=== PATIENT | female | born 1945 ===

== ENCOUNTER 2016-12-12 15:22 | Inpatient (IN) | payer MEDICARE, OTHER ==
[2016-12-12 15:23] VITALS: BMI 37.1
[2016-12-12] MEDS ORDERED: Sodium Chloride 0.9% 1,000 ML IV STA (16:16)
[2016-12-12] MEDS ORDERED: Pantoprazole 80 MG in Sodium Chloride 0.9% 100 ML IV STA (16:16)
--- NOTE | 2016-12-12 16:26 | C.PDOC ---
History Of Present Illness 70 y/o female presents to the ED for evaluation of bloody stool x 3 days. Patient reports history of rectal prolapse surgical repair and ulcer in the same spot. She states that she has history of GI bleed for which she has been seen by Dr. Hutchinson. Patient is currently healing from ulcer and has reportedly stopped all blood thinners with the exception of Aspirin, which she takes for Atrial Fibrillation. Patient also notes history of anemia secondary to GI bleed. She admits to feeling weak and dizzy but denies any abdominal pain, vomiting, chest pain, shortness of breath, or other complaints. Time Seen by Provider: 12/12/16 16:11 Chief Complaint (Nursing): GI Problem History Per: Patient History/Exam Limitations: no limitations Onset/Duration Of Symptoms: Days (3), Gradual, Persistent Current Symptoms Are (Timing): Still Present Number Of Bleeding Episodes: Multiple: Pain Scale Rating Of: 0 Currently Taking: Aspirin Recent travel outside of the [place]: No Past Medical History Reviewed: Historical Data, Nursing Documentation, Vital Signs Vital Signs: Last Vital Signs Temp 97.8 F 12/12/16 15:35 Pulse 93 H 12/12/16 15:35 Resp 20 12/12/16 15:35 BP 105/68 12/12/16 15:35 Pulse Ox 99 12/12/16 16:39 - Medical History PMH: Anemia ( acute and chronic due to GI blood loss), Arthritis, CAD, Colonic Polyps, Diabetes, Diverticulitis (diverticulosis 2014 and 05/2016), Gastritis, HTN, Hypercholesterolemia, TIA Surgical History: Coronary Stent, Endoscopy - [facility] Procedures CLOSED ENDOSCOPIC BIOPSY OF LARGE INTESTINE (11/30/14) CORONAR ARTERIOGR-2 CATH (11/30/14) ESOPHAGOGASTRODUODENOSCOPY [EGD] W/CLOSED BIOPSY (11/30/14) EXCISION OF STOMACH, ENDO, DIAGN (04/09/16) INJECT/INFUSE NEC (06/04/05) LEFT HEART CARDIAC CATH (11/30/14) LT HEART ANGIOCARDIOGRAM (11/30/14) PACKED CELL TRANSFUSION (11/30/14) REPAIR RECTUM, PERCUTANEOUS ENDOSCOPIC APPROACH (07/27/16) RESECTION OF SIGMOID COLON, PERCUTANEOUS ENDOSCOPIC APPROACH (07/27/16) ROBOTIC ASSISTED PROCEDURE OF TRUNK, PERC ENDO APPROACH (07/27/16) TRANSFUSE NONAUT FROZEN RED CELLS IN PERIPH VEIN, [facility] (09/20/16) TRANSFUSE NONAUT RED BLOOD CELLS IN PERIPH VEIN, [facility] (06/27/16) TRANSFUSE NONAUT WHOLE BLOOD IN PERIPH VEIN, [facility] (10/13/16) Family History: States: Unknown Family Hx - Social History Hx Tobacco Use: Yes (cut down per daughter) Hx Alcohol Use: No Hx Substance Use: No - Immunization History Hx Tetanus Toxoid Vaccination: Yes Hx Influenza Vaccination: No (per pt declines) Hx Pneumococcal Vaccination: No Review Of Systems Except As Marked, All Systems Reviewed And Found Negative. Constitutional: Positive for: Weakness Cardiovascular: Negative for: Chest Pain Respiratory: Negative for: Shortness of Breath Gastrointestinal: Positive for: Hematochezia. Negative for: Vomiting, Abdominal Pain Neurological: Positive for: Dizziness Physical Exam - Physical Exam Appears: Non-toxic, No Acute Distress Skin: Warm, Dry, Pale Head: Atraumatic, Normacephalic Eye(s): bilateral: PERRL, Conjunctiva Pale Oral Mucosa: Moist Neck: Normal ROM, Supple Chest: Symmetrical Cardiovascular: Rhythm Regular Respiratory: Normal Breath Sounds, No Rales, No Rhonchi, No Wheezing Gastrointestinal/Abdominal: Normal Exam, Soft, No Tenderness Rectal: Deferred Back: Normal Inspection, No CVA Tenderness Extremity: Normal ROM Neurological/Psych: Oriented x3, Normal Speech, Normal Cognition ED Course And Treatment - Laboratory Results Result Diagrams: 12/12/16 16:59 12/12/16 16:59 O2 Sat by Pulse Oximetry: 99 (ra) Pulse Ox Interpretation: Normal Progress Note: Patient evaluated by PMD Dr. Conley at bedside who requests labs, bleeding scan, and admission. EKG, blood work, occult blood stool, and GI bleeding scan were ordered. Patient was treated with Pepcid IVP, Protonix IV, and IV fluids. Labs significant for HGB 7.2 - 2 units of PRBC ordered. Patient accepted for admission under the care of Dr. Conley for gastrointestinal hemorrhage. Disposition - Disposition Disposition: HOSPITALIZED Disposition Time: 16:24 Condition: FAIR - Clinical Impression Clinical Impression: Gastrointestinal hemorrhage - PA / BATCH MAKER / Resident Statement MD/DO has reviewed & agrees with the documentation as recorded. - Scribe Statement The provider has reviewed the documentation as recorded by the Scribe (Suzanna Zaidi) All medical record entries made by the Scribe were at my direction and personally dictated by me. I have reviewed the chart and agree that the record accurately reflects my personal performance of the history, physical exam, medical decision making, and the department course for this patient. I have also personally directed, reviewed, and agree with the discharge instructions and disposition. Decision To Admit - Pt Status Changed To: Hospital Disposition Of: Inpatient - Admit Certification Admit to Inpatient:: After my assessment, the patient will require hospitalization for at least two midnights. This is because of the severity of symptoms shown, intensity of services needed, and/or the medical risk in this patient being treated as an outpatient. - InPatient: Physician Admission Certification: I certify that this patient requires 2 or more midnights of care for the following reason:: Patient with active GI bleeding, needs bleeding scan, GI consult and possible surgical procedure/ endoscopy. Patient will need to be hospitalized for more than 2 days. - . Bed Request Type: Regular Admitting Physician: Otoniel Conley Jr. Patient Diagnosis: Gastrointestinal hemorrhage
[2016-12-12] MEDS ORDERED: Sodium Chloride 0.9% 1,000 ML ONE (16:42)
[2016-12-12 17:05] LABS: BASO # 0.1 K/uL (0.0-0.2); BASO % 1.4 % (0.0-2.0); EOS # 0.3 K/uL (0.0-0.7); EOS % 4.3 % (0.0-4.0); HEMATOCRIT 23.4 % (34.0-47.0); LYMPH # 1.7 K/uL (1.0-4.3); LYMPH % 23.1 % (20.0-40.0); MEAN CORPUSCULAR HEMOGLOBIN 25.3 pg (27.0-31.0); MEAN CORPUSCULAR HGB CONC 30.8 g/dL (33.0-37.0); MEAN PLATELET VOLUME 8.6 fL (7.2-11.7); MONO # 0.8 K/uL (0.0-0.8); MONO % 10.4 % (0.0-10.0); RED CELL DISTRIBUTION WIDTH 19.9 % (11.5-14.5); WHITE BLOOD COUNT 7.3 K/uL (4.8-10.8)
[2016-12-12 17:08] LABS: MEAN CELL VOLUME 82.1 fL (81.0-99.0)
[2016-12-12 17:16] LABS: CHLORIDE 103 mmol/L (98-107); SODIUM 139 mmol/L (132-148)
[2016-12-12 17:17] LABS: POTASSIUM 4.2 mmol/L (3.6-5.2)
[2016-12-12 17:19] LABS: ALB/GLOB RATIO 1.3 (1.0-2.1); ALKALINE PHOSPHATASE 77 U/L (38-126); ALT/SGPT 16 U/L (9-52); AST/SGOT 18 U/L (14-36); BILIRUBIN,TOTAL 0.2 mg/dL (0.2-1.3); BLOOD UREA NITROGEN 22 mg/dL (7-17); CARBON DIOXIDE 22 mmol/L (22-30); GFR AFRICAN-AMERICAN > 60; TOTAL PROTEIN 6.3 g/dL (6.3-8.3)
[2016-12-12 17:20] LABS: CALCIUM 8.2 mg/dl (8.6-10.4); GLUCOSE,RANDOM 77 mg/dL (65-105)
[2016-12-12] MEDS ORDERED: Influenza Virus Vaccine 45 mcg/0.5 ml Syr IM ONE (20:01)
--- NOTE | 2016-12-13 03:47 | CP.PCM.HP ---
History of Present Illness - History of Present Illness History of Present Illness: CC: "rectal bleeding and weakness" HPI: Pt is 71F with medical history significant for internal hemorrhoids, diabetes, atrial fibrillation, CAD and anemia presenting to ED with complaint of weakness and dark bloody stool x3 days. Patient reports she has recent surgical history of rectal prolapse repair and was noted to have an ulcer to the affected area. She has a history of GI bleed for which she is seen by Dr. Hutchinson and multiple hospitalizations for anemia requiring blood transfusions. Patient reports she recently stopped blood thinners except for aspirin which she takes for atrial fibrillation. Patient admits to dizziness but denies other symptoms including abdominal pain, vomiting, chest pain, and shortness of breath. Per ED PA, Dr. Hutchinson reported no colonoscopy at this time as he is concerned for perforation. PMD: Dr. Conley GI: Dr. Phipps Cardio: Dr. Whitaker Surg Physician Asst: Dr. Rob PMH: Hypertension, CAD - 3 stents placed, DM, HLD, Aortic Aneurysm, Anemia, GI bleed, internal hemorrhoids, Colonic polyps, Diverticulitis (diverticulosis 2014 and 05/2016), Gastritis Meds: Aspirin 81mg qd, Atorvastat 40mg qd, Losartan 50mg qd, Metformin 500mg qd , Carvedilol 12.5mg PO daily, Pantoprazole 40mg qd Allergies: Penicillin (Arms swelled/rash when she was younger) Family Hx: Mother of [place], Brother of Liver CA Surgical Hx: EGD with biopsy, Stent placements (3) in 2014, Colonoscopy with Dr. Payton 06/14/2016-internal hemorrhoids with rectal prolapse, rectal prolapse repair, surgery for internal hemorrhoids (2016) Social Hx: Smokes 5-6 cigarettes per day for 48 years , denies alcohol and drug use. Lives with daughter Present on Admission - Present on Admission Any Indicators Present on Admission: No History of DVT/PE: No History of Uncontrolled Diabetes: No Urinary Catheter: No Decubitus Ulcer Present: No Review of Systems - Constitutional Constitutional: Lethargy. absent: Chills, Fever, Headache - EENT Eyes: absent: Blurred Vision, Change in Vision Nose/Mouth/Throat: absent: Nasal Congestion, Nasal Discharge - Cardiovascular Cardiovascular: absent: Chest Pain, Dyspnea, Dyspnea on Exertion, Palpitations - Respiratory Respiratory: absent: Cough, Wheezing - Gastrointestinal Gastrointestinal: Hematochezia. absent: Abdominal Pain, Coffee Ground Emesis, Constipation, Diarrhea, Nausea, Vomiting - Genitourinary Genitourinary: absent: Change in Urinary Stream - Musculoskeletal Musculoskeletal: Arthralgias, Muscle Cramps - Integumentary Integumentary: absent: Changing Lesions, New Lesions - Neurological Neurological: Dizziness, Weakness. absent: Focal Weakness - Psychiatric Psychiatric: absent: Anxiety, Depression Past Patient History - Infectious Disease Hx of Infectious Diseases: None - Past Medical History & Family History Past Medical History?: Yes - Past Social History Smoking Status: Light Smoker < 10 Cigarettes Daily - CARDIAC Hx Hypercholesterolemia: Yes Hx Hypertension: Yes - PULMONARY Hx Respiratory Disorders: No - NEUROLOGICAL Hx Transient Ischemic Attacks (TIA): Yes - HEENT Hx HEENT Problems: No - RENAL Hx Chronic Kidney Disease: No - ENDOCRINE/METABOLIC Hx Endocrine Disorders: Yes Hx Diabetes Mellitus Type 1: Yes Hx Diabetes Mellitus Type 2: Yes - HEMATOLOGICAL/ONCOLOGICAL Hx Anemia: Yes ( acute and chronic due to GI blood loss) - INTEGUMENTARY Hx Dermatological Problems: No - MUSCULOSKELETAL/RHEUMATOLOGICAL Hx Falls: No - GASTROINTESTINAL Hx Diverticulitis: Yes (diverticulosis 2014 and 05/2016) Hx Gastritis: Yes - GENITOURINARY/GYNECOLOGICAL Hx Genitourinary Disorders: No - PSYCHIATRIC Hx Substance Use: No - SURGICAL HISTORY Hx Coronary Stent: Yes - ANESTHESIA Hx Anesthesia: Yes Hx Anesthesia Reactions: No Hx Malignant Hyperthermia: No Has any member of the family had a problem w/ anesthesia?: Yes Meds Allergies/Adverse Reactions: Allergies Allergy/AdvReac Type Severity Reaction Status Date / Time Penicillins Allergy RASH Verified 12/12/16 15:34 acetaminophen [From Percocet] AdvReac DIZZINESS Verified 12/12/16 15:34 oxycodone HCl [From Percocet] AdvReac DIZZINESS Verified 12/12/16 15:34 Physical Exam - Constitutional Appears: Non-toxic, No Acute Distress - Head Exam Head Exam: ATRAUMATIC, NORMAL INSPECTION, NORMOCEPHALIC - Eye Exam Eye Exam: EOMI, Normal appearance, PERRL Additional comments: conjunctival pallor - ENT Exam ENT Exam: Mucous Membranes Moist - Neck Exam Neck exam: Positive for: Full Rom, Normal Inspection - Respiratory Exam Respiratory Exam: Clear to Auscultation Bilateral, NORMAL BREATHING PATTERN. absent: Rales, Rhonchi, Wheezes - Cardiovascular Exam Cardiovascular Exam: +S1, +S2. absent: Tachycardia, Diastolic murmur, Systolic Murmur - GI/Abdominal Exam GI & Abdominal Exam: Normal Bowel Sounds, Soft. absent: Distended, Firm, Guarding - Rectal Exam Rectal Exam: Deferred - Extremities Exam Extremities exam: Positive for: normal inspection, pedal pulses present. Negative for: pedal edema, tenderness - Back Exam Back exam: NORMAL INSPECTION - Neurological Exam Neurological exam: Alert, CN II-XII Intact, Oriented x3 - Psychiatric Exam Psychiatric exam: Normal Affect, Normal Mood Results - Vital Signs Recent Vital Signs: Last Vital Signs Temp 98.1 F 12/13/16 02:32 Pulse 79 12/13/16 02:32 Resp 18 12/13/16 02:32 BP 109/64 12/13/16 02:32 Pulse Ox 97 12/13/16 00:00 - Labs Result Diagrams: 12/12/16 16:59 12/12/16 16:59 Labs: Laboratory Results - last 24 hr 12/12/16 12/12/16 16:59 21:29 WBC 7.3 RBC 2.85 L Hgb 7.2 L D Hct 23.4 L MCV 82.1 D MCH 25.3 L MCHC 30.8 L RDW 19.9 H Plt Count 333 MPV 8.6 Neut % (Auto) 60.8 Lymph % (Auto) 23.1 Mccreary % (Auto) 10.4 H Eos % (Auto) 4.3 H Baso % (Auto) 1.4 Neut # 4.4 Lymph # 1.7 Mccreary # 0.8 Eos # 0.3 Baso # 0.1 PT 11.4 INR 1.0 APTT 29 Sodium 139 Potassium 4.2 Chloride 103 Carbon Dioxide 22 Anion Gap 18 BUN 22 H Creatinine 0.7 Est GFR ( Amer) > 60 Est GFR (Non-Af Amer) > 60 POC Glucose (mg/dL) 149 H Random Glucose 77 Calcium 8.2 L Total Bilirubin 0.2 AST 18 ALT 16 Alkaline Phosphatase 77 Total Protein 6.3 Albumin 3.5 Globulin 2.8 Albumin/Globulin Ratio 1.3 Blood Type A NEGATIVE Antibody Screen Negative Assessment & Plan - Assessment and Plan (Free Text) Assessment: 1. Acute GI Bleed anemic - hemoglobin 7.2 transfused 2 units PRBC f/u FOBT f/u GI bleeding scan f/u AM CBC Hold ASA Protonix 40 mg po daily GI, Dr. Hutchinson, consulted. Does not recommend colonoscopy at this time. 2. History of Atrial Fibrillation Patient currently not on anticoagulation agents Hold ASA due to bleed Consult Cardiology, Dr. Whitaker. f/u recs 3. CAD history of cardiac stents Continue home medications: Coreg 12.5 mg po daily Losartan 50 mg po daily Atorvastatin 40 mg po daily ASA held 4. DMII Continue home medication: Metformin 500 mg po daily Accuchecks 5. Prophylaxis SCD Protonix VTE contraindicated due to GI bleed
[2016-12-13 07:45] LABS: BASO % 0.6 % (0.0-2.0); EOS # 0.4 K/uL (0.0-0.7); EOS % 6.4 % (0.0-4.0); HEMATOCRIT 25.4 % (34.0-47.0); LYMPH # 1.2 K/uL (1.0-4.3); LYMPH % 18.1 % (20.0-40.0); MEAN CELL VOLUME 82.7 fL (81.0-99.0); MEAN CORPUSCULAR HEMOGLOBIN 27.3 pg (27.0-31.0); MEAN PLATELET VOLUME 8.6 fL (7.2-11.7); MONO # 0.7 K/uL (0.0-0.8); MONO % 10.7 % (0.0-10.0); RED CELL DISTRIBUTION WIDTH 17.8 % (11.5-14.5); WHITE BLOOD COUNT 6.4 K/uL (4.8-10.8)
--- NOTE | 2016-12-13 07:52 | CP.PCM.PN ---
<Kevin Luke - Last Filed: 12/13/16 20:10> Subjective - Date & Time of Evaluation Date of Evaluation: 12/13/16 Time of Evaluation: 07:10 - Subjective Subjective: PGY1 Medicine Note - Dr. Conley Patient seen and examined at bedside. No overnight events as per nursing. She reports 3-4 episodes of bright red blood prior to admission. She states she saw drops of blood in the toilet. She came to the ED, wher she was found to be anemic and transfused 2u PRBC. Tolerating diet. +urination +BM (dark stool). Denies headache, fever, chills, chest pain, palpitations, abdominal pain, nausea , vomiting, diarrhea, or any additional complaints. Plan for Colonoscopy with Dr. Hutchinson in the am on 12/14/16. Objective - Vital Signs/Intake and Output Vital Signs (last 24 hours): Temp Pulse Resp BP Pulse Ox 97.7 F 73 18 139/72 97 12/13/16 04:45 12/13/16 04:45 12/13/16 04:45 12/13/16 04:45 12/13/16 00:00 Intake and Output: 12/13/16 12/13/16 06:59 18:59 Intake Total 1500 Balance 1500 - Medications Medications: Current Medications Carvedilol (Coreg) 12.5 mg PO DAILY MARY Losartan Potassium (Cozaar) 50 mg PO DAILY MARY Metformin HCl (Glucophage) 500 mg PO DAILY MARY Pantoprazole Sodium (Protonix Ec Tab) 40 mg PO DAILY MARY Rosuvastatin Calcium (Crestor) 20 mg PO HS MARY - Labs Labs: 12/13/16 07:10 12/12/16 16:59 PT 11.3 SECONDS (9.7-12.2) 12/13/16 07:10 INR 1.0 12/13/16 07:10 APTT 31 SECONDS (21-34) 12/13/16 07:10 - Additional Findings Additional findings: - Constitutional Appears: Non-toxic, No Acute Distress - Head Exam Head Exam: ATRAUMATIC, NORMAL INSPECTION, NORMOCEPHALIC - Eye Exam Eye Exam: EOMI, Normal appearance, PERRL Additional comments: conjunctiva pallor - ENT Exam ENT Exam: Mucous Membranes Moist - Neck Exam Neck exam: Positive for: Full Rom, Normal Inspection - Respiratory Exam Respiratory Exam: Clear to Auscultation Bilateral, NORMAL BREATHING PATTERN. absent: Rales, Rhonchi, Wheezes - Cardiovascular Exam Cardiovascular Exam: +S1, +S2. absent: Tachycardia, Diastolic murmur, Systolic Murmur - GI/Abdominal Exam GI & Abdominal Exam: Normal Bowel Sounds, Soft. absent: Distended, Firm, Guarding, Tenderness - Rectal Exam Rectal Exam: Deferred - Extremities Exam Extremities exam: Positive for: normal inspection, pedal pulses present. Negative for: pedal edema, tenderness - Back Exam Back exam: NORMAL INSPECTION - Neurological Exam Neurological exam: Alert, CN II-XII Intact, Oriented x3 - Psychiatric Exam Psychiatric exam: Normal Affect, Normal Mood Assessment and Plan - Assessment and Plan (Free Text) Assessment: Plan for Colonoscopy with Dr. Hutchinson in the am on 12/14/16. Per Dr. Conley, patient is moderate to high risk for surgery under conscious sedation. 1. Acute GI Bleed anemic - hemoglobin 7.2 transfused 2 units PRBC -> Hgb 8.4 f/u FOBT (not collected) GI bleeding scan - negative Hold ASA Protonix 40 mg po daily -Spoke with Dr. Hutchinson this morning and confirmed that no conversation regarding colonoscopy took place prior to 10am 12/13/16 (H&P reports that he spoke with the PA working overnight). 2. History of Atrial Fibrillation Patient currently not on anticoagulation agents Hold ASA due to bleed Consult Cardiology, Dr. Whitaker. f/u recs 3. CAD history of cardiac stents Continue home medications: Coreg 12.5 mg po daily Losartan 50 mg po daily Atorvastatin 40 mg po daily ASA held 4. DMII Continue home medication: Metformin 500 mg po daily Accuchecks 5. Infrarenal Abdominal Aortic Aneurysm CT abdomen from 08/31/16 shows a 4cm infra-renal AAA 6. Prophylaxis SCD Protonix VTE contraindicated due to GI bleed [All management per Dr. Conley] <Otoniel Conley Jr. - Last Filed: 12/16/16 12:03> Objective - Vital Signs/Intake and Output Vital Signs (last 24 hours): Temp Pulse Resp BP Pulse Ox 98.2 F 63 20 174/85 H 98 12/16/16 08:00 12/16/16 08:00 12/16/16 08:00 12/16/16 10:46 12/16/16 08:00 Intake and Output: 12/16/16 12/16/16 06:59 18:59 Intake Total 2300 Balance 2300 - Medications Medications: Current Medications Carvedilol (Coreg) 12.5 mg PO DAILY [facility] Last Admin: 12/16/16 10:46 Dose: 12.5 mg Dextrose/Sodium Chloride (Dextrose 5%/0.9% Ns 1000 Ml) 1,000 mls @ 100 mls/hr IV .Q10H [facility] Last Admin: 12/16/16 10:48 Dose: 100 mls/hr Losartan Potassium (Cozaar) 50 mg PO DAILY MARY Last Admin: 12/16/16 10:47 Dose: 50 mg Metformin HCl (Glucophage) 500 mg PO DAILY [facility] Last Admin: 12/16/16 10:47 Dose: 500 mg Pantoprazole Sodium (Protonix Ec Tab) 40 mg PO DAILY [facility] Last Admin: 12/16/16 10:46 Dose: 40 mg Rosuvastatin Calcium (Crestor) 20 mg PO HS [facility] Last Admin: 12/15/16 21:21 Dose: 20 mg - Labs Labs: 12/16/16 08:31 12/16/16 08:31 PT 11.3 SECONDS (9.7-12.2) 12/13/16 07:10 INR 1.0 12/13/16 07:10 APTT 31 SECONDS (21-34) 12/13/16 07:10 Attending/Attestation - Attestation I have personally seen and examined this patient.: Yes I have fully participated in the care of the patient.: Yes I have reviewed all pertinent clinical information, including history, physical exam and plan: Yes
[2016-12-13 07:53] LABS: CHLORIDE 108 mmol/L (98-107)
[2016-12-13 07:54] LABS: SODIUM 141 mmol/L (132-148)
[2016-12-13 07:56] LABS: AST/SGOT 13 U/L (14-36); BILIRUBIN,TOTAL 1.1 mg/dL (0.2-1.3); CARBON DIOXIDE 21 mmol/L (22-30); GFR AFRICAN-AMERICAN > 60
[2016-12-13 07:57] LABS: ALB/GLOB RATIO 1.1 (1.0-2.1); ALKALINE PHOSPHATASE 65 U/L (38-126); ALT/SGPT 15 U/L (9-52); BLOOD UREA NITROGEN 15 mg/dL (7-17); CALCIUM 7.9 mg/dl (8.6-10.4); GLUCOSE,RANDOM 82 mg/dL (65-105); PHOSPHOROUS 4.1 mg/dL (2.5-4.5); TOTAL PROTEIN 5.3 g/dL (6.3-8.3)
--- NOTE | 2016-12-13 09:40 | CP.PCM.CON ---
History of Present Illness - History of Present Illness History of Present Illness: 71 yo female well known to me with recurrent GI bleeding. Patient was found to have rectal bleeding secondary to rectal prolapse that was repaired 2-[address] Negrete but developed recurrent rectal bleeding. Had colonoscopy done about 5 weeks ago which showed a large ulcerated area in sigmoid colon at site of rectal prolapse repair with mesh and other hardware in the area and surrounding large friable ulcer. She was scheduled to have repeat colonoscopy next week to assess for healing at the recommendation of surgery. She has had no bleeding until one day [employer] where she reports several episodes of bright red ( not dark) blood for 3-4 episodes. Can to ED and was found to be anemic. She is on ASA for afib/CAD but denies any other anti-platelet drugs of NSAIDS. Asked to evaluate for bleeding. Review of Systems - Cardiovascular Cardiovascular: absent: Chest Pain, Irregular Heart Rhythm, Orthopnea, Palpitations - Respiratory Respiratory: absent: Cough, Dyspnea on Exertion - Gastrointestinal Gastrointestinal: As Per HPI - Genitourinary Genitourinary: absent: Difficulty Urinating, Hematuria - Musculoskeletal Musculoskeletal: Arthralgias. absent: Muscle Weakness Past Patient History - Infectious Disease Hx of Infectious Diseases: None - Past Medical History & Family History Past Medical History?: Yes - Past Social History Smoking Status: Light Smoker < 10 Cigarettes Daily Alcohol: None Drugs: Denies Home Situation {Lives}: With Family - CARDIAC Hx Hypercholesterolemia: Yes Hx Hypertension: Yes - PULMONARY Hx Respiratory Disorders: No - NEUROLOGICAL Hx Transient Ischemic Attacks (TIA): Yes - HEENT Hx HEENT Problems: No - RENAL Hx Chronic Kidney Disease: No - ENDOCRINE/METABOLIC Hx Endocrine Disorders: Yes Hx Diabetes Mellitus Type 1: Yes Hx Diabetes Mellitus Type 2: Yes - HEMATOLOGICAL/ONCOLOGICAL Hx Anemia: Yes ( acute and chronic due to GI blood loss) Hx Cirrhosis: No Hx Hepatitis A: No Hx Hepatitis B: No Hx Hepatitis C: No - INTEGUMENTARY Hx Dermatological Problems: No - MUSCULOSKELETAL/RHEUMATOLOGICAL Hx Arthritis: Yes Hx Falls: No - GASTROINTESTINAL Hx Gastrointestinal Disorders: Yes Hx Diverticulitis: Yes (diverticulosis 2014 and 05/2016) Hx Gastritis: Yes Hx Gastroesophageal Reflux: Yes Hx Hemorrhoids: Yes Other/Comment: Rectal prolapse - GENITOURINARY/GYNECOLOGICAL Hx Genitourinary Disorders: No - PSYCHIATRIC Hx Substance Use: No - SURGICAL HISTORY Hx Coronary Stent: Yes Other/Comment: Repair of rectal prolapse 2016 - ANESTHESIA Hx Anesthesia: Yes Hx Anesthesia Reactions: No Hx Malignant Hyperthermia: No Has any member of the family had a problem w/ anesthesia?: Yes Meds Allergies/Adverse Reactions: Allergies Allergy/AdvReac Type Severity Reaction Status Date / Time Penicillins Allergy RASH Verified 12/12/16 15:34 acetaminophen [From Percocet] AdvReac DIZZINESS Verified 12/12/16 15:34 oxycodone HCl [From Percocet] AdvReac DIZZINESS Verified 12/12/16 15:34 - Medications Medications: Current Medications Carvedilol (Coreg) 12.5 mg PO DAILY [facility] Losartan Potassium (Cozaar) 50 mg PO DAILY [facility] Metformin HCl (Glucophage) 500 mg PO DAILY [facility] Pantoprazole Sodium (Protonix Ec Tab) 40 mg PO DAILY [facility] Rosuvastatin Calcium (Crestor) 20 mg PO HS [facility] Physical Exam - Constitutional Appears: No Acute Distress - Head Exam Head Exam: ATRAUMATIC, NORMOCEPHALIC - Eye Exam Eye Exam: EOMI, PERRL - ENT Exam ENT Exam: Mucous Membranes Moist - Neck Exam Neck exam: Positive for: Normal Inspection - Respiratory Exam Respiratory Exam: NORMAL BREATHING PATTERN - Cardiovascular Exam Cardiovascular Exam: REGULAR RHYTHM, +S1 - GI/Abdominal Exam GI & Abdominal Exam: Normal Bowel Sounds, Soft. absent: Distended, Mass, Organomegaly, Rebound, Tenderness - Rectal Exam Rectal Exam: Deferred - Extremities Exam Extremities exam: Positive for: normal inspection - Neurological Exam Neurological exam: Alert, CN II-XII Intact, Oriented x3 - Psychiatric Exam Psychiatric exam: Normal Affect, Normal Mood - Skin Skin Exam: Dry, Warm Results - Vital Signs Recent Vital Signs: Last Vital Signs Temp 98.1 F 12/13/16 07:50 Pulse 68 12/13/16 07:50 Resp 20 12/13/16 07:50 BP 135/66 12/13/16 07:50 Pulse Ox 95 12/13/16 07:50 - Labs Result Diagrams: 12/13/16 07:10 12/13/16 07:10 Labs: Laboratory Results - last 24 hr 12/12/16 12/12/16 12/13/16 16:59 21:29 07:01 WBC 7.3 RBC 2.85 L Hgb 7.2 L D Hct 23.4 L MCV 82.1 D MCH 25.3 L MCHC 30.8 L RDW 19.9 H Plt Count 333 MPV 8.6 Neut % (Auto) 60.8 Lymph % (Auto) 23.1 [place] % (Auto) 10.4 H Eos % (Auto) 4.3 H Baso % (Auto) 1.4 Neut # 4.4 Lymph # 1.7 [place] # 0.8 Eos # 0.3 Baso # 0.1 PT 11.4 INR 1.0 APTT 29 Sodium 139 Potassium 4.2 Chloride 103 Carbon Dioxide 22 Anion Gap 18 BUN 22 H Creatinine 0.7 Est GFR ( Amer) > 60 Est GFR (Non-Af Amer) > 60 POC Glucose (mg/dL) 149 H 87 Random Glucose 77 Calcium 8.2 L Phosphorus Magnesium Total Bilirubin 0.2 AST 18 ALT 16 Alkaline Phosphatase 77 Total Protein 6.3 Albumin 3.5 Globulin 2.8 Albumin/Globulin Ratio 1.3 Blood Type A NEGATIVE Antibody Screen Negative 12/13/16 07:10 WBC 6.4 RBC 3.08 L Hgb 8.4 L Hct 25.4 L MCV 82.7 MCH 27.3 MCHC 33.0 RDW 17.8 H Plt Count 248 MPV 8.6 Neut % (Auto) 64.2 Lymph % (Auto) 18.1 L [place] % (Auto) 10.7 H Eos % (Auto) 6.4 H Baso % (Auto) 0.6 Neut # 4.1 Lymph # 1.2 [place] # 0.7 Eos # 0.4 Baso # 0.0 PT 11.3 INR 1.0 APTT 31 Sodium 141 Potassium 4.0 Chloride 108 H Carbon Dioxide 21 L Anion Gap 16 BUN 15 Creatinine 0.7 Est GFR ( Amer) > 60 Est GFR (Non-Af Amer) > 60 POC Glucose (mg/dL) Random Glucose 82 Calcium 7.9 L Phosphorus 4.1 Magnesium 2.0 Total Bilirubin 1.1 AST 13 L D ALT 15 Alkaline Phosphatase 65 Total Protein 5.3 L Albumin 2.8 L Globulin 2.5 Albumin/Globulin Ratio 1.1 Blood Type Antibody Screen Assessment & Plan (1) Gastrointestinal hemorrhage Assessment and Plan: Recurrent bright red rectal bleeding likely again due to ulceration or complication relating to rectal prolapse surgery several months ago. Large ulceration and mesh/suture material seen on prior exam with recent bleeding evident. Plan repeat colonoscopy in am following a vigourous preparation Advise surgical reevaluation with Dr Negrete and would advise resident be present for colon exam at 9:30 tomorrow to witness source. Monitor H/H and transfuse if needed due to h/o CAD Hold ASA Status: Acute (2) Acute blood loss anemia Assessment and Plan: As above Status: Acute (3) Rectal ulcer Assessment and Plan: As above Status: Acute (4) Coronary artery disease Assessment and Plan: Will hold ASA. Aware of h/o stent. Status: Acute
[2016-12-13] MEDS: Pantoprazole 40 mg EC Tab PO SCH (11:03)
--- NOTE | 2016-12-13 12:51 | NM ---
PROCEDURE: Nuclear medicine gastrointestinal bleeding scan. HISTORY: GI bleeding COMPARISON: None available. TECHNIQUE: 4 cc of patient blood was withdrawn and mixed with 21 mCi of technetium ultra tagged. Images of the abdomen and pelvis were obtained in the anterior and posterior projection at 1 min intervals over a period of 45 min. FINDINGS: No abnormal extravasation of tracer was observed throughout the exam to indicate active bleeding within or outside the gastrointestinal tract. Radionuclide in the mid abdomen consistent with known abdominal aortic aneurysm. Physiologic activity was seen in the heart, liver, spleen and blood vessels. IMPRESSION: No evidence of active gastrointestinal bleeding. Concordant results (preliminary interpretation) provided by [facility]. Procedure Completed: 19:02. Preliminary ([facility]) Report: Dictated and Authenticated: 19:43. Final Interpretation: 09/20/2015. December 13, 2016.
[2016-12-13] MEDS ORDERED: Bisacodyl 5mg EC Tab PO ONE (17:00)
[2016-12-13] MEDS ORDERED: Peg-Electrolyte Oral Soln 4L (Golytely) PO ONE (18:00)
[2016-12-13] MEDS: Dextrose 5%/0.9% NS 1,000 ML IV SCH (21:27)
--- NOTE | 2016-12-13 22:23 | CP.PCM.CON ---
History of Present Illness - History of Present Illness History of Present Illness: CC: "rectal bleeding and weakness" HPI: Pt is 71F with medical history significant for internal hemorrhoids, diabetes, atrial fibrillation, CAD and anemia presenting to ED with complaint of weakness and dark bloody stool x3 days. Patient reports she has recent surgical history of rectal prolapse repair and was noted to have an ulcer to the affected area. She has a history of GI bleed for which she is seen by Dr. Hutchinson and multiple hospitalizations for anemia requiring blood transfusions. Patient reports she recently stopped blood thinners except for aspirin which she takes for atrial fibrillation. Patient admits to dizziness but denies other symptoms including abdominal pain, vomiting, chest pain, and shortness of breath. Per ED PA, Dr. Hutchinson reported no colonoscopy at this time as he is concerned for perforation. PMD: Dr. Conley GI: Dr. Phipps Frit Burner: Dr. Rob PMH: Hypertension, CAD - 3 stents placed, DM, HLD, Aortic Aneurysm, Anemia, GI bleed, internal hemorrhoids, Colonic polyps, Diverticulitis (diverticulosis 2014 and 05/2016), Gastritis Meds: Aspirin 81mg qd, Atorvastat 40mg qd, Losartan 50mg qd, Metformin 500mg qd , Carvedilol 12.5mg PO daily, Pantoprazole 40mg qd Allergies: Penicillin (Arms swelled/rash when she was younger) Family Hx: Mother of [place], Brother of Liver [place] Surgical Hx: EGD with biopsy, Stent placements (3) in 2014, Colonoscopy with Dr. Payton 06/14/2016-internal hemorrhoids with rectal prolapse, rectal prolapse repair, surgery for internal hemorrhoids (2016) Social Hx: Smokes 5-6 cigarettes per day for 48 years , denies alcohol and drug use. Lives with daughter Present on Admission - Present on Admission Any Indicators Present on Admission: No History of DVT/PE: No History of Uncontrolled Diabetes: No Urinary Catheter: No Decubitus Ulcer Present: No Review of Systems - Constitutional Constitutional: Lethargy. absent: Chills, Fever, Headache - EENT Eyes: absent: Blurred Vision, Change in Vision Nose/Mouth/Throat: absent: Nasal Congestion, Nasal Discharge - Cardiovascular Cardiovascular: absent: Chest Pain, Dyspnea, Dyspnea on Exertion, Palpitations - Respiratory Respiratory: absent: Cough, Wheezing - Gastrointestinal Gastrointestinal: Hematochezia. absent: Abdominal Pain, Coffee Ground Emesis, Constipation, Diarrhea, Nausea, Vomiting - Genitourinary Genitourinary: absent: Change in Urinary Stream - Musculoskeletal Musculoskeletal: Arthralgias, Muscle Cramps - Integumentary Integumentary: absent: Changing Lesions, New Lesions - Neurological Neurological: Dizziness, Weakness. absent: Focal Weakness - Psychiatric Psychiatric: absent: Anxiety, Depression Physical Exam - Constitutional Appears: Non-toxic, No Acute Distress - Head Exam Head Exam: ATRAUMATIC, NORMAL INSPECTION, NORMOCEPHALIC - Eye Exam Eye Exam: EOMI, Normal appearance, PERRL Additional comments: conjunctival pallor - ENT Exam ENT Exam: Mucous Membranes Moist - Neck Exam Neck exam: Positive for: Full Rom, Normal Inspection - Respiratory Exam Respiratory Exam: Clear to Auscultation Bilateral, NORMAL BREATHING PATTERN. absent: Rales, Rhonchi, Wheezes - Cardiovascular Exam Cardiovascular Exam: +S1, +S2. absent: Tachycardia, Diastolic murmur, Systolic Murmur - GI/Abdominal Exam GI & Abdominal Exam: Normal Bowel Sounds, Soft. absent: Distended, Firm, Guarding - Rectal Exam Rectal Exam: Deferred - Extremities Exam Extremities exam: Positive for: normal inspection, pedal pulses present. Negative for: pedal edema, tenderness - Back Exam Back exam: NORMAL INSPECTION - Neurological Exam Neurological exam: Alert, CN II-XII Intact, Oriented x3 - Psychiatric Exam Psychiatric exam: Normal Affect, Normal Mood Past Patient History - Infectious Disease Hx of Infectious Diseases: None - Past Medical History & Family History Past Medical History?: Yes - Past Social History Smoking Status: Light Smoker < 10 Cigarettes Daily Alcohol: None Drugs: Denies Home Situation {Lives}: With Family - CARDIAC Hx Hypercholesterolemia: Yes Hx Hypertension: Yes - PULMONARY Hx Respiratory Disorders: No - NEUROLOGICAL Hx Transient Ischemic Attacks (TIA): Yes - HEENT Hx HEENT Problems: No - RENAL Hx Chronic Kidney Disease: No - ENDOCRINE/METABOLIC Hx Endocrine Disorders: Yes Hx Diabetes Mellitus Type 1: Yes Hx Diabetes Mellitus Type 2: Yes - HEMATOLOGICAL/ONCOLOGICAL Hx Anemia: Yes ( acute and chronic due to GI blood loss) Hx Cirrhosis: No Hx Hepatitis A: No Hx Hepatitis B: No Hx Hepatitis C: No - INTEGUMENTARY Hx Dermatological Problems: No - MUSCULOSKELETAL/RHEUMATOLOGICAL Hx Arthritis: Yes Hx Falls: No - GASTROINTESTINAL Hx Gastrointestinal Disorders: Yes Hx Diverticulitis: Yes (diverticulosis 2014 and 05/2016) Hx Gastritis: Yes Hx Gastroesophageal Reflux: Yes Hx Hemorrhoids: Yes Other/Comment: Rectal prolapse - GENITOURINARY/GYNECOLOGICAL Hx Genitourinary Disorders: No - PSYCHIATRIC Hx Substance Use: No - SURGICAL HISTORY Hx Coronary Stent: Yes Other/Comment: Repair of rectal prolapse 2016 - ANESTHESIA Hx Anesthesia: Yes Hx Anesthesia Reactions: No Hx Malignant Hyperthermia: No Has any member of the family had a problem w/ anesthesia?: Yes Meds Allergies/Adverse Reactions: Allergies Allergy/AdvReac Type Severity Reaction Status Date / Time Penicillins Allergy RASH Verified 12/12/16 15:34 acetaminophen [From Percocet] AdvReac DIZZINESS Verified 12/12/16 15:34 oxycodone HCl [From Percocet] AdvReac DIZZINESS Verified 12/12/16 15:34 - Medications Medications: Current Medications Carvedilol (Coreg) 12.5 mg PO DAILY [facility] Last Admin: 12/13/16 11:04 Dose: 12.5 mg Dextrose/Sodium Chloride (Dextrose 5%/0.9% Ns 1000 Ml) 1,000 mls @ 100 mls/hr IV .Q10H [facility] Last Admin: 12/13/16 21:27 Dose: 100 mls/hr Losartan Potassium (Cozaar) 50 mg PO DAILY [facility] Last Admin: 12/13/16 11:04 Dose: 50 mg Metformin HCl (Glucophage) 500 mg PO DAILY [facility] Last Admin: 12/13/16 11:04 Dose: 500 mg Pantoprazole Sodium (Protonix Ec Tab) 40 mg PO DAILY [facility] Last Admin: 12/13/16 11:03 Dose: 40 mg Polyethylene Glycol/Electrolytes (Golytely) 2,000 ml PO ONCE ONE Stop: 12/14/16 06:01 Rosuvastatin Calcium (Crestor) [address] [facility] Results - Vital Signs Recent Vital Signs: Last Vital Signs Temp 97.3 F L 12/13/16 15:20 Pulse 66 12/13/16 15:20 Resp 20 12/13/16 15:20 BP 134/69 12/13/16 15:20 Pulse Ox 97 12/13/16 15:20 - Labs Result Diagrams: 12/13/16 07:10 12/13/16 07:10 Labs: Laboratory Results - last 24 hr 03/12/13/16 12/13/16 16:59 07:01 07:10 WBC 6.4 RBC 3.08 L Hgb 8.4 L Hct 25.4 L MCV 82.7 MCH 27.3 MCHC 33.0 RDW 17.8 H Plt Count 248 MPV 8.6 Neut % (Auto) 64.2 Lymph % (Auto) 18.1 L [place] % (Auto) 10.7 H Eos % (Auto) 6.4 H Baso % (Auto) 0.6 Neut # 4.1 Lymph # 1.2 [place] # 0.7 Eos # 0.4 Baso # 0.0 PT 11.3 INR 1.0 APTT 31 Sodium 141 Potassium 4.0 Chloride 108 H Carbon Dioxide 21 L Anion Gap 16 BUN 15 Creatinine 0.7 Est GFR ( Amer) > 60 Est GFR (Non-Af Amer) > 60 POC Glucose (mg/dL) 87 Random Glucose 82 Calcium 7.9 L Phosphorus 4.1 Magnesium 2.0 Total Bilirubin 1.1 AST 13 L D ALT 15 Alkaline Phosphatase 65 Total Protein 5.3 L Albumin 2.8 L Globulin 2.5 Albumin/Globulin Ratio 1.1 Blood Type A NEGATIVE Antibody Screen Negative 12/13/16 12/13/16 11:17 16:11 WBC RBC Hgb Hct MCV MCH MCHC RDW Plt Count MPV Neut % (Auto) Lymph % (Auto) [place] % (Auto) Eos % (Auto) Baso % (Auto) Neut # Lymph # [place] # Eos # Baso # PT INR APTT Sodium Potassium Chloride Carbon Dioxide Anion Gap BUN Creatinine Est GFR ( Amer) Est GFR (Non-Af Amer) POC Glucose (mg/dL) 130 H 79 Random Glucose Calcium Phosphorus Magnesium Total Bilirubin AST ALT Alkaline Phosphatase Total Protein Albumin Globulin Albumin/Globulin Ratio Blood Type Antibody Screen Assessment & Plan - Assessment and Plan (Free Text) Assessment: 1. Acute GI Bleed anemic - hemoglobin 7.2 transfused 2 units PRBC f/u FOBT f/u GI bleeding scan f/u AM CBC Hold ASA Protonix 40 mg po daily GI, Dr. Hutchinson, consulted. Does not recommend colonoscopy at this time. 2. History of Atrial Fibrillation Patient currently not on anticoagulation agents Hold ASA due to bleed Consult Cardiology, Dr. Whitaker. f/u recs 3. CAD history of cardiac stents Continue home medications: Coreg 12.5 mg po daily Losartan 50 mg po daily Atorvastatin 40 mg po daily ASA held 4. DMII Continue home medication: Metformin 500 mg po daily Accuchecks 5. Prophylaxis SCD Protonix VTE contraindicated due to GI bleed Patient cleared for Endoscopy and Colonoscopy
[2016-12-14] MEDS ORDERED: Peg-Electrolyte Oral Soln 4L (Golytely) PO ONE (06:00)
[2016-12-14] MEDS: Dextrose 5%/0.9% NS 1,000 ML IV SCH (07:02)
[2016-12-14 07:20] LABS: HEMATOCRIT 26.8 % (34.0-47.0); MEAN CELL VOLUME 82.8 fL (81.0-99.0); MEAN CORPUSCULAR HEMOGLOBIN 26.5 pg (27.0-31.0); MEAN CORPUSCULAR HGB CONC 32.1 g/dL (33.0-37.0); MEAN PLATELET VOLUME 8.5 fL (7.2-11.7); RED CELL DISTRIBUTION WIDTH 18.1 % (11.5-14.5); WHITE BLOOD COUNT 5.4 K/uL (4.8-10.8)
[2016-12-14 07:30] LABS: CHLORIDE 106 mmol/L (98-107)
[2016-12-14 07:31] LABS: POTASSIUM 3.6 mmol/L (3.6-5.2); SODIUM 140 mmol/L (132-148)
[2016-12-14 07:33] LABS: CARBON DIOXIDE 24 mmol/L (22-30); GFR AFRICAN-AMERICAN > 60
[2016-12-14 07:34] LABS: ALB/GLOB RATIO 1.2 (1.0-2.1); ALKALINE PHOSPHATASE 73 U/L (38-126); ALT/SGPT 16 U/L (9-52); AST/SGOT 12 U/L (14-36); BILIRUBIN,TOTAL 0.6 mg/dL (0.2-1.3); BLOOD UREA NITROGEN 8 mg/dL (7-17); GLUCOSE,RANDOM 102 mg/dL (65-105); PHOSPHOROUS 3.6 mg/dL (2.5-4.5); TOTAL PROTEIN 5.5 g/dL (6.3-8.3)
[2016-12-14 07:35] LABS: MAGNESIUM 1.9 mg/dL (1.6-2.3)
--- NOTE | 2016-12-14 08:14 | CP.PCM.PN ---
<Kevin Luke - Last Filed: 12/14/16 18:02> Subjective - Date & Time of Evaluation Date of Evaluation: 12/14/16 Time of Evaluation: 07:05 - Subjective Subjective: PGY1 Medicine Note - Dr. Conley Patient seen and examined at bedside. No overnight events as per nursing. She reports 2 additional episodes of BRBPR overnight while having a BM. She adhered to the colonoscopy prep. +urination +BM (dark stool +BRBPR). Denies headache, fever, chills, chest pain, palpitations, abdominal pain, nausea, vomiting, diarrhea, or any additional complaints. Plan for Colonoscopy with Dr. Hutchinson today 12/14/16. Objective - Vital Signs/Intake and Output Vital Signs (last 24 hours): Temp Pulse Resp BP Pulse Ox 97.9 F 62 20 165/75 H 99 12/14/16 07:47 12/14/16 07:47 12/14/16 07:47 12/14/16 07:47 12/14/16 07:47 Intake and Output: 12/14/16 12/14/16 06:59 18:59 Intake Total 3100 Balance 3100 - Medications Medications: Current Medications Carvedilol (Coreg) 12.5 mg PO DAILY [facility] Last Admin: 12/13/16 11:04 Dose: 12.5 mg Dextrose/Sodium Chloride (Dextrose 5%/0.9% Ns 1000 Ml) 1,000 mls @ 100 mls/hr IV .Q10H [facility] Last Admin: 12/14/16 07:02 Dose: 100 mls/hr Losartan Potassium (Cozaar) 50 mg PO DAILY [facility] Last Admin: 12/13/16 11:04 Dose: 50 mg Metformin HCl (Glucophage) 500 mg PO DAILY [facility] Last Admin: 12/13/16 11:04 Dose: 500 mg Pantoprazole Sodium (Protonix Ec Tab) 40 mg PO DAILY [facility] Last Admin: 12/13/16 11:03 Dose: 40 mg Rosuvastatin Calcium (Crestor) 20 mg PO HS [facility] - Labs Labs: 12/14/16 06:30 12/14/16 06:30 PT 11.3 SECONDS (9.7-12.2) 12/13/16 07:10 INR 1.0 12/13/16 07:10 APTT 31 SECONDS (21-34) 12/13/16 07:10 - Additional Findings Additional findings: - Constitutional Appears: Non-toxic, No Acute Distress - Head Exam Head Exam: ATRAUMATIC, NORMAL INSPECTION, NORMOCEPHALIC - Eye Exam Eye Exam: EOMI, Normal appearance, PERRL Additional comments: conjunctiva pallor - ENT Exam ENT Exam: Mucous Membranes Moist - Neck Exam Neck exam: Positive for: Full Rom, Normal Inspection - Respiratory Exam Respiratory Exam: Clear to Auscultation Bilateral, NORMAL BREATHING PATTERN. absent: Rales, Rhonchi, Wheezes - Cardiovascular Exam Cardiovascular Exam: +S1, +S2. absent: Tachycardia, Diastolic murmur, Systolic Murmur - GI/Abdominal Exam GI & Abdominal Exam: Normal Bowel Sounds, Soft. absent: Distended, Firm, Guarding, Tenderness - Rectal Exam Rectal Exam: Deferred - Extremities Exam Extremities exam: Positive for: normal inspection, pedal pulses present. Negative for: pedal edema, tenderness - Back Exam Back exam: NORMAL INSPECTION - Neurological Exam Neurological exam: Alert, CN II-XII Intact, Oriented x3 - Psychiatric Exam Psychiatric exam: Normal Affect, Normal Mood Assessment and Plan - Assessment and Plan (Free Text) Assessment: Plan for Colonoscopy with Dr. Hutchinson in the am on 12/14/16. Per Dr. Conley, patient is moderate to high risk for surgery under conscious sedation. 1. Acute GI Bleed 12/14: Dr Negrete operated on patient 2-3 months ago, to return next week. Dr. Mercer (surgery) was consulted by Dr. Hutchinson to cover patient for the weekend. Consult placed for Dr. Larson, per Dr. Conley for 2nd opinion. 12/14: Hgb 8.6 -> Transfuse 2u PRBC this evening. 12/14: Colonoscopy with Dr. Hutchinson today. Visible mesh at 20-25cm with much "trauma", ulceration and edema. Satellite area that appears to be directly related to trauma from the edge of the mesh was oozing with the edge of a vessel visible. Clipped using a resolution clip with hemostasis. Still some oozing blood seen from under the area covered with mesh. Not felt to be safe to utilize cautery in this area. Dr Negrete is away this week and a consult has been put in for Dr Mercer. No bleeding or old blood was seen in the proximal colon. -Hold ASA -Appears a surgical revision will be needed of some sort. -Monitor for bleeding. -GI bleeding scan - negative anemic - hemoglobin 7.2 transfused 2 units PRBC -> Hgb 8.4 f/u FOBT (not collected) Protonix 40 mg po daily -Spoke with Dr. Hutchinson this morning and confirmed that no conversation regarding colonoscopy took place prior to 10am 12/13/16 (H&P reports that he spoke with the PA working overnight). 2. History of Atrial Fibrillation Patient currently not on anticoagulation agents Hold ASA due to bleed Consult Cardiology, Dr. Whitaker. f/u recs 3. CAD history of cardiac stents Continue home medications: Coreg 12.5 mg po daily Losartan 50 mg po daily Atorvastatin 40 mg po daily ASA held 4. DMII Continue home medication: Metformin 500 mg po daily Accuchecks 5. Infrarenal Abdominal Aortic Aneurysm CT abdomen from 08/31/16 shows a 4cm infra-renal AAA 6. Prophylaxis SCD Protonix VTE contraindicated due to GI bleed [All management per Dr. Conley] <Otoniel Conley Jr. - Last Filed: 12/16/16 12:06> Objective - Vital Signs/Intake and Output Vital Signs (last 24 hours): Temp Pulse Resp BP Pulse Ox 98.2 F 63 20 174/85 H 98 12/16/16 08:00 12/16/16 08:00 12/16/16 08:00 12/16/16 10:46 12/16/16 08:00 Intake and Output: 12/16/16 12/16/16 06:59 18:59 Intake Total 2300 Balance 2300 - Medications Medications: Current Medications Carvedilol (Coreg) 12.5 mg PO DAILY [facility] Last Admin: 12/16/16 10:46 Dose: 12.5 mg Dextrose/Sodium Chloride (Dextrose 5%/0.9% Ns 1000 Ml) 1,000 mls @ 100 mls/hr IV .Q10H [facility] Last Admin: 12/16/16 10:48 Dose: 100 mls/hr Losartan Potassium (Cozaar) 50 mg PO DAILY [facility] Last Admin: 12/16/16 10:47 Dose: 50 mg Metformin HCl (Glucophage) 500 mg PO DAILY [facility] Last Admin: 12/16/16 10:47 Dose: 500 mg Pantoprazole Sodium (Protonix Ec Tab) 40 mg PO DAILY [facility] Last Admin: 12/16/16 10:46 Dose: 40 mg Rosuvastatin Calcium (Crestor) 20 mg PO HS [facility] Last Admin: 12/15/16 21:21 Dose: 20 mg - Labs Labs: 12/16/16 08:31 12/16/16 08:31 PT 11.3 SECONDS (9.7-12.2) 12/13/16 07:10 INR 1.0 12/13/16 07:10 APTT 31 SECONDS (21-34) 12/13/16 07:10 Attending/Attestation - Attestation I have personally seen and examined this patient.: Yes I have fully participated in the care of the patient.: Yes I have reviewed all pertinent clinical information, including history, physical exam and plan: Yes
[2016-12-14] MEDS ORDERED: Midazolam 2 MG/2 ML VIAL ONE (09:28)
[2016-12-14] MEDS ORDERED: Propofol 10 mg/ml Inj (20 ML) ONE ×2 (09:29→09:56)
[2016-12-14] MEDS: Pantoprazole 40 mg EC Tab PO SCH (09:30)
--- NOTE | 2016-12-14 10:13 | CP.PCM.PN ---
Subjective - Date & Time of Evaluation Date of Evaluation: 12/14/16 Time of Evaluation: 10:10 - Subjective Subjective: POST OP NOTE Patient still noted to have visible mesh at 20-25cm with much "trauma", ulceration and edema. technical operations vice president instructional design specialist came down to visualize this area which was oozing. A satellite area that appears to be directly related to trauma from the edge of the mesh was oozing with the edge of a vessel visible. This was clipped using a resolution clip with hemostasis. Still some oozing blood seen from under the area covered with mesh. Not felt to be safe to utilize cautery in this area. Resident advised that Dr Negrete is away this week and a consult has been put in for Dr Mercer who is surgical service attending. No bleeding or old blood was seen in the proximal colon. Hold ASA Appears a surgical revision will be needed of some sort. Monitor for bleeding. Objective - Vital Signs/Intake and Output Vital Signs (last 24 hours): Temp Pulse Resp BP Pulse Ox 97.9 F 62 20 165/75 H 99 12/14/16 09:24 12/14/16 09:24 12/14/16 09:24 12/14/16 09:24 12/14/16 09:24 Intake and Output: 12/14/16 12/14/16 06:59 18:59 Intake Total 3100 150 Balance 3100 150 - Medications Medications: Current Medications Carvedilol (Coreg) 12.5 mg PO DAILY [facility] Last Admin: 12/14/16 09:28 Dose: Not Given Dextrose/Sodium Chloride (Dextrose 5%/0.9% Ns 1000 Ml) 1,000 mls @ 100 mls/hr IV .Q10H [facility] Last Admin: 12/14/16 07:02 Dose: 100 mls/hr Losartan Potassium (Cozaar) 50 mg PO DAILY [facility] Last Admin: 12/14/16 09:28 Dose: Not Given Metformin HCl (Glucophage) 500 mg PO DAILY [facility] Last Admin: 12/14/16 09:30 Dose: Not Given Pantoprazole Sodium (Protonix Ec Tab) 40 mg PO DAILY [facility] Last Admin: 12/14/16 09:30 Dose: Not Given Rosuvastatin Calcium (Crestor) 20 mg PO HS [facility] - Labs Labs: 12/14/16 06:30 12/14/16 06:30 PT 11.3 SECONDS (9.7-12.2) 12/13/16 07:10 INR 1.0 12/13/16 07:10 APTT 31 SECONDS (21-34) 12/13/16 07:10 Assessment and Plan (1) Gastrointestinal hemorrhage Status: Acute (2) Acute blood loss anemia Status: Acute (3) Rectal ulcer Status: Acute (4) Coronary artery disease Status: Acute
--- NOTE | 2016-12-14 13:55 | CP.PCM.CON ---
History of Present Illness - History of Present Illness History of Present Illness: General Surgery Consult Re: GI bleeding, ulceration/mesh at surgical site HPI: 71F presented to ED with C/O weakness and dark bloody stool x3 days. Pt had rectopexy in July 2016 and was noted to have an ulcer/erosion to part of the colon with mesh showing through in September 2015. Colonoscopy done today by Dr. Hutchinson showed some oozing blood around the mesh Currently denies other symptoms including abd pain, N/V, chest pain, and SOB. PMH: A Fib, HTN, CAD, DM, HLD, Aortic Aneurysm, Anemia, Hx GI bleed, internal hemorrhoids, Colonic polyps, Diverticulitis, Gastritis PSH: 3 Stents, Rectopexy, Hemorrhoidectomy SH: Smokes x 50 years, No EtOH or drug use All: PCN, tylenol, oxycodone Meds: See MAR Review of Systems - Review of Systems All systems: reviewed and no additional remarkable complaints except (as per HPI ) Past Patient History - Infectious Disease Hx of Infectious Diseases: None - Past Medical History & Family History Past Medical History?: Yes - Past Social History Smoking Status: Light Smoker < 10 Cigarettes Daily Alcohol: None Drugs: Denies Home Situation {Lives}: With Family - CARDIAC Hx Hypercholesterolemia: Yes Hx Hypertension: Yes - PULMONARY Hx Respiratory Disorders: No - NEUROLOGICAL Hx Transient Ischemic Attacks (TIA): Yes - HEENT Hx HEENT Problems: No - RENAL Hx Chronic Kidney Disease: No - ENDOCRINE/METABOLIC Hx Endocrine Disorders: Yes Hx Diabetes Mellitus Type 1: Yes Hx Diabetes Mellitus Type 2: Yes - HEMATOLOGICAL/ONCOLOGICAL Hx Anemia: Yes ( acute and chronic due to GI blood loss) Hx Cirrhosis: No Hx Hepatitis A: No Hx Hepatitis B: No Hx Hepatitis C: No - INTEGUMENTARY Hx Dermatological Problems: No - MUSCULOSKELETAL/RHEUMATOLOGICAL Hx Arthritis: Yes Hx Falls: No - GASTROINTESTINAL Hx Gastrointestinal Disorders: Yes Hx Diverticulitis: Yes (diverticulosis 2014 and 05/2016) Hx Gastritis: Yes Hx Gastroesophageal Reflux: Yes Hx Hemorrhoids: Yes Other/Comment: Rectal prolapse - GENITOURINARY/GYNECOLOGICAL Hx Genitourinary Disorders: No - PSYCHIATRIC Hx Substance Use: No - SURGICAL HISTORY Hx Coronary Stent: Yes Other/Comment: Repair of rectal prolapse 2015 - ANESTHESIA Hx Anesthesia: Yes Hx Anesthesia Reactions: No Hx Malignant Hyperthermia: No Has any member of the family had a problem w/ anesthesia?: Yes Meds Allergies/Adverse Reactions: Allergies Allergy/AdvReac Type Severity Reaction Status Date / Time Penicillins Allergy RASH Verified 12/12/16 15:34 acetaminophen [From Percocet] AdvReac DIZZINESS Verified 12/12/16 15:34 oxycodone HCl [From Percocet] AdvReac DIZZINESS Verified 12/12/16 15:34 - Medications Medications: Current Medications Carvedilol (Coreg) 12.5 mg PO DAILY [facility] Last Admin: 12/14/16 09:28 Dose: Not Given Dextrose/Sodium Chloride (Dextrose 5%/0.9% Ns 1000 Ml) 1,000 mls @ 100 mls/hr IV .Q10H [facility] Last Admin: 12/14/16 07:02 Dose: 100 mls/hr Losartan Potassium (Cozaar) 50 mg PO DAILY [facility] Last Admin: 12/14/16 09:28 Dose: Not Given Metformin HCl (Glucophage) 500 mg PO DAILY [facility] Last Admin: 12/14/16 09:30 Dose: Not Given Pantoprazole Sodium (Protonix Ec Tab) 40 mg PO DAILY [facility] Last Admin: 12/14/16 09:30 Dose: Not Given Rosuvastatin Calcium (Crestor) 20 mg PO [facility] Physical Exam - Constitutional Appears: Non-toxic, No Acute Distress - Head Exam Head Exam: ATRAUMATIC, NORMOCEPHALIC - Eye Exam Eye Exam: EOMI. absent: Scleral icterus - ENT Exam ENT Exam: Mucous Membranes Moist Additional comments: trachea midline - Respiratory Exam Respiratory Exam: NORMAL BREATHING PATTERN. absent: Respiratory Distress - Cardiovascular Exam Cardiovascular Exam: +S1, +S2. absent: Bradycardia, Tachycardia - GI/Abdominal Exam GI & Abdominal Exam: Soft. absent: Distended, Guarding, Tenderness - Rectal Exam Rectal Exam: Deferred - Extremities Exam Extremities exam: Positive for: normal capillary refill. Negative for: calf tenderness, pedal edema - Back Exam Back exam: absent: CVA tenderness (L), CVA tenderness (R) - Neurological Exam Neurological exam: Alert, Oriented x3 - Psychiatric Exam Psychiatric exam: Normal Affect, Normal Mood - Skin Skin Exam: Dry, Warm Results - Vital Signs Recent Vital Signs: Last Vital Signs Temp 98.2 F 12/14/16 10:32 Pulse 62 12/14/16 10:32 Resp 25 H 12/14/16 10:32 BP 145/66 12/14/16 10:32 Pulse Ox 100 12/14/16 10:32 - Labs Result Diagrams: 12/14/16 06:30 12/14/16 06:30 Labs: Laboratory Results - last 24 hr 12/13/16 12/13/16 12/14/16 16:11 21:05 06:30 WBC 5.4 RBC 3.23 L Hgb 8.6 L Hct 26.8 L MCV 82.8 MCH 26.5 L MCHC 32.1 L RDW 18.1 H Plt Count 237 MPV 8.5 Sodium 140 Potassium 3.6 Chloride 106 Carbon Dioxide 24 Anion Gap 14 BUN 8 Creatinine 0.6 L Est GFR ( Amer) > 60 Est GFR (Non-Af Amer) > 60 POC Glucose (mg/dL) 79 70 Random Glucose 102 Calcium 8.0 L Phosphorus 3.6 Magnesium 1.9 Total Bilirubin 0.6 AST 12 L ALT 16 Alkaline Phosphatase 73 Total Protein 5.5 L Albumin 3.0 L Globulin 2.5 Albumin/Globulin Ratio 1.2 12/14/16 12/14/16 07:01 11:09 WBC RBC Hgb Hct MCV MCH MCHC RDW Plt Count MPV Sodium Potassium Chloride Carbon Dioxide Anion Gap BUN Creatinine Est GFR ( Amer) Est GFR (Non-Af Amer) POC Glucose (mg/dL) 112 H 92 Random Glucose Calcium Phosphorus Magnesium Total Bilirubin AST ALT Alkaline Phosphatase Total Protein Albumin Globulin Albumin/Globulin Ratio Assessment & Plan - Assessment and Plan (Free Text) Assessment: 71F with colonic bleeding 2/2 mesh erosion Plan: Pt does not require urgent surgery at this time. Monitor H&H, transfuse PRN per primary team. Dr Negrete to return next week. Will call him to discuss pt. D/W Dr. Ruslan Heredia PGY3
--- NOTE | 2016-12-14 20:34 | CON ---
DATE: 12/14/2016 The patient is a 70-year-old woman, admitted to the hospital on 12/12 with GI bleeding. On subsequent evaluation she was found to have an area where a previously-placed mesh, retrieved rectal prol apse was identified, and eroding through the mucosa wall. PAST MEDICAL HISTORY: History of diabetes, hypertension, smoking, history of coronary interven tions including coronary stents in the past. FAMILY HISTORY: Noted. SOCIAL HISTORY: As mentioned above. REVIEW OF SYSTEMS: Review carried out. All 17 systems were reviewed and are unable to identify othe r significant problems except as mentioned previously. PHYSICAL EXAMINATION: Completely carried out. The rectal exam, in particular the scars on the abdom en were appropriate for surgery on her rectum, there is no evidence of prolapse. There is a good-siz ed rectal vault. IMPRESSION: The patient has had a recent procedure within the past 6 months or so for rectal prolaps e. The mesh has eroded into the rectal space. She is not septic. She is not bleeding profusely, an d I think that she should be seen by her original surgeon and the mesh removed and a resection done _ ____. I will discuss this personally with Dr. Conley. Ja Larson Jr., MD cc: 56 TT: 12/14/2016 20:33:45 Confirmation # [id number] Dictation # [id number] ln
--- NOTE | 2016-12-15 01:24 | CP.PCM.PN ---
Subjective - Date & Time of Evaluation Date of Evaluation: 12/14/16 Time of Evaluation: 18:30 - Subjective Subjective: Patient s/p Colonoscopy GI bleeding with anemia No chest pain and dyspnea ECHO ordered Objective - Vital Signs/Intake and Output Vital Signs (last 24 hours): Temp Pulse Resp BP Pulse Ox 97.8 F 62 18 169/76 H 96 12/15/16 01:12 12/15/16 01:12 12/15/16 01:12 12/15/16 01:12 12/14/16 23:51 Intake and Output: 12/14/16 12/15/16 18:59 06:59 Intake Total 1050 875 Balance 1050 875 - Medications Medications: Current Medications Carvedilol (Coreg) 12.5 mg PO DAILY [facility] Last Admin: 12/14/16 09:28 Dose: Not Given Dextrose/Sodium Chloride (Dextrose 5%/0.9% Ns 1000 Ml) 1,000 mls @ 100 mls/hr IV .Q10H [facility] Last Admin: 12/14/16 07:02 Dose: 100 mls/hr Losartan Potassium (Cozaar) 50 mg PO DAILY [facility] Last Admin: 12/14/16 09:28 Dose: Not Given Metformin HCl (Glucophage) 500 mg PO DAILY [facility] Last Admin: 12/14/16 09:30 Dose: Not Given Pantoprazole Sodium (Protonix Ec Tab) 40 mg PO DAILY [facility] Last Admin: 12/14/16 09:30 Dose: Not Given Rosuvastatin Calcium (Crestor) 20 mg PO HS [facility] Last Admin: 12/14/16 21:16 Dose: 20 mg - Labs Labs: 12/14/16 06:30 12/14/16 06:30 PT 11.3 SECONDS (9.7-12.2) 12/13/16 07:10 INR 1.0 12/13/16 07:10 APTT 31 SECONDS (21-34) 12/13/16 07:10
[2016-12-15] MEDS: Dextrose 5%/0.9% NS 1,000 ML IV SCH ×3 (03:15→20:48)
--- NOTE | 2016-12-15 07:21 | CP.PCM.PN ---
Subjective - Date & Time of Evaluation Date of Evaluation: 12/15/16 Time of Evaluation: 07:17 - Subjective Subjective: Surgery - Dr. Larson (covering for Dr. Negrete) Pt S&E. NELSONEO. Pt states no further bloody stool since yesterday. She denies any complaints at this time. She is aware of the plan for surgery Sunday. Objective - Vital Signs/Intake and Output Vital Signs (last 24 hours): Temp Pulse Resp BP Pulse Ox 98 F 71 20 152/67 H 98 12/15/16 04:20 12/15/16 04:20 12/15/16 04:20 12/15/16 04:20 12/15/16 04:12 Intake and Output: 12/15/16 12/15/16 06:59 18:59 Intake Total 1250 Balance 1250 - Medications Medications: Current Medications Carvedilol (Coreg) 12.5 mg PO DAILY [facility] Last Admin: 12/14/16 09:28 Dose: Not Given Dextrose/Sodium Chloride (Dextrose 5%/0.9% Ns 1000 Ml) 1,000 mls @ 100 mls/hr IV .Q10H [facility] Last Admin: 12/14/16 07:02 Dose: 100 mls/hr Losartan Potassium (Cozaar) 50 mg PO DAILY [facility] Last Admin: 12/14/16 09:28 Dose: Not Given Metformin HCl (Glucophage) 500 mg PO DAILY [facility] Last Admin: 12/14/16 09:30 Dose: Not Given Pantoprazole Sodium (Protonix Ec Tab) 40 mg PO DAILY [facility] Last Admin: 12/14/16 09:30 Dose: Not Given Rosuvastatin Calcium (Crestor) 20 mg PO [facility] Last Admin: 12/14/16 21:16 Dose: 20 mg - Labs Labs: 12/14/16 06:30 12/14/16 06:30 PT 11.3 SECONDS (9.7-12.2) 12/13/16 07:10 INR 1.0 12/13/16 07:10 APTT 31 SECONDS (21-34) 12/13/16 07:10 - Constitutional Appears: No Acute Distress - Head Exam Head Exam: ATRAUMATIC, NORMOCEPHALIC - Respiratory Exam Respiratory Exam: NORMAL BREATHING PATTERN. absent: Respiratory Distress - GI/Abdominal Exam GI & Abdominal Exam: Soft. absent: Distended, Guarding, Tenderness - Neurological Exam Neurological Exam: Alert, Oriented x3 - Psychiatric Exam Psychiatric exam: Normal Affect, Normal Mood - Skin Skin Exam: Dry, Intact Assessment and Plan - Assessment and Plan (Free Text) Assessment: 71F s/p Rectopexy in 2015, here with LGIB d/t mesh erosion Plan: -No emergent surgery needed at this time -Plan for OR on Sunday w/ Dr. Negrete who performed original operation -Continue liquid diet and supplements as ordered -Monitor for further bleeding, H&H, Transfuse prn -Bowel prep Sunday -DW Dr. Larson and Dr. Caden Silva PGY2
[2016-12-15] MEDS: Pantoprazole 40 mg EC Tab PO SCH (11:23)
[2016-12-15 12:05] LABS: BASO % 0.6 % (0.0-2.0); EOS # 0.4 K/uL (0.0-0.7); EOS % 4.8 % (0.0-4.0); HEMATOCRIT 33.6 % (34.0-47.0); LYMPH # 1.3 K/uL (1.0-4.3); LYMPH % 17.7 % (20.0-40.0); MEAN CORPUSCULAR HEMOGLOBIN 25.5 pg (27.0-31.0); MEAN CORPUSCULAR HGB CONC 31.8 g/dL (33.0-37.0); MEAN PLATELET VOLUME 8.4 fL (7.2-11.7); MONO # 0.9 K/uL (0.0-0.8); MONO % 12.2 % (0.0-10.0); RED CELL DISTRIBUTION WIDTH 19.2 % (11.5-14.5); WHITE BLOOD COUNT 7.3 K/uL (4.8-10.8)
--- NOTE | 2016-12-15 12:06 | CP.PCM.PN ---
Subjective - Date & Time of Evaluation Date of Evaluation: 12/15/16 Time of Evaluation: 12:03 - Subjective Subjective: No further bleeding but no bowel movement since colonoscopy and clipping of ulcer/vessel was performed Transfused 2 more units PRBCs Case discussed with Dr Larson last night who agrees with need for surgery to take-down mesh. Dr Negrete to return on Sunday. No septic or actively bleeding to warrant procedure sooner. Objective - Vital Signs/Intake and Output Vital Signs (last 24 hours): Temp Pulse Resp BP Pulse Ox 98.5 F 64 20 166/74 H 98 12/15/16 08:00 12/15/16 08:00 12/15/16 08:00 12/15/16 11:22 12/15/16 08:00 Intake and Output: 12/15/16 12/15/16 06:59 18:59 Intake Total 1800 Balance 1800 - Medications Medications: Current Medications Carvedilol (Coreg) 12.5 mg PO DAILY [facility] Last Admin: 12/15/16 11:22 Dose: 12.5 mg Dextrose/Sodium Chloride (Dextrose 5%/0.9% Ns 1000 Ml) 1,000 mls @ 100 mls/hr IV .Q10H [facility] Last Admin: 12/14/16 07:02 Dose: 100 mls/hr Losartan Potassium (Cozaar) 50 mg PO DAILY [facility] Last Admin: 12/15/16 11:23 Dose: 50 mg Metformin HCl (Glucophage) 500 mg PO DAILY [facility] Last Admin: 12/15/16 11:23 Dose: 500 mg Pantoprazole Sodium (Protonix Ec Tab) 40 mg PO DAILY [facility] Last Admin: 12/15/16 11:23 Dose: 40 mg Rosuvastatin Calcium (Crestor) 20 mg PO [facility] Last Admin: 12/14/16 21:16 Dose: 20 mg - Labs Labs: 12/14/16 06:30 12/14/16 06:30 PT 11.3 SECONDS (9.7-12.2) 12/13/16 07:10 INR 1.0 12/13/16 07:10 APTT 31 SECONDS (21-34) 12/13/16 07:10 - Constitutional Appears: No Acute Distress - Head Exam Head Exam: ATRAUMATIC, NORMOCEPHALIC - Eye Exam Eye Exam: EOMI, PERRL - Respiratory Exam Respiratory Exam: NORMAL BREATHING PATTERN - Cardiovascular Exam Cardiovascular Exam: REGULAR RHYTHM, +S1 - GI/Abdominal Exam GI & Abdominal Exam: Soft, Normal Bowel Sounds. absent: Distended, Guarding, Tenderness, Mass - Extremities Exam Extremities Exam: Normal Inspection Assessment and Plan (1) Gastrointestinal hemorrhage Assessment & Plan: No further bleeding after colonoscopy but continued oozing expected until surgical revision is performed. Mesh itself is causing tissue trauma, ulceration. Awaiting Dr Negrete to return. Monitor for bleeding Transfuse as needed Repeat CBC today after transfusion Status: Acute (2) Acute blood loss anemia Assessment & Plan: as above CBC post transfusion Status: Acute (3) Rectal ulcer Assessment & Plan: Rectal ulcer/post-operative mesh causing continued trauma and bleeding. Oozing seen from mucosa that was covered by mesh. No endoscopic remedy available. Satellite ulceration with vessel was successfully clipped yesterday but this is only temporizing. Status: Acute (4) Coronary artery disease Assessment & Plan: ASA on hold pending surgery. Status: Acute
[2016-12-15 12:07] LABS: MEAN CELL VOLUME 80.1 fL (81.0-99.0)
[2016-12-15 12:16] LABS: CHLORIDE 104 mmol/L (98-107)
[2016-12-15 12:17] LABS: POTASSIUM 3.8 mmol/L (3.6-5.2); SODIUM 139 mmol/L (132-148)
[2016-12-15 12:19] LABS: ALB/GLOB RATIO 1.2 (1.0-2.1); ALKALINE PHOSPHATASE 74 U/L (38-126); ALT/SGPT 20 U/L (9-52); AST/SGOT 14 U/L (14-36); BILIRUBIN,TOTAL 1.4 mg/dL (0.2-1.3); BLOOD UREA NITROGEN 6 mg/dL (7-17); CARBON DIOXIDE 24 mmol/L (22-30); GFR AFRICAN-AMERICAN > 60; GLUCOSE,RANDOM 84 mg/dL (65-105); TOTAL PROTEIN 5.8 g/dL (6.3-8.3)
[2016-12-15 12:20] LABS: MAGNESIUM 1.8 mg/dL (1.6-2.3); PHOSPHOROUS 3.8 mg/dL (2.5-4.5)
--- NOTE | 2016-12-15 21:37 | CP.PCM.PN ---
<Belem Mir - Last Filed: 12/15/16 21:34> Subjective - Date & Time of Evaluation Date of Evaluation: 12/15/16 Time of Evaluation: 08:30 - Subjective Subjective: Internal medicine progress note for Dr. Stephie Mir, PGY-1 Pt S & E at bedside. Pt reports completed of blood transfusion earlier in the AM. Denied any current bleeding or BM. Admits to palpitations. Denies N/V/F/C, SOB, CP, abdominal pain. Slept ok. Objective - Vital Signs/Intake and Output Vital Signs (last 24 hours): Temp Pulse Resp BP Pulse Ox 98 F 63 20 141/65 98 12/15/16 15:20 12/15/16 15:20 12/15/16 15:20 12/15/16 15:20 12/15/16 15:20 Intake and Output: 12/15/16 12/16/16 18:59 06:59 Intake Total 1200 Balance 1200 - Medications Medications: Current Medications Carvedilol (Coreg) 12.5 mg PO DAILY [facility] Last Admin: 12/15/16 11:22 Dose: 12.5 mg Dextrose/Sodium Chloride (Dextrose 5%/0.9% Ns 1000 Ml) 1,000 mls @ 100 mls/hr IV .Q10H [facility] Last Admin: 12/15/16 20:48 Dose: 100 mls/hr Losartan Potassium (Cozaar) 50 mg PO DAILY [facility] Last Admin: 12/15/16 11:23 Dose: 50 mg Metformin HCl (Glucophage) 500 mg PO DAILY [facility] Last Admin: 12/15/16 11:23 Dose: 500 mg Pantoprazole Sodium (Protonix Ec Tab) 40 mg PO DAILY [facility] Last Admin: 12/15/16 11:23 Dose: 40 mg Rosuvastatin Calcium (Crestor) 20 mg PO HS [facility] Last Admin: 12/15/16 21:21 Dose: 20 mg - Labs Labs: 12/15/16 11:58 12/15/16 11:58 PT 11.3 SECONDS (9.7-12.2) 12/13/16 07:10 INR 1.0 12/13/16 07:10 APTT 31 SECONDS (21-34) 12/13/16 07:10 - Constitutional Appears: Non-toxic, No Acute Distress - Head Exam Head Exam: ATRAUMATIC, NORMAL INSPECTION, NORMOCEPHALIC - Eye Exam Eye Exam: EOMI, Normal appearance, PERRL Pupil Exam: NORMAL ACCOMODATION, PERRL - ENT Exam ENT Exam: Mucous Membranes Moist, Normal Exam - Neck Exam Neck Exam: Full ROM, Normal Inspection - Respiratory Exam Respiratory Exam: Clear to Ausculation Bilateral, NORMAL BREATHING PATTERN. absent: Rales, Rhonchi, Wheezes - Cardiovascular Exam Cardiovascular Exam: REGULAR RHYTHM, +S1, +S2 - GI/Abdominal Exam GI & Abdominal Exam: Soft, Normal Bowel Sounds. absent: Distended, Firm, Guarding, Tenderness - Extremities Exam Extremities Exam: Full ROM, Normal Inspection. absent: Pedal Edema - Back Exam Back Exam: Full ROM, NORMAL INSPECTION - Neurological Exam Neurological Exam: Alert, Awake, CN II-XII Intact, Oriented x3 - Skin Skin Exam: Dry, Intact, Normal Color, Warm. absent: Cyanosis, Diaphoretic, Pallor, Pallor Assessment and Plan - Assessment and Plan (Free Text) Assessment: 1. Acute GI Bleed 12/14: Dr Negrete operated on patient 2-3 months ago, to return next week. Dr. Mercer (surgery) was consulted by Dr. Hutchinson to cover patient for the weekend. Consult placed for Dr. Larson, per Dr. Conley for 2nd opinion. 12/14: Hgb 8.6 -> Transfuse 2u PRBC this evening. 12/14: Colonoscopy with Dr. Hutchinson today. Visible mesh at 20-25cm with much "trauma", ulceration and edema. Satellite area that appears to be directly related to trauma from the edge of the mesh was oozing with the edge of a vessel visible. Clipped using a resolution clip with hemostasis. Still some oozing blood seen from under the area covered with mesh. Not felt to be safe to utilize cautery in this area. Dr Negrete is away this week and a consult has been put in for Dr Mercer. No bleeding or old blood was seen in the proximal colon. -Hold ASA -Appears a surgical revision will be needed of some sort. -Monitor for bleeding. -GI bleeding scan - negative anemic - hemoglobin 7.2 transfused 2 units PRBC -> Hgb 8.4 f/u FOBT (not collected) Protonix 40 mg po daily -Spoke with Dr. Hutchinson this morning and confirmed that no conversation regarding colonoscopy took place prior to 10am 12/13/16 (H&P reports that he spoke with the PA working overnight). S/p 2 units pRBCs As per Dr. oCnley- CBC Q8H Transfuse PRN Monitor for bleeding 2. History of Atrial Fibrillation Patient currently not on anticoagulation agents Hold ASA due to bleed Consult Cardiology, Dr. Whitaker. f/u recs 3. CAD history of cardiac stents Continue home medications: Coreg 12.5 mg po daily Losartan 50 mg po daily Atorvastatin 40 mg po daily ASA held 4. DMII Continue home medication: Metformin 500 mg po daily Accuchecks 5. Infrarenal Abdominal Aortic Aneurysm CT abdomen from 08/31/16 shows a 4cm infra-renal AAA 6. Prophylaxis SCD Protonix VTE contraindicated due to GI bleed Dispo cont current mgmt FU serial H/H Transfuse PRN Awaiting Caden recs [All management per Dr. Conley] <Otoniel Conley Jr. - Last Filed: 12/16/16 12:08> Objective - Vital Signs/Intake and Output Vital Signs (last 24 hours): Temp Pulse Resp BP Pulse Ox 98.2 F 63 20 174/85 H 98 12/16/16 08:00 12/16/16 08:00 12/16/16 08:00 12/16/16 10:46 12/16/16 08:00 Intake and Output: 12/16/16 12/16/16 06:59 18:59 Intake Total 2300 Balance 2300 - Medications Medications: Current Medications Carvedilol (Coreg) 12.5 mg PO DAILY [facility] Last Admin: 12/16/16 10:46 Dose: 12.5 mg Dextrose/Sodium Chloride (Dextrose 5%/0.9% Ns 1000 Ml) 1,000 mls @ 100 mls/hr IV .Q10H [facility] Last Admin: 12/16/16 10:48 Dose: 100 mls/hr Losartan Potassium (Cozaar) 50 mg PO DAILY [facility] Last Admin: 12/16/16 10:47 Dose: 50 mg Metformin HCl (Glucophage) 500 mg PO DAILY [facility] Last Admin: 12/16/16 10:47 Dose: 500 mg Pantoprazole Sodium (Protonix Ec Tab) 40 mg PO DAILY [facility] Last Admin: 12/16/16 10:46 Dose: 40 mg Rosuvastatin Calcium (Crestor) 20 mg PO HS [facility] Last Admin: 12/15/16 21:21 Dose: 20 mg - Labs Labs: 12/16/16 08:31 12/16/16 08:31 PT 11.3 SECONDS (9.7-12.2) 12/13/16 07:10 INR 1.0 12/13/16 07:10 APTT 31 SECONDS (21-34) 12/13/16 07:10 Attending/Attestation - Attestation I have personally seen and examined this patient.: Yes I have fully participated in the care of the patient.: Yes I have reviewed all pertinent clinical information, including history, physical exam and plan: Yes
[2016-12-15 22:37] LABS: BASO # 0.1 K/uL (0.0-0.2); BASO % 0.8 % (0.0-2.0); EOS # 0.5 K/uL (0.0-0.7); EOS % 6.8 % (0.0-4.0); HEMATOCRIT 33.4 % (34.0-47.0); LYMPH # 1.5 K/uL (1.0-4.3); LYMPH % 22.1 % (20.0-40.0); MEAN CORPUSCULAR HEMOGLOBIN 25.5 pg (27.0-31.0); MEAN CORPUSCULAR HGB CONC 31.4 g/dL (33.0-37.0); MEAN PLATELET VOLUME 8.2 fL (7.2-11.7); MONO # 0.9 K/uL (0.0-0.8); MONO % 14.2 % (0.0-10.0); NRBC % 0.1 % (0.0-2.0); RED CELL DISTRIBUTION WIDTH 19.3 % (11.5-14.5); WHITE BLOOD COUNT 6.6 K/uL (4.8-10.8)
--- NOTE | 2016-12-15 22:38 | CP.PCM.PN ---
Subjective - Date & Time of Evaluation Date of Evaluation: 12/15/16 Time of Evaluation: 20:40 - Subjective Subjective: Patient without cardiac events Objective - Vital Signs/Intake and Output Vital Signs (last 24 hours): Temp Pulse Resp BP Pulse Ox 98 F 63 20 141/65 98 12/15/16 15:20 12/15/16 15:20 12/15/16 15:20 12/15/16 15:20 12/15/16 15:20 Intake and Output: 12/15/16 12/16/16 18:59 06:59 Intake Total 1200 Balance 1200 - Medications Medications: Current Medications Carvedilol (Coreg) 12.5 mg PO DAILY [facility] Last Admin: 12/15/16 11:22 Dose: 12.5 mg Dextrose/Sodium Chloride (Dextrose 5%/0.9% Ns 1000 Ml) 1,000 mls @ 100 mls/hr IV .Q10H [facility] Last Admin: 12/15/16 20:48 Dose: 100 mls/hr Losartan Potassium (Cozaar) 50 mg PO DAILY [facility] Last Admin: 12/15/16 11:23 Dose: 50 mg Metformin HCl (Glucophage) 500 mg PO DAILY [facility] Last Admin: 12/15/16 11:23 Dose: 500 mg Pantoprazole Sodium (Protonix Ec Tab) 40 mg PO DAILY [facility] Last Admin: 12/15/16 11:23 Dose: 40 mg Rosuvastatin Calcium (Crestor) 20 mg PO HS [facility] Last Admin: 12/15/16 21:21 Dose: 20 mg - Labs Labs: 12/15/16 11:58 12/15/16 11:58 PT 11.3 SECONDS (9.7-12.2) 12/13/16 07:10 INR 1.0 12/13/16 07:10 APTT 31 SECONDS (21-34) 12/13/16 07:10
[2016-12-16 08:36] LABS: HEMATOCRIT 35.5 % (34.0-47.0); MEAN CELL VOLUME 81.6 fL (81.0-99.0); MEAN CORPUSCULAR HEMOGLOBIN 25.4 pg (27.0-31.0); MEAN CORPUSCULAR HGB CONC 31.2 g/dL (33.0-37.0); MEAN PLATELET VOLUME 8.7 fL (7.2-11.7); RED CELL DISTRIBUTION WIDTH 19.2 % (11.5-14.5); WHITE BLOOD COUNT 8.1 K/uL (4.8-10.8)
[2016-12-16 08:48] LABS: CHLORIDE 105 mmol/L (98-107); POTASSIUM 3.9 mmol/L (3.6-5.2); SODIUM 141 mmol/L (132-148)
[2016-12-16 08:50] LABS: ALB/GLOB RATIO 1.2 (1.0-2.1); ALKALINE PHOSPHATASE 73 U/L (38-126); AST/SGOT 11 U/L (14-36); BILIRUBIN,TOTAL 0.9 mg/dL (0.2-1.3); CARBON DIOXIDE 24 mmol/L (22-30); GFR AFRICAN-AMERICAN > 60; TOTAL PROTEIN 5.9 g/dL (6.3-8.3)
[2016-12-16 08:51] LABS: ALT/SGPT 15 U/L (9-52); BLOOD UREA NITROGEN 9 mg/dL (7-17); CALCIUM 7.6 mg/dl (8.6-10.4); GLUCOSE,RANDOM 95 mg/dL (65-105); MAGNESIUM 1.9 mg/dL (1.6-2.3); PHOSPHOROUS 3.2 mg/dL (2.5-4.5)
--- NOTE | 2016-12-16 10:35 | CP.PCM.PN ---
Subjective - Date & Time of Evaluation Date of Evaluation: 12/16/16 Time of Evaluation: 10:33 - Subjective Subjective: General Surgery - Dr. Negrete (Dr. Larson covering) Pt S&E. NAEO. Pt has had no further BM since colonoscopy. Hgb continues to trend up. Pt denies any complaints. She is tolerating regular diet. Objective - Vital Signs/Intake and Output Vital Signs (last 24 hours): Temp Pulse Resp BP Pulse Ox 98.2 F 63 20 174/85 H 98 12/16/16 08:00 12/16/16 08:00 12/16/16 08:00 12/16/16 08:00 12/16/16 08:00 Intake and Output: 12/16/16 12/16/16 06:59 18:59 Intake Total 2300 Balance 2300 - Medications Medications: Current Medications Carvedilol (Coreg) 12.5 mg PO DAILY [facility] Last Admin: 12/15/16 11:22 Dose: 12.5 mg Dextrose/Sodium Chloride (Dextrose 5%/0.9% Ns 1000 Ml) 1,000 mls @ 100 mls/hr IV .Q10H [facility] Last Admin: 12/15/16 20:48 Dose: 100 mls/hr Losartan Potassium (Cozaar) 50 mg PO DAILY [facility] Last Admin: 12/15/16 11:23 Dose: 50 mg Metformin HCl (Glucophage) 500 mg PO DAILY [facility] Last Admin: 12/15/16 11:23 Dose: 500 mg Pantoprazole Sodium (Protonix Ec Tab) 40 mg PO DAILY [facility] Last Admin: 12/15/16 11:23 Dose: 40 mg Rosuvastatin Calcium (Crestor) 20 mg PO HS [facility] Last Admin: 12/15/16 21:21 Dose: 20 mg - Labs Labs: 12/16/16 08:31 12/16/16 08:31 PT 11.3 SECONDS (9.7-12.2) 12/13/16 07:10 INR 1.0 12/13/16 07:10 APTT 31 SECONDS (21-34) 12/13/16 07:10 - Constitutional Appears: No Acute Distress - Head Exam Head Exam: ATRAUMATIC, NORMOCEPHALIC - Eye Exam Eye Exam: Normal appearance - Respiratory Exam Respiratory Exam: NORMAL BREATHING PATTERN. absent: Respiratory Distress - GI/Abdominal Exam GI & Abdominal Exam: Soft. absent: Distended, Guarding, Tenderness - Neurological Exam Neurological Exam: Alert, Oriented x3 - Psychiatric Exam Psychiatric exam: Normal Affect, Normal Mood - Skin Skin Exam: Dry, Intact Assessment and Plan - Assessment and Plan (Free Text) Assessment: 71F s/p Rectopexy in 2015, here with LGIB d/t mesh erosion Plan: -Plan for OR on 12/19 for Exp. Laparotomy w/ Dr. Negrete -Continue diet as per GI -Monitor for further bleeding, H&H, Transfuse prn -Bowel prep Sunday -DW Dr. Larson and Dr. Caden Silva PGY2
[2016-12-16] MEDS: Pantoprazole 40 mg EC Tab PO SCH (10:46)
[2016-12-16] MEDS: Dextrose 5%/0.9% NS 1,000 ML IV SCH (10:48)
--- NOTE | 2016-12-16 11:49 | CP.PCM.PN ---
Subjective - Date & Time of Evaluation Date of Evaluation: 12/16/16 Time of Evaluation: 11:46 - Subjective Subjective: Patient denies having abdominal pain, nausea, vomiting. She has not had a bowel movement today. She also denies having rectal bleeding. Hemoglobin today was 11.1, and WBC was normal at 8100. Objective - Vital Signs/Intake and Output Vital Signs (last 24 hours): Temp Pulse Resp BP Pulse Ox 98.2 F 63 20 174/85 H 98 12/16/16 08:00 12/16/16 08:00 12/16/16 08:00 12/16/16 10:46 12/16/16 08:00 Intake and Output: 12/16/16 12/16/16 06:59 18:59 Intake Total 2300 Balance 2300 - Medications Medications: Current Medications Carvedilol (Coreg) 12.5 mg PO DAILY [facility] Last Admin: 12/16/16 10:46 Dose: 12.5 mg Dextrose/Sodium Chloride (Dextrose 5%/0.9% Ns 1000 Ml) 1,000 mls @ 100 mls/hr IV .Q10H [facility] Last Admin: 12/16/16 10:48 Dose: 100 mls/hr Losartan Potassium (Cozaar) 50 mg PO DAILY [facility] Last Admin: 12/16/16 10:47 Dose: 50 mg Metformin HCl (Glucophage) 500 mg PO DAILY [facility] Last Admin: 12/16/16 10:47 Dose: 500 mg Pantoprazole Sodium (Protonix Ec Tab) 40 mg PO DAILY [facility] Last Admin: 12/16/16 10:46 Dose: 40 mg Rosuvastatin Calcium (Crestor) 20 mg PO HS [facility] Last Admin: 12/15/16 21:21 Dose: 20 mg - Labs Labs: 12/16/16 08:31 12/16/16 08:31 PT 11.3 SECONDS (9.7-12.2) 12/13/16 07:10 INR 1.0 12/13/16 07:10 APTT 31 SECONDS (21-34) 12/13/16 07:10 - Constitutional Appears: No Acute Distress - Head Exam Head Exam: ATRAUMATIC, NORMOCEPHALIC - Eye Exam Eye Exam: EOMI, PERRL - Neck Exam Neck Exam: absent: Lymphadenopathy, Thyromegaly - Respiratory Exam Respiratory Exam: NORMAL BREATHING PATTERN. absent: Rales, Rhonchi, Wheezes - Cardiovascular Exam Cardiovascular Exam: REGULAR RHYTHM, +S1, +S2. absent: Gallop, Rubs, Murmur - GI/Abdominal Exam GI & Abdominal Exam: Soft, Normal Bowel Sounds. absent: Tenderness, Mass, Organomegaly - Rectal Exam Rectal Exam: Deferred - Extremities Exam Extremities Exam: absent: Calf Tenderness, Pedal Edema Assessment and Plan (1) Gastrointestinal hemorrhage Assessment & Plan: Patient has not noted any further bleeding. Plan is for surgery once Dr. Negrete returns. Status: Acute
--- NOTE | 2016-12-16 13:29 | CP.PCM.PN ---
Subjective - Date & Time of Evaluation Date of Evaluation: 12/16/16 Time of Evaluation: 10:00 - Subjective Subjective: PGY2 on medicine Dr. Conley service: Pt seen and examined at bedside this morning. Pt said she was constipated for 2 days but denied bleeding. Denied fever, chills, n/v, abdominal pain. Objective - Vital Signs/Intake and Output Vital Signs (last 24 hours): Temp Pulse Resp BP Pulse Ox 98.2 F 63 20 174/85 H 98 12/16/16 08:00 12/16/16 08:00 12/16/16 08:00 12/16/16 10:46 12/16/16 08:00 Intake and Output: 12/16/16 12/16/16 06:59 18:59 Intake Total 2300 Balance 2300 - Medications Medications: Current Medications Carvedilol (Coreg) 12.5 mg PO DAILY [facility] Last Admin: 12/16/16 10:46 Dose: 12.5 mg Dextrose/Sodium Chloride (Dextrose 5%/0.9% Ns 1000 Ml) 1,000 mls @ 100 mls/hr IV .Q10H [facility] Last Admin: 12/16/16 10:48 Dose: 100 mls/hr Losartan Potassium (Cozaar) 50 mg PO DAILY [facility] Last Admin: 12/16/16 10:47 Dose: 50 mg Metformin HCl (Glucophage) 500 mg PO DAILY [facility] Last Admin: 12/16/16 10:47 Dose: 500 mg Pantoprazole Sodium (Protonix Ec Tab) 40 mg PO DAILY [facility] Last Admin: 12/16/16 10:46 Dose: 40 mg Rosuvastatin Calcium (Crestor) 20 mg PO HS [facility] Last Admin: 12/15/16 21:21 Dose: 20 mg - Labs Labs: 12/16/16 08:31 12/16/16 08:31 PT 11.3 SECONDS (9.7-12.2) 12/13/16 07:10 INR 1.0 12/13/16 07:10 APTT 31 SECONDS (21-34) 12/13/16 07:10 - Constitutional Appears: Non-toxic, No Acute Distress - Head Exam Head Exam: NORMAL INSPECTION, NORMOCEPHALIC - Eye Exam Eye Exam: Normal appearance Pupil Exam: NORMAL ACCOMODATION - ENT Exam ENT Exam: Mucous Membranes Moist - Respiratory Exam Respiratory Exam: Clear to Ausculation Bilateral, NORMAL BREATHING PATTERN. absent: Rhonchi, Wheezes - Cardiovascular Exam Cardiovascular Exam: REGULAR RHYTHM, +S1, +S2. absent: Gallop, Rubs - GI/Abdominal Exam GI & Abdominal Exam: Soft, Normal Bowel Sounds. absent: Tenderness - Extremities Exam Extremities Exam: absent: Pedal Edema - Back Exam Back Exam: absent: CVA tenderness (L), CVA tenderness (R) - Neurological Exam Neurological Exam: Alert, Awake, Oriented x3 - Psychiatric Exam Psychiatric exam: Normal Mood - Skin Skin Exam: Dry, Intact Assessment and Plan - Assessment and Plan (Free Text) Assessment: Acute GI Bleed 12/16: Hgb stable at 11.1, will transfuse if dropped to 9. Change fluids to D5 1/ 2NS due to elevated BP. 12/14: Dr Negrete operated on patient 2-3 months ago, to return next week. Dr. Mercer (surgery) was consulted by Dr. Hutchinson to cover patient for the weekend. Consult placed for Dr. Larson, per Dr. Conley for 2nd opinion. 12/14: Hgb 8.6 -> Transfuse 2u PRBC this evening. 12/14: Colonoscopy with Dr. Hutchinson today. Visible mesh at 20-25cm with much "trauma", ulceration and edema. Satellite area that appears to be directly related to trauma from the edge of the mesh was oozing with the edge of a vessel visible. Clipped using a resolution clip with hemostasis. Still some oozing blood seen from under the area covered with mesh. Not felt to be safe to utilize cautery in this area. Dr Negrete is away this week and a consult has been put in for Dr Mercer. No bleeding or old blood was seen in the proximal colon. -Hold ASA -Appears a surgical revision will be needed of some sort. -Monitor for bleeding. -GI bleeding scan - negative anemic - hemoglobin 7.2 transfused 2 units PRBC -> Hgb 8.4 f/u FOBT (not collected) Protonix 40 mg po daily -Spoke with Dr. Hutchinson this morning and confirmed that no conversation regarding colonoscopy took place prior to 10am 12/13/16 (H&P reports that he spoke with the PA working overnight). S/p 2 units pRBCs As per Dr. Conley- CBC Q8H Transfuse PRN Monitor for bleeding Mesh erosion OR planned on 12/19 for ex lap with Dr. Negrete. History of Atrial Fibrillation Patient currently not on anticoagulation agents Hold ASA due to bleed Consult Cardiology, Dr. Whitaker. f/u recs CAD history of cardiac stents Continue home medications: Coreg 12.5 mg po daily Losartan 50 mg po daily Atorvastatin 40 mg po daily ASA held DMII Continue home medication: Metformin 500 mg po daily Accuchecks Infrarenal Abdominal Aortic Aneurysm CT abdomen from 08/31/16 shows a 4cm infra-renal AAA Prophylaxis SCD Protonix VTE contraindicated due to GI bleed Dispo cont current mgmt FU serial H/H Transfuse PRN Awaiting Caden joy [All management per Dr. Conley]
[2016-12-16 14:31] LABS: BASO % 0.4 % (0.0-2.0); EOS # 0.5 K/uL (0.0-0.7); EOS % 6.6 % (0.0-4.0); HEMATOCRIT 32.8 % (34.0-47.0); LYMPH # 1.3 K/uL (1.0-4.3); LYMPH % 18.6 % (20.0-40.0); MEAN CORPUSCULAR HEMOGLOBIN 25.4 pg (27.0-31.0); MEAN CORPUSCULAR HGB CONC 31.4 g/dL (33.0-37.0); MEAN PLATELET VOLUME 8.2 fL (7.2-11.7); MONO % 14.3 % (0.0-10.0); NRBC % 0.1 % (0.0-2.0)
[2016-12-16] MEDS: Dextrose 5%/0.45% NS 1,000 ML IV SCH (16:26)
[2016-12-16 16:56] LABS: BASO % 0.7 % (0.0-2.0); EOS # 0.4 K/uL (0.0-0.7); EOS % 5.8 % (0.0-4.0); HEMATOCRIT 31.9 % (34.0-47.0); LYMPH # 1.3 K/uL (1.0-4.3); LYMPH % 18.8 % (20.0-40.0); MEAN CELL VOLUME 81.4 fL (81.0-99.0); MEAN CORPUSCULAR HEMOGLOBIN 25.8 pg (27.0-31.0); MEAN CORPUSCULAR HGB CONC 31.7 g/dL (33.0-37.0); MEAN PLATELET VOLUME 8.6 fL (7.2-11.7); MONO % 14.3 % (0.0-10.0); RED CELL DISTRIBUTION WIDTH 19.1 % (11.5-14.5)
--- NOTE | 2016-12-16 20:29 | CP.PCM.PN ---
Subjective - Date & Time of Evaluation Date of Evaluation: 12/16/16 Time of Evaluation: 08:35 - Subjective Subjective: Patient seen and evaluated Denies chest pain and dyspnea Objective - Vital Signs/Intake and Output Vital Signs (last 24 hours): Temp Pulse Resp BP Pulse Ox 97.8 F 57 L 20 179/84 H 99 12/16/16 16:00 12/16/16 19:35 12/16/16 16:00 12/16/16 16:00 12/16/16 16:00 - Medications Medications: Current Medications Carvedilol (Coreg) 12.5 mg PO DAILY [facility] Last Admin: 12/16/16 10:46 Dose: 12.5 mg Dextrose/Sodium Chloride (Dextrose 5%/0.45% Ns 1000 Ml) 1,000 mls @ 100 mls/hr IV .Q10H [facility] Last Admin: 12/16/16 16:26 Dose: 100 mls/hr Losartan Potassium (Cozaar) 50 mg PO DAILY [facility] Last Admin: 12/16/16 10:47 Dose: 50 mg Metformin HCl (Glucophage) 500 mg PO DAILY [facility] Last Admin: 12/16/16 10:47 Dose: 500 mg Pantoprazole Sodium (Protonix Ec Tab) 40 mg PO DAILY [facility] Last Admin: 12/16/16 10:46 Dose: 40 mg Rosuvastatin Calcium (Crestor) 20 mg PO HS [facility] Last Admin: 12/15/16 21:21 Dose: 20 mg - Labs Labs: 12/16/16 16:51 12/16/16 08:31 PT 11.3 SECONDS (9.7-12.2) 12/13/16 07:10 INR 1.0 12/13/16 07:10 APTT 31 SECONDS (21-34) 12/13/16 07:10
[2016-12-17] MEDS: Dextrose 5%/0.45% NS 1,000 ML IV SCH ×3 (04:00→10:29)
[2016-12-17 06:21] LABS: BASO % 0.5 % (0.0-2.0); EOS # 0.5 K/uL (0.0-0.7); EOS % 7.1 % (0.0-4.0); HEMATOCRIT 34.8 % (34.0-47.0); LYMPH # 1.2 K/uL (1.0-4.3); LYMPH % 16.2 % (20.0-40.0); MEAN CELL VOLUME 80.6 fL (81.0-99.0); MEAN CORPUSCULAR HEMOGLOBIN 26.3 pg (27.0-31.0); MEAN CORPUSCULAR HGB CONC 32.6 g/dL (33.0-37.0); MEAN PLATELET VOLUME 8.5 fL (7.2-11.7); MONO # 0.9 K/uL (0.0-0.8); MONO % 11.9 % (0.0-10.0); NRBC % 0.1 % (0.0-2.0); RED CELL DISTRIBUTION WIDTH 19.1 % (11.5-14.5); WHITE BLOOD COUNT 7.7 K/uL (4.8-10.8)
[2016-12-17 06:28] LABS: CHLORIDE 104 mmol/L (98-107); POTASSIUM 3.9 mmol/L (3.6-5.2); SODIUM 141 mmol/L (132-148)
[2016-12-17 06:31] LABS: ALB/GLOB RATIO 1.2 (1.0-2.1); CARBON DIOXIDE 24 mmol/L (22-30); GLUCOSE,RANDOM 99 mg/dL (65-105); PHOSPHOROUS 3.7 mg/dL (2.5-4.5); TOTAL PROTEIN 6.3 g/dL (6.3-8.3)
[2016-12-17 06:33] LABS: ALKALINE PHOSPHATASE 78 U/L (38-126); ALT/SGPT 15 U/L (9-52); AST/SGOT 13 U/L (14-36); BILIRUBIN,TOTAL 0.9 mg/dL (0.2-1.3); BLOOD UREA NITROGEN 9 mg/dL (7-17); CALCIUM 8.2 mg/dl (8.6-10.4); GFR AFRICAN-AMERICAN > 60
[2016-12-17 06:34] LABS: MAGNESIUM 1.9 mg/dL (1.6-2.3)
--- NOTE | 2016-12-17 08:31 | CP.PCM.PN ---
Subjective - Date & Time of Evaluation Date of Evaluation: 12/17/16 Time of Evaluation: 07:10 - Subjective Subjective: General Surgery - Dr. Negrete (Dr. Neo sin) Pt S&E, NAEO. No bloody BMs. No c/o at this time Objective - Vital Signs/Intake and Output Vital Signs (last 24 hours): Temp Pulse Resp BP Pulse Ox 98 F 60 20 170/72 H 98 12/17/16 00:00 12/17/16 00:00 12/17/16 00:00 12/17/16 00:00 12/17/16 00:00 Intake and Output: 12/17/16 12/17/16 06:59 18:59 Intake Total 1900 Balance 1900 - Medications Medications: Current Medications Carvedilol (Coreg) 12.5 mg PO DAILY [facility] Last Admin: 12/16/16 10:46 Dose: 12.5 mg Dextrose/Sodium Chloride (Dextrose 5%/0.45% Ns 1000 Ml) 1,000 mls @ 100 mls/hr IV .Q10H [facility] Last Admin: 12/17/16 04:00 Dose: 100 mls/hr Losartan Potassium (Cozaar) 50 mg PO DAILY [facility] Last Admin: 12/16/16 10:47 Dose: 50 mg Metformin HCl (Glucophage) 500 mg PO DAILY [facility] Last Admin: 12/16/16 10:47 Dose: 500 mg Pantoprazole Sodium (Protonix Ec Tab) 40 mg PO DAILY [facility] Last Admin: 12/16/16 10:46 Dose: 40 mg Rosuvastatin Calcium (Crestor) 20 mg PO HS [facility] Last Admin: 12/16/16 21:50 Dose: 20 mg - Labs Labs: 12/17/16 06:08 12/17/16 06:08 PT 11.3 SECONDS (9.7-12.2) 12/13/16 07:10 INR 1.0 12/13/16 07:10 APTT 31 SECONDS (21-34) 12/13/16 07:10 - Constitutional Appears: Non-toxic, No Acute Distress - Head Exam Head Exam: ATRAUMATIC, NORMOCEPHALIC - Eye Exam Eye Exam: EOMI. absent: Scleral icterus - Respiratory Exam Respiratory Exam: NORMAL BREATHING PATTERN. absent: Respiratory Distress - GI/Abdominal Exam GI & Abdominal Exam: Soft. absent: Distended, Guarding, Tenderness - Neurological Exam Neurological Exam: Alert, Awake - Skin Skin Exam: Dry, Warm Assessment and Plan - Assessment and Plan (Free Text) Assessment: 71F s/p Rectopexy in 2015, here with LGIB 2/2 mesh erosion Plan: -Plan for OR on 12/19 for Exp. Laparotomy w/ Dr. Negrete -Bowel Prep tomorrow -Monitor for further bleeding, H&H, Transfuse prn Will D/W Dr. Larson and Dr. Caden Heredia PGY3
--- NOTE | 2016-12-17 09:27 | CP.PCM.PN ---
Subjective - Date & Time of Evaluation Date of Evaluation: 12/17/16 Time of Evaluation: 09:25 - Subjective Subjective: Patient denies having nausea, vomiting, abdominal pain. She has not had a bowel movement today, and she has not noticed any bleeding. Objective - Vital Signs/Intake and Output Vital Signs (last 24 hours): Temp Pulse Resp BP Pulse Ox 97.1 F L 92 H 20 118/65 98 12/17/16 08:43 12/17/16 08:43 12/17/16 08:43 12/17/16 08:43 12/17/16 08:43 Intake and Output: 12/17/16 12/17/16 06:59 18:59 Intake Total 1900 Balance 1900 - Medications Medications: Current Medications Carvedilol (Coreg) 12.5 mg PO DAILY [facility] Last Admin: 12/16/16 10:46 Dose: 12.5 mg Dextrose/Sodium Chloride (Dextrose 5%/0.45% Ns 1000 Ml) 1,000 mls @ 100 mls/hr IV .Q10H [facility] Last Admin: 12/17/16 04:00 Dose: 100 mls/hr Losartan Potassium (Cozaar) 50 mg PO DAILY [facility] Last Admin: 12/16/16 10:47 Dose: 50 mg Metformin HCl (Glucophage) 500 mg PO DAILY [facility] Last Admin: 12/16/16 10:47 Dose: 500 mg Pantoprazole Sodium (Protonix Ec Tab) 40 mg PO DAILY [facility] Last Admin: 12/16/16 10:46 Dose: 40 mg Rosuvastatin Calcium (Crestor) 20 mg PO HS [facility] Last Admin: 12/16/16 21:50 Dose: 20 mg - Labs Labs: 12/17/16 06:08 12/17/16 06:08 PT 11.3 SECONDS (9.7-12.2) 12/13/16 07:10 INR 1.0 12/13/16 07:10 APTT 31 SECONDS (21-34) 12/13/16 07:10 - Constitutional Appears: No Acute Distress - Head Exam Head Exam: ATRAUMATIC, NORMOCEPHALIC - Eye Exam Eye Exam: EOMI, PERRL - Neck Exam Neck Exam: absent: Lymphadenopathy, Thyromegaly - Respiratory Exam Respiratory Exam: NORMAL BREATHING PATTERN. absent: Rales, Rhonchi, Wheezes - Cardiovascular Exam Cardiovascular Exam: REGULAR RHYTHM, +S1, +S2. absent: Gallop, Rubs, Murmur - GI/Abdominal Exam GI & Abdominal Exam: Soft, Normal Bowel Sounds. absent: Tenderness, Mass, Organomegaly - Rectal Exam Rectal Exam: Deferred - Extremities Exam Extremities Exam: absent: Calf Tenderness, Pedal Edema Assessment and Plan (1) Gastrointestinal hemorrhage Assessment & Plan: Patient has no signs of ongoing bleeding at present. Hemoglobin is stable at 11.4. Plan is for surgery on 12/19/2016. Status: Acute
[2016-12-17] MEDS: Pantoprazole 40 mg EC Tab PO SCH (10:28)
--- NOTE | 2016-12-17 10:43 | CP.PCM.PN ---
<Jean Carlos Riggs - Last Filed: 12/17/16 17:30> Subjective - Date & Time of Evaluation Date of Evaluation: 12/17/16 Time of Evaluation: 09:00 - Subjective Subjective: PGY2 on medicine Dr. Conley service: Pt seen and examined at bedside this morning. Pt was not having BM today. Pt otherwise have no other complaints. Objective - Vital Signs/Intake and Output Vital Signs (last 24 hours): Temp Pulse Resp BP Pulse Ox 97.1 F L 92 H 20 118/65 98 12/17/16 08:43 12/17/16 08:43 12/17/16 08:43 12/17/16 10:27 12/17/16 08:43 Intake and Output: 12/17/16 12/17/16 06:59 18:59 Intake Total 1900 Balance 1900 - Medications Medications: Current Medications Carvedilol (Coreg) 12.5 mg PO DAILY [facility] Last Admin: 12/17/16 10:27 Dose: 12.5 mg Dextrose/Sodium Chloride (Dextrose 5%/0.45% Ns 1000 Ml) 1,000 mls @ 100 mls/hr IV .Q10H [facility] Last Admin: 12/17/16 10:29 Dose: Not Given Losartan Potassium (Cozaar) 50 mg PO DAILY [facility] Last Admin: 12/17/16 10:27 Dose: 50 mg Metformin HCl (Glucophage) 500 mg PO DAILY [facility] Last Admin: 12/17/16 10:27 Dose: 500 mg Pantoprazole Sodium (Protonix Ec Tab) 40 mg PO DAILY [facility] Last Admin: 12/17/16 10:28 Dose: 40 mg Rosuvastatin Calcium (Crestor) 20 mg PO HS [facility] Last Admin: 12/16/16 21:50 Dose: 20 mg - Labs Labs: 12/17/16 06:08 12/17/16 06:08 PT 11.3 SECONDS (9.7-12.2) 12/13/16 07:10 INR 1.0 12/13/16 07:10 APTT 31 SECONDS (21-34) 12/13/16 07:10 - Constitutional Appears: Non-toxic, No Acute Distress - Head Exam Head Exam: NORMAL INSPECTION, NORMOCEPHALIC - Eye Exam Eye Exam: Normal appearance Pupil Exam: NORMAL ACCOMODATION - Respiratory Exam Respiratory Exam: Clear to Ausculation Bilateral, NORMAL BREATHING PATTERN. absent: Rhonchi, Wheezes - Cardiovascular Exam Cardiovascular Exam: REGULAR RHYTHM, +S1, +S2. absent: Gallop, Rubs - GI/Abdominal Exam GI & Abdominal Exam: Soft, Normal Bowel Sounds - Neurological Exam Neurological Exam: Alert, Awake, Oriented x3 - Psychiatric Exam Psychiatric exam: Normal Mood - Skin Skin Exam: Dry, Intact Assessment and Plan - Assessment and Plan (Free Text) Assessment: Acute GI Bleed 12/17: Hgb stable at 11.4. Continue current management. CBC AM daily instead of q8H. 12/16: Hgb stable at 11.1, will transfuse if dropped to 9. Change fluids to D5 1/ 2NS due to elevated BP. 12/14: Dr Negrete operated on patient 2-3 months ago, to return next week. Dr. Mercer (surgery) was consulted by Dr. Hutchinson to cover patient for the weekend. Consult placed for Dr. Larson, per Dr. Conley for 2nd opinion. 12/14: Hgb 8.6 -> Transfuse 2u PRBC this evening. 12/14: Colonoscopy with Dr. Hutchinson today. Visible mesh at 20-25cm with much "trauma", ulceration and edema. Satellite area that appears to be directly related to trauma from the edge of the mesh was oozing with the edge of a vessel visible. Clipped using a resolution clip with hemostasis. Still some oozing blood seen from under the area covered with mesh. Not felt to be safe to utilize cautery in this area. Dr Negrete is away this week and a consult has been put in for Dr Mercer. No bleeding or old blood was seen in the proximal colon. -Hold ASA -Appears a surgical revision will be needed of some sort. -Monitor for bleeding. -GI bleeding scan - negative anemic - hemoglobin 7.2 transfused 2 units PRBC -> Hgb 8.4 f/u FOBT (not collected) Protonix 40 mg po daily -Spoke with Dr. Hutchinson this morning and confirmed that no conversation regarding colonoscopy took place prior to 10am 12/13/16 (H&P reports that he spoke with the PA working overnight). S/p 2 units pRBCs As per Dr. Conley- CBC Q8H Transfuse PRN Monitor for bleeding Mesh erosion OR planned on 12/19 for ex lap with Dr. Negrete. History of Atrial Fibrillation Patient currently not on anticoagulation agents Hold ASA due to bleed Consult Cardiology, Dr. Whitaker. f/u recs CAD history of cardiac stents Continue home medications: Coreg 12.5 mg po daily Losartan 50 mg po daily Atorvastatin 40 mg po daily ASA held F/U ECHO DMII Continue home medication: Metformin 500 mg po daily Accuchecks Infrarenal Abdominal Aortic Aneurysm CT abdomen from 08/31/16 shows a 4cm infra-renal AAA Prophylaxis SCD Protonix VTE contraindicated due to GI bleed Dispo cont current mgmt FU serial H/H Transfuse PRN Awaiting Caden joy [All management per Dr. Conley] <Otoniel Conley Jr. - Last Filed: 12/20/16 16:17> Objective - Vital Signs/Intake and Output Vital Signs (last 24 hours): Temp Pulse Resp BP Pulse Ox 98.0 F 71 19 97/45 L 100 12/20/16 12:00 12/20/16 15:04 12/20/16 12:00 12/20/16 12:00 12/20/16 15:04 Intake and Output: 12/20/16 12/20/16 06:59 18:59 Intake Total 1620 550 Output Total 1400 200 Balance 220 350 - Medications Medications: Current Medications Potassium Chloride/Dextrose/Sod Cl (Potassium Chl 20 Meq In D5-1/2ns) 1,000 mls @ 75 mls/hr IV .[id number] [facility] Last Admin: 12/20/16 10:19 Dose: 75 mls/hr Insulin Human Regular (Novolin R) 0 unit SC ACHS [facility] PRN Reason: Protocol Morphine Sulfate/Sodium Chloride (Morphine Manager Client Monoject Barrel) 30 mg IV Q4 PRN ; Protocol PRN Reason: Pain, severe (8-10) Last Admin: 12/19/16 20:30 Dose: 30 mg Pantoprazole Sodium (Protonix Inj) 40 mg IVP DAILY [facility] Last Admin: 12/20/16 09:27 Dose: 40 mg Rosuvastatin Calcium (Crestor) 20 mg PO HS [facility] Last Admin: 12/19/16 22:31 Dose: Not Given - Labs Labs: 12/20/16 15:53 12/20/16 15:53 PT 13.5 SECONDS (9.7-12.2) H 12/20/16 05:55 INR 1.2 03/29/17 05:55 APTT 28 SECONDS (21-34) 12/20/16 05:55 Attending/Attestation - Attestation I have personally seen and examined this patient.: Yes I have fully participated in the care of the patient.: Yes I have reviewed all pertinent clinical information, including history, physical exam and plan: Yes Notes (Text): 12/20/16 16:16 Patient seen and examined with resident. Reviewed resident note and agree with findings and and plan of care
[2016-12-17 13:56] LABS: BASO % 0.5 % (0.0-2.0); EOS # 0.5 K/uL (0.0-0.7); EOS % 6.6 % (0.0-4.0); HEMATOCRIT 32.6 % (34.0-47.0); LYMPH # 1.2 K/uL (1.0-4.3); LYMPH % 17.1 % (20.0-40.0); MEAN CELL VOLUME 81.3 fL (81.0-99.0); MEAN CORPUSCULAR HEMOGLOBIN 26.3 pg (27.0-31.0); MEAN CORPUSCULAR HGB CONC 32.3 g/dL (33.0-37.0); MEAN PLATELET VOLUME 8.8 fL (7.2-11.7); MONO # 0.9 K/uL (0.0-0.8); RED CELL DISTRIBUTION WIDTH 19.2 % (11.5-14.5); WHITE BLOOD COUNT 7.2 K/uL (4.8-10.8)
--- NOTE | 2016-12-17 16:06 | CARD ---
APPROVED REPORT EXAM: Two-dimensional and M-mode echocardiogram with Doppler and color Doppler. Other Information Quality : GoodRhythm : INDICATION Atrial Fibrillation Cardiac Disease: CAD Chest Pain Syncope RISK FACTORS Hypertension Hyperlipidemia Diabetes M-Mode DIMENSIONS RVDd1.25 (2.1-3.2cm)Left Atrium (MM)3.08 (2.5-4.0cm) IVSd0.77 (0.7-1.1cm)Aortic Root3.20 (2.2-3.7cm) LVDd5.64 (4.0-5.6cm)Aortic Cusp Exc.1.56 (1.5-2.0cm) PWd1.18 (0.7-1.1cm)FS (%) 31 % LVDs3.87 (2.0-3.8cm)LVEF (%)59 (>50%) Aortic Valve AoV Peak Oprxapmx424.8cm/Mak Peak GR.13mmHg Mitral Valve MV E Kahqutiy068.1cm/sMV A Nhjuauby811.5cm/sE/A ratio1.0 TDI E/Lateral E'0.0E/Medial E'0.0 Tricuspid Valve TR Peak Kucdupyw662ov/sTR Peak Gr.[id number] LEFT VENTRICLE The left ventricle is normal size. visually There is mild concentric left ventricular hypertrophy. The Ejection Fraction is 60-65%. There is normal LV segmental wall motion. The left atrial pressure is mildly elevated. RIGHT VENTRICLE The right ventricle is normal size. The right ventricular systolic function is normal. ATRIA The left atrium size is normal. The right atrium size is normal. The interatrial septum is intact with no evidence for an atrial septal defect. AORTIC VALVE The aortic valve is mildly calcified. The aortic valve is trileaflet. No aortic regurgitation is present. MITRAL VALVE Mitral annular calcification is mild. Mitral regurgitation is mild to moderate. TRICUSPID VALVE The tricuspid valve is normal in structure. There is mild tricuspid regurgitation. Right ventricular systolic pressure is estimated at 40 mmHg. There is mild pulmonary hypertension. PULMONIC VALVE The pulmonary valve is normal in structure. GREAT VESSELS The aortic root is normal size. PERICARDIAL EFFUSION There is no pericardial effusion. <Conclusion> m mode is not reliable. The left ventricle is normal size. visually There is mild concentric left ventricular hypertrophy. The Ejection Fraction is 60-65%. The left atrial pressure is mildly elevated. Mitral annular calcification is mild. Mitral regurgitation is mild to moderate. There is mild tricuspid regurgitation. Right ventricular systolic pressure is estimated at 40 mmHg. There is mild pulmonary hypertension.
--- NOTE | 2016-12-17 18:10 | CP.PCM.PN ---
Subjective - Date & Time of Evaluation Date of Evaluation: 12/17/16 Time of Evaluation: 08:05 - Subjective Subjective: Patient seen and evaluated Denies chest pain and dyspnea Scheduled for surgery Sunday For stress test in am Objective - Vital Signs/Intake and Output Vital Signs (last 24 hours): Temp Pulse Resp BP Pulse Ox 97.1 F L 92 H 20 118/65 98 12/17/16 08:43 12/17/16 08:43 12/17/16 08:43 12/17/16 10:27 12/17/16 08:43 Intake and Output: 12/17/16 12/17/16 06:59 18:59 Intake Total 1900 2099 Balance 1900 2099 - Medications Medications: Current Medications Carvedilol (Coreg) 12.5 mg PO DAILY [facility] Last Admin: 12/17/16 10:27 Dose: 12.5 mg Dextrose/Sodium Chloride (Dextrose 5%/0.45% Ns 1000 Ml) 1,000 mls @ 100 mls/hr IV .Q10H [facility] Last Admin: 12/17/16 10:29 Dose: Not Given Losartan Potassium (Cozaar) 50 mg PO DAILY [facility] Last Admin: 12/17/16 10:27 Dose: 50 mg Metformin HCl (Glucophage) 500 mg PO DAILY [facility] Last Admin: 12/17/16 10:27 Dose: 500 mg Pantoprazole Sodium (Protonix Ec Tab) 40 mg PO DAILY [facility] Last Admin: 12/17/16 10:28 Dose: 40 mg Rosuvastatin Calcium (Crestor) 20 mg PO HS [facility] Last Admin: 12/16/16 21:50 Dose: 20 mg - Labs Labs: 12/17/16 13:49 12/17/16 06:08 PT 11.3 SECONDS (9.7-12.2) 12/13/16 07:10 INR 1.0 12/13/16 07:10 APTT 31 SECONDS (21-34) 12/13/16 07:10
[2016-12-18] MEDS: Dextrose 5%/0.45% NS 1,000 ML IV SCH ×3 (05:28→16:45)
[2016-12-18 07:15] LABS: CHLORIDE 104 mmol/L (98-107); SODIUM 141 mmol/L (132-148)
[2016-12-18 07:17] LABS: BILIRUBIN,TOTAL 0.5 mg/dL (0.2-1.3); GFR AFRICAN-AMERICAN > 60
[2016-12-18 07:18] LABS: ALB/GLOB RATIO 1.2 (1.0-2.1); ALKALINE PHOSPHATASE 75 U/L (38-126); ALT/SGPT 12 U/L (9-52); AST/SGOT 12 U/L (14-36); BLOOD UREA NITROGEN 9 mg/dL (7-17); CALCIUM 8.5 mg/dl (8.6-10.4); CARBON DIOXIDE 26 mmol/L (22-30); GLUCOSE,RANDOM 95 mg/dL (65-105)
[2016-12-18 07:19] LABS: MAGNESIUM 1.9 mg/dL (1.6-2.3)
[2016-12-18] MEDS: Pantoprazole 40 mg EC Tab PO SCH (11:41)
--- NOTE | 2016-12-18 12:58 | CP.PCM.PN ---
Subjective - Date & Time of Evaluation Date of Evaluation: 12/18/16 Time of Evaluation: 07:00 - Subjective Subjective: Surgery - Dr. Larson/Caden Pt S*Hardik ABERNATHY. Pt had BM this morning with no blood. She denies any abdominal pain or any other compaints. She is going for stress test today, surgery tomorrow. Objective - Vital Signs/Intake and Output Vital Signs (last 24 hours): Temp Pulse Resp BP Pulse Ox 98 F 59 L 20 150/80 96 12/18/16 00:59 12/18/16 00:59 12/18/16 00:59 12/18/16 11:41 12/18/16 00:59 Intake and Output: 12/18/16 12/18/16 06:59 18:59 Intake Total 1200 Balance 1200 - Medications Medications: Current Medications Carvedilol (Coreg) 12.5 mg PO DAILY [facility] Last Admin: 12/18/16 11:41 Dose: 12.5 mg Dextrose/Sodium Chloride (Dextrose 5%/0.45% Ns 1000 Ml) 1,000 mls @ 100 mls/hr IV .Q10H [facility] Last Admin: 12/18/16 07:40 Dose: Not Given Losartan Potassium (Cozaar) 50 mg PO DAILY [facility] Last Admin: 12/18/16 11:41 Dose: 50 mg Metformin HCl (Glucophage) 500 mg PO DAILY [facility] Last Admin: 12/18/16 11:41 Dose: 500 mg Pantoprazole Sodium (Protonix Ec Tab) 40 mg PO DAILY [facility] Last Admin: 12/18/16 11:41 Dose: 40 mg Polyethylene Glycol/Electrolytes (Golytely) 4,000 ml PO ONCE ONE Stop: 12/18/16 18:01 Rosuvastatin Calcium (Crestor) 20 mg PO HS [facility] Last Admin: 12/17/16 21:27 Dose: 20 mg - Labs Labs: 12/17/16 13:49 12/18/16 06:56 PT 11.3 SECONDS (9.7-12.2) 12/13/16 07:10 INR 1.0 12/13/16 07:10 APTT 31 SECONDS (21-34) 12/13/16 07:10 - Constitutional Appears: No Acute Distress - Head Exam Head Exam: ATRAUMATIC, NORMOCEPHALIC - Eye Exam Eye Exam: Normal appearance - Respiratory Exam Respiratory Exam: NORMAL BREATHING PATTERN. absent: Respiratory Distress - GI/Abdominal Exam GI & Abdominal Exam: Soft. absent: Distended, Tenderness - Neurological Exam Neurological Exam: Alert, Awake, Oriented x3 - Psychiatric Exam Psychiatric exam: Normal Affect, Normal Mood - Skin Skin Exam: Dry, Intact, Normal Color Assessment and Plan - Assessment and Plan (Free Text) Assessment: 71F s/p Rectopexy in 2015, here with LGIB d/t mesh erosion Plan: -OR tomorrow for exp. laparotomy with Dr. Negrete -Type and Cross 2u prbc -Liquid diet today -Bowel Prep tonight -DW Dr Caden Silva PGY2
--- NOTE | 2016-12-18 13:12 | CP.PCM.PN ---
Subjective - Date & Time of Evaluation Date of Evaluation: 12/18/16 Time of Evaluation: 13:08 - Subjective Subjective: Dr Jack coverage appreciated No bleeding, has had brown stools Awaiting EST/Cardiac clearance today On OR schedule tomorrow for Laparotomy Objective - Vital Signs/Intake and Output Vital Signs (last 24 hours): Temp Pulse Resp BP Pulse Ox 98 F 59 L 20 150/80 96 12/18/16 00:59 12/18/16 00:59 12/18/16 00:59 12/18/16 11:41 12/18/16 00:59 Intake and Output: 12/18/16 12/18/16 06:59 18:59 Intake Total 1200 Balance 1200 - Medications Medications: Current Medications Carvedilol (Coreg) 12.5 mg PO DAILY [facility] Last Admin: 12/18/16 11:41 Dose: 12.5 mg Dextrose/Sodium Chloride (Dextrose 5%/0.45% Ns 1000 Ml) 1,000 mls @ 100 mls/hr IV .Q10H [facility] Last Admin: 12/18/16 07:40 Dose: Not Given Losartan Potassium (Cozaar) 50 mg PO DAILY [facility] Last Admin: 12/18/16 11:41 Dose: 50 mg Metformin HCl (Glucophage) 500 mg PO DAILY [facility] Last Admin: 12/18/16 11:41 Dose: 500 mg Pantoprazole Sodium (Protonix Ec Tab) 40 mg PO DAILY [facility] Last Admin: 12/18/16 11:41 Dose: 40 mg Polyethylene Glycol/Electrolytes (Golytely) 4,000 ml PO ONCE ONE Stop: 12/18/16 18:01 Rosuvastatin Calcium (Crestor) 20 mg PO HS [facility] Last Admin: 12/17/16 21:27 Dose: 20 mg - Labs Labs: 12/17/16 13:49 12/18/16 06:56 PT 11.3 SECONDS (9.7-12.2) 12/13/16 07:10 INR 1.0 12/13/16 07:10 APTT 31 SECONDS (21-34) 12/13/16 07:10 - Constitutional Appears: No Acute Distress - Head Exam Head Exam: ATRAUMATIC, NORMOCEPHALIC - Respiratory Exam Respiratory Exam: NORMAL BREATHING PATTERN - Cardiovascular Exam Cardiovascular Exam: REGULAR RHYTHM, +S1 - GI/Abdominal Exam GI & Abdominal Exam: Soft, Normal Bowel Sounds. absent: Distended, Firm, Rigid , Tenderness, Mass, Rebound - Extremities Exam Extremities Exam: Normal Inspection Assessment and Plan (1) Gastrointestinal hemorrhage Assessment & Plan: Bleeding due to mesh fistulization/erosion following rectopexy. Bleeding due to localized ulceration and erosion. Mesh clearly visible intraluminally on recent and previous examination. No bleeding since colonoscopy of last week with placement of clip on visible vessel. Monitor for bleeding For OR tomorrow Status: Acute (2) Acute blood loss anemia Status: Acute (3) Rectal ulcer Assessment & Plan: as above Status: Acute (4) Coronary artery disease Status: Acute
--- NOTE | 2016-12-18 13:46 | CP.PCM.PN ---
<Ayan Ac - Last Filed: 12/18/16 13:37> Subjective - Date & Time of Evaluation Date of Evaluation: 12/18/16 Time of Evaluation: 13:37 - Subjective Subjective: PGY-[address] Conley's service Pt seen and examined at bedside. Pt not having any bloody BM. Denies fevers, chills, chest pain, palpitations. Objective - Vital Signs/Intake and Output Vital Signs (last 24 hours): Temp Pulse Resp BP Pulse Ox 98 F 59 L 20 150/80 96 12/18/16 00:59 12/18/16 00:59 12/18/16 00:59 12/18/16 11:41 12/18/16 00:59 Intake and Output: 12/18/16 12/18/16 06:59 18:59 Intake Total 1200 Balance 1200 - Medications Medications: Current Medications Carvedilol (Coreg) 12.5 mg PO DAILY [facility] Last Admin: 12/18/16 11:41 Dose: 12.5 mg Dextrose/Sodium Chloride (Dextrose 5%/0.45% Ns 1000 Ml) 1,000 mls @ 100 mls/hr IV .Q10H [facility] Last Admin: 12/18/16 07:40 Dose: Not Given Losartan Potassium (Cozaar) 50 mg PO DAILY [facility] Last Admin: 12/18/16 11:41 Dose: 50 mg Metformin HCl (Glucophage) 500 mg PO DAILY [facility] Last Admin: 12/18/16 11:41 Dose: 500 mg Pantoprazole Sodium (Protonix Ec Tab) 40 mg PO DAILY [facility] Last Admin: 12/18/16 11:41 Dose: 40 mg Polyethylene Glycol/Electrolytes (Golytely) 4,000 ml PO ONCE ONE Stop: 12/18/16 18:01 Rosuvastatin Calcium (Crestor) 20 mg PO HS [facility] Last Admin: 12/17/16 21:27 Dose: 20 mg - Labs Labs: 12/17/16 13:49 12/18/16 06:56 PT 11.3 SECONDS (9.7-12.2) 12/13/16 07:10 INR 1.0 12/13/16 07:10 APTT 31 SECONDS (21-34) 12/13/16 07:10 - Constitutional Appears: Non-toxic, No Acute Distress - Head Exam Head Exam: ATRAUMATIC, NORMOCEPHALIC - Eye Exam Eye Exam: Normal appearance - Respiratory Exam Respiratory Exam: Clear to Ausculation Bilateral, NORMAL BREATHING PATTERN - GI/Abdominal Exam GI & Abdominal Exam: Soft, Normal Bowel Sounds - Neurological Exam Neurological Exam: Alert, Awake - Skin Skin Exam: Dry, Warm Assessment and Plan - Assessment and Plan (Free Text) Assessment: Acute GI Bleed - s/p 2 units transfused PRBC, H/H stable - will continue to monitor - Colonoscopy 12/14 - Bleeding due to mesh fistulization/erosion following rectopexy. Visible mesh at 20-25cm with much "trauma", ulceration and edema. Satellite area that appears to be directly related to trauma from the edge of the mesh was oozing with the edge of a vessel visible. Clipped using a resolution clip with hemostasis. Still some oozing blood seen from under the area covered with mesh. Not felt to be safe to utilize cautery in this area. - Dr Negrete operated on patient 2-3 months ago, to return next week. Dr. Mercer (surgery) was consulted by Dr. Hutchinson to cover patient for the weekend. - Per surgery -OR tomorrow for exp. laparotomy with Dr. Negrete -Type and Cross 2u prbc -Liquid diet today -Bowel Prep tonight, NPO at midnight Mesh erosion - as above History of Atrial Fibrillation - Patient currently not on anticoagulation agents - Hold ASA due to bleed - Consult Cardiology, Dr. Whitaker. - stress test - f/u results CAD - history of cardiac stents - Continue home medications: Coreg 12.5 mg po daily Losartan 50 mg po daily Atorvastatin 40 mg po daily ASA held - F/U ECHO DMII - Continue home medication: - Metformin 500 mg po daily - Accuchecks Infrarenal Abdominal Aortic Aneurysm - CT abdomen from 08/31/16 shows a 4cm infra-renal AAA Prophylaxis - SCD - Protonix - VTE contraindicated due to GI bleed Dispo - cont current mgmt - FU serial H/H - Transfuse PRN - Awaiting Caden joy [All management per Dr. Conley] <Otoniel Conley Jr. - Last Filed: 12/20/16 16:26> Objective - Vital Signs/Intake and Output Vital Signs (last 24 hours): Temp Pulse Resp BP Pulse Ox 98.0 F 71 19 97/45 L 100 12/20/16 12:00 12/20/16 15:04 12/20/16 12:00 12/20/16 12:00 12/20/16 15:04 Intake and Output: 12/20/16 12/20/16 06:59 18:59 Intake Total 1620 550 Output Total 1400 200 Balance 220 350 - Medications Medications: Current Medications Potassium Chloride/Dextrose/Sod Cl (Potassium Chl 20 Meq In D5-1/2ns) 1,000 mls @ 75 mls/hr IV .[id number] [facility] Last Admin: 12/20/16 10:19 Dose: 75 mls/hr Insulin Human Regular (Novolin R) 0 unit SC ACHS [facility] PRN Reason: Protocol Morphine Sulfate/Sodium Chloride (Morphine [employer] Monoject Barrel) 30 mg IV Q4 PRN ; Protocol PRN Reason: Pain, severe (8-10) Last Admin: 12/19/16 20:30 Dose: 30 mg Pantoprazole Sodium (Protonix Inj) 40 mg IVP DAILY [facility] Last Admin: 12/20/16 09:27 Dose: 40 mg Rosuvastatin Calcium (Crestor) 20 mg PO HS [facility] Last Admin: 12/19/16 22:31 Dose: Not Given - Labs Labs: 12/20/16 15:53 12/20/16 15:53 PT 13.5 SECONDS (9.7-12.2) H 12/20/16 05:55 INR 1.2 12/20/16 05:55 APTT 28 SECONDS (21-34) 12/20/16 05:55 Attending/Attestation - Attestation I have personally seen and examined this patient.: Yes I have fully participated in the care of the patient.: Yes I have reviewed all pertinent clinical information, including history, physical exam and plan: Yes Notes (Text): 12/20/16 16:25 Patient seen and examined with resident. Reviewed resident notes and findings. Agree with resident on findings and plan of care discussed
[2016-12-18] MEDS ORDERED: Peg-Electrolyte Oral Soln 4L (Golytely) PO ONE (18:00)
--- NOTE | 2016-12-18 23:08 | CP.PCM.PN ---
Subjective - Date & Time of Evaluation Date of Evaluation: 12/18/16 Time of Evaluation: 16:10 - Subjective Subjective: Patient seen and evaluated. Denies cardiac symptoms. VSS Stress test normal and Normal EF This patient is assessed as Intermediate risk for cardiac events for gastro intestinal surgery If surgery is clinically indicated recommended to proceed from cardiac point of view Objective - Vital Signs/Intake and Output Vital Signs (last 24 hours): Temp Pulse Resp BP Pulse Ox 98.2 F 54 L 20 145/66 96 12/18/16 15:15 12/18/16 15:15 12/18/16 15:15 12/18/16 15:15 12/18/16 15:15 Intake and Output: 12/18/16 12/19/16 18:59 06:59 Intake Total 1600 Balance 1600 - Medications Medications: Current Medications Carvedilol (Coreg) 12.5 mg PO DAILY [facility] Last Admin: 12/18/16 11:41 Dose: 12.5 mg Dextrose/Sodium Chloride (Dextrose 5%/0.45% Ns 1000 Ml) 1,000 mls @ 100 mls/hr IV .Q10H [facility] Last Admin: 12/18/16 16:45 Dose: Not Given Losartan Potassium (Cozaar) 50 mg PO DAILY [facility] Last Admin: 12/18/16 11:41 Dose: 50 mg Metformin HCl (Glucophage) 500 mg PO DAILY [facility] Last Admin: 12/18/16 11:41 Dose: 500 mg Pantoprazole Sodium (Protonix Ec Tab) 40 mg PO DAILY [facility] Last Admin: 12/18/16 11:41 Dose: 40 mg Rosuvastatin Calcium (Crestor) 20 mg PO HS [facility] Last Admin: 12/18/16 22:11 Dose: 20 mg - Labs Labs: 12/17/16 13:49 12/18/16 06:56 PT 11.3 SECONDS (9.7-12.2) 12/13/16 07:10 INR 1.0 12/13/16 07:10 APTT 31 SECONDS (21-34) 12/13/16 07:10
--- NOTE | 2016-12-18 23:24 | CARD ---
APPROVED REPORT Protocol: PHARMACOLOGICAL STRESS Test Type: LEXISCAN Test Indications: CHEST PAIN Medications: LIST SCAN Medical History: CHEST PAIN Target HR: 150 bpm Resting ECG: NSR Resting Heart Rate: 52 bpm Resting Blood Pressure: 154/70mmHg submaximum (85%): 128 bpm TEST SUMMARY [id number]/70.0. INFUSIONDOSE 100:340.00.01.055/.0. [id number]/60.0. PROCEDURE Pharmacologic stress testing was performed using 0.4mg per 5ml of regadenoson given intravenously over 7-10 seconds. Reversal agent aminophyline 100 mg, given intravenously for Nausea. POST EXERCISE Reason for Termination: COMPLETED LEXISCAN STRESS TEST Target HR: No Max HR: 55 bpm 59% of Maximum Predicted HR: 150 bpm Exercise duration: 00:33 min:sec, 0 Stage Exercise capacity: 1.0METs Max Blood Pressure: 154/70mmHg Blood Pressure response to exercise: normal resting BP - appropriate response Heart Rate response to exercise: appropriate Chest Pain: No, none Angina index: 0 Arrhythmia: No, none ST Change: Yes, NS ST T CHANGES Deviation: 0 mm INTERPRETATION Stress EKG Conclusion: NEGATIVE LEXISCAN STRESS TEST NORMAL BP RESPONSE TO LEXISCAN NUCLEAR STUDIES TO BE READ SEPARATELY EXAM: Myocardial Perfusion REST/STRESS Imaging Protocol The imaging protocol used to acquire images was Rest Tc-99m/stress Tc-99m 1 day Rest Spect myocardial perfusion imaging was performed in supine position 40 minutes following the injection of 13.1 mCi of Tc-99 Myoview. Gated Stress Spect was performed 40 minutes after intravenous 31.8 mCi Tc-99 Myoview injection. The images were gated to evaluate regional wall motion and calculate ventricular ejection fraction.Images were reconstructed using backfilter projection method in short horizontal and verticle long axis. Spect slices were generated. RESTING DATA OUK640.52pvYU8.80L/min ESV38.00mlMyocardial Bjvv719.00g Av. Heart Rate53.00bpm EF65.00% STRESS DATA UUO482.21hmBZ0.70L/min ESV49.00mlMyocardial Xwke597.00g EF63.00% Regional WT score at stress:2.00 Regional WM score at stress:0.00 Summed WT score at stress:21.00 Av. Heart Rate57.00bpmSummed WM score at stress:3.00 LV Perf. Quant 17 Seg. SSS3.00 17 Seg. SRS0.00 17 Seg. SDS3.00 Stress Defect Extent (% LAD)0.00Rest Defect Extent (% LAD)0.00Rev. Defect Extent (% LAD)0.00 Stress Defect Extent (% LCX)33.80Rest Defect Extent (% LCX)0.00Rev. Defect Extent (% LCX)31.30 Stress Defect Extent (% RCA)0.00Rest Defect Extent (% RCA)0.00Rev. Defect Extent (% RCA)0.00 Stress Defect Extent (% CUCA)6.30Rest Defect Extent (% CUCA)0.00Rev. Defect Extent (% CUCA)5.90 Other Information Quality:Good IMPRESSION Normal Myocardial Perfusion exercise stress study Left Ventricle LV Size/Shape: The left ventricle is normal size. LV Function:Left ventricle systolic function is normal. The Ejection Fraction is 60-65%. Metabolism/Perfusion There are no perfusion/metabolism defects. Conclusion 1. Normal Lexiscan Nuclear Stress Test. Normal EF.
[2016-12-19] MEDS: Dextrose 5%/0.45% NS 1,000 ML IV SCH (02:35)
[2016-12-19] MEDS ORDERED: Lactated Ringer's 1,000 ML IV SCH ×2 (06:45→23:55)
[2016-12-19 08:03] LABS: BASO # 0.1 K/uL (0.0-0.2); BASO % 0.7 % (0.0-2.0); EOS # 0.6 K/uL (0.0-0.7); EOS % 7.7 % (0.0-4.0); HEMATOCRIT 35.6 % (34.0-47.0); LYMPH # 1.4 K/uL (1.0-4.3); MEAN CELL VOLUME 81.4 fL (81.0-99.0); MEAN CORPUSCULAR HEMOGLOBIN 25.6 pg (27.0-31.0); MEAN CORPUSCULAR HGB CONC 31.5 g/dL (33.0-37.0); MEAN PLATELET VOLUME 8.4 fL (7.2-11.7); MONO # 0.8 K/uL (0.0-0.8); MONO % 10.9 % (0.0-10.0); RED CELL DISTRIBUTION WIDTH 19.1 % (11.5-14.5); WHITE BLOOD COUNT 7.6 K/uL (4.8-10.8)
--- NOTE | 2016-12-19 08:07 | CARD ---
APPROVED REPORT EKG Measurement Heart [id number] AR 130P60 [id number] <Conclusion> Normal sinus rhythm Cannot rule out Inferior infarct, age undetermined ST & T wave abnormality, consider lateral ischemia Abnormal ECG
[2016-12-19 08:19] LABS: CHLORIDE 101 mmol/L (98-107)
[2016-12-19 08:20] LABS: SODIUM 140 mmol/L (132-148)
[2016-12-19 08:22] LABS: BILIRUBIN,TOTAL 0.6 mg/dL (0.2-1.3); CARBON DIOXIDE 26 mmol/L (22-30); GFR AFRICAN-AMERICAN > 60
[2016-12-19 08:23] LABS: ALB/GLOB RATIO 1.2 (1.0-2.1); ALKALINE PHOSPHATASE 82 U/L (38-126); ALT/SGPT 13 U/L (9-52); AST/SGOT 13 U/L (14-36); BLOOD UREA NITROGEN 9 mg/dL (7-17); GLUCOSE,RANDOM 85 mg/dL (65-105); PHOSPHOROUS 4.2 mg/dL (2.5-4.5); TOTAL PROTEIN 6.2 g/dL (6.3-8.3)
[2016-12-19 08:24] LABS: CALCIUM 8.5 mg/dl (8.6-10.4); MAGNESIUM 2.1 mg/dL (1.6-2.3)
[2016-12-19] MEDS: Pantoprazole 40 mg EC Tab PO SCH (09:28)
--- NOTE | 2016-12-19 11:06 | CP.PCM.PN ---
Subjective - Date & Time of Evaluation Date of Evaluation: 12/19/16 Time of Evaluation: 11:04 - Subjective Subjective: No bleeding, brown stool For OR today Objective - Vital Signs/Intake and Output Vital Signs (last 24 hours): Temp Pulse Resp BP Pulse Ox 97.5 F L 60 20 174/71 H 98 12/19/16 08:00 12/19/16 08:00 12/19/16 08:00 12/19/16 09:28 12/19/16 08:00 Intake and Output: 12/19/16 12/19/16 06:59 18:59 Intake Total 2400 Balance 2400 - Medications Medications: Current Medications Carvedilol (Coreg) 12.5 mg PO DAILY [facility] Last Admin: 12/19/16 09:28 Dose: 12.5 mg Lactated Ringer's (Lactated Ringer's) 1,000 mls @ 100 mls/hr IV .Q10H [facility] Last Admin: 12/19/16 06:48 Dose: 100 mls/hr Losartan Potassium (Cozaar) 50 mg PO DAILY [facility] Last Admin: 12/19/16 09:28 Dose: 50 mg Metformin HCl (Glucophage) 500 mg PO DAILY [facility] Last Admin: 12/18/16 11:41 Dose: 500 mg Pantoprazole Sodium (Protonix Ec Tab) 40 mg PO DAILY [facility] Last Admin: 12/19/16 09:28 Dose: 40 mg Rosuvastatin Calcium (Crestor) 20 mg PO HS [facility] Last Admin: 12/18/16 22:11 Dose: 20 mg - Labs Labs: 12/19/16 07:54 12/19/16 07:54 PT 11.3 SECONDS (9.7-12.2) 12/13/16 07:10 INR 1.0 12/13/16 07:10 APTT 31 SECONDS (21-34) 12/13/16 07:10 - Constitutional Appears: No Acute Distress - Head Exam Head Exam: ATRAUMATIC, NORMOCEPHALIC - Eye Exam Eye Exam: EOMI, PERRL - Respiratory Exam Respiratory Exam: NORMAL BREATHING PATTERN - Cardiovascular Exam Cardiovascular Exam: REGULAR RHYTHM, +S1 - GI/Abdominal Exam GI & Abdominal Exam: Soft, Normal Bowel Sounds. absent: Guarding, Rigid, Tenderness, Mass, Rebound - Rectal Exam Rectal Exam: Deferred - Extremities Exam Extremities Exam: Normal Inspection Assessment and Plan (1) Gastrointestinal hemorrhage Assessment & Plan: For Laparotomy and revision of previous rectopexy with erosion of mesh through recto-sigmoid wall into lumen. body recall instructor for OR today. No further bleeding since endoscopic clipping of ulcerated area with visible vessel. Status: Acute (2) Acute blood loss anemia Assessment & Plan: stable, no further bleeding. Status: Acute (3) Rectal ulcer Assessment & Plan: as above related to erosion/fistulization of mesh post rectopexy. No recent bleeding after endoscopic clipping of ulcer. Status: Acute (4) Coronary artery disease Assessment & Plan: S/P Cardiac evaluation. Status: Acute
[2016-12-19] MEDS ORDERED: Propofol 10 mg/ml Inj (20 ML) ONE (12:11)
[2016-12-19] MEDS ORDERED: Midazolam 2 MG/2 ML VIAL ONE (12:12)
[2016-12-19] MEDS ORDERED: Lactated Ringer's 1,000 ML IV ONE ×5 (12:15→13:50)
[2016-12-19] MEDS ORDERED: metroNIDAZOLE IV 500 mg/100 ml 100 ML ONE (12:41)
[2016-12-19] MEDS ORDERED: Ciprofloxacin 400mg/200ml D5W 200 ML IVPB ONE (12:42)
--- NOTE | 2016-12-19 14:51 | CP.PCM.PN ---
<Ayan Ac - Last Filed: 12/19/16 14:38> Subjective - Date & Time of Evaluation Date of Evaluation: 12/19/16 Time of Evaluation: 14:38 - Subjective Subjective: PGY-[address] Conley's service Pt seen and examined at bedside. Pt states that she feels well. Has no blood in BM, brown stool. Denies fevers, chills, chest pain, sob, nausea or vomiting. Objective - Vital Signs/Intake and Output Vital Signs (last 24 hours): Temp Pulse Resp BP Pulse Ox 97.5 F L 60 20 174/71 H 98 12/19/16 08:00 12/19/16 08:00 12/19/16 08:00 12/19/16 09:28 12/19/16 08:00 Intake and Output: 12/19/16 12/19/16 06:59 18:59 Intake Total 2400 Balance 2400 - Medications Medications: Current Medications Carvedilol (Coreg) 12.5 mg PO DAILY [facility] Last Admin: 12/19/16 09:28 Dose: 12.5 mg Lactated Ringer's (Lactated Ringer's) 1,000 mls @ 100 mls/hr IV .Q10H [facility] Last Admin: 12/19/16 06:48 Dose: 100 mls/hr Losartan Potassium (Cozaar) 50 mg PO DAILY [facility] Last Admin: 12/19/16 09:28 Dose: 50 mg Metformin HCl (Glucophage) 500 mg PO DAILY [facility] Last Admin: 12/18/16 11:41 Dose: 500 mg Pantoprazole Sodium (Protonix Ec Tab) 40 mg PO DAILY [facility] Last Admin: 12/19/16 09:28 Dose: 40 mg Rosuvastatin Calcium (Crestor) 20 mg PO HS [facility] Last Admin: 12/18/16 22:11 Dose: 20 mg - Labs Labs: 12/19/16 07:54 12/19/16 07:54 PT 11.3 SECONDS (9.7-12.2) 12/13/16 07:10 INR 1.0 12/13/16 07:10 APTT 31 SECONDS (21-34) 12/13/16 07:10 - Constitutional Appears: Non-toxic, No Acute Distress - Head Exam Head Exam: ATRAUMATIC, NORMOCEPHALIC - ENT Exam ENT Exam: Mucous Membranes Moist - Respiratory Exam Respiratory Exam: Clear to Ausculation Bilateral, NORMAL BREATHING PATTERN - Cardiovascular Exam Cardiovascular Exam: +S1, +S2 - GI/Abdominal Exam GI & Abdominal Exam: Soft, Normal Bowel Sounds - Neurological Exam Neurological Exam: Alert, Awake - Skin Skin Exam: Dry, Warm Assessment and Plan - Assessment and Plan (Free Text) Assessment: Acute GI Bleed - s/p 2 units transfused PRBC, H/H stable - will continue to monitor - Colonoscopy 12/14 - Bleeding due to mesh fistulization/erosion following rectopexy. Visible mesh at 20-25cm with much "trauma", ulceration and edema. Satellite area that appears to be directly related to trauma from the edge of the mesh was oozing with the edge of a vessel visible. Clipped using a resolution clip with hemostasis. Still some oozing blood seen from under the area covered with mesh. Not felt to be safe to utilize cautery in this area. - Dr Negrete operated on patient 2-3 months ago, to return next week. Dr. Mercer (surgery) was consulted by Dr. Hutchinson to cover patient for the weekend. - Per surgery -OR today -Type and Cross 2u prbc Mesh erosion - as above History of Atrial Fibrillation - Patient currently not on anticoagulation agents - Hold ASA due to bleed - Consult Cardiology, Dr. Whitaker. - stress test - normal nuclear stress test CAD - history of cardiac stents - Continue home medications: Coreg 12.5 mg po daily Losartan 50 mg po daily Atorvastatin 40 mg po daily ASA held DMII - Continue home medication: - Metformin 500 mg po daily - on hold - Accuchecks Infrarenal Abdominal Aortic Aneurysm - CT abdomen from 08/31/16 shows a 4cm infra-renal AAA Prophylaxis - SCD - Protonix - VTE contraindicated due to GI bleed Dispo - cont current mgmt - FU serial H/H - Transfuse PRN - Awaiting Caden joy [All management per Dr. Conley] <Otoniel Conley Jr. - Last Filed: 12/20/16 16:27> Objective - Vital Signs/Intake and Output Vital Signs (last 24 hours): Temp Pulse Resp BP Pulse Ox 98.0 F 71 17 96/45 L 100 12/20/16 12:00 12/20/16 15:04 12/20/16 14:00 12/20/16 14:00 12/20/16 15:04 Intake and Output: 12/20/16 12/20/16 06:59 18:59 Intake Total 1620 625 Output Total 1400 200 Balance 220 425 - Medications Medications: Current Medications Potassium Chloride/Dextrose/Sod Cl (Potassium Chl 20 Meq In D5-1/2ns) 1,000 mls @ 75 mls/hr IV .[id number] [facility] Last Admin: 12/20/16 10:19 Dose: 75 mls/hr Insulin Human Regular (Novolin R) 0 unit SC ACHS [facility] PRN Reason: Protocol Morphine Sulfate/Sodium Chloride (Morphine [employer] Monoject Barrel) 30 mg IV Q4 PRN ; Protocol PRN Reason: Pain, severe (8-10) Last Admin: 12/19/16 20:30 Dose: 30 mg Pantoprazole Sodium (Protonix Inj) 40 mg IVP DAILY [facility] Last Admin: 12/20/16 09:27 Dose: 40 mg Rosuvastatin Calcium (Crestor) 20 mg PO HS [facility] Last Admin: 12/19/16 22:31 Dose: Not Given - Labs Labs: 12/20/16 15:53 12/20/16 15:53 PT 13.5 SECONDS (9.7-12.2) H 12/20/16 05:55 INR 1.2 12/20/16 05:55 APTT 28 SECONDS (21-34) 12/20/16 05:55 Attending/Attestation - Attestation I have personally seen and examined this patient.: Yes I have fully participated in the care of the patient.: Yes I have reviewed all pertinent clinical information, including history, physical exam and plan: Yes Notes (Text): 12/20/16 16:26 Patient seen and examined with the resident. Reviewed resident notes and findings. Agree with resident notes findings and plan of care as discussed
[2016-12-19] MEDS ORDERED: Calcium Chloride 1000 mg/10 ml Syringe IV ONE (14:56)
[2016-12-19 14:57] LABS: ARTERIAL BLOOD HGB O2 SAT 97.1 % (95.0-98.0); CARBOXYHEMOGLOBIN 1.5 % (0.5-1.5); HHB 0.1 % (0.0-5.0); METHEMOGLOBIN 1.3 % (0.0-3.0)
[2016-12-19] MEDS ORDERED: Neostigmine Methylsulfate 3mg/3ml Syringe IV ONE (15:11)
[2016-12-19 15:13] LABS: HEMATOCRIT 30.6 % (34.0-47.0)
[2016-12-19 15:21] LABS: INR 1.2
[2016-12-19] MEDS ORDERED: Sodium Chloride 0.9% 1,000 ML IV ONE ×3 (16:00→18:30)
[2016-12-19] MEDS ORDERED: Morphine Monoject Barrel PCA 1mg/ml IV PRN (16:03)
--- NOTE | 2016-12-19 16:08 | PCM.SURG1 ---
Surgeon's Initial Post Op Note - Surgeon's Notes Surgeon: Dr. Negrete Ice Sculptor: Dr. Heredia PGY3, Dr. Silva PGY2, Nevaeh TUCKER III Type of Anesthesia: General Endo Anesthesia Administered By: Dominick/Raymundo Pre-Operative Diagnosis: Lower GI Bleed, Mesh Erosion Operative Findings: see operative report Post-Operative Diagnosis: as above Operation Performed: Exploratory Laparotomy. Low Anterior Resection. Excision Rectosigmoid Colon and Mesh. Bilateral Ureterolysis. Repair of Sacral venous bleed Specimen/Specimens Removed: rectosigmoid colon with mesh Estimated Blood Loss: EBL {In ML}: 1,500 Blood Products Given: PRBC (2) Drains Used: Jesse (2) Post-Op Condition: Fair Date of Surgery/Procedure: 12/19/16 Time of Surgery/Procedure: 13:00
[2016-12-19] MEDS: HYDROmorphone 0.5 mg/0.5 ml ISec IVP PRN ×2 (16:59→18:36)
[2016-12-19 18:33] LABS: HEMATOCRIT 31.3 % (34.0-47.0); MEAN CELL VOLUME 83.1 fL (81.0-99.0); MEAN CORPUSCULAR HEMOGLOBIN 27.6 pg (27.0-31.0); MEAN CORPUSCULAR HGB CONC 33.2 g/dL (33.0-37.0); MEAN PLATELET VOLUME 8.2 fL (7.2-11.7); RED CELL DISTRIBUTION WIDTH 18.3 % (11.5-14.5); WHITE BLOOD COUNT 14.2 K/uL (4.8-10.8)
[2016-12-19 18:33] LABS: ARTERIAL BLOOD HGB O2 SAT 96.4 % (95.0-98.0); DRAW SITE A LINE; HHB 0.3 % (0.0-5.0); METHEMOGLOBIN 1.3 % (0.0-3.0)
[2016-12-19 18:36] LABS: CHLORIDE 101 mmol/L (98-107); SODIUM 135 mmol/L (132-148)
[2016-12-19] MEDS ORDERED: HYDROmorphone 0.5 mg/0.5 ml ISec ONE (18:36)
[2016-12-19 18:39] LABS: ALB/GLOB RATIO 1.3 (1.0-2.1); ALKALINE PHOSPHATASE 50 U/L (38-126); ALT/SGPT 19 U/L (9-52); AST/SGOT 20 U/L (14-36); BILIRUBIN,TOTAL 3.4 mg/dL (0.2-1.3); BLOOD UREA NITROGEN 11 mg/dL (7-17); CARBON DIOXIDE 23 mmol/L (22-30); GFR AFRICAN-AMERICAN > 60; GLUCOSE,RANDOM 149 mg/dL (65-105); TOTAL PROTEIN 5.2 g/dL (6.3-8.3)
[2016-12-19 18:40] LABS: CALCIUM 8.3 mg/dl (8.6-10.4)
[2016-12-19] MEDS ORDERED: Labetalol 25mg/5ml Syringe IVP PRN (18:41)
[2016-12-19 18:42] LABS: INR 1.2
--- NOTE | 2016-12-19 19:14 | CP.PCM.CON ---
History of Present Illness - History of Present Illness History of Present Illness: Patient seen and examined in PACU after exploratory laparotomy with low anterior resection of rectosigmoid colon for mesh erosion. During surgery there was EBL of 1.5 L of blood and the RAZA's in the abdomen have put out hourly. She has received 2 FFP and 4 packed red blood cells. She is not tachycardic (on b- blockers) and BP is 174/71 mmhg, UO 30 mL hourly. On my evaluation patient alert, awake, answering properly in a very low voice due to throat pain (intubation), lungs with mild crackles at bases, saturating 100% on 4 L NC. she has hx of a. fib, cad, dm and infrarenal aortic aneuris of 4 cm. Reviewed cbc immediatly post op with drop of htc by 3 points. No more blood products or IV fluids for now, give 20 mg of lasix and check bmp and cbc at 10 pm. Will transfer to ICU as soon as a bed is available. Past Patient History - Infectious Disease Hx of Infectious Diseases: None - Past Medical History & Family History Past Medical History?: Yes - Past Social History Smoking Status: Light Smoker < 10 Cigarettes Daily Alcohol: None Drugs: Denies Home Situation {Lives}: With Family - CARDIAC Hx Hypercholesterolemia: Yes Hx Hypertension: Yes - PULMONARY Hx Respiratory Disorders: No - NEUROLOGICAL Hx Transient Ischemic Attacks (TIA): Yes - HEENT Hx HEENT Problems: No - RENAL Hx Chronic Kidney Disease: No - ENDOCRINE/METABOLIC Hx Endocrine Disorders: Yes Hx Diabetes Mellitus Type 1: Yes Hx Diabetes Mellitus Type 2: Yes - HEMATOLOGICAL/ONCOLOGICAL Hx Anemia: Yes ( acute and chronic due to GI blood loss) Hx Cirrhosis: No Hx Hepatitis A: No Hx Hepatitis B: No Hx Hepatitis C: No - INTEGUMENTARY Hx Dermatological Problems: No - MUSCULOSKELETAL/RHEUMATOLOGICAL Hx Arthritis: Yes Hx Falls: No - GASTROINTESTINAL Hx Gastrointestinal Disorders: Yes Hx Diverticulitis: Yes (diverticulosis 2014 and 05/2016) Hx Gastritis: Yes Hx Gastroesophageal Reflux: Yes Hx Hemorrhoids: Yes Other/Comment: Rectal prolapse - GENITOURINARY/GYNECOLOGICAL Hx Genitourinary Disorders: No - PSYCHIATRIC Hx Substance Use: No - SURGICAL HISTORY Hx Coronary Stent: Yes Other/Comment: Repair of rectal prolapse 2015 - ANESTHESIA Hx Anesthesia: Yes Hx Anesthesia Reactions: No Hx Malignant Hyperthermia: No Has any member of the family had a problem w/ anesthesia?: Yes Meds Allergies/Adverse Reactions: Allergies Allergy/AdvReac Type Severity Reaction Status Date / Time Penicillins Allergy RASH Verified 12/12/16 15:34 acetaminophen [From Percocet] AdvReac DIZZINESS Verified 12/12/16 15:34 oxycodone HCl [From Percocet] AdvReac DIZZINESS Verified 12/12/16 15:34 - Medications Medications: Current Medications Carvedilol (Coreg) 12.5 mg PO DAILY [facility] Last Admin: 12/19/16 09:28 Dose: 12.5 mg Ciprofloxacin (Cipro 400mg/200ml Dsw) 200 mls @ 133 mls/hr IVPB Q12H [facility] Stop: 12/20/16 07:16 Metronidazole (Flagyl) 100 mls @ 100 mls/hr IVPB Q8 [facility] Stop: 12/20/16 06:59 Losartan Potassium (Cozaar) 50 mg PO DAILY [facility] Last Admin: 12/19/16 09:28 Dose: 50 mg Metformin HCl (Glucophage) 500 mg PO DAILY [facility] Last Admin: 12/18/16 11:41 Dose: 500 mg Morphine Sulfate/Sodium Chloride (Morphine Manager Supplier Monoject Barrel) 30 mg IV Q4 PRN ; Protocol PRN Reason: Pain, severe (8-10) Ondansetron HCl (Zofran Inj) 4 mg IVP Q4H PRN PRN Reason: Nausea/Vomiting Pantoprazole Sodium (Protonix Inj) 40 mg IVP DAILY [facility] Rosuvastatin Calcium (Crestor) 20 mg PO HS [facility] Last Admin: 12/18/16 22:11 Dose: 20 mg Results - Vital Signs Recent Vital Signs: Last Vital Signs Temp 97.5 F L 12/19/16 08:00 Pulse 68 12/19/16 15:45 Resp 20 12/19/16 08:00 BP 174/71 H 12/19/16 09:28 Pulse Ox 98 12/19/16 08:00 - Labs Result Diagrams: 12/19/16 18:28 12/19/16 18:28 Labs: Laboratory Results - last 24 hr 12/18/16 12/18/16 12/19/16 19:45 21:53 07:06 WBC RBC Hgb Hct MCV MCH MCHC RDW Plt Count MPV Neut % (Auto) Lymph % (Auto) [place] % (Auto) Eos % (Auto) Baso % (Auto) Neut # Lymph # [place] # Eos # Baso # PT INR APTT Puncture Site pCO2 pO2 HCO3 ABG pH ABG Total CO2 ABG O2 Saturation ABG Base Excess ABG Hemoglobin ABG Carboxyhemoglobin POC ABG HHb (Measured) ABG Methemoglobin [place] Test A-a O2 Difference Respiratory Index Hgb O2 Saturation Liter Flow FiO2 Sodium Potassium Chloride Carbon Dioxide Anion Gap BUN Creatinine Est GFR ( Amer) Est GFR (Non-Af Amer) POC Glucose (mg/dL) 88 243 H Random Glucose Calcium Phosphorus Magnesium Total Bilirubin AST ALT Alkaline Phosphatase Total Protein Albumin Globulin Albumin/Globulin Ratio Blood Type A NEGATIVE Antibody Screen Negative 12/19/16 12/19/16 12/19/16 07:54 11:23 14:55 WBC 7.6 RBC 4.37 Hgb 11.2 Hct 35.6 MCV 81.4 MCH 25.6 L MCHC 31.5 L RDW 19.1 H Plt Count 333 MPV 8.4 Neut % (Auto) 61.7 Lymph % (Auto) 19.0 L [place] % (Auto) 10.9 H Eos % (Auto) 7.7 H Baso % (Auto) 0.7 Neut # 4.7 Lymph # 1.4 [place] # 0.8 Eos # 0.6 Baso # 0.1 PT INR APTT Puncture Site Na pCO2 44 pO2 299 H HCO3 22.4 ABG pH 7.32 L ABG Total CO2 24.1 ABG O2 Saturation 99.9 H ABG Base Excess -3.3 L ABG Hemoglobin 8.6 L ABG Carboxyhemoglobin 1.5 POC ABG HHb (Measured) 0.1 ABG Methemoglobin 1.3 [place] Test Na A-a O2 Difference 359.0 Respiratory Index 1.2 Hgb O2 Saturation 97.1 Liter Flow FiO2 100.0 Sodium 140 Potassium 4.0 Chloride 101 Carbon Dioxide 26 Anion Gap 17 BUN 9 Creatinine 0.6 L Est GFR ( Amer) > 60 Est GFR (Non-Af Amer) > 60 POC Glucose (mg/dL) 93 Random Glucose 85 Calcium 8.5 L Phosphorus 4.2 Magnesium 2.1 Total Bilirubin 0.6 AST 13 L ALT 13 Alkaline Phosphatase 82 Total Protein 6.2 L Albumin 3.4 L Globulin 2.8 Albumin/Globulin Ratio 1.2 Blood Type Antibody Screen 0312/19/16 12/19/16 15:06 16:52 17:45 WBC RBC Hgb 9.7 L Hct 30.6 L MCV MCH MCHC RDW Plt Count 267 MPV Neut % (Auto) Lymph % (Auto) [place] % (Auto) Eos % (Auto) Baso % (Auto) Neut # Lymph # [place] # Eos # Baso # PT 13.7 H INR 1.2 APTT 31 Puncture Site pCO2 pO2 HCO3 ABG pH ABG Total CO2 ABG O2 Saturation ABG Base Excess ABG Hemoglobin ABG Carboxyhemoglobin POC ABG HHb (Measured) ABG Methemoglobin [place] Test A-a O2 Difference Respiratory Index Hgb O2 Saturation Liter Flow FiO2 Sodium Potassium Chloride Carbon Dioxide Anion Gap BUN Creatinine Est GFR ( Amer) Est GFR (Non-Af Amer) POC Glucose (mg/dL) 179 H Random Glucose Calcium Phosphorus Magnesium Total Bilirubin AST ALT Alkaline Phosphatase Total Protein Albumin Globulin Albumin/Globulin Ratio Blood Type Antibody Screen 12/19/16 12/19/16 18:25 18:28 WBC 14.2 H D RBC 3.77 L Hgb 10.4 L Hct 31.3 L MCV 83.1 MCH 27.6 MCHC 33.2 RDW 18.3 H Plt Count 243 MPV 8.2 Neut % (Auto) Lymph % (Auto) [place] % (Auto) Eos % (Auto) Baso % (Auto) Neut # Lymph # [place] # Eos # Baso # PT 13.2 H INR 1.2 APTT 27 Puncture Site A line pCO2 42 pO2 197 H HCO3 23.1 ABG pH 7.35 ABG Total CO2 24.5 ABG O2 Saturation 99.7 H ABG Base Excess -2.3 L ABG Hemoglobin 10.1 L ABG Carboxyhemoglobin 2.0 H POC ABG HHb (Measured) 0.3 ABG Methemoglobin 1.3 [place] Test Na A-a O2 Difference Respiratory Index Hgb O2 Saturation 96.4 Liter Flow 4.0 FiO2 Sodium 135 Potassium 4.0 Chloride 101 Carbon Dioxide 23 Anion Gap 16 BUN 11 Creatinine 0.5 L Est GFR ( Amer) > 60 Est GFR (Non-Af Amer) > 60 POC Glucose (mg/dL) Random Glucose 149 H Calcium 8.3 L Phosphorus Magnesium Total Bilirubin 3.4 H AST 20 ALT 19 Alkaline Phosphatase 50 Total Protein 5.2 L Albumin 3.0 L Globulin 2.3 Albumin/Globulin Ratio 1.3 Blood Type Antibody Screen
[2016-12-19] MEDS: Morphine Monoject Barrel PCA 1mg/ml IV PRN (20:30)
[2016-12-19 22:30] LABS: HEMATOCRIT 34.8 % (34.0-47.0); MEAN CELL VOLUME 84.3 fL (81.0-99.0); MEAN CORPUSCULAR HEMOGLOBIN 27.6 pg (27.0-31.0); MEAN CORPUSCULAR HGB CONC 32.8 g/dL (33.0-37.0); MEAN PLATELET VOLUME 8.8 fL (7.2-11.7); RED CELL DISTRIBUTION WIDTH 17.9 % (11.5-14.5)
[2016-12-19] MEDS: metroNIDAZOLE IV 500 mg/100 ml 100 ML IVPB SCH (22:33)
[2016-12-19 22:38] LABS: CHLORIDE 100 mmol/L (98-107)
[2016-12-19 22:39] LABS: POTASSIUM 3.8 mmol/L (3.6-5.2); SODIUM 135 mmol/L (132-148)
[2016-12-19 22:40] LABS: INR 1.1
[2016-12-19 22:42] LABS: BLOOD UREA NITROGEN 11 mg/dL (7-17); CARBON DIOXIDE 23 mmol/L (22-30); GFR AFRICAN-AMERICAN > 60; GLUCOSE,RANDOM 124 mg/dL (65-105)
[2016-12-19 22:43] LABS: CALCIUM 8.1 mg/dl (8.6-10.4); MAGNESIUM 1.5 mg/dL (1.6-2.3); PHOSPHOROUS 4.3 mg/dL (2.5-4.5)
[2016-12-19] MEDS: Ciprofloxacin 400mg/200ml D5W 200 ML IVPB SCH (23:00)
--- NOTE | 2016-12-19 23:46 | CP.PCM.PN ---
Subjective - Date & Time of Evaluation Date of Evaluation: 12/19/16 Time of Evaluation: 19:05 - Subjective Subjective: Patient s/p surgery No cardiac events Objective - Vital Signs/Intake and Output Vital Signs (last 24 hours): Temp Pulse Resp BP Pulse Ox 97.5 F L 68 20 174/71 H 98 12/19/16 08:00 12/19/16 15:45 12/19/16 08:00 12/19/16 09:28 12/19/16 08:00 Intake and Output: 12/19/16 12/20/16 18:59 06:59 Intake Total 1574 20 Output Total 90 350 Balance 1484 -330 - Medications Medications: Current Medications Carvedilol (Coreg) 12.5 mg PO DAILY [facility] Last Admin: 12/19/16 09:28 Dose: 12.5 mg Ciprofloxacin (Cipro 400mg/200ml Dsw) 200 mls @ 133 mls/hr IVPB Q12H [facility] Stop: 12/20/16 07:16 Metronidazole (Flagyl) 100 mls @ 100 mls/hr IVPB Q8 [facility] Stop: 12/20/16 06:59 Last Admin: 12/19/16 22:33 Dose: 100 mls/hr Lactated Ringer's (Lactated Ringer's) 1,000 mls @ 75 mls/hr IV .[id number] [facility] Magnesium Sulfate/Dextrose (Magnesium Sulfate 1 Gm/100 Ml D5w) 100 mls @ 300 mls/hr IVPB Q30M [facility] Stop: 12/20/16 00:04 Last Admin: 12/19/16 23:24 Dose: 300 mls/hr Losartan Potassium (Cozaar) 50 mg PO DAILY [facility] Last Admin: 12/19/16 09:28 Dose: 50 mg Metformin HCl (Glucophage) 500 mg PO DAILY [facility] Last Admin: 12/18/16 11:41 Dose: 500 mg Morphine Sulfate/Sodium Chloride (Morphine Precipitate Washer Monoject Barrel) 30 mg IV Q4 PRN ; Protocol PRN Reason: Pain, severe (8-10) Ondansetron HCl (Zofran Inj) 4 mg IVP Q4H PRN PRN Reason: Nausea/Vomiting Pantoprazole Sodium (Protonix Inj) 40 mg IVP DAILY [facility] Rosuvastatin Calcium (Crestor) 20 mg PO HS [facility] Last Admin: 12/19/16 22:31 Dose: Not Given - Labs Labs: 12/19/16 22:26 12/19/16 22:26 PT 13.1 SECONDS (9.7-12.2) H 12/19/16 22:26 INR 1.1 12/19/16 22:26 APTT 27 SECONDS (21-34) 12/19/16 22:26
[2016-12-20] MEDS: Ciprofloxacin 400mg/200ml D5W 200 ML IVPB SCH (06:00)
[2016-12-20 06:04] LABS: BASO % 0.2 % (0.0-2.0); HEMATOCRIT 30.9 % (34.0-47.0); LYMPH # 0.8 K/uL (1.0-4.3); LYMPH % 6.7 % (20.0-40.0); MEAN CELL VOLUME 82.8 fL (81.0-99.0); MEAN CORPUSCULAR HEMOGLOBIN 27.5 pg (27.0-31.0); MEAN CORPUSCULAR HGB CONC 33.2 g/dL (33.0-37.0); MEAN PLATELET VOLUME 8.6 fL (7.2-11.7); MONO # 1.1 K/uL (0.0-0.8); MONO % 9.3 % (0.0-10.0); PLATELET COUNT 211 K/uL (130-400); RED CELL DISTRIBUTION WIDTH 17.9 % (11.5-14.5); WHITE BLOOD COUNT 12.4 K/uL (4.8-10.8)
[2016-12-20 06:10] LABS: INR 1.2
[2016-12-20 06:20] LABS: CHLORIDE 99 mmol/L (98-107); POTASSIUM 3.8 mmol/L (3.6-5.2); SODIUM 138 mmol/L (132-148)
[2016-12-20 06:22] LABS: BILIRUBIN,TOTAL 1.9 mg/dL (0.2-1.3); GFR AFRICAN-AMERICAN > 60
[2016-12-20 06:23] LABS: ALKALINE PHOSPHATASE 54 U/L (38-126); ALT/SGPT 22 U/L (9-52); AST/SGOT 19 U/L (14-36); BLOOD UREA NITROGEN 11 mg/dL (7-17); CARBON DIOXIDE 26 mmol/L (22-30); GLUCOSE,RANDOM 122 mg/dL (65-105); PHOSPHOROUS 3.9 mg/dL (2.5-4.5); TOTAL PROTEIN 5.2 g/dL (6.3-8.3)
[2016-12-20 06:24] LABS: CALCIUM 7.7 mg/dl (8.6-10.4); MAGNESIUM 2.2 mg/dL (1.6-2.3)
[2016-12-20 06:32] LABS: ALB/GLOB RATIO 1.4 (1.0-2.1)
[2016-12-20] MEDS: metroNIDAZOLE IV 500 mg/100 ml 100 ML IVPB SCH (06:45)
--- NOTE | 2016-12-20 07:25 | CP.CCUPN ---
<ArlengirishMary Anne mckoybrandon - Last Filed: 12/20/16 11:55> CCU Subjective - Physician Review Subjective (Free Text): 12/20/16 08:39 Pt seen and examined in no acute distress with daughter present bedside. 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 No complaints of nausea or vomiting at this time. Patient instructed on use of incentive spirometry. At this time, she denies dyspnea, headaches, subjective fevers or chills, nausea, vomiting, diarrhea, chest pain, palpitations or paresthesias. CCU Objective - Vital Signs / Intake & Output Vital Signs (Last 4 hours): Vital Signs Temp Pulse Resp BP Pulse Ox 12/20/16 06:00 74 18 140/51 L 99 12/20/16 05:00 73 19 131/49 L 98 12/20/16 04:00 97 F L 78 21 126/54 L 100 Intake and Output (Last 8hrs): Intake & Output 12/19/16 12/20/16 12/20/16 22:59 06:59 14:59 Intake Total 1294 1050 Output Total 540 950 Balance 754 100 Weight 141 lb 8 oz Intake: Intake, IV Amount 350 1050 Right Hand 100 75 Left Hand 150 200 Left Forearm 100 775 Blood Product 944 Output: Drainage 50 Left 30 Right 20 Urine 540 900 Urethral (Kulkarni) 150 900 Stool 0 Emesis 0 - Physical Exam Head: Positive for: Atraumatic, Normocephalic Pupils: Positive for: PERRL Extroacular Muscles: Positive for: EOMI Conjunctiva: Positive for: Normal Ears: Positive for: Normal Mouth: Positive for: Moist Mucous Membranes Nose (External): Positive for: Other (ng tube noted) Neck: Positive for: Normal Range of Motion Respiratory/Chest: Positive for: Clear to Auscultation Cardiovascular: Positive for: Murmurs, Normal S1, S2 Abdomen: Positive for: Tenderness, Other (RAZA drains noted on the left and right sides of abdomen with some serosanguinous output. dressing sites c/d/i) Upper Extremity: Positive for: Normal Inspection Lower Extremity: Negative for: CALF TENDERNESS Neurological: Positive for: CN II-XII Intact, Speech Normal Skin: Positive for: Warm, Dry, Normal Color Psychiatric: Positive for: Alert, Oriented x 3, Normal Insight, Normal Concentration, Normal Affect, Normal Mood. Negative for: Anxious, Agitated - Medications Active Medications: Active Medications Generic Name Dose Route Start Last Admin Trade Name Freq PRN Reason Stop Dose Admin Carvedilol 12.5 mg 12/13/16 10:00 12/19/16 09:28 Coreg PO 12.5 mg DAILY MARY Administration Lactated Ringer's 1,000 mls @ 75 mls/hr 12/19/16 23:55 12/19/16 23:30 Lactated Ringer's IV 75 mls/hr .[id number] MARY Administration Losartan Potassium 50 mg 12/13/16 10:00 12/19/16 09:28 Cozaar PO 50 mg DAILY MARY Administration Metformin HCl 500 mg 12/13/16 10:00 12/18/16 11:41 Glucophage PO 500 mg DAILY MARY Administration Morphine Sulfate/Sodium Chloride 30 mg 12/19/16 18:23 Morphine Founder Ceo & President Monoject Barrel IV Q4 PRN Pain, severe (8-10) Protocol Ondansetron HCl 4 mg 12/19/16 16:03 Zofran Inj IVP Q4H PRN Nausea/Vomiting Pantoprazole Sodium 40 mg 12/20/16 10:00 Protonix Inj IVP DAILY MARY Rosuvastatin Calcium 20 mg 12/13/16 22:00 12/19/16 22:31 Crestor PO Not Given HS MARY - Patient Studies Lab Studies: Lab Studies 12/20/16 12/20/16 12/19/16 Range/Units 06:28 05:55 22:26 WBC 12.4 H 15.0 H (4.8-10.8) K/uL RBC 3.73 L 4.13 (3.80-5.20) Mil/uL Hgb 10.2 L 11.4 (11.0-16.0) g/dL Hct 30.9 L 34.8 (34.0-47.0) % MCV 82.8 84.3 (81.0-99.0) fL MCH 27.5 27.6 (27.0-31.0) pg MCHC 33.2 32.8 L (33.0-37.0) g/dL RDW 17.9 H 17.9 H (11.5-14.5) % Plt Count 211 143 D (130-400) K/uL MPV 8.6 8.8 (7.2-11.7) fL Neut % (Auto) 83.8 H (50.0-75.0) % Lymph % (Auto) 6.7 L (20.0-40.0) % [place] % (Auto) 9.3 (0.0-10.0) % Eos % (Auto) 0.0 (0.0-4.0) % Baso % (Auto) 0.2 (0.0-2.0) % Neut # 10.4 H (1.8-7.0) K/uL Lymph # 0.8 L (1.0-4.3) K/uL [place] # 1.1 H (0.0-0.8) K/uL Eos # 0.0 (0.0-0.7) K/uL Baso # 0.0 (0.0-0.2) K/uL PT 13.5 H 13.1 H (9.7-12.2) SECONDS INR 1.2 1.1 APTT 28 27 (21-34) SECONDS Puncture Site pCO2 (35-45) mm/Hg pO2 (80-100) mm/Hg HCO3 (21-28) mmol/L ABG pH (7.35-7.45) ABG Total CO2 (22-28) mmol/L ABG O2 Saturation (95-98) % ABG Base Excess (-2.0-3.0) mmol/L ABG Hemoglobin (11.7-17.4) g/dL ABG Carboxyhemoglobin (0.5-1.5) % POC ABG HHb (Measured) (0.0-5.0) % ABG Methemoglobin (0.0-3.0) % [place] Test A-a O2 Difference mm/Hg Respiratory Index Hgb O2 Saturation (95.0-98.0) % Liter Flow FiO2 % Sodium 138 135 (132-148) mmol/L Potassium 3.8 3.8 (3.6-5.2) mmol/L Chloride 99 100 (98-107) mmol/L Carbon Dioxide 26 23 (22-30) mmol/L Anion Gap 17 16 (10-20) BUN 11 11 (7-17) mg/dL Creatinine 0.5 L 0.5 L (0.7-1.2) MG/DL Est GFR ( Amer) > 60 > 60 Est GFR (Non-Af Amer) > 60 > 60 POC Glucose (mg/dL) 136 H (65-110) mg/dL Random Glucose 122 H 124 H (65-105) mg/dL Calcium 7.7 L 8.1 L (8.6-10.4) mg/dl Phosphorus 3.9 4.3 (2.5-4.5) mg/dL Magnesium 2.2 1.5 L (1.6-2.3) mg/dL Total Bilirubin 1.9 H (0.2-1.3) mg/dL AST 19 (14-36) U/L ALT 22 (9-52) U/L Alkaline Phosphatase 54 (38-126) U/L Total Protein 5.2 L (6.3-8.3) g/dL Albumin 3.0 L (3.5-5.0) g/dL Globulin 2.2 (2.2-3.9) gm/dL Albumin/Globulin Ratio 1.4 (1.0-2.1) Blood Type Antibody Screen 12/19/16 12/19/16 12/19/16 Range/Units 18:28 18:25 17:45 WBC 14.2 H D (4.8-10.8) K/uL RBC 3.77 L (3.80-5.20) Mil/uL Hgb 10.4 L (11.0-16.0) g/dL Hct 31.3 L (34.0-47.0) % MCV 83.1 (81.0-99.0) fL MCH 27.6 (27.0-31.0) pg MCHC 33.2 (33.0-37.0) g/dL RDW 18.3 H (11.5-14.5) % Plt Count 243 267 (130-400) K/uL MPV 8.2 (7.2-11.7) fL Neut % (Auto) (50.0-75.0) % Lymph % (Auto) (20.0-40.0) % [place] % (Auto) (0.0-10.0) % Eos % (Auto) (0.0-4.0) % Baso % (Auto) (0.0-2.0) % Neut # (1.8-7.0) K/uL Lymph # (1.0-4.3) K/uL [place] # (0.0-0.8) K/uL Eos # (0.0-0.7) K/uL Baso # (0.0-0.2) K/uL PT 13.2 H (9.7-12.2) SECONDS INR 1.2 APTT 27 (21-34) SECONDS Puncture Site A line pCO2 42 (35-45) mm/Hg pO2 197 H (80-100) mm/Hg HCO3 23.1 (21-28) mmol/L ABG pH 7.35 (7.35-7.45) ABG Total CO2 24.5 (22-28) mmol/L ABG O2 Saturation 99.7 H (95-98) % ABG Base Excess -2.3 L (-2.0-3.0) mmol/L ABG Hemoglobin 10.1 L (11.7-17.4) g/dL ABG Carboxyhemoglobin 2.0 H (0.5-1.5) % POC ABG HHb (Measured) 0.3 (0.0-5.0) % ABG Methemoglobin 1.3 (0.0-3.0) % [place] Test Na A-a O2 Difference mm/Hg Respiratory Index Hgb O2 Saturation 96.4 (95.0-98.0) % Liter Flow 4.0 FiO2 % Sodium 135 (132-148) mmol/L Potassium 4.0 (3.6-5.2) mmol/L Chloride 101 (98-107) mmol/L Carbon Dioxide 23 (22-30) mmol/L Anion Gap 16 (10-20) BUN 11 (7-17) mg/dL Creatinine 0.5 L (0.7-1.2) MG/DL Est GFR ( Amer) > 60 Est GFR (Non-Af Amer) > 60 POC Glucose (mg/dL) (65-110) mg/dL Random Glucose 149 H (65-105) mg/dL Calcium 8.3 L (8.6-10.4) mg/dl Phosphorus (2.5-4.5) mg/dL Magnesium (1.6-2.3) mg/dL Total Bilirubin 3.4 H (0.2-1.3) mg/dL AST 20 (14-36) U/L ALT 19 (9-52) U/L Alkaline Phosphatase 50 (38-126) U/L Total Protein 5.2 L (6.3-8.3) g/dL Albumin 3.0 L (3.5-5.0) g/dL Globulin 2.3 (2.2-3.9) gm/dL Albumin/Globulin Ratio 1.3 (1.0-2.1) Blood Type Antibody Screen 12/19/16 12/19/16 12/19/16 Range/Units 16:52 15:06 14:55 WBC (4.8-10.8) K/uL RBC (3.80-5.20) Mil/uL Hgb 9.7 L (11.0-16.0) g/dL Hct 30.6 L (34.0-47.0) % MCV (81.0-99.0) fL MCH (27.0-31.0) pg MCHC (33.0-37.0) g/dL RDW (11.5-14.5) % Plt Count (130-400) K/uL MPV (7.2-11.7) fL Neut % (Auto) (50.0-75.0) % Lymph % (Auto) (20.0-40.0) % [place] % (Auto) (0.0-10.0) % Eos % (Auto) (0.0-4.0) % Baso % (Auto) (0.0-2.0) % Neut # (1.8-7.0) K/uL Lymph # (1.0-4.3) K/uL [place] # (0.0-0.8) K/uL Eos # (0.0-0.7) K/uL Baso # (0.0-0.2) K/uL PT 13.7 H (9.7-12.2) SECONDS INR 1.2 APTT 31 (21-34) SECONDS Puncture Site Na pCO2 44 (35-45) mm/Hg pO2 299 H (80-100) mm/Hg HCO3 22.4 (21-28) mmol/L ABG pH 7.32 L (7.35-7.45) ABG Total CO2 24.1 (22-28) mmol/L ABG O2 Saturation 99.9 H (95-98) % ABG Base Excess -3.3 L (-2.0-3.0) mmol/L ABG Hemoglobin 8.6 L (11.7-17.4) g/dL ABG Carboxyhemoglobin 1.5 (0.5-1.5) % POC ABG HHb (Measured) 0.1 (0.0-5.0) % ABG Methemoglobin 1.3 (0.0-3.0) % [place] Test Na A-a O2 Difference 359.0 mm/Hg Respiratory Index 1.2 Hgb O2 Saturation 97.1 (95.0-98.0) % Liter Flow FiO2 100.0 % Sodium (132-148) mmol/L Potassium (3.6-5.2) mmol/L Chloride (98-107) mmol/L Carbon Dioxide (22-30) mmol/L Anion Gap (10-20) BUN (7-17) mg/dL Creatinine (0.7-1.2) MG/DL Est GFR ( Amer) Est GFR (Non-Af Amer) POC Glucose (mg/dL) 179 H (65-110) mg/dL Random Glucose (65-105) mg/dL Calcium (8.6-10.4) mg/dl Phosphorus (2.5-4.5) mg/dL Magnesium (1.6-2.3) mg/dL Total Bilirubin (0.2-1.3) mg/dL AST (14-36) U/L ALT (9-52) U/L Alkaline Phosphatase (38-126) U/L Total Protein (6.3-8.3) g/dL Albumin (3.5-5.0) g/dL Globulin (2.2-3.9) gm/dL Albumin/Globulin Ratio (1.0-2.1) Blood Type Antibody Screen 12/19/16 12/19/16 12/19/16 Range/Units 11:23 07:54 07:06 WBC 7.6 (4.8-10.8) K/uL RBC 4.37 (3.80-5.20) Mil/uL Hgb 11.2 (11.0-16.0) g/dL Hct 35.6 (34.0-47.0) % MCV 81.4 (81.0-99.0) fL MCH 25.6 L (27.0-31.0) pg MCHC 31.5 L (33.0-37.0) g/dL RDW 19.1 H (11.5-14.5) % Plt Count 333 (130-400) K/uL MPV 8.4 (7.2-11.7) fL Neut % (Auto) 61.7 (50.0-75.0) % Lymph % (Auto) 19.0 L (20.0-40.0) % [place] % (Auto) 10.9 H (0.0-10.0) % Eos % (Auto) 7.7 H (0.0-4.0) % Baso % (Auto) 0.7 (0.0-2.0) % Neut # 4.7 (1.8-7.0) K/uL Lymph # 1.4 (1.0-4.3) K/uL [place] # 0.8 (0.0-0.8) K/uL Eos # 0.6 (0.0-0.7) K/uL Baso # 0.1 (0.0-0.2) K/uL PT (9.7-12.2) SECONDS INR APTT (21-34) SECONDS Puncture Site pCO2 (35-45) mm/Hg pO2 (80-100) mm/Hg HCO3 (21-28) mmol/L ABG pH (7.35-7.45) ABG Total CO2 (22-28) mmol/L ABG O2 Saturation (95-98) % ABG Base Excess (-2.0-3.0) mmol/L ABG Hemoglobin (11.7-17.4) g/dL ABG Carboxyhemoglobin (0.5-1.5) % POC ABG HHb (Measured) (0.0-5.0) % ABG Methemoglobin (0.0-3.0) % [place] Test A-a O2 Difference mm/Hg Respiratory Index Hgb O2 Saturation (95.0-98.0) % Liter Flow FiO2 % Sodium 140 (132-148) mmol/L Potassium 4.0 (3.6-5.2) mmol/L Chloride 101 (98-107) mmol/L Carbon Dioxide 26 (22-30) mmol/L Anion Gap 17 (10-20) BUN 9 (7-17) mg/dL Creatinine 0.6 L (0.7-1.2) MG/DL Est GFR ( Amer) > 60 Est GFR (Non-Af Amer) > 60 POC Glucose (mg/dL) 93 243 H (65-110) mg/dL Random Glucose 85 (65-105) mg/dL Calcium 8.5 L (8.6-10.4) mg/dl Phosphorus 4.2 (2.5-4.5) mg/dL Magnesium 2.1 (1.6-2.3) mg/dL Total Bilirubin 0.6 (0.2-1.3) mg/dL AST 13 L (14-36) U/L ALT 13 (9-52) U/L Alkaline Phosphatase 82 (38-126) U/L Total Protein 6.2 L (6.3-8.3) g/dL Albumin 3.4 L (3.5-5.0) g/dL Globulin 2.8 (2.2-3.9) gm/dL Albumin/Globulin Ratio 1.2 (1.0-2.1) Blood Type Antibody Screen 12/18/16 Range/Units 19:45 WBC (4.8-10.8) K/uL RBC (3.80-5.20) Mil/uL Hgb (11.0-16.0) g/dL Hct (34.0-47.0) % MCV (81.0-99.0) fL MCH (27.0-31.0) pg MCHC (33.0-37.0) g/dL RDW (11.5-14.5) % Plt Count (130-400) K/uL MPV (7.2-11.7) fL Neut % (Auto) (50.0-75.0) % Lymph % (Auto) (20.0-40.0) % [place] % (Auto) (0.0-10.0) % Eos % (Auto) (0.0-4.0) % Baso % (Auto) (0.0-2.0) % Neut # (1.8-7.0) K/uL Lymph # (1.0-4.3) K/uL [place] # (0.0-0.8) K/uL Eos # (0.0-0.7) K/uL Baso # (0.0-0.2) K/uL PT (9.7-12.2) SECONDS INR APTT (21-34) SECONDS Puncture Site pCO2 (35-45) mm/Hg pO2 (80-100) mm/Hg HCO3 (21-28) mmol/L ABG pH (7.35-7.45) ABG Total CO2 (22-28) mmol/L ABG O2 Saturation (95-98) % ABG Base Excess (-2.0-3.0) mmol/L ABG Hemoglobin (11.7-17.4) g/dL ABG Carboxyhemoglobin (0.5-1.5) % POC ABG HHb (Measured) (0.0-5.0) % ABG Methemoglobin (0.0-3.0) % [place] Test A-a O2 Difference mm/Hg Respiratory Index Hgb O2 Saturation (95.0-98.0) % Liter Flow FiO2 % Sodium (132-148) mmol/L Potassium (3.6-5.2) mmol/L Chloride (98-107) mmol/L Carbon Dioxide (22-30) mmol/L Anion Gap (10-20) BUN (7-17) mg/dL Creatinine (0.7-1.2) MG/DL Est GFR ( Amer) Est GFR (Non-Af Amer) POC Glucose (mg/dL) (65-110) mg/dL Random Glucose (65-105) mg/dL Calcium (8.6-10.4) mg/dl Phosphorus (2.5-4.5) mg/dL Magnesium (1.6-2.3) mg/dL Total Bilirubin (0.2-1.3) mg/dL AST (14-36) U/L ALT (9-52) U/L Alkaline Phosphatase (38-126) U/L Total Protein (6.3-8.3) g/dL Albumin (3.5-5.0) g/dL Globulin (2.2-3.9) gm/dL Albumin/Globulin Ratio (1.0-2.1) Blood Type A NEGATIVE Antibody Screen Negative Laboratory Results - last 24 hr 12/18/16 12/19/16 12/19/16 19:45 07:06 07:54 WBC 7.6 RBC 4.37 Hgb 11.2 Hct 35.6 MCV 81.4 MCH 25.6 L MCHC 31.5 L RDW 19.1 H Plt Count 333 MPV 8.4 Neut % (Auto) 61.7 Lymph % (Auto) 19.0 L [place] % (Auto) 10.9 H Eos % (Auto) 7.7 H Baso % (Auto) 0.7 Neut # 4.7 Lymph # 1.4 [place] # 0.8 Eos # 0.6 Baso # 0.1 PT INR APTT Puncture Site pCO2 pO2 HCO3 ABG pH ABG Total CO2 ABG O2 Saturation ABG Base Excess ABG Hemoglobin ABG Carboxyhemoglobin POC ABG HHb (Measured) ABG Methemoglobin [place] Test A-a O2 Difference Respiratory Index Hgb O2 Saturation Liter Flow FiO2 Sodium 140 Potassium 4.0 Chloride 101 Carbon Dioxide 26 Anion Gap 17 BUN 9 Creatinine 0.6 L Est GFR ( Amer) > 60 Est GFR (Non-Af Amer) > 60 POC Glucose (mg/dL) 243 H Random Glucose 85 Calcium 8.5 L Phosphorus 4.2 Magnesium 2.1 Total Bilirubin 0.6 AST 13 L ALT 13 Alkaline Phosphatase 82 Total Protein 6.2 L Albumin 3.4 L Globulin 2.8 Albumin/Globulin Ratio 1.2 Blood Type A NEGATIVE Antibody Screen Negative 12/19/16 12/19/16 12/19/16 11:23 14:55 15:06 WBC RBC Hgb 9.7 L Hct 30.6 L MCV MCH MCHC RDW Plt Count MPV Neut % (Auto) Lymph % (Auto) [place] % (Auto) Eos % (Auto) Baso % (Auto) Neut # Lymph # [place] # Eos # Baso # PT 13.7 H INR 1.2 APTT 31 Puncture Site Na pCO2 44 pO2 299 H HCO3 22.4 ABG pH 7.32 L ABG Total CO2 24.1 ABG O2 Saturation 99.9 H ABG Base Excess -3.3 L ABG Hemoglobin 8.6 L ABG Carboxyhemoglobin 1.5 POC ABG HHb (Measured) 0.1 ABG Methemoglobin 1.3 [place] Test Na A-a O2 Difference 359.0 Respiratory Index 1.2 Hgb O2 Saturation 97.1 Liter Flow FiO2 100.0 Sodium Potassium Chloride Carbon Dioxide Anion Gap BUN Creatinine Est GFR ( Amer) Est GFR (Non-Af Amer) POC Glucose (mg/dL) 93 Random Glucose Calcium Phosphorus Magnesium Total Bilirubin AST ALT Alkaline Phosphatase Total Protein Albumin Globulin Albumin/Globulin Ratio Blood Type Antibody Screen 12/19/16 12/19/16 12/19/16 16:52 17:45 18:25 WBC RBC Hgb Hct MCV MCH MCHC RDW Plt Count 267 MPV Neut % (Auto) Lymph % (Auto) [place] % (Auto) Eos % (Auto) Baso % (Auto) Neut # Lymph # [place] # Eos # Baso # PT INR APTT Puncture Site A line pCO2 42 pO2 197 H HCO3 23.1 ABG pH 7.35 ABG Total CO2 24.5 ABG O2 Saturation 99.7 H ABG Base Excess -2.3 L ABG Hemoglobin 10.1 L ABG Carboxyhemoglobin 2.0 H POC ABG HHb (Measured) 0.3 ABG Methemoglobin 1.3 [place] Test Na A-a O2 Difference Respiratory Index Hgb O2 Saturation 96.4 Liter Flow 4.0 FiO2 Sodium Potassium Chloride Carbon Dioxide Anion Gap BUN Creatinine Est GFR ( Amer) Est GFR (Non-Af Amer) POC Glucose (mg/dL) 179 H Random Glucose Calcium Phosphorus Magnesium Total Bilirubin AST ALT Alkaline Phosphatase Total Protein Albumin Globulin Albumin/Globulin Ratio Blood Type Antibody Screen 12/19/16 12/19/16 12/20/16 18:28 22:26 05:55 WBC 14.2 H D 15.0 H 12.4 H RBC 3.77 L 4.13 3.73 L Hgb 10.4 L 11.4 10.2 L Hct 31.3 L 34.8 30.9 L MCV 83.1 84.3 82.8 MCH 27.6 27.6 27.5 MCHC 33.2 32.8 L 33.2 RDW 18.3 H 17.9 H 17.9 H Plt Count 243 143 D 211 MPV 8.2 8.8 8.6 Neut % (Auto) 83.8 H Lymph % (Auto) 6.7 L [place] % (Auto) 9.3 Eos % (Auto) 0.0 Baso % (Auto) 0.2 Neut # 10.4 H Lymph # 0.8 L [place] # 1.1 H Eos # 0.0 Baso # 0.0 PT 13.2 H 13.1 H 13.5 H INR 1.2 1.1 1.2 APTT 27 27 28 Puncture Site pCO2 pO2 HCO3 ABG pH ABG Total CO2 ABG O2 Saturation ABG Base Excess ABG Hemoglobin ABG Carboxyhemoglobin POC ABG HHb (Measured) ABG Methemoglobin [place] Test A-a O2 Difference Respiratory Index Hgb O2 Saturation Liter Flow FiO2 Sodium 135 135 138 Potassium 4.0 3.8 3.8 Chloride 101 100 99 Carbon Dioxide 23 23 26 Anion Gap 16 16 17 BUN 11 11 11 Creatinine 0.5 L 0.5 L 0.5 L Est GFR ( Amer) > 60 > 60 > 60 Est GFR (Non-Af Amer) > 60 > 60 > 60 POC Glucose (mg/dL) Random Glucose 149 H 124 H 122 H Calcium 8.3 L 8.1 L 7.7 L Phosphorus 4.3 3.9 Magnesium 1.5 L 2.2 Total Bilirubin 3.4 H 1.9 H AST 20 19 ALT 19 22 Alkaline Phosphatase 50 54 Total Protein 5.2 L 5.2 L Albumin 3.0 L 3.0 L Globulin 2.3 2.2 Albumin/Globulin Ratio 1.3 1.4 Blood Type Antibody Screen 12/20/16 06:28 WBC RBC Hgb Hct MCV MCH MCHC RDW Plt Count MPV Neut % (Auto) Lymph % (Auto) [place] % (Auto) Eos % (Auto) Baso % (Auto) Neut # Lymph # [place] # Eos # Baso # PT INR APTT Puncture Site pCO2 pO2 HCO3 ABG pH ABG Total CO2 ABG O2 Saturation ABG Base Excess ABG Hemoglobin ABG Carboxyhemoglobin POC ABG HHb (Measured) ABG Methemoglobin [place] Test A-a O2 Difference Respiratory Index Hgb O2 Saturation Liter Flow FiO2 Sodium Potassium Chloride Carbon Dioxide Anion Gap BUN Creatinine Est GFR ( Amer) Est GFR (Non-Af Amer) POC Glucose (mg/dL) 136 H Random Glucose Calcium Phosphorus Magnesium Total Bilirubin AST ALT Alkaline Phosphatase Total Protein Albumin Globulin Albumin/Globulin Ratio Blood Type Antibody Screen Fingerstick Blood Sugar Results: 136 Review of Systems - Review of Systems Review of Systems: see subjective Critical Care Progress Note - Nutrition Nutrition: Nutrition Category Date Time Status NPO Diet [DIET] Diets 12/19/16 Breakfast Active Assessment/Plan - Assessment and Plan (Free Text) Assessment: 71 year old with PMHx significant for internal hemorrhoids, diabetes, atrial fibrillation, CAD and anemia presents to ICU s/p ex lap with excision of rectosigmoid colon and mesh due to ulcerated bleeding mesh in colon. Patient transferred to ICU for critical care monitoring. Plan: Neuro: aaox3 in no acute distress Pulm: O2 Saturation 100% on room air Cardio: Carvedilol 12.5 mg PO Daily Crestor 20 mg PO HS GI: Zofran PRN Drain management per surg Clear liquid diet- Monitor Endo: Diabetic Maintain euglycemia ISS Sugars have been stable on this admission Metformin on hold /Nephro: LR @ 75 mls/hr BUN/Cr WNL Kulkarni discontinued Continue to monitor Ins and outs Heme: 10.2. Monitor MSK: Consider PT/OT Pt OOB to chair Prophylaxis: SCDs Protonix IVP Daily DVT chemical anticoagulation management per Cardio/Surg team Patient medically stable for transfer to med surg floor. <Nila Wood - Last Filed: 12/20/16 14:13> CCU Objective - Vital Signs / Intake & Output Vital Signs (Last 4 hours): Vital Signs Temp Pulse Resp BP Pulse Ox 12/20/16 12:00 98.0 F 71 19 97/45 L 100 Intake and Output (Last 8hrs): Intake & Output 12/19/16 12/20/16 12/20/16 22:59 06:59 14:59 Intake Total 1294 1250 550 Output Total 540 950 200 Balance 754 300 350 Weight 141 lb 8 oz Intake: Intake, IV Amount 350 1250 550 Right Hand 100 75 375 Left Hand 150 200 Left Forearm 100 975 175 Blood Product 944 Output: Drainage 50 Left 30 Right 20 Urine 540 900 200 Urethral (Kulkarni) 150 900 200 Stool 0 Emesis 0 - Medications Active Medications: Active Medications Generic Name Dose Route Start Last Admin Trade Name Freq PRN Reason Stop Dose Admin Carvedilol 12.5 mg 12/13/16 10:00 12/19/16 09:28 Coreg PO 12.5 mg DAILY MARY Administration Potassium Chloride/Dextrose/Sod Cl 1,000 mls @ 75 mls/hr 12/20/16 10:00 10:19 Potassium Chl 20 Meq In D5-1/2ns IV 75 mls/hr .[id number] MARY Administration Insulin Human Regular 0 unit 12/20/16 12:00 12/20/16 12:01 Novolin R SC Not Given Q6 MARY Protocol Losartan Potassium 50 mg 12/13/16 10:00 12/19/16 09:28 Cozaar PO 50 mg DAILY MARY Administration Morphine Sulfate/Sodium Chloride 30 mg 12/19/16 18:23 Morphine Founder Ceo & President Monoject Barrel IV Q4 PRN Pain, severe (8-10) Protocol Pantoprazole Sodium 40 mg 12/20/16 10:00 12/20/16 09:27 Protonix Inj IVP 40 mg DAILY MARY Administration Rosuvastatin Calcium 20 mg 12/13/16 22:00 12/19/16 22:31 Crestor PO Not Given HS MARY - Patient Studies Lab Studies: Lab Studies 12/20/16 12/20/16 12/20/16 Range/Units 11:54 06:28 05:55 WBC 12.4 H (4.8-10.8) K/uL RBC 3.73 L (3.80-5.20) Mil/uL Hgb 10.2 L (11.0-16.0) g/dL Hct 30.9 L (34.0-47.0) % MCV 82.8 (81.0-99.0) fL MCH 27.5 (27.0-31.0) pg MCHC 33.2 (33.0-37.0) g/dL RDW 17.9 H (11.5-14.5) % Plt Count 211 (130-400) K/uL MPV 8.6 (7.2-11.7) fL Neut % (Auto) 83.8 H (50.0-75.0) % Lymph % (Auto) 6.7 L (20.0-40.0) % [place] % (Auto) 9.3 (0.0-10.0) % Eos % (Auto) 0.0 (0.0-4.0) % Baso % (Auto) 0.2 (0.0-2.0) % Neut # 10.4 H (1.8-7.0) K/uL Lymph # 0.8 L (1.0-4.3) K/uL [place] # 1.1 H (0.0-0.8) K/uL Eos # 0.0 (0.0-0.7) K/uL Baso # 0.0 (0.0-0.2) K/uL Neutrophils % (Manual) 82 H (50-75) % Band Neutrophils % 1 (0-2) % Lymphocytes % (Manual) 8 L (20-40) % Monocytes % (Manual) 9 (0-10) % Platelet Estimate Normal (NORMAL) Polychromasia Slight Hypochromasia (manual) Slight Anisocytosis (manual) Slight PT 13.5 H (9.7-12.2) SECONDS INR 1.2 APTT 28 (21-34) SECONDS Puncture Site pCO2 (35-45) mm/Hg pO2 (80-100) mm/Hg HCO3 (21-28) mmol/L ABG pH (7.35-7.45) ABG Total CO2 (22-28) mmol/L ABG O2 Saturation (95-98) % ABG Base Excess (-2.0-3.0) mmol/L ABG Hemoglobin (11.7-17.4) g/dL ABG Carboxyhemoglobin (0.5-1.5) % POC ABG HHb (Measured) (0.0-5.0) % ABG Methemoglobin (0.0-3.0) % [place] Test A-a O2 Difference mm/Hg Respiratory Index Hgb O2 Saturation (95.0-98.0) % Liter Flow FiO2 % Sodium 138 (132-148) mmol/L Potassium 3.8 (3.6-5.2) mmol/L Chloride 99 (98-107) mmol/L Carbon Dioxide 26 (22-30) mmol/L Anion Gap 17 (10-20) BUN 11 (7-17) mg/dL Creatinine 0.5 L (0.7-1.2) MG/DL Est GFR ( Amer) > 60 Est GFR (Non-Af Amer) > 60 POC Glucose (mg/dL) 125 H 136 H (65-110) mg/dL Random Glucose 122 H (65-105) mg/dL Calcium 7.7 L (8.6-10.4) mg/dl Phosphorus 3.9 (2.5-4.5) mg/dL Magnesium 2.2 (1.6-2.3) mg/dL Total Bilirubin 1.9 H (0.2-1.3) mg/dL AST 19 (14-36) U/L ALT 22 (9-52) U/L Alkaline Phosphatase 54 (38-126) U/L Total Protein 5.2 L (6.3-8.3) g/dL Albumin 3.0 L (3.5-5.0) g/dL Globulin 2.2 (2.2-3.9) gm/dL Albumin/Globulin Ratio 1.4 (1.0-2.1) Blood Type Antibody Screen 12/19/16 12/19/16 12/19/16 Range/Units 22:26 18:28 18:25 WBC 15.0 H 14.2 H D (4.8-10.8) K/uL RBC 4.13 3.77 L (3.80-5.20) Mil/uL Hgb 11.4 10.4 L (11.0-16.0) g/dL Hct 34.8 31.3 L (34.0-47.0) % MCV 84.3 83.1 (81.0-99.0) fL MCH 27.6 27.6 (27.0-31.0) pg MCHC 32.8 L 33.2 (33.0-37.0) g/dL RDW 17.9 H 18.3 H (11.5-14.5) % Plt Count 143 D 243 (130-400) K/uL MPV 8.8 8.2 (7.2-11.7) fL Neut % (Auto) (50.0-75.0) % Lymph % (Auto) (20.0-40.0) % [place] % (Auto) (0.0-10.0) % Eos % (Auto) (0.0-4.0) % Baso % (Auto) (0.0-2.0) % Neut # (1.8-7.0) K/uL Lymph # (1.0-4.3) K/uL [place] # (0.0-0.8) K/uL Eos # (0.0-0.7) K/uL Baso # (0.0-0.2) K/uL Neutrophils % (Manual) (50-75) % Band Neutrophils % (0-2) % Lymphocytes % (Manual) (20-40) % Monocytes % (Manual) (0-10) % Platelet Estimate (NORMAL) Polychromasia Hypochromasia (manual) Anisocytosis (manual) PT 13.1 H 13.2 H (9.7-12.2) SECONDS INR 1.1 1.2 APTT 27 27 (21-34) SECONDS Puncture Site A line pCO2 42 (35-45) mm/Hg pO2 197 H (80-100) mm/Hg HCO3 23.1 (21-28) mmol/L ABG pH 7.35 (7.35-7.45) ABG Total CO2 24.5 (22-28) mmol/L ABG O2 Saturation 99.7 H (95-98) % ABG Base Excess -2.3 L (-2.0-3.0) mmol/L ABG Hemoglobin 10.1 L (11.7-17.4) g/dL ABG Carboxyhemoglobin 2.0 H (0.5-1.5) % POC ABG HHb (Measured) 0.3 (0.0-5.0) % ABG Methemoglobin 1.3 (0.0-3.0) % [place] Test Na A-a O2 Difference mm/Hg Respiratory Index Hgb O2 Saturation 96.4 (95.0-98.0) % Liter Flow 4.0 FiO2 % Sodium 135 135 (132-148) mmol/L Potassium 3.8 4.0 (3.6-5.2) mmol/L Chloride 100 101 (98-107) mmol/L Carbon Dioxide 23 23 (22-30) mmol/L Anion Gap 16 16 (10-20) BUN 11 11 (7-17) mg/dL Creatinine 0.5 L 0.5 L (0.7-1.2) MG/DL Est GFR ( Amer) > 60 > 60 Est GFR (Non-Af Amer) > 60 > 60 POC Glucose (mg/dL) (65-110) mg/dL Random Glucose 124 H 149 H (65-105) mg/dL Calcium 8.1 L 8.3 L (8.6-10.4) mg/dl Phosphorus 4.3 (2.5-4.5) mg/dL Magnesium 1.5 L (1.6-2.3) mg/dL Total Bilirubin 3.4 H (0.2-1.3) mg/dL AST 20 (14-36) U/L ALT 19 (9-52) U/L Alkaline Phosphatase 50 (38-126) U/L Total Protein 5.2 L (6.3-8.3) g/dL Albumin 3.0 L (3.5-5.0) g/dL Globulin 2.3 (2.2-3.9) gm/dL Albumin/Globulin Ratio 1.3 (1.0-2.1) Blood Type Antibody Screen 12/19/16 12/19/16 12/19/16 Range/Units 17:45 16:52 15:06 WBC (4.8-10.8) K/uL RBC (3.80-5.20) Mil/uL Hgb 9.7 L (11.0-16.0) g/dL Hct 30.6 L (34.0-47.0) % MCV (81.0-99.0) fL MCH (27.0-31.0) pg MCHC (33.0-37.0) g/dL RDW (11.5-14.5) % Plt Count 267 (130-400) K/uL MPV (7.2-11.7) fL Neut % (Auto) (50.0-75.0) % Lymph % (Auto) (20.0-40.0) % [place] % (Auto) (0.0-10.0) % Eos % (Auto) (0.0-4.0) % Baso % (Auto) (0.0-2.0) % Neut # (1.8-7.0) K/uL Lymph # (1.0-4.3) K/uL [place] # (0.0-0.8) K/uL Eos # (0.0-0.7) K/uL Baso # (0.0-0.2) K/uL Neutrophils % (Manual) (50-75) % Band Neutrophils % (0-2) % Lymphocytes % (Manual) (20-40) % Monocytes % (Manual) (0-10) % Platelet Estimate (NORMAL) Polychromasia Hypochromasia (manual) Anisocytosis (manual) PT 13.7 H (9.7-12.2) SECONDS INR 1.2 APTT 31 (21-34) SECONDS Puncture Site pCO2 (35-45) mm/Hg pO2 (80-100) mm/Hg HCO3 (21-28) mmol/L ABG pH (7.35-7.45) ABG Total CO2 (22-28) mmol/L ABG O2 Saturation (95-98) % ABG Base Excess (-2.0-3.0) mmol/L ABG Hemoglobin (11.7-17.4) g/dL ABG Carboxyhemoglobin (0.5-1.5) % POC ABG HHb (Measured) (0.0-5.0) % ABG Methemoglobin (0.0-3.0) % [place] Test A-a O2 Difference mm/Hg Respiratory Index Hgb O2 Saturation (95.0-98.0) % Liter Flow FiO2 % Sodium (132-148) mmol/L Potassium (3.6-5.2) mmol/L Chloride (98-107) mmol/L Carbon Dioxide (22-30) mmol/L Anion Gap (10-20) BUN (7-17) mg/dL Creatinine (0.7-1.2) MG/DL Est GFR ( Amer) Est GFR (Non-Af Amer) POC Glucose (mg/dL) 179 H (65-110) mg/dL Random Glucose (65-105) mg/dL Calcium (8.6-10.4) mg/dl Phosphorus (2.5-4.5) mg/dL Magnesium (1.6-2.3) mg/dL Total Bilirubin (0.2-1.3) mg/dL AST (14-36) U/L ALT (9-52) U/L Alkaline Phosphatase (38-126) U/L Total Protein (6.3-8.3) g/dL Albumin (3.5-5.0) g/dL Globulin (2.2-3.9) gm/dL Albumin/Globulin Ratio (1.0-2.1) Blood Type Antibody Screen 12/19/16 12/18/16 Range/Units 14:55 19:45 WBC (4.8-10.8) K/uL RBC (3.80-5.20) Mil/uL Hgb (11.0-16.0) g/dL Hct (34.0-47.0) % MCV (81.0-99.0) fL MCH (27.0-31.0) pg MCHC (33.0-37.0) g/dL RDW (11.5-14.5) % Plt Count (130-400) K/uL MPV (7.2-11.7) fL Neut % (Auto) (50.0-75.0) % Lymph % (Auto) (20.0-40.0) % [place] % (Auto) (0.0-10.0) % Eos % (Auto) (0.0-4.0) % Baso % (Auto) (0.0-2.0) % Neut # (1.8-7.0) K/uL Lymph # (1.0-4.3) K/uL [place] # (0.0-0.8) K/uL Eos # (0.0-0.7) K/uL Baso # (0.0-0.2) K/uL Neutrophils % (Manual) (50-75) % Band Neutrophils % (0-2) % Lymphocytes % (Manual) (20-40) % Monocytes % (Manual) (0-10) % Platelet Estimate (NORMAL) Polychromasia Hypochromasia (manual) Anisocytosis (manual) PT (9.7-12.2) SECONDS INR APTT (21-34) SECONDS Puncture Site Na pCO2 44 (35-45) mm/Hg pO2 299 H (80-100) mm/Hg HCO3 22.4 (21-28) mmol/L ABG pH 7.32 L (7.35-7.45) ABG Total CO2 24.1 (22-28) mmol/L ABG O2 Saturation 99.9 H (95-98) % ABG Base Excess -3.3 L (-2.0-3.0) mmol/L ABG Hemoglobin 8.6 L (11.7-17.4) g/dL ABG Carboxyhemoglobin 1.5 (0.5-1.5) % POC ABG HHb (Measured) 0.1 (0.0-5.0) % ABG Methemoglobin 1.3 (0.0-3.0) % [place] Test Na A-a O2 Difference 359.0 mm/Hg Respiratory Index 1.2 Hgb O2 Saturation 97.1 (95.0-98.0) % Liter Flow FiO2 100.0 % Sodium (132-148) mmol/L Potassium (3.6-5.2) mmol/L Chloride (98-107) mmol/L Carbon Dioxide (22-30) mmol/L Anion Gap (10-20) BUN (7-17) mg/dL Creatinine (0.7-1.2) MG/DL Est GFR ( Amer) Est GFR (Non-Af Amer) POC Glucose (mg/dL) (65-110) mg/dL Random Glucose (65-105) mg/dL Calcium (8.6-10.4) mg/dl Phosphorus (2.5-4.5) mg/dL Magnesium (1.6-2.3) mg/dL Total Bilirubin (0.2-1.3) mg/dL AST (14-36) U/L ALT (9-52) U/L Alkaline Phosphatase (38-126) U/L Total Protein (6.3-8.3) g/dL Albumin (3.5-5.0) g/dL Globulin (2.2-3.9) gm/dL Albumin/Globulin Ratio (1.0-2.1) Blood Type A NEGATIVE Antibody Screen Negative Laboratory Results - last 24 hr 12/18/16 12/19/16 12/19/16 19:45 14:55 15:06 WBC RBC Hgb 9.7 L Hct 30.6 L MCV MCH MCHC RDW Plt Count MPV Neut % (Auto) Lymph % (Auto) [place] % (Auto) Eos % (Auto) Baso % (Auto) Neut # Lymph # [place] # Eos # Baso # Neutrophils % (Manual) Band Neutrophils % Lymphocytes % (Manual) Monocytes % (Manual) Platelet Estimate Polychromasia Hypochromasia (manual) Anisocytosis (manual) PT 13.7 H INR 1.2 APTT 31 Puncture Site Na pCO2 44 pO2 299 H HCO3 22.4 ABG pH 7.32 L ABG Total CO2 24.1 ABG O2 Saturation 99.9 H ABG Base Excess -3.3 L ABG Hemoglobin 8.6 L ABG Carboxyhemoglobin 1.5 POC ABG HHb (Measured) 0.1 ABG Methemoglobin 1.3 [place] Test Na A-a O2 Difference 359.0 Respiratory Index 1.2 Hgb O2 Saturation 97.1 Liter Flow FiO2 100.0 Sodium Potassium Chloride Carbon Dioxide Anion Gap BUN Creatinine Est GFR ( Amer) Est GFR (Non-Af Amer) POC Glucose (mg/dL) Random Glucose Calcium Phosphorus Magnesium Total Bilirubin AST ALT Alkaline Phosphatase Total Protein Albumin Globulin Albumin/Globulin Ratio Blood Type A NEGATIVE Antibody Screen Negative 12/19/16 12/19/16 12/19/16 16:52 17:45 18:25 WBC RBC Hgb Hct MCV MCH MCHC RDW Plt Count 267 MPV Neut % (Auto) Lymph % (Auto) [place] % (Auto) Eos % (Auto) Baso % (Auto) Neut # Lymph # [place] # Eos # Baso # Neutrophils % (Manual) Band Neutrophils % Lymphocytes % (Manual) Monocytes % (Manual) Platelet Estimate Polychromasia Hypochromasia (manual) Anisocytosis (manual) PT INR APTT Puncture Site A line pCO2 42 pO2 197 H HCO3 23.1 ABG pH 7.35 ABG Total CO2 24.5 ABG O2 Saturation 99.7 H ABG Base Excess -2.3 L ABG Hemoglobin 10.1 L ABG Carboxyhemoglobin 2.0 H POC ABG HHb (Measured) 0.3 ABG Methemoglobin 1.3 [place] Test Na A-a O2 Difference Respiratory Index Hgb O2 Saturation 96.4 Liter Flow 4.0 FiO2 Sodium Potassium Chloride Carbon Dioxide Anion Gap BUN Creatinine Est GFR ( Amer) Est GFR (Non-Af Amer) POC Glucose (mg/dL) 179 H Random Glucose Calcium Phosphorus Magnesium Total Bilirubin AST ALT Alkaline Phosphatase Total Protein Albumin Globulin Albumin/Globulin Ratio Blood Type Antibody Screen 12/19/16 12/19/16 12/20/16 18:28 22:26 05:55 WBC 14.2 H D 15.0 H 12.4 H RBC 3.77 L 4.13 3.73 L Hgb 10.4 L 11.4 10.2 L Hct 31.3 L 34.8 30.9 L MCV 83.1 84.3 82.8 MCH 27.6 27.6 27.5 MCHC 33.2 32.8 L 33.2 RDW 18.3 H 17.9 H 17.9 H Plt Count 243 143 D 211 MPV 8.2 8.8 8.6 Neut % (Auto) 83.8 H Lymph % (Auto) 6.7 L [place] % (Auto) 9.3 Eos % (Auto) 0.0 Baso % (Auto) 0.2 Neut # 10.4 H Lymph # 0.8 L [place] # 1.1 H Eos # 0.0 Baso # 0.0 Neutrophils % (Manual) 82 H Band Neutrophils % 1 Lymphocytes % (Manual) 8 L Monocytes % (Manual) 9 Platelet Estimate Normal Polychromasia Slight Hypochromasia (manual) Slight Anisocytosis (manual) Slight PT 13.2 H 13.1 H 13.5 H INR 1.2 1.1 1.2 APTT 27 27 28 Puncture Site pCO2 pO2 HCO3 ABG pH ABG Total CO2 ABG O2 Saturation ABG Base Excess ABG Hemoglobin ABG Carboxyhemoglobin POC ABG HHb (Measured) ABG Methemoglobin [place] Test A-a O2 Difference Respiratory Index Hgb O2 Saturation Liter Flow FiO2 Sodium 135 135 138 Potassium 4.0 3.8 3.8 Chloride 101 100 99 Carbon Dioxide 23 23 26 Anion Gap 16 16 17 BUN 11 11 11 Creatinine 0.5 L 0.5 L 0.5 L Est GFR ( Amer) > 60 > 60 > 60 Est GFR (Non-Af Amer) > 60 > 60 > 60 POC Glucose (mg/dL) Random Glucose 149 H 124 H 122 H Calcium 8.3 L 8.1 L 7.7 L Phosphorus 4.3 3.9 Magnesium 1.5 L 2.2 Total Bilirubin 3.4 H 1.9 H AST 20 19 ALT 19 22 Alkaline Phosphatase 50 54 Total Protein 5.2 L 5.2 L Albumin 3.0 L 3.0 L Globulin 2.3 2.2 Albumin/Globulin Ratio 1.3 1.4 Blood Type Antibody Screen 12/20/16 12/20/16 06:28 11:54 WBC RBC Hgb Hct MCV MCH MCHC RDW Plt Count MPV Neut % (Auto) Lymph % (Auto) [place] % (Auto) Eos % (Auto) Baso % (Auto) Neut # Lymph # [place] # Eos # Baso # Neutrophils % (Manual) Band Neutrophils % Lymphocytes % (Manual) Monocytes % (Manual) Platelet Estimate Polychromasia Hypochromasia (manual) Anisocytosis (manual) PT INR APTT Puncture Site pCO2 pO2 HCO3 ABG pH ABG Total CO2 ABG O2 Saturation ABG Base Excess ABG Hemoglobin ABG Carboxyhemoglobin POC ABG HHb (Measured) ABG Methemoglobin [place] Test A-a O2 Difference Respiratory Index Hgb O2 Saturation Liter Flow FiO2 Sodium Potassium Chloride Carbon Dioxide Anion Gap BUN Creatinine Est GFR ( Amer) Est GFR (Non-Af Amer) POC Glucose (mg/dL) 136 H 125 H Random Glucose Calcium Phosphorus Magnesium Total Bilirubin AST ALT Alkaline Phosphatase Total Protein Albumin Globulin Albumin/Globulin Ratio Blood Type Antibody Screen Critical Care Progress Note - Nutrition Nutrition: Nutrition Category Date Time Status Liquid Diet [DIET] Diets 12/20/16 Breakfast Active Attending/Attestation - Attestation I have personally seen and examined this patient.: Yes I have fully participated in the care of the patient.: Yes I have reviewed all pertinent clinical information: Yes Notes (Text): 12/20/16 14:09 Patient seen and examined in the morning, doing well. saturating 100% on RA, lungs clear to auscultation. wbc count decreasing, increase of wbc count secondary to post op. d/c NG tube, minimal drainage. Continue IV fluids while NPO. discontinue arterial line. Transfer to medical/surgical floor.
[2016-12-20 08:13] LABS: NEUTROPHIL 82 % (50-75); TOTAL CELLS COUNTED 100
[2016-12-20] MEDS ORDERED: (Novolin R) Insulin Human Regular 100 units/ml vial SC SCH ×2 (09:15→12:00)
--- NOTE | 2016-12-20 09:22 | RAD ---
HISTORY: SOB COMPARISON: 06/27/2016 FINDINGS: LUNGS: No active pulmonary disease. PLEURA: No significant pleural effusion identified, no pneumothorax apparent. CARDIOVASCULAR: Normal heart size. No congestive change. Nasogastric tube extends to upper abdomen. OSSEOUS STRUCTURES: Calcific tendinitis of right shoulder. VISUALIZED UPPER ABDOMEN: Normal. OTHER FINDINGS: None. IMPRESSION: No active disease. Nasogastric tube noted.
--- NOTE | 2016-12-20 09:41 | CP.PCM.PN ---
Subjective - Date & Time of Evaluation Date of Evaluation: 12/20/16 Time of Evaluation: 09:37 - Subjective Subjective: Surgery: Dr. Negrete Patient remains in ICU. Patient clinically stable overnight. Patient received 4 units PRBC, 3 units FFP, and 1 unit of platelets perioperatively. Patient urine output averaged 75-100cc/hr. Right jesse total output since surgery apprx 90cc of SA fluid and Left jesse 40cc of SA fluid. Patient's pain controlled on morphine MARKETING SERVICES VICE PRESIDENT. NGT output was 0cc. Patient only complains of throat irritation from NGT otherwise no complaints. Per nursing, patient already started using IS last night and PT to visit and evaluate today. Objective - Vital Signs/Intake and Output Vital Signs (last 24 hours): Temp Pulse Resp BP Pulse Ox 97 F L 73 19 119/46 L 98 12/20/16 04:00 12/20/16 07:00 12/20/16 07:00 12/20/16 07:00 12/20/16 07:00 Intake and Output: 12/20/16 12/20/16 06:59 18:59 Intake Total 1620 325 Output Total 1400 150 Balance 220 175 - Medications Medications: Current Medications Carvedilol (Coreg) 12.5 mg PO DAILY [facility] Last Admin: 12/19/16 09:28 Dose: 12.5 mg Lactated Ringer's (Lactated Ringer's) 1,000 mls @ 75 mls/hr IV .[id number] [facility] Last Admin: 12/19/16 23:30 Dose: 75 mls/hr Insulin Human Regular (Novolin R) 0 unit SC Q6 MARY PRN Reason: Protocol Losartan Potassium (Cozaar) 50 mg PO DAILY [facility] Last Admin: 12/19/16 09:28 Dose: 50 mg Morphine Sulfate/Sodium Chloride (Morphine Foundry Worker Apprentice Monoject Barrel) 30 mg IV Q4 PRN ; Protocol PRN Reason: Pain, severe (8-10) Pantoprazole Sodium (Protonix Inj) 40 mg IVP DAILY [facility] Last Admin: 12/20/16 09:27 Dose: 40 mg Rosuvastatin Calcium (Crestor) 20 mg PO HS [facility] Last Admin: 12/19/16 22:31 Dose: Not Given - Labs Labs: 12/20/16 05:55 12/20/16 05:55 PT 13.5 SECONDS (9.7-12.2) H 12/20/16 05:55 INR 1.2 12/20/16 05:55 APTT 28 SECONDS (21-34) 12/20/16 05:55 - Constitutional Appears: Non-toxic, No Acute Distress - Head Exam Head Exam: ATRAUMATIC, NORMOCEPHALIC - Eye Exam Eye Exam: EOMI, Normal appearance - ENT Exam ENT Exam: Mucous Membranes Dry Additional comments: NGT in place w/ 0cc - Respiratory Exam Respiratory Exam: NORMAL BREATHING PATTERN. absent: Respiratory Distress Additional comments: saturating 99-100% on RA - Cardiovascular Exam Cardiovascular Exam: REGULAR RHYTHM. absent: Tachycardia Additional comments: normotensive - GI/Abdominal Exam GI & Abdominal Exam: Soft, Tenderness (tami-incisional ). absent: Rebound Additional comments: Right Jesse 90cc total since OR, 30cc since PACU Left Jesse 40cc total since OR, 20cc since PACU Dressing w/ dry blood tinged drainage, unchanged since PACU - Exam Additional comments: floey in place w/ 900cc total clear yellow urine output from 2200 to 0530 - Extremities Exam Extremities Exam: Normal Inspection. absent: Calf Tenderness - Neurological Exam Neurological Exam: Alert, Awake, Oriented x3 - Psychiatric Exam Psychiatric exam: Normal Affect, Normal Mood - Skin Skin Exam: Dry, Intact, Warm Assessment and Plan - Assessment and Plan (Free Text) Assessment: 71 y/o female s/p ex lap w/ rectosigmoid colon segment and mesh resection w/ primary anastomosis POD1 Plan: -ok to d/c schmitt and NGT -trial of CLD -OOB to chair q4hr -encourage IS use -cont to monitor urine output and jesse output -labs in am -cont. MARKETING SERVICES VICE PRESIDENT for pain control -cont IVFs until tolerating diet -medical management per primary -further recs per Dr. Caden Hawthorne PGY1
[2016-12-20] MEDS: Potassium Ch 20mEq in D5-1/2NS 1,000 ML IV SCH (10:19)
--- NOTE | 2016-12-20 10:37 | CP.PCM.PN ---
Subjective - Date & Time of Evaluation Date of Evaluation: 12/20/16 Time of Evaluation: 10:34 - Subjective Subjective: POD #1 Patient has much incisional pain, Surgical events and findings reviewed from brief operative report Objective - Vital Signs/Intake and Output Vital Signs (last 24 hours): Temp Pulse Resp BP Pulse Ox 98.7 F 72 20 106/45 L 100 12/20/16 08:00 12/20/16 10:00 12/20/16 10:00 12/20/16 10:00 12/20/16 10:00 Intake and Output: 12/20/16 12/20/16 06:59 18:59 Intake Total 1620 400 Output Total 1400 200 Balance 220 200 - Medications Medications: Current Medications Carvedilol (Coreg) 12.5 mg PO DAILY [facility] Last Admin: 12/19/16 09:28 Dose: 12.5 mg Potassium Chloride/Dextrose/Sod Cl (Potassium Chl 20 Meq In D5-1/2ns) 1,000 mls @ 75 mls/hr IV .[id number] [facility] Last Admin: 12/20/16 10:19 Dose: 75 mls/hr Insulin Human Regular (Novolin R) 0 unit SC Q6 MARY PRN Reason: Protocol Losartan Potassium (Cozaar) 50 mg PO DAILY [facility] Last Admin: 12/19/16 09:28 Dose: 50 mg Morphine Sulfate/Sodium Chloride (Morphine Display Designer Outside Monoject Barrel) 30 mg IV Q4 PRN ; Protocol PRN Reason: Pain, severe (8-10) Pantoprazole Sodium (Protonix Inj) 40 mg IVP DAILY [facility] Last Admin: 12/20/16 09:27 Dose: 40 mg Rosuvastatin Calcium (Crestor) 20 mg PO HS [facility] Last Admin: 12/19/16 22:31 Dose: Not Given - Labs Labs: 12/20/16 05:55 12/20/16 05:55 PT 13.5 SECONDS (9.7-12.2) H 12/20/16 05:55 INR 1.2 12/20/16 05:55 APTT 28 SECONDS (21-34) 12/20/16 05:55 - Constitutional Appears: No Acute Distress - Respiratory Exam Respiratory Exam: NORMAL BREATHING PATTERN - Cardiovascular Exam Cardiovascular Exam: REGULAR RHYTHM, +S1 - GI/Abdominal Exam GI & Abdominal Exam: Distended, Guarding, Soft, Tenderness, Hypoactive Bowel Sounds Additional comments: incisional dressing intact with incisional tenderness. Absent bowel sounds. - Extremities Exam Extremities Exam: Normal Inspection Assessment and Plan (1) Gastrointestinal hemorrhage Status: Resolved (2) Acute blood loss anemia Assessment & Plan: Monitor H/H. No bleeding Status: Acute (3) Rectal ulcer Assessment & Plan: S/P resection of fistulized mesh and surrounding rectosigmoid colon. Post op care per surgical team Monitor for recurrent bleeding. Should now be stable Status: Acute (4) Coronary artery disease Status: Acute
[2016-12-20] MEDS ORDERED: Lactated Ringer's 1,000 ML IV SCH (12:30)
[2016-12-20 15:57] LABS: BASO % 0.4 % (0.0-2.0); EOS # 0.1 K/uL (0.0-0.7); EOS % 1.3 % (0.0-4.0); HEMATOCRIT 29.8 % (34.0-47.0); LYMPH # 1.1 K/uL (1.0-4.3); MEAN CELL VOLUME 83.9 fL (81.0-99.0); MEAN CORPUSCULAR HEMOGLOBIN 26.9 pg (27.0-31.0); MEAN PLATELET VOLUME 8.5 fL (7.2-11.7); MONO # 1.2 K/uL (0.0-0.8); MONO % 11.8 % (0.0-10.0); RED CELL DISTRIBUTION WIDTH 17.6 % (11.5-14.5); WHITE BLOOD COUNT 10.5 K/uL (4.8-10.8)
[2016-12-20 16:09] LABS: CHLORIDE 99 mmol/L (98-107); SODIUM 132 mmol/L (132-148)
[2016-12-20 16:12] LABS: CARBON DIOXIDE 21 mmol/L (22-30); GFR AFRICAN-AMERICAN > 60
[2016-12-20 16:13] LABS: BLOOD UREA NITROGEN 13 mg/dL (7-17); CALCIUM 7.7 mg/dl (8.6-10.4); GLUCOSE,RANDOM 137 mg/dL (65-105)
[2016-12-20] MEDS: (Novolin R) Insulin Human Regular 100 units/ml vial SC SCH ×2 (16:38→22:03)
[2016-12-20] MEDS ORDERED: Sodium Chloride 0.9% 1,000 ML IV ONE (17:05)
[2016-12-20] MEDS ORDERED: Sodium Chloride 0.9% 1,000 ML IV SCH (20:30)
--- NOTE | 2016-12-20 22:59 | CP.PCM.PN ---
Subjective - Date & Time of Evaluation Date of Evaluation: 12/20/16 Time of Evaluation: 17:05 - Subjective Subjective: Patient seen and evaluated in ICU BP improving No chest pain and dyspnea Objective - Vital Signs/Intake and Output Vital Signs (last 24 hours): Temp Pulse Resp BP Pulse Ox 99.2 F 83 15 114/51 L 93 L 12/20/16 20:00 12/20/16 21:00 12/20/16 21:00 12/20/16 21:00 12/20/16 21:00 Intake and Output: 12/20/16 12/21/16 18:59 06:59 Intake Total 1850 420 Output Total 260 Balance 1590 420 - Medications Medications: Current Medications Potassium Chloride/Dextrose/Sod Cl (Potassium Chl 20 Meq In D5-1/2ns) 1,000 mls @ 75 mls/hr IV .[id number] [facility] Last Admin: 12/20/16 10:19 Dose: 75 mls/hr Insulin Human Regular (Novolin R) 0 unit SC ACHS MARY PRN Reason: Protocol Last Admin: 12/20/16 22:03 Dose: Not Given Morphine Sulfate/Sodium Chloride (Morphine Synthetic Department Supervisor Monoject Barrel) 30 mg IV Q4 PRN ; Protocol PRN Reason: Pain, severe (8-10) Last Admin: 12/19/16 20:30 Dose: 30 mg Pantoprazole Sodium (Protonix Inj) 40 mg IVP DAILY [facility] Last Admin: 12/20/16 09:27 Dose: 40 mg Rosuvastatin Calcium (Crestor) 20 mg PO HS [facility] Last Admin: 12/20/16 22:01 Dose: 20 mg - Labs Labs: 12/20/16 15:53 12/20/16 15:53 PT 13.5 SECONDS (9.7-12.2) H 12/20/16 05:55 INR 1.2 12/20/16 05:55 APTT 28 SECONDS (21-34) 12/20/16 05:55
[2016-12-21] MEDS: Potassium Ch 20mEq in D5-1/2NS 1,000 ML IV SCH ×2 (01:00→01:21)
[2016-12-21 06:46] LABS: BASO % 0.4 % (0.0-2.0); EOS # 0.1 K/uL (0.0-0.7); EOS % 0.9 % (0.0-4.0); HEMATOCRIT 27.8 % (34.0-47.0); LYMPH # 0.9 K/uL (1.0-4.3); LYMPH % 8.4 % (20.0-40.0); MEAN CELL VOLUME 83.6 fL (81.0-99.0); MEAN CORPUSCULAR HEMOGLOBIN 27.4 pg (27.0-31.0); MEAN CORPUSCULAR HGB CONC 32.8 g/dL (33.0-37.0); MEAN PLATELET VOLUME 9.3 fL (7.2-11.7); MONO # 1.4 K/uL (0.0-0.8); MONO % 12.5 % (0.0-10.0); PLATELET COUNT 204 K/uL (130-400); RED CELL DISTRIBUTION WIDTH 18.3 % (11.5-14.5); WHITE BLOOD COUNT 11.1 K/uL (4.8-10.8)
[2016-12-21 06:47] LABS: CHLORIDE 104 mmol/L (98-107)
[2016-12-21 06:48] LABS: SODIUM 135 mmol/L (132-148)
[2016-12-21 06:50] LABS: ALB/GLOB RATIO 1.1 (1.0-2.1); AST/SGOT 24 U/L (14-36); BILIRUBIN,TOTAL 0.7 mg/dL (0.2-1.3); CARBON DIOXIDE 21 mmol/L (22-30); GFR AFRICAN-AMERICAN > 60; TOTAL PROTEIN 5.2 g/dL (6.3-8.3)
[2016-12-21 06:51] LABS: ALKALINE PHOSPHATASE 49 U/L (38-126); ALT/SGPT 12 U/L (9-52); BLOOD UREA NITROGEN 8 mg/dL (7-17); CALCIUM 7.7 mg/dl (8.6-10.4); GLUCOSE,RANDOM 129 mg/dL (65-105); PHOSPHOROUS 2.4 mg/dL (2.5-4.5)
[2016-12-21] MEDS ORDERED: Potassium Phosphate 15 MMOLE in Sodium Chloride 0.9% 250 ML IVPB ONE (07:54)
--- NOTE | 2016-12-21 08:12 | CP.PCM.PN ---
Subjective - Date & Time of Evaluation Date of Evaluation: 12/21/16 Time of Evaluation: 08:10 - Subjective Subjective: General Surgery - Dr. Negrete Pt S&E. Overnight pt was hypotensive and bolused, she also had urinary retention and schmitt was replaced. This morning pt is doing well. She's had 1000cc urine since schmitt placed last night. BP is now slightly elevated ~150s/ 70s. She has mild pain but controlled with ACADEMIC SERVICES PROFESSIONAL. She is working with incentive spirometer, tolerating clear liquids, no bowel function yet. No F/C, SOB/Cp. Objective - Vital Signs/Intake and Output Vital Signs (last 24 hours): Temp Pulse Resp BP Pulse Ox 99.6 F 81 16 136/52 L 95 12/21/16 00:00 12/21/16 02:00 12/21/16 02:00 12/21/16 02:00 12/21/16 02:00 Intake and Output: 12/21/16 12/21/16 06:59 18:59 Intake Total 1070 75 Output Total 1090 125 Balance -20 -50 - Medications Medications: Current Medications Enoxaparin Sodium (Lovenox) 40 mg SC DAILY [facility] Potassium Phosphate 15 mmole/ (Sodium Chloride) 255 mls @ 42.5 mls/hr IVPB ONCE ONE Stop: 12/21/16 13:53 Potassium Chloride 20 meq/ (Sodium Chloride) 1,010 mls @ 100 mls/hr IV .Q10H6M [facility] Insulin Human Regular (Novolin R) 0 unit SC ACHS MARY PRN Reason: Protocol Last Admin: 12/20/16 22:03 Dose: Not Given Morphine Sulfate/Sodium Chloride (Morphine Director Medicare Sales Monoject Barrel) 30 mg IV Q4 PRN ; Protocol PRN Reason: Pain, severe (8-10) Last Admin: 12/19/16 20:30 Dose: 30 mg Pantoprazole Sodium (Protonix Inj) 40 mg IVP DAILY [facility] Last Admin: 12/20/16 09:27 Dose: 40 mg Rosuvastatin Calcium (Crestor) 20 mg PO HS [facility] Last Admin: 12/20/16 22:01 Dose: 20 mg - Labs Labs: 12/21/16 06:37 12/21/16 06:29 PT 13.5 SECONDS (9.7-12.2) H 12/20/16 05:55 INR 1.2 03/29/17 05:55 APTT 28 SECONDS (21-34) 12/20/16 05:55 - Constitutional Appears: No Acute Distress - Head Exam Head Exam: ATRAUMATIC, NORMOCEPHALIC - Respiratory Exam Respiratory Exam: NORMAL BREATHING PATTERN. absent: Respiratory Distress - Cardiovascular Exam Cardiovascular Exam: REGULAR RHYTHM - GI/Abdominal Exam GI & Abdominal Exam: Soft, Tenderness (appropriately). absent: Guarding, Rigid , Rebound Additional comments: b/l pollo drains in place w/ serosanguinous drainage - 130cc from Right/24hrs, 40cc from Left/24hrs. Dressings C/D/I - Neurological Exam Neurological Exam: Alert, Oriented x3 - Psychiatric Exam Psychiatric exam: Normal Affect, Normal Mood - Skin Skin Exam: Intact, Warm Assessment and Plan - Assessment and Plan (Free Text) Assessment: 71 yo F s/p exp. laparotomy w/ rectosigmoid colon resection for removal of eroding mesh, POD #2 -Continue Clear liquid diet, Monitor for bowel function -Continue IVF, Electrolyte repletion -ACADEMIC SERVICES PROFESSIONAL for pain control -OOB to chair and work with Incentive Spirometer -DVT Px Dw Dr. Caden Silva PGY2
[2016-12-21] MEDS: (Novolin R) Insulin Human Regular 100 units/ml vial SC SCH ×4 (08:31→22:30)
[2016-12-21 08:32] LABS: EOSINOPHIL 1 % (0-4); NEUTROPHIL 75 % (50-75); TOTAL CELLS COUNTED 100
--- NOTE | 2016-12-21 10:09 | CP.PCM.PN ---
Subjective - Date & Time of Evaluation Date of Evaluation: 12/21/16 Time of Evaluation: 10:07 - Subjective Subjective: No bleeding. Events of last evening noted. Remains in ICU care. Objective - Vital Signs/Intake and Output Vital Signs (last 24 hours): Temp Pulse Resp BP Pulse Ox 98.2 F 76 21 162/60 H 94 L 12/21/16 04:00 12/21/16 07:00 12/21/16 07:00 12/21/16 07:00 12/21/16 07:00 Intake and Output: 12/21/16 12/21/16 06:59 18:59 Intake Total 1070 75 Output Total 1090 125 Balance -20 -50 - Medications Medications: Current Medications Enoxaparin Sodium (Lovenox) 40 mg SC DAILY [facility] Potassium Phosphate 15 mmole/ (Sodium Chloride) 255 mls @ 42.5 mls/hr IVPB ONCE ONE Stop: 12/21/16 13:53 Last Admin: 12/21/16 09:18 Dose: 42.5 mls/hr Potassium Chloride 20 meq/ (Sodium Chloride) 1,010 mls @ 100 mls/hr IV .Q10H6M [facility] Last Admin: 12/21/16 09:12 Dose: 100 mls/hr Insulin Human Regular (Novolin R) 0 unit SC ACHS [facility] PRN Reason: Protocol Last Admin: 12/21/16 08:31 Dose: Not Given Morphine Sulfate/Sodium Chloride (Morphine Dianetic Counselor Monoject Barrel) 30 mg IV Q4 PRN ; Protocol PRN Reason: Pain, severe (8-10) Last Admin: 12/19/16 20:30 Dose: 30 mg Pantoprazole Sodium (Protonix Inj) 40 mg IVP DAILY [facility] Last Admin: 12/20/16 09:27 Dose: 40 mg Rosuvastatin Calcium (Crestor) 20 mg PO HS [facility] Last Admin: 12/20/16 22:01 Dose: 20 mg - Labs Labs: 12/21/16 06:37 12/21/16 06:29 PT 13.5 SECONDS (9.7-12.2) H 12/20/16 05:55 INR 1.2 12/20/16 05:55 APTT 28 SECONDS (21-34) 12/20/16 05:55 - Constitutional Appears: No Acute Distress - Head Exam Head Exam: ATRAUMATIC, NORMOCEPHALIC - Eye Exam Eye Exam: EOMI, PERRL - Respiratory Exam Respiratory Exam: NORMAL BREATHING PATTERN - Cardiovascular Exam Cardiovascular Exam: REGULAR RHYTHM - GI/Abdominal Exam GI & Abdominal Exam: Soft, Diminished Bowel Sounds. absent: Tenderness Additional comments: incisional area tender and intact, schmitt catheter in place and draining - Extremities Exam Extremities Exam: Normal Inspection Assessment and Plan (1) Acute blood loss anemia Assessment & Plan: H/H stable POD #2 Post op care per surgery Status: Acute (2) Rectal ulcer Assessment & Plan: POD #2. Post op care per surgery. Post op ileus persists Status: Acute (3) Coronary artery disease Status: Acute (4) Ileus following gastrointestinal surgery Assessment & Plan: POst op ileus persists. Correct metabolic parameter, wean pain meds and ambulate when possible Awaiting possible transfer to floor for additional PT. Status: Acute
[2016-12-21] MEDS: Enoxaparin 40 mg Syringe SC SCH (11:07)
--- NOTE | 2016-12-21 15:54 | CP.PCM.PN ---
<Ayan Ac - Last Filed: 12/21/16 18:30> Subjective - Date & Time of Evaluation Date of Evaluation: 12/21/16 Time of Evaluation: 15:46 - Subjective Subjective: PGY-[address] Conley's service Pt seen and examined at bedside. Pt reports abdominal pain. Pt according to night staff was hypotensive overnight but was bolused which she responded to. She also had some urinary retention and the schmitt was replaced. Denies any fevers, chills, chest pain, sob, nausea or vomiting. Pain being tolerated on current regimen. Objective - Vital Signs/Intake and Output Vital Signs (last 24 hours): Temp Pulse Resp BP Pulse Ox 98.2 F 76 22 145/59 L 96 12/21/16 12:00 12/21/16 15:18 12/21/16 15:18 12/21/16 15:18 12/21/16 15:18 Intake and Output: 12/21/16 12/21/16 06:59 18:59 Intake Total 1070 627 Output Total 1090 665 Balance -20 -38 - Medications Medications: Current Medications Enoxaparin Sodium (Lovenox) 40 mg SC DAILY [facility] Last Admin: 12/21/16 11:07 Dose: 40 mg Potassium Chloride 20 meq/ (Sodium Chloride) 1,010 mls @ 100 mls/hr IV .Q10H6M [facility] Last Admin: 12/21/16 09:12 Dose: 100 mls/hr Insulin Human Regular (Novolin R) 0 unit SC ACHS [facility] PRN Reason: Protocol Last Admin: 12/21/16 12:18 Dose: Not Given Morphine Sulfate/Sodium Chloride (Morphine Flying Teacher Monoject Barrel) 30 mg IV Q4 PRN ; Protocol PRN Reason: Pain, severe (8-10) Last Admin: 12/19/16 20:30 Dose: 30 mg Pantoprazole Sodium (Protonix Inj) 40 mg IVP DAILY [facility] Last Admin: 12/21/16 12:19 Dose: 40 mg Rosuvastatin Calcium (Crestor) 20 mg PO HS [facility] Last Admin: 12/20/16 22:01 Dose: 20 mg - Labs Labs: 12/21/16 06:37 12/21/16 06:29 PT 13.5 SECONDS (9.7-12.2) H 12/20/16 05:55 INR 1.2 12/20/16 05:55 APTT 28 SECONDS (21-34) 12/20/16 05:55 - Constitutional Appears: Non-toxic, No Acute Distress - Head Exam Head Exam: ATRAUMATIC, NORMOCEPHALIC - Respiratory Exam Respiratory Exam: Clear to Ausculation Bilateral, NORMAL BREATHING PATTERN - Cardiovascular Exam Cardiovascular Exam: +S1, +S2 - GI/Abdominal Exam GI & Abdominal Exam: Soft, Tenderness (appropriate tenderness around incisions) , Normal Bowel Sounds Assessment and Plan - Assessment and Plan (Free Text) Assessment: Acute GI Bleed - s/p exp. laparotomy w/ rectosigmoid colon resection for removal of eroding mesh, POD #2 - Per surgery -Continue Clear liquid diet, Monitor for bowel function -Continue IVF, Electrolyte repletion -SUPERVISOR ESTIMATOR AND DRAFTER for pain control -OOB to chair and work with Incentive Spirometer -DVT Px - Colonoscopy 12/14 - Bleeding due to mesh fistulization/erosion following rectopexy. Visible mesh at 20-25cm with much "trauma", ulceration and edema. Satellite area that appears to be directly related to trauma from the edge of the mesh was oozing with the edge of a vessel visible. Clipped using a resolution clip with hemostasis. Still some oozing blood seen from under the area covered with mesh. Not felt to be safe to utilize cautery in this area. Mesh erosion - as above History of Atrial Fibrillation - Patient currently not on anticoagulation agents - Hold ASA due to bleed - Consult Cardiology, Dr. Whitaker. - stress test - normal nuclear stress test CAD - history of cardiac stents - Continue home medications: Coreg 12.5 mg po daily Losartan 50 mg po daily Atorvastatin 40 mg po daily ASA held DMII - Continue home medication: - Metformin 500 mg po daily - on hold - Accuchecks Infrarenal Abdominal Aortic Aneurysm - CT abdomen from 08/31/16 shows a 4cm infra-renal AAA Prophylaxis - SCD - Protonix - VTE contraindicated due to GI bleed Dispo - cont current mgmt but D/C schmitt - FU serial H/H - Transfuse PRN - Awaiting Raccuia recs [All management per Dr. Conley] <Otoniel Conley Jr. - Last Filed: 12/22/16 17:22> Objective - Vital Signs/Intake and Output Vital Signs (last 24 hours): Temp Pulse Resp BP Pulse Ox 98.2 F 74 20 135/76 95 12/22/16 15:40 12/22/16 17:09 12/22/16 15:40 12/22/16 15:40 12/22/16 15:40 Intake and Output: 12/22/16 12/22/16 06:59 18:59 Intake Total 1900 Output Total 45 Balance 1855 - Medications Medications: Current Medications Aspirin (Ecotrin) 81 mg PO DAILY [facility] Last Admin: 12/22/16 10:16 Dose: 81 mg Enoxaparin Sodium (Lovenox) 40 mg SC DAILY [facility] Last Admin: 12/22/16 10:16 Dose: 40 mg Hydromorphone HCl (Dilaudid) 0.5 mg IVP Q3H PRN PRN Reason: Pain, moderate (4-7) Potassium Chloride 20 meq/ (Sodium Chloride) 1,010 mls @ 100 mls/hr IV .Q10H6M [facility] Last Admin: 12/22/16 04:00 Dose: 100 mls/hr Insulin Human Regular (Novolin R) 0 unit SC ACHS [facility] PRN Reason: Protocol Last Admin: 12/22/16 16:44 Dose: Not Given Pantoprazole Sodium (Protonix Inj) 40 mg IVP DAILY [facility] Last Admin: 12/22/16 10:17 Dose: 40 mg Rosuvastatin Calcium (Crestor) 20 mg PO HS [facility] Last Admin: 12/21/16 22:27 Dose: 20 mg - Labs Labs: 12/22/16 07:29 12/22/16 07:29 PT 13.5 SECONDS (9.7-12.2) H 12/20/16 05:55 INR 1.2 12/20/16 05:55 APTT 28 SECONDS (21-34) 12/20/16 05:55 Attending/Attestation - Attestation I have personally seen and examined this patient.: Yes I have fully participated in the care of the patient.: Yes I have reviewed all pertinent clinical information, including history, physical exam and plan: Yes Notes (Text): 12/22/16 17:21 Patient seen and examined with the resident. Reviewed resident note and plan of care. Agree with resident note findings and plan of care as discussed
--- NOTE | 2016-12-21 21:26 | CP.PCM.PN ---
Subjective - Date & Time of Evaluation Date of Evaluation: 12/21/16 Time of Evaluation: 11:45 - Subjective Subjective: Patient seen and evaluated Denies chest pain and dyspnea Objective - Vital Signs/Intake and Output Vital Signs (last 24 hours): Temp Pulse Resp BP Pulse Ox 98.6 F 73 20 158/74 H 95 12/21/16 16:05 12/21/16 16:30 12/21/16 16:05 12/21/16 16:05 12/21/16 16:05 Intake and Output: 12/21/16 12/22/16 18:59 06:59 Intake Total 627 Output Total 930 Balance -303 - Medications Medications: Current Medications Enoxaparin Sodium (Lovenox) 40 mg SC DAILY [facility] Last Admin: 12/21/16 11:07 Dose: 40 mg Potassium Chloride 20 meq/ (Sodium Chloride) 1,010 mls @ 100 mls/hr IV .Q10H6M [facility] Last Admin: 12/21/16 09:12 Dose: 100 mls/hr Insulin Human Regular (Novolin R) 0 unit SC ACHS [facility] PRN Reason: Protocol Last Admin: 12/21/16 12:18 Dose: Not Given Morphine Sulfate/Sodium Chloride (Morphine Noc Technician Monoject Barrel) 30 mg IV Q4 PRN ; Protocol PRN Reason: Pain, severe (8-10) Last Admin: 12/19/16 20:30 Dose: 30 mg Pantoprazole Sodium (Protonix Inj) 40 mg IVP DAILY [facility] Last Admin: 12/21/16 12:19 Dose: 40 mg Rosuvastatin Calcium (Crestor) 20 mg PO HS [facility] Last Admin: 12/20/16 22:01 Dose: 20 mg - Labs Labs: 12/21/16 06:37 12/21/16 06:29 PT 13.5 SECONDS (9.7-12.2) H 12/20/16 05:55 INR 1.2 12/20/16 05:55 APTT 28 SECONDS (21-34) 12/20/16 05:55
[2016-12-22] MEDS: Morphine Monoject Barrel PCA 1mg/ml IV PRN (05:41)
[2016-12-22 07:41] LABS: BASO # 0.1 K/uL (0.0-0.2); BASO % 0.5 % (0.0-2.0); EOS # 0.4 K/uL (0.0-0.7); EOS % 3.2 % (0.0-4.0); HEMATOCRIT 31.1 % (34.0-47.0); LYMPH # 0.9 K/uL (1.0-4.3); LYMPH % 7.7 % (20.0-40.0); MEAN CELL VOLUME 85.3 fL (81.0-99.0); MEAN CORPUSCULAR HEMOGLOBIN 27.2 pg (27.0-31.0); MEAN CORPUSCULAR HGB CONC 31.9 g/dL (33.0-37.0); MEAN PLATELET VOLUME 8.7 fL (7.2-11.7); MONO # 1.2 K/uL (0.0-0.8); MONO % 9.8 % (0.0-10.0); PLATELET COUNT 269 K/uL (130-400); RED CELL DISTRIBUTION WIDTH 17.9 % (11.5-14.5); WHITE BLOOD COUNT 12.1 K/uL (4.8-10.8)
[2016-12-22 07:53] LABS: CHLORIDE 103 mmol/L (98-107)
[2016-12-22 07:54] LABS: POTASSIUM 4.3 mmol/L (3.6-5.2); SODIUM 140 mmol/L (132-148)
--- NOTE | 2016-12-22 07:55 | CP.PCM.PN ---
Subjective - Date & Time of Evaluation Date of Evaluation: 12/22/16 Time of Evaluation: 07:53 - Subjective Subjective: General Surgery - Dr. Negrete Pt S&E. MICHELA. PT transferred to 5th floor yesterday. She is tolerating clear liquids. Pain is controlled with JUNIOR LINUX ADMINISTRATOR. Pt denies any flatus or BM yet. She has been OOB to chair, no ambulation yet, she is working with IS. No N/V, F/C, SOB/Cp. Objective - Vital Signs/Intake and Output Vital Signs (last 24 hours): Temp Pulse Resp BP Pulse Ox 98.0 F 76 20 157/76 H 94 L 12/21/16 23:18 12/22/16 01:20 12/21/16 23:18 12/21/16 23:18 12/21/16 23:18 Intake and Output: 12/22/16 12/22/16 06:59 18:59 Intake Total 1900 Output Total 45 Balance 1855 - Medications Medications: Current Medications Enoxaparin Sodium (Lovenox) 40 mg SC DAILY [facility] Last Admin: 12/21/16 11:07 Dose: 40 mg Hydromorphone HCl (Dilaudid) 0.5 mg IVP Q3H PRN PRN Reason: Pain, moderate (4-7) Potassium Chloride 20 meq/ (Sodium Chloride) 1,010 mls @ 100 mls/hr IV .Q10H6M [facility] Last Admin: 12/22/16 04:00 Dose: 100 mls/hr Insulin Human Regular (Novolin R) 0 unit SC ACHS [facility] PRN Reason: Protocol Last Admin: 12/21/16 22:30 Dose: Not Given Pantoprazole Sodium (Protonix Inj) 40 mg IVP DAILY [facility] Last Admin: 12/21/16 12:19 Dose: 40 mg Rosuvastatin Calcium (Crestor) 20 mg PO HS [facility] Last Admin: 12/21/16 22:27 Dose: 20 mg - Labs Labs: 12/22/16 07:29 12/21/16 06:29 PT 13.5 SECONDS (9.7-12.2) H 12/20/16 05:55 INR 1.2 12/20/16 05:55 APTT 28 SECONDS (21-34) 12/20/16 05:55 - Constitutional Appears: No Acute Distress - Head Exam Head Exam: ATRAUMATIC, NORMOCEPHALIC - Eye Exam Eye Exam: Normal appearance - Respiratory Exam Respiratory Exam: NORMAL BREATHING PATTERN. absent: Respiratory Distress - Cardiovascular Exam Cardiovascular Exam: REGULAR RHYTHM - GI/Abdominal Exam GI & Abdominal Exam: Soft. absent: Distended, Guarding, Tenderness, Rebound Additional comments: dresings changed, incision C/D/i with antony, Jesse drains in place b/l with serosanguinous drainage, 55cc from Rght, 40cc from Left/24hrs. - Neurological Exam Neurological Exam: Alert, Oriented x3 - Psychiatric Exam Psychiatric exam: Normal Affect, Normal Mood - Skin Skin Exam: Dry, Intact Assessment and Plan - Assessment and Plan (Free Text) Assessment: 71 yo F s/p exp. laparotomy w/ rectosigmoid colon resection for removal of eroding mesh, POD #3 -Continue Clear liquid diet, Monitor for bowel function -D/C Kulkarni -D/C JUNIOR LINUX ADMINISTRATOR, Dilaudid prn for pain -OOB to chair and work with Incentive Spirometer -Physical therapy and Ambulation -DVT Px Dw Dr. Caden Silva PGY2
[2016-12-22 07:57] LABS: ALKALINE PHOSPHATASE 62 U/L (38-126); ALT/SGPT 19 U/L (9-52); AST/SGOT 15 U/L (14-36); BILIRUBIN,TOTAL 1.1 mg/dL (0.2-1.3); BLOOD UREA NITROGEN 7 mg/dL (7-17); CALCIUM 7.6 mg/dl (8.6-10.4); CARBON DIOXIDE 26 mmol/L (22-30); GFR AFRICAN-AMERICAN > 60; GLUCOSE,RANDOM 100 mg/dL (65-105); TOTAL PROTEIN 5.2 g/dL (6.3-8.3)
[2016-12-22 08:18] LABS: ALB/GLOB RATIO 1.1 (1.0-2.1)
[2016-12-22] MEDS: (Novolin R) Insulin Human Regular 100 units/ml vial SC SCH ×4 (08:30→22:11)
[2016-12-22 08:52] LABS: EOSINOPHIL 3 % (0-4); NEUTROPHIL 81 % (50-75); TOTAL CELLS COUNTED 100
[2016-12-22] MEDS: Enoxaparin 40 mg Syringe SC SCH (10:16)
--- NOTE | 2016-12-22 13:23 | CP.PCM.PN ---
Subjective - Date & Time of Evaluation Date of Evaluation: 12/22/16 Time of Evaluation: 13:20 - Subjective Subjective: No stool or flatus No bleeding Objective - Vital Signs/Intake and Output Vital Signs (last 24 hours): Temp Pulse Resp BP Pulse Ox 98.3 F 68 18 158/84 H 97 12/22/16 08:00 12/22/16 08:00 12/22/16 08:00 12/22/16 08:00 12/22/16 08:00 Intake and Output: 12/22/16 12/22/16 06:59 18:59 Intake Total 1900 Output Total 45 Balance 1855 - Medications Medications: Current Medications Aspirin (Ecotrin) 81 mg PO DAILY [facility] Last Admin: 12/22/16 10:16 Dose: 81 mg Enoxaparin Sodium (Lovenox) 40 mg SC DAILY [facility] Last Admin: 12/22/16 10:16 Dose: 40 mg Hydromorphone HCl (Dilaudid) 0.5 mg IVP Q3H PRN PRN Reason: Pain, moderate (4-7) Potassium Chloride 20 meq/ (Sodium Chloride) 1,010 mls @ 100 mls/hr IV .Q10H6M [facility] Last Admin: 12/22/16 04:00 Dose: 100 mls/hr Insulin Human Regular (Novolin R) 0 unit SC ACHS [facility] PRN Reason: Protocol Last Admin: 12/22/16 12:14 Dose: Not Given Pantoprazole Sodium (Protonix Inj) 40 mg IVP DAILY [facility] Last Admin: 12/22/16 10:17 Dose: 40 mg Rosuvastatin Calcium (Crestor) 20 mg PO HS [facility] Last Admin: 12/21/16 22:27 Dose: 20 mg - Labs Labs: 12/22/16 07:29 12/22/16 07:29 PT 13.5 SECONDS (9.7-12.2) H 12/20/16 05:55 INR 1.2 12/20/16 05:55 APTT 28 SECONDS (21-34) 12/20/16 05:55 - Constitutional Appears: No Acute Distress - Head Exam Head Exam: ATRAUMATIC, NORMOCEPHALIC - Respiratory Exam Respiratory Exam: NORMAL BREATHING PATTERN - Cardiovascular Exam Cardiovascular Exam: REGULAR RHYTHM - GI/Abdominal Exam GI & Abdominal Exam: Soft, Tenderness, Hypoactive Bowel Sounds Additional comments: Incision intact - Extremities Exam Extremities Exam: Normal Inspection Assessment and Plan (1) Acute blood loss anemia Assessment & Plan: Stable post op. Status: Resolved (2) Rectal ulcer Assessment & Plan: POD #3, Post op care per surgery LAR and revision of mesh erosion/rectopexy Status: Acute (3) Coronary artery disease Status: Acute (4) Ileus following gastrointestinal surgery Assessment & Plan: Post op care per surgery Ambulation and PT Status: Acute
--- NOTE | 2016-12-22 13:47 | CP.PCM.PN ---
<Ayan Ac - Last Filed: 12/22/16 17:16> Subjective - Date & Time of Evaluation Date of Evaluation: 12/22/16 Time of Evaluation: 13:44 - Subjective Subjective: PGY-[address] Conley's service Pt seen and examined at bedside. Pt reports abdominal pain but well controlled on TILE AND MOTTLE SUPERVISOR. Tolerating liquid diet. Denies any flatus or BM yet. Schmitt removed yesterday, no reports of retention. Denies any fevers, chills, chest pain, nausea or vomiting. Objective - Vital Signs/Intake and Output Vital Signs (last 24 hours): Temp Pulse Resp BP Pulse Ox 98.3 F 68 18 158/84 H 97 12/22/16 08:00 12/22/16 08:00 12/22/16 08:00 12/22/16 08:00 12/22/16 08:00 Intake and Output: 12/22/16 12/22/16 06:59 18:59 Intake Total 1900 Output Total 45 Balance 1855 - Medications Medications: Current Medications Aspirin (Ecotrin) 81 mg PO DAILY [facility] Last Admin: 12/22/16 10:16 Dose: 81 mg Enoxaparin Sodium (Lovenox) 40 mg SC DAILY [facility] Last Admin: 12/22/16 10:16 Dose: 40 mg Hydromorphone HCl (Dilaudid) 0.5 mg IVP Q3H PRN PRN Reason: Pain, moderate (4-7) Potassium Chloride 20 meq/ (Sodium Chloride) 1,010 mls @ 100 mls/hr IV .Q10H6M [facility] Last Admin: 12/22/16 04:00 Dose: 100 mls/hr Insulin Human Regular (Novolin R) 0 unit SC ACHS [facility] PRN Reason: Protocol Last Admin: 12/22/16 12:14 Dose: Not Given Pantoprazole Sodium (Protonix Inj) 40 mg IVP DAILY [facility] Last Admin: 12/22/16 10:17 Dose: 40 mg Rosuvastatin Calcium (Crestor) 20 mg PO HS [facility] Last Admin: 12/21/16 22:27 Dose: 20 mg - Labs Labs: 12/22/16 07:29 12/22/16 07:29 PT 13.5 SECONDS (9.7-12.2) H 12/20/16 05:55 INR 1.2 12/20/16 05:55 APTT 28 SECONDS (21-34) 12/20/16 05:55 - Constitutional Appears: Non-toxic, No Acute Distress - Respiratory Exam Respiratory Exam: Clear to Ausculation Bilateral, NORMAL BREATHING PATTERN - Cardiovascular Exam Cardiovascular Exam: +S1, +S2 - GI/Abdominal Exam GI & Abdominal Exam: Soft, Tenderness, Normal Bowel Sounds Additional comments: bandages c/d/i - Neurological Exam Neurological Exam: Alert, Awake - Skin Skin Exam: Dry, Warm Assessment and Plan - Assessment and Plan (Free Text) Assessment: Acute GI Bleed - s/p exp. laparotomy w/ rectosigmoid colon resection for removal of eroding mesh, POD #3 - Per surgery -Continue Clear liquid diet, Monitor for bowel function -Continue IVF, Electrolyte repletion -D/C Schmitt -D/C TILE AND MOTTLE SUPERVISOR, Dilaudid prn for pain -OOB to chair and work with Incentive Spirometer -Physical therapy and Ambulation -DVT Px - Colonoscopy 12/14 - Bleeding due to mesh fistulization/erosion following rectopexy. Visible mesh at 20-25cm with much "trauma", ulceration and edema. Satellite area that appears to be directly related to trauma from the edge of the mesh was oozing with the edge of a vessel visible. Clipped using a resolution clip with hemostasis. Still some oozing blood seen from under the area covered with mesh. Not felt to be safe to utilize cautery in this area. Mesh erosion - as above History of Atrial Fibrillation - Patient currently not on anticoagulation agents - Hold ASA due to bleed - Consult Cardiology, Dr. Whitaker. - stress test - normal nuclear stress test CAD - history of cardiac stents - Continue home medications: Coreg 12.5 mg po daily Losartan 50 mg po daily Atorvastatin 40 mg po daily ASA held DMII - Continue home medication: - Metformin 500 mg po daily - on hold - Accuchecks Infrarenal Abdominal Aortic Aneurysm - CT abdomen from 08/31/16 shows a 4cm infra-renal AAA Prophylaxis - SCD - Protonix - VTE ppx started Dispo - cont current mgmt but D/C schmitt - FU serial H/H - Transfuse PRN - Awaiting Caden joy [All management per Dr. Conley] <Otoniel Conley Jr. - Last Filed: 12/22/16 17:25> Objective - Vital Signs/Intake and Output Vital Signs (last 24 hours): Temp Pulse Resp BP Pulse Ox 98.2 F 74 20 135/76 95 12/22/16 15:40 12/22/16 17:09 12/22/16 15:40 12/22/16 15:40 12/22/16 15:40 Intake and Output: 12/22/16 12/22/16 06:59 18:59 Intake Total 1900 Output Total 45 Balance 1855 - Medications Medications: Current Medications Aspirin (Ecotrin) 81 mg PO DAILY [facility] Last Admin: 12/22/16 10:16 Dose: 81 mg Enoxaparin Sodium (Lovenox) 40 mg SC DAILY [facility] Last Admin: 12/22/16 10:16 Dose: 40 mg Hydromorphone HCl (Dilaudid) 0.5 mg IVP Q3H PRN PRN Reason: Pain, moderate (4-7) Potassium Chloride 20 meq/ (Sodium Chloride) 1,010 mls @ 100 mls/hr IV .Q10H6M [facility] Last Admin: 12/22/16 04:00 Dose: 100 mls/hr Insulin Human Regular (Novolin R) 0 unit SC ACHS [facility] PRN Reason: Protocol Last Admin: 12/22/16 16:44 Dose: Not Given Pantoprazole Sodium (Protonix Inj) 40 mg IVP DAILY [facility] Last Admin: 12/22/16 10:17 Dose: 40 mg Rosuvastatin Calcium (Crestor) 20 mg PO HS [facility] Last Admin: 12/21/16 22:27 Dose: 20 mg - Labs Labs: 12/22/16 07:29 12/22/16 07:29 PT 13.5 SECONDS (9.7-12.2) H 12/20/16 05:55 INR 1.2 12/20/16 05:55 APTT 28 SECONDS (21-34) 12/20/16 05:55 Attending/Attestation - Attestation I have personally seen and examined this patient.: Yes I have fully participated in the care of the patient.: Yes I have reviewed all pertinent clinical information, including history, physical exam and plan: Yes Notes (Text): 12/22/16 17:25 Patient seen and examined resident. Reviewed resident note in plan of care. Agree with resident's findings and plan of care as discussed
[2016-12-22 15:41] VITALS: RESP 20
[2016-12-22] MEDS: HYDROmorphone 0.5 mg/0.5 ml ISec IVP PRN ×2 (18:05→22:07)
--- NOTE | 2016-12-22 21:58 | CP.PCM.PN ---
Subjective - Date & Time of Evaluation Date of Evaluation: 12/22/16 Time of Evaluation: 11:15 - Subjective Subjective: Patient seen and evaluated No cardiac events Objective - Vital Signs/Intake and Output Vital Signs (last 24 hours): Temp Pulse Resp BP Pulse Ox 98.2 F 74 20 135/76 95 12/22/16 15:40 12/22/16 17:35 12/22/16 15:40 12/22/16 15:40 12/22/16 15:40 - Medications Medications: Current Medications Aspirin (Ecotrin) 81 mg PO DAILY [facility] Last Admin: 12/22/16 10:16 Dose: 81 mg Enoxaparin Sodium (Lovenox) 40 mg SC DAILY [facility] Last Admin: 12/22/16 10:16 Dose: 40 mg Hydromorphone HCl (Dilaudid) 0.5 mg IVP Q3H PRN PRN Reason: Pain, moderate (4-7) Last Admin: 12/22/16 18:05 Dose: 0.5 mg Potassium Chloride 20 meq/ (Sodium Chloride) 1,010 mls @ 100 mls/hr IV .Q10H6M [facility] Last Admin: 12/22/16 04:00 Dose: 100 mls/hr Insulin Human Regular (Novolin R) 0 unit SC ACHS [facility] PRN Reason: Protocol Last Admin: 12/22/16 16:44 Dose: Not Given Pantoprazole Sodium (Protonix Inj) 40 mg IVP DAILY [facility] Last Admin: 12/22/16 10:17 Dose: 40 mg Rosuvastatin Calcium (Crestor) 20 mg PO HS [facility] Last Admin: 12/21/16 22:27 Dose: 20 mg - Labs Labs: 12/22/16 07:29 12/22/16 07:29 PT 13.5 SECONDS (9.7-12.2) H 12/20/16 05:55 INR 1.2 12/20/16 05:55 APTT 28 SECONDS (21-34) 12/20/16 05:55
[2016-12-23] MEDS: HYDROmorphone 0.5 mg/0.5 ml ISec IVP PRN ×5 (03:53→21:33)
[2016-12-23] MEDS: (Novolin R) Insulin Human Regular 100 units/ml vial SC SCH ×4 (07:34→21:43)
[2016-12-23] MEDS: Enoxaparin 40 mg Syringe SC SCH (09:23)
[2016-12-23] MEDS ORDERED: Bisacodyl 5mg EC Tab PO ONE (11:04)
[2016-12-23 12:12] LABS: HEMATOCRIT 28.8 % (34.0-47.0); MEAN CELL VOLUME 84.4 fL (81.0-99.0); MEAN CORPUSCULAR HEMOGLOBIN 26.9 pg (27.0-31.0); MEAN CORPUSCULAR HGB CONC 31.9 g/dL (33.0-37.0); MEAN PLATELET VOLUME 8.7 fL (7.2-11.7); WHITE BLOOD COUNT 11.9 K/uL (4.8-10.8)
[2016-12-23 12:19] LABS: CHLORIDE 103 mmol/L (98-107); POTASSIUM 4.1 mmol/L (3.6-5.2); SODIUM 135 mmol/L (132-148)
[2016-12-23 12:21] LABS: AST/SGOT 10 U/L (14-36); BILIRUBIN,TOTAL 0.8 mg/dL (0.2-1.3); CARBON DIOXIDE 22 mmol/L (22-30); GFR AFRICAN-AMERICAN > 60
[2016-12-23 12:22] LABS: ALKALINE PHOSPHATASE 54 U/L (38-126); ALT/SGPT 17 U/L (9-52); BLOOD UREA NITROGEN 8 mg/dL (7-17); CALCIUM 7.6 mg/dl (8.6-10.4); GLUCOSE,RANDOM 112 mg/dL (65-105); PHOSPHOROUS 2.7 mg/dL (2.5-4.5); TOTAL PROTEIN 4.8 g/dL (6.3-8.3)
[2016-12-23 12:23] LABS: MAGNESIUM 1.8 mg/dL (1.6-2.3)
--- NOTE | 2016-12-23 13:20 | CP.PCM.PN ---
<DixonSmith H - Last Filed: 12/23/16 20:17> Subjective - Date & Time of Evaluation Date of Evaluation: 12/23/16 Time of Evaluation: 10:00 - Subjective Subjective: Dr. Conley service: Patient seen and examined with nurse in room. She is complaining of abdominal pain. She reports no bowel movement or gas. She denies fever, chill, chest pain, shortness of breath, lower leg swelling. Objective - Vital Signs/Intake and Output Vital Signs (last 24 hours): Temp Pulse Resp BP Pulse Ox 98.0 F 70 20 173/87 H 95 12/23/16 07:27 12/23/16 08:00 12/23/16 07:27 12/23/16 07:27 12/23/16 07:27 Intake and Output: 12/23/16 12/23/16 06:59 18:59 Intake Total 2080 Output Total 280 150 Balance 1800 -150 - Medications Medications: Current Medications Aspirin (Ecotrin) 81 mg PO DAILY [facility] Last Admin: 12/23/16 09:23 Dose: 81 mg Enoxaparin Sodium (Lovenox) 40 mg SC DAILY [facility] Last Admin: 12/23/16 09:23 Dose: 40 mg Hydromorphone HCl (Dilaudid) 0.5 mg IVP Q3H PRN PRN Reason: Pain, moderate (4-7) Last Admin: 12/23/16 09:23 Dose: 0.5 mg Potassium Chloride 20 meq/ (Sodium Chloride) 1,010 mls @ 100 mls/hr IV .Q10H6M [facility] Last Admin: 12/23/16 00:26 Dose: 100 mls/hr Insulin Human Regular (Novolin R) 0 unit SC ACHS [facility] PRN Reason: Protocol Last Admin: 12/23/16 11:48 Dose: Not Given Pantoprazole Sodium (Protonix Inj) 40 mg IVP DAILY [facility] Last Admin: 12/23/16 09:23 Dose: 40 mg Rosuvastatin Calcium (Crestor) 20 mg PO HS [facility] Last Admin: 12/22/16 21:57 Dose: 20 mg - Labs Labs: 12/23/16 12:01 12/23/16 12:01 PT 13.5 SECONDS (9.7-12.2) H 12/20/16 05:55 INR 1.2 12/20/16 05:55 APTT 28 SECONDS (21-34) 12/20/16 05:55 - Constitutional Appears: Non-toxic, No Acute Distress - Head Exam Head Exam: ATRAUMATIC, NORMAL INSPECTION, NORMOCEPHALIC - Eye Exam Eye Exam: Normal appearance Pupil Exam: NORMAL ACCOMODATION - ENT Exam ENT Exam: Normal Exam - Respiratory Exam Respiratory Exam: Clear to Ausculation Bilateral. absent: Rales, Rhonchi, Wheezes - Cardiovascular Exam Cardiovascular Exam: REGULAR RHYTHM, RRR, +S1, +S2. absent: Gallop, Rubs - GI/Abdominal Exam GI & Abdominal Exam: Soft, Tenderness, Normal Bowel Sounds - Extremities Exam Extremities Exam: Normal Inspection. absent: Pedal Edema - Back Exam Back Exam: NORMAL INSPECTION - Psychiatric Exam Psychiatric exam: Normal Affect, Normal Mood Assessment and Plan - Assessment and Plan (Free Text) Assessment: Acute GI Bleed - 12/23: Patient had a bloody bowel movement after she was seen during rounds, will follow up cbc, patient is NPO for now. Follow up with Surgery and GI consult. 12/22 s/p exp. 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 Visible mesh at 20-25cm with much "trauma", ulceration and edema. Satellite area that appears to be directly related to trauma from the edge of the mesh was oozing with the edge of a vessel visible. Clipped using a resolution clip with hemostasis. Still some oozing blood seen from under the area covered with mesh. Not felt to be safe to utilize cautery in this area. Mesh erosion - as above History of Atrial Fibrillation - Patient currently not on anticoagulation agents - Hold ASA due to bleed - Consult Cardiology, Dr. Whitaker. - stress test - normal nuclear stress test CAD - history of cardiac stents - Continue home medications: Coreg 12.5 mg po daily Losartan 50 mg po daily Atorvastatin 40 mg po daily ASA held DMII - Continue home medication: - Metformin 500 mg po daily - on hold - Accuchecks Infrarenal Abdominal Aortic Aneurysm - CT abdomen from 08/31/16 shows a 4cm infra-renal AAA Prophylaxis - SCD - Protonix - VTE ppx started Dispo - cont current mgmt but D/C schmitt - FU serial H/H - Transfuse PRN - Awaiting Caden joy [All management per Dr. Conley] <Otoniel Conley Jr. - Last Filed: 12/24/16 15:10> Objective - Vital Signs/Intake and Output Vital Signs (last 24 hours): Temp Pulse Resp BP Pulse Ox 97.9 F 75 20 130/67 95 12/24/16 08:04 12/24/16 08:04 12/24/16 08:04 12/24/16 08:04 12/24/16 08:04 Intake and Output: 12/24/16 12/24/16 06:59 18:59 Intake Total 1600 800 Output Total 90 40 Balance 1510 760 - Medications Medications: Current Medications Aspirin (Ecotrin) 81 mg PO DAILY [facility] Last Admin: 12/24/16 09:16 Dose: 81 mg Enoxaparin Sodium (Lovenox) 40 mg SC DAILY [facility] Last Admin: 12/24/16 09:16 Dose: 40 mg Hydromorphone HCl (Dilaudid) 0.5 mg IVP Q3H PRN PRN Reason: Pain, moderate (4-7) Last Admin: 12/24/16 14:31 Dose: 0.5 mg Potassium Chloride 20 meq/ (Sodium Chloride) 1,010 mls @ 100 mls/hr IV .Q10H6M [facility] Last Admin: 12/24/16 07:32 Dose: 100 mls/hr Vancomycin/Sodium Chloride (Vancocin) 200 mls @ 133 mls/hr IVPB Q12H [facility] Stop: 12/29/16 11:31 Last Admin: 12/24/16 13:04 Dose: 133 mls/hr Insulin Human Regular (Novolin R) 0 unit SC ACHS [facility] PRN Reason: Protocol Last Admin: 12/24/16 11:37 Dose: Not Given Pantoprazole Sodium (Protonix Inj) 40 mg IVP DAILY [facility] Last Admin: 12/24/16 09:16 Dose: 40 mg Rosuvastatin Calcium (Crestor) 20 mg PO HS [facility] Last Admin: 12/23/16 21:29 Dose: 20 mg - Labs Labs: 12/24/16 07:30 12/24/16 12:05 PT 13.5 SECONDS (9.7-12.2) H 12/20/16 05:55 INR 1.2 12/20/16 05:55 APTT 28 SECONDS (21-34) 12/20/16 05:55 Attending/Attestation - Attestation I have personally seen and examined this patient.: Yes I have fully participated in the care of the patient.: Yes I have reviewed all pertinent clinical information, including history, physical exam and plan: Yes Notes (Text): 12/24/16 15:10 Patient seen and examined. Agree with resident note and plan of care
--- NOTE | 2016-12-23 13:27 | CP.PCM.PN ---
Subjective - Date & Time of Evaluation Date of Evaluation: 12/23/16 Time of Evaluation: 13:24 - Subjective Subjective: Patient given a suppository to initiate a bowel movement and passed large amount of blood and stool Hgb=9.2 one hour ago. Objective - Vital Signs/Intake and Output Vital Signs (last 24 hours): Temp Pulse Resp BP Pulse Ox 98.0 F 70 20 173/87 H 95 12/23/16 07:27 12/23/16 08:00 12/23/16 07:27 12/23/16 07:27 12/23/16 07:27 Intake and Output: 12/23/16 12/23/16 06:59 18:59 Intake Total 2080 Output Total 280 150 Balance 1800 -150 - Medications Medications: Current Medications Aspirin (Ecotrin) 81 mg PO DAILY [facility] Last Admin: 12/23/16 09:23 Dose: 81 mg Enoxaparin Sodium (Lovenox) 40 mg SC DAILY [facility] Last Admin: 12/23/16 09:23 Dose: 40 mg Hydromorphone HCl (Dilaudid) 0.5 mg IVP Q3H PRN PRN Reason: Pain, moderate (4-7) Last Admin: 12/23/16 09:23 Dose: 0.5 mg Potassium Chloride 20 meq/ (Sodium Chloride) 1,010 mls @ 100 mls/hr IV .Q10H6M [facility] Last Admin: 12/23/16 00:26 Dose: 100 mls/hr Insulin Human Regular (Novolin R) 0 unit SC ACHS [facility] PRN Reason: Protocol Last Admin: 12/23/16 11:48 Dose: Not Given Pantoprazole Sodium (Protonix Inj) 40 mg IVP DAILY [facility] Last Admin: 12/23/16 09:23 Dose: 40 mg Rosuvastatin Calcium (Crestor) 20 mg PO HS [facility] Last Admin: 12/22/16 21:57 Dose: 20 mg - Labs Labs: 12/23/16 12:01 12/23/16 12:01 PT 13.5 SECONDS (9.7-12.2) H 12/20/16 05:55 INR 1.2 12/20/16 05:55 APTT 28 SECONDS (21-34) 12/20/16 05:55 - Constitutional Appears: No Acute Distress - Head Exam Head Exam: ATRAUMATIC, NORMOCEPHALIC - Respiratory Exam Respiratory Exam: NORMAL BREATHING PATTERN - Cardiovascular Exam Cardiovascular Exam: REGULAR RHYTHM - GI/Abdominal Exam GI & Abdominal Exam: Soft, Hypoactive Bowel Sounds. absent: Tenderness - Rectal Exam Additional comments: blood with clots and stool in perineal area, coating bedding and garments. - Extremities Exam Extremities Exam: Normal Inspection Assessment and Plan (1) Rectal ulcer Assessment & Plan: Post op care per surgery for mesh erosion S/P localized resection. Status: Acute (2) Coronary artery disease Status: Acute (3) Ileus following gastrointestinal surgery Status: Acute (4) Rectal bleeding Assessment & Plan: Unclear if bleeding is due to passage of old blood but appears to be somewhat fresh. Repeat CBC and financial institution president being called currently Keep NPO for now. Venous bleed noted intraoperatively on OR report review. Status: Acute
[2016-12-23 14:29] LABS: HEMATOCRIT 29.5 % (34.0-47.0); MEAN CORPUSCULAR HEMOGLOBIN 27.1 pg (27.0-31.0); MEAN CORPUSCULAR HGB CONC 31.9 g/dL (33.0-37.0); MEAN PLATELET VOLUME 8.8 fL (7.2-11.7); RED CELL DISTRIBUTION WIDTH 17.6 % (11.5-14.5); WHITE BLOOD COUNT 11.5 K/uL (4.8-10.8)
--- NOTE | 2016-12-23 15:12 | CP.PCM.PN ---
Subjective - Date & Time of Evaluation Date of Evaluation: 12/23/16 Time of Evaluation: 07:20 - Subjective Subjective: Gen Surgery: Dr. Negrete Pt S&E this AM. Reports she has not had a BM. Dulcolax suppository ordered. Patient had large tarry BM, which appears to be passage of old blood s/p surgery. Patient is doing well, has no complaints. RAZA drain output: R- 220cc/ 24hr , L-60cc/24 serosanguinous output. NAEO. Objective - Vital Signs/Intake and Output Vital Signs (last 24 hours): Temp Pulse Resp BP Pulse Ox 98.0 F 70 20 173/87 H 95 12/23/16 07:27 12/23/16 08:00 12/23/16 07:27 12/23/16 07:27 12/23/16 07:27 Intake and Output: 12/23/16 12/23/16 06:59 18:59 Intake Total 2080 Output Total 280 150 Balance 1800 -150 - Medications Medications: Current Medications Aspirin (Ecotrin) 81 mg PO DAILY [facility] Last Admin: 12/23/16 09:23 Dose: 81 mg Enoxaparin Sodium (Lovenox) 40 mg SC DAILY [facility] Last Admin: 12/23/16 09:23 Dose: 40 mg Hydromorphone HCl (Dilaudid) 0.5 mg IVP Q3H PRN PRN Reason: Pain, moderate (4-7) Last Admin: 12/23/16 09:23 Dose: 0.5 mg Potassium Chloride 20 meq/ (Sodium Chloride) 1,010 mls @ 100 mls/hr IV .Q10H6M [facility] Last Admin: 12/23/16 00:26 Dose: 100 mls/hr Insulin Human Regular (Novolin R) 0 unit SC ACHS [facility] PRN Reason: Protocol Last Admin: 12/23/16 11:48 Dose: Not Given Pantoprazole Sodium (Protonix Inj) 40 mg IVP DAILY [facility] Last Admin: 12/23/16 09:23 Dose: 40 mg Rosuvastatin Calcium (Crestor) 20 mg PO HS [facility] Last Admin: 12/22/16 21:57 Dose: 20 mg - Labs Labs: 12/23/16 14:18 12/23/16 12:01 PT 13.5 SECONDS (9.7-12.2) H 12/20/16 05:55 INR 1.2 12/20/16 05:55 APTT 28 SECONDS (21-34) 12/20/16 05:55 - Constitutional Appears: No Acute Distress - Head Exam Head Exam: NORMOCEPHALIC - Respiratory Exam Respiratory Exam: NORMAL BREATHING PATTERN - Cardiovascular Exam Cardiovascular Exam: +S1, +S2 - GI/Abdominal Exam GI & Abdominal Exam: Soft, Tenderness - Neurological Exam Neurological Exam: Alert, Awake, Oriented x3 - Psychiatric Exam Psychiatric exam: Normal Mood - Skin Skin Exam: Dry, Intact, Warm Assessment and Plan - Assessment and Plan (Free Text) Assessment: 71 yo F s/p exp. laparotomy w/ rectosigmoid colon resection for removal of eroding mesh, POD #4 -Dulcolax supp -Continue Clear liquid diet -Monitor bowel function -F/u AM labs -Monitor for bleeding -Encourage OOB to chair, ambulation, and incentive spirometer use -DVT Px -Dw Dr. Caden Nelson PGY-1
[2016-12-23 20:50] LABS: HEMATOCRIT 27.5 % (34.0-47.0); MEAN CELL VOLUME 84.8 fL (81.0-99.0); MEAN CORPUSCULAR HEMOGLOBIN 27.5 pg (27.0-31.0); MEAN CORPUSCULAR HGB CONC 32.4 g/dL (33.0-37.0); MEAN PLATELET VOLUME 8.6 fL (7.2-11.7); RED CELL DISTRIBUTION WIDTH 17.5 % (11.5-14.5); WHITE BLOOD COUNT 9.8 K/uL (4.8-10.8)
--- NOTE | 2016-12-23 22:22 | CP.PCM.PN ---
Subjective - Date & Time of Evaluation Date of Evaluation: 12/23/16 Time of Evaluation: 18:30 - Subjective Subjective: Patient seen and evaluated Denies chest pain and dyspnea Episodes of diarrhea Objective - Vital Signs/Intake and Output Vital Signs (last 24 hours): Temp Pulse Resp BP Pulse Ox 98.1 F 71 20 129/67 94 L 12/23/16 15:47 12/23/16 15:47 12/23/16 15:47 12/23/16 15:47 12/23/16 15:47 Intake and Output: 12/23/16 12/24/16 18:59 06:59 Output Total 395 Balance -395 - Medications Medications: Current Medications Aspirin (Ecotrin) 81 mg PO DAILY [facility] Last Admin: 12/23/16 09:23 Dose: 81 mg Enoxaparin Sodium (Lovenox) 40 mg SC DAILY [facility] Last Admin: 12/23/16 09:23 Dose: 40 mg Hydromorphone HCl (Dilaudid) 0.5 mg IVP Q3H PRN PRN Reason: Pain, moderate (4-7) Last Admin: 12/23/16 21:33 Dose: 0.5 mg Potassium Chloride 20 meq/ (Sodium Chloride) 1,010 mls @ 100 mls/hr IV .Q10H6M [facility] Last Admin: 12/23/16 21:43 Dose: Not Given Insulin Human Regular (Novolin R) 0 unit SC ACHS [facility] PRN Reason: Protocol Last Admin: 12/23/16 21:43 Dose: Not Given Pantoprazole Sodium (Protonix Inj) 40 mg IVP DAILY [facility] Last Admin: 12/23/16 09:23 Dose: 40 mg Rosuvastatin Calcium (Crestor) 20 mg PO HS [facility] Last Admin: 12/23/16 21:29 Dose: 20 mg - Labs Labs: 12/23/16 20:41 12/23/16 12:01 PT 13.5 SECONDS (9.7-12.2) H 12/20/16 05:55 INR 1.2 12/20/16 05:55 APTT 28 SECONDS (21-34) 12/20/16 05:55
[2016-12-24] MEDS: HYDROmorphone 0.5 mg/0.5 ml ISec IVP PRN ×3 (01:01→14:31)
[2016-12-24] MEDS: (Novolin R) Insulin Human Regular 100 units/ml vial SC SCH ×4 (07:07→21:27)
[2016-12-24 07:46] LABS: BASO % 0.3 % (0.0-2.0); EOS # 0.1 K/uL (0.0-0.7); EOS % 0.9 % (0.0-4.0); HEMATOCRIT 26.6 % (34.0-47.0); LYMPH # 0.8 K/uL (1.0-4.3); LYMPH % 7.2 % (20.0-40.0); MEAN CELL VOLUME 85.4 fL (81.0-99.0); MEAN CORPUSCULAR HEMOGLOBIN 27.8 pg (27.0-31.0); MEAN CORPUSCULAR HGB CONC 32.5 g/dL (33.0-37.0); MEAN PLATELET VOLUME 8.8 fL (7.2-11.7); MONO # 1.3 K/uL (0.0-0.8); MONO % 11.6 % (0.0-10.0); PLATELET COUNT 303 K/uL (130-400); RED CELL DISTRIBUTION WIDTH 17.6 % (11.5-14.5)
--- NOTE | 2016-12-24 08:19 | CP.PCM.PN ---
Subjective - Date & Time of Evaluation Date of Evaluation: 12/24/16 Time of Evaluation: 07:00 - Subjective Subjective: Gen Surgery: Dr. Negrete Pt S&E. As per nursing, patient has not had any more bloody bowel movements. Patient complaining of lower abdominal tenderness. R RAZA drain fluid output has change in character from serosanguinous to a maroon-like color, likely old blood from surgical procedure. Hgb is stable. Review of vitals is normal. Patient denies dizziness, headache, changes in vision, palpitations, chest pain / SOB. Awaiting transfer to telemetry unit. Objective - Vital Signs/Intake and Output Vital Signs (last 24 hours): Temp Pulse Resp BP Pulse Ox 97.9 F 75 20 130/67 95 12/24/16 08:04 12/24/16 08:04 12/24/16 08:04 12/24/16 08:04 12/24/16 08:04 Intake and Output: 12/24/16 12/24/16 06:59 18:59 Intake Total 1600 Output Total 90 Balance 1510 - Medications Medications: Current Medications Aspirin (Ecotrin) 81 mg PO DAILY [facility] Last Admin: 12/23/16 09:23 Dose: 81 mg Enoxaparin Sodium (Lovenox) 40 mg SC DAILY [facility] Last Admin: 12/23/16 09:23 Dose: 40 mg Hydromorphone HCl (Dilaudid) 0.5 mg IVP Q3H PRN PRN Reason: Pain, moderate (4-7) Last Admin: 12/24/16 05:15 Dose: 0.5 mg Potassium Chloride 20 meq/ (Sodium Chloride) 1,010 mls @ 100 mls/hr IV .Q10H6M [facility] Last Admin: 12/24/16 07:32 Dose: 100 mls/hr Insulin Human Regular (Novolin R) 0 unit SC ACHS [facility] PRN Reason: Protocol Last Admin: 12/24/16 07:07 Dose: Not Given Pantoprazole Sodium (Protonix Inj) 40 mg IVP DAILY [facility] Last Admin: 12/23/16 09:23 Dose: 40 mg Rosuvastatin Calcium (Crestor) 20 mg PO HS [facility] Last Admin: 12/23/16 21:29 Dose: 20 mg - Labs Labs: 12/24/16 07:30 12/23/16 12:01 PT 13.5 SECONDS (9.7-12.2) H 12/20/16 05:55 INR 1.2 12/20/16 05:55 APTT 28 SECONDS (21-34) 12/20/16 05:55 - Constitutional Appears: No Acute Distress - Head Exam Head Exam: NORMOCEPHALIC - Eye Exam Additional comments: conjuctival pallor - ENT Exam ENT Exam: Mucous Membranes Moist - Respiratory Exam Respiratory Exam: NORMAL BREATHING PATTERN - Cardiovascular Exam Cardiovascular Exam: +S1, +S2 - GI/Abdominal Exam GI & Abdominal Exam: Soft, Tenderness. absent: Distended, Rigid Additional comments: Tender to palpation along LLQ & RLQ - Neurological Exam Neurological Exam: Alert, Awake, Oriented x3 - Psychiatric Exam Psychiatric exam: Normal Mood - Skin Skin Exam: Dry, Normal Color Assessment and Plan - Assessment and Plan (Free Text) Assessment: 71 yo F s/p exp. laparotomy w/ rectosigmoid colon resection for removal of eroding mesh, POD #5 -Begin Full liquid diet, if tolerates will advance to regular -Monitor bowel function -Monitor for bleeding -Encourage OOB to chair, ambulation, and incentive spirometer use -DVT Px -Dw Dr. Caden Nelson PGY-1
[2016-12-24 08:55] LABS: EOSINOPHIL 2 % (0-4); NEUTROPHIL 77 % (50-75); TOTAL CELLS COUNTED 100
[2016-12-24 08:56] LABS: GIANT PLATELETS PRESENT
[2016-12-24] MEDS: Enoxaparin 40 mg Syringe SC SCH (09:16)
--- NOTE | 2016-12-24 10:44 | CP.PCM.PN ---
<Smith Metcalf H - Last Filed: 12/24/16 20:50> Subjective - Date & Time of Evaluation Date of Evaluation: 12/24/16 Time of Evaluation: 10:00 - Subjective Subjective: Dr. Conley service: Patient seen and examined in room with son present. She is complaining of lower abdominal and suprapubic pain. She is also say she has no more bowel movements since her last very blood bowel movement of yesterday. She is tolerating PO diet very well and dnies any nausea, vomiting, fever, chills, chest pain, shortness of breath or fatigue. Objective - Vital Signs/Intake and Output Vital Signs (last 24 hours): Temp Pulse Resp BP Pulse Ox 97.9 F 75 20 130/67 95 12/24/16 08:04 12/24/16 08:04 12/24/16 08:04 12/24/16 08:04 12/24/16 08:04 Intake and Output: 12/24/16 12/24/16 06:59 18:59 Intake Total 1600 Output Total 90 Balance 1510 - Medications Medications: Current Medications Aspirin (Ecotrin) 81 mg PO DAILY [facility] Last Admin: 12/24/16 09:16 Dose: 81 mg Enoxaparin Sodium (Lovenox) 40 mg SC DAILY [facility] Last Admin: 12/24/16 09:16 Dose: 40 mg Hydromorphone HCl (Dilaudid) 0.5 mg IVP Q3H PRN PRN Reason: Pain, moderate (4-7) Last Admin: 12/24/16 05:15 Dose: 0.5 mg Potassium Chloride 20 meq/ (Sodium Chloride) 1,010 mls @ 100 mls/hr IV .Q10H6M [facility] Last Admin: 12/24/16 07:32 Dose: 100 mls/hr Vancomycin/Sodium Chloride (Vancocin) 200 mls @ 133 mls/hr IVPB Q12H [facility] Stop: 12/29/16 10:46 Insulin Human Regular (Novolin R) 0 unit SC ACHS [facility] PRN Reason: Protocol Last Admin: 12/24/16 07:07 Dose: Not Given Pantoprazole Sodium (Protonix Inj) 40 mg IVP DAILY [facility] Last Admin: 12/24/16 09:16 Dose: 40 mg Rosuvastatin Calcium (Crestor) 20 mg PO HS [facility] Last Admin: 12/23/16 21:29 Dose: 20 mg - Labs Labs: 12/24/16 07:30 12/23/16 12:01 PT 13.5 SECONDS (9.7-12.2) H 12/20/16 05:55 INR 1.2 12/20/16 05:55 APTT 28 SECONDS (21-34) 12/20/16 05:55 - Constitutional Appears: Non-toxic, No Acute Distress - Head Exam Head Exam: NORMAL INSPECTION - Eye Exam Eye Exam: Normal appearance Additional comments: no conjunctival palor noted. - Respiratory Exam Respiratory Exam: Clear to Ausculation Bilateral. absent: Rales, Rhonchi, Wheezes - Cardiovascular Exam Cardiovascular Exam: REGULAR RHYTHM, RRR, +S1, +S2. absent: Gallop, Rubs - GI/Abdominal Exam GI & Abdominal Exam: Soft, Normal Bowel Sounds. absent: Tenderness - Extremities Exam Extremities Exam: absent: Pedal Edema - Back Exam Back Exam: NORMAL INSPECTION - Psychiatric Exam Psychiatric exam: Normal Affect, Normal Mood - Skin Skin Exam: Normal Color Assessment and Plan - Assessment and Plan (Free Text) Assessment: /: Started Vanocmycin for a UTI based on her PCN allergy and the urince culture senstivity, may consider ID consult. She is tolerating diet for now. Will need to watch CBC to make sure her hbg. continue with Lovenox and Aspirin. 12/23: Patient had a bloody bowel movement after she was seen during rounds, will follow up cbc, patient is NPO for now. Follow up with Surgery and GI consult. 12/22 s/p exp. 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 Visible mesh at 20-25cm with much "trauma", ulceration and edema. Satellite area that appears to be directly related to trauma from the edge of the mesh was oozing with the edge of a vessel visible. Clipped using a resolution clip with hemostasis. Still some oozing blood seen from under the area covered with mesh. Not felt to be safe to utilize cautery in this area. Mesh erosion - as above History of Atrial Fibrillation - Patient currently not on anticoagulation agents - Hold ASA due to bleed - Consult Cardiology, Dr. Whitaker. - stress test - normal nuclear stress test CAD - history of cardiac stents - Continue home medications: Coreg 12.5 mg po daily Losartan 50 mg po daily Atorvastatin 40 mg po daily ASA held DMII - Continue home medication: - Metformin 500 mg po daily - on hold - Accuchecks Infrarenal Abdominal Aortic Aneurysm - CT abdomen from 08/31/16 shows a 4cm infra-renal AAA Prophylaxis - SCD - Protonix - VTE ppx started Dispo - cont current mgmt but D/C schmitt - FU serial H/H - Transfuse PRN - Awaiting Caden joy [All management per Dr. Conley] <Otoniel Conley Jr. - Last Filed: 12/26/16 11:09> Objective - Vital Signs/Intake and Output Vital Signs (last 24 hours): Temp Pulse Resp BP Pulse Ox 97.8 F 71 20 151/74 H 96 12/26/16 07:57 12/26/16 07:57 12/26/16 07:57 12/26/16 07:57 12/26/16 07:57 Intake and Output: 12/26/16 12/26/16 06:59 18:59 Intake Total 2040 Output Total 640 Balance 1400 - Medications Medications: Current Medications Aspirin (Ecotrin) 81 mg PO DAILY [facility] Last Admin: 12/25/16 11:14 Dose: 81 mg Enoxaparin Sodium (Lovenox) 40 mg SC DAILY [facility] Last Admin: 12/25/16 11:13 Dose: 40 mg Hydromorphone HCl (Dilaudid) 2 mg PO Q4H PRN PRN Reason: Pain, severe (8-10) Last Admin: 12/26/16 06:05 Dose: 2 mg Potassium Chloride 20 meq/ (Sodium Chloride) 1,010 mls @ 100 mls/hr IV .Q10H6M [facility] Last Admin: 12/26/16 00:44 Dose: 100 mls/hr Vancomycin/Sodium Chloride (Vancocin) 200 mls @ 133 mls/hr IVPB Q12H [facility] Stop: 12/29/16 11:31 Last Admin: 12/26/16 00:44 Dose: 133 mls/hr Ibuprofen (Motrin Tab) 600 mg PO TID PRN PRN Reason: Pain, moderate (4-7) Last Admin: 12/24/16 21:27 Dose: 600 mg Insulin Human Regular (Novolin R) 0 unit SC ACHS [facility] PRN Reason: Protocol Last Admin: 12/25/16 21:33 Dose: Not Given Pantoprazole Sodium (Protonix Ec Tab) 40 mg PO DAILY [facility] Last Admin: 12/25/16 11:14 Dose: 40 mg Rosuvastatin Calcium (Crestor) 20 mg PO HS [facility] Last Admin: 12/25/16 21:36 Dose: 20 mg - Labs Labs: 12/25/16 07:13 12/25/16 07:13 PT 13.5 SECONDS (9.7-12.2) H 12/20/16 05:55 INR 1.2 12/20/16 05:55 APTT 28 SECONDS (21-34) 12/20/16 05:55 Attending/Attestation - Attestation I have personally seen and examined this patient.: Yes I have fully participated in the care of the patient.: Yes I have reviewed all pertinent clinical information, including history, physical exam and plan: Yes Notes (Text): 12/26/16 11:09 Examined, agree with resident note and plan of care
--- NOTE | 2016-12-24 11:18 | CP.PCM.PN ---
Subjective - Date & Time of Evaluation Date of Evaluation: 12/24/16 Time of Evaluation: 11:16 - Subjective Subjective: Surgical note reviewed. No further bleeding noted. Blood witness by me at bedside yesterday on garments and bed was mixed old and fresh blood. Downward drop in Hgb to 8.7 Objective - Vital Signs/Intake and Output Vital Signs (last 24 hours): Temp Pulse Resp BP Pulse Ox 97.9 F 75 20 130/67 95 12/24/16 08:04 12/24/16 08:04 12/24/16 08:04 12/24/16 08:04 12/24/16 08:04 Intake and Output: 12/24/16 12/24/16 06:59 18:59 Intake Total 1600 Output Total 90 Balance 1510 - Medications Medications: Current Medications Aspirin (Ecotrin) 81 mg PO DAILY [facility] Last Admin: 12/24/16 09:16 Dose: 81 mg Enoxaparin Sodium (Lovenox) 40 mg SC DAILY [facility] Last Admin: 12/24/16 09:16 Dose: 40 mg Hydromorphone HCl (Dilaudid) 0.5 mg IVP Q3H PRN PRN Reason: Pain, moderate (4-7) Last Admin: 12/24/16 05:15 Dose: 0.5 mg Potassium Chloride 20 meq/ (Sodium Chloride) 1,010 mls @ 100 mls/hr IV .Q10H6M [facility] Last Admin: 12/24/16 07:32 Dose: 100 mls/hr Vancomycin/Sodium Chloride (Vancocin) 200 mls @ 133 mls/hr IVPB Q12H [facility] Stop: 12/29/16 11:31 Insulin Human Regular (Novolin R) 0 unit SC ACHS [facility] PRN Reason: Protocol Last Admin: 12/24/16 07:07 Dose: Not Given Pantoprazole Sodium (Protonix Inj) 40 mg IVP DAILY [facility] Last Admin: 12/24/16 09:16 Dose: 40 mg Rosuvastatin Calcium (Crestor) 20 mg PO HS [facility] Last Admin: 12/23/16 21:29 Dose: 20 mg - Labs Labs: 12/24/16 07:30 12/23/16 12:01 PT 13.5 SECONDS (9.7-12.2) H 12/20/16 05:55 INR 1.2 12/20/16 05:55 APTT 28 SECONDS (21-34) 12/20/16 05:55 - Constitutional Appears: No Acute Distress - Head Exam Head Exam: ATRAUMATIC, NORMOCEPHALIC - Respiratory Exam Respiratory Exam: NORMAL BREATHING PATTERN - Cardiovascular Exam Cardiovascular Exam: REGULAR RHYTHM - GI/Abdominal Exam GI & Abdominal Exam: Soft, Tenderness, Hypoactive Bowel Sounds Additional comments: maroonish blood in RAZA drain, no aleksander bleeding. Incision clean. - Extremities Exam Extremities Exam: Normal Inspection Assessment and Plan (1) Rectal ulcer Assessment & Plan: Post op plans per surgery. Status: Resolved (2) Coronary artery disease Status: Chronic (3) Ileus following gastrointestinal surgery Assessment & Plan: scant bowel sounds heard today Status: Acute (4) Rectal bleeding Assessment & Plan: Passage of old blood reported by surgery Would continue to monitor closely for signs of active oozing and drop in H/H. Post op care per surgical team. Status: Acute
--- NOTE | 2016-12-24 11:49 | CP.PCM.PN ---
Objective - Vital Signs/Intake and Output Vital Signs (last 24 hours): Temp Pulse Resp BP Pulse Ox 97.9 F 75 20 130/67 95 12/24/16 08:04 12/24/16 08:04 12/24/16 08:04 12/24/16 08:04 12/24/16 08:04 Intake and Output: 12/24/16 12/24/16 06:59 18:59 Intake Total 1600 Output Total 90 Balance 1510 - Medications Medications: Current Medications Aspirin (Ecotrin) 81 mg PO DAILY [facility] Last Admin: 12/24/16 09:16 Dose: 81 mg Enoxaparin Sodium (Lovenox) 40 mg SC DAILY [facility] Last Admin: 12/24/16 09:16 Dose: 40 mg Hydromorphone HCl (Dilaudid) 0.5 mg IVP Q3H PRN PRN Reason: Pain, moderate (4-7) Last Admin: 12/24/16 05:15 Dose: 0.5 mg Potassium Chloride 20 meq/ (Sodium Chloride) 1,010 mls @ 100 mls/hr IV .Q10H6M [facility] Last Admin: 12/24/16 07:32 Dose: 100 mls/hr Vancomycin/Sodium Chloride (Vancocin) 200 mls @ 133 mls/hr IVPB Q12H [facility] Stop: 12/29/16 11:31 Insulin Human Regular (Novolin R) 0 unit SC ACHS [facility] PRN Reason: Protocol Last Admin: 12/24/16 11:37 Dose: Not Given Pantoprazole Sodium (Protonix Inj) 40 mg IVP DAILY [facility] Last Admin: 12/24/16 09:16 Dose: 40 mg Rosuvastatin Calcium (Crestor) 20 mg PO HS [facility] Last Admin: 12/23/16 21:29 Dose: 20 mg - Labs Labs: 12/24/16 07:30 12/23/16 12:01 PT 13.5 SECONDS (9.7-12.2) H 12/20/16 05:55 INR 1.2 12/20/16 05:55 APTT 28 SECONDS (21-34) 12/20/16 05:55
[2016-12-24 12:31] LABS: CHLORIDE 102 mmol/L (98-107); SODIUM 135 mmol/L (132-148)
[2016-12-24 12:32] LABS: POTASSIUM 3.8 mmol/L (3.6-5.2)
[2016-12-24 12:34] LABS: ALKALINE PHOSPHATASE 55 U/L (38-126); ALT/SGPT 14 U/L (9-52); AST/SGOT 13 U/L (14-36); BLOOD UREA NITROGEN 6 mg/dL (7-17); CALCIUM 7.7 mg/dl (8.6-10.4); CARBON DIOXIDE 20 mmol/L (22-30); GFR AFRICAN-AMERICAN > 60; GLUCOSE,RANDOM 93 mg/dL (65-105); TOTAL PROTEIN 5.2 g/dL (6.3-8.3)
[2016-12-24] MEDS: Vancomycin 1 gm/NS 200 ml 200 ML IVPB SCH ×2 (13:04→23:32)
--- NOTE | 2016-12-24 20:11 | CP.PCM.PN ---
Subjective - Date & Time of Evaluation Date of Evaluation: 12/24/16 Time of Evaluation: 07:30 - Subjective Subjective: Patient without cardiac events Post op care Objective - Vital Signs/Intake and Output Vital Signs (last 24 hours): Temp Pulse Resp BP Pulse Ox 98.1 F 74 20 109/62 95 12/24/16 16:00 12/24/16 16:00 12/24/16 16:00 12/24/16 16:00 12/24/16 16:00 Intake and Output: 12/24/16 12/25/16 18:59 06:59 Intake Total 800 Output Total 40 Balance 760 - Medications Medications: Current Medications Aspirin (Ecotrin) 81 mg PO DAILY [facility] Last Admin: 12/24/16 09:16 Dose: 81 mg Enoxaparin Sodium (Lovenox) 40 mg SC DAILY [facility] Last Admin: 12/24/16 09:16 Dose: 40 mg Potassium Chloride 20 meq/ (Sodium Chloride) 1,010 mls @ 100 mls/hr IV .Q10H6M [facility] Last Admin: 12/24/16 20:09 Dose: 100 mls/hr Vancomycin/Sodium Chloride (Vancocin) 200 mls @ 133 mls/hr IVPB Q12H [facility] Stop: 12/29/16 11:31 Last Admin: 12/24/16 13:04 Dose: 133 mls/hr Ibuprofen (Motrin Tab) 600 mg PO TID PRN PRN Reason: Pain, moderate (4-7) Insulin Human Regular (Novolin R) 0 unit SC ACHS [facility] PRN Reason: Protocol Last Admin: 12/24/16 16:44 Dose: Not Given Pantoprazole Sodium (Protonix Ec Tab) 40 mg PO DAILY [facility] Rosuvastatin Calcium (Crestor) 20 mg PO HS [facility] Last Admin: 12/23/16 21:29 Dose: 20 mg - Labs Labs: 12/24/16 07:30 12/24/16 12:05 PT 13.5 SECONDS (9.7-12.2) H 12/20/16 05:55 INR 1.2 12/20/16 05:55 APTT 28 SECONDS (21-34) 12/20/16 05:55
[2016-12-25] MEDS: (Novolin R) Insulin Human Regular 100 units/ml vial SC SCH ×4 (07:15→21:33)
[2016-12-25 07:21] LABS: BASO % 0.4 % (0.0-2.0); EOS # 0.7 K/uL (0.0-0.7); EOS % 8.6 % (0.0-4.0); HEMATOCRIT 26.2 % (34.0-47.0); LYMPH # 0.7 K/uL (1.0-4.3); LYMPH % 8.6 % (20.0-40.0); MEAN CELL VOLUME 84.7 fL (81.0-99.0); MEAN CORPUSCULAR HEMOGLOBIN 27.6 pg (27.0-31.0); MEAN CORPUSCULAR HGB CONC 32.5 g/dL (33.0-37.0); MEAN PLATELET VOLUME 8.4 fL (7.2-11.7); MONO # 0.9 K/uL (0.0-0.8); MONO % 12.3 % (0.0-10.0); PLATELET COUNT 300 K/uL (130-400); RED CELL DISTRIBUTION WIDTH 17.8 % (11.5-14.5); WHITE BLOOD COUNT 7.6 K/uL (4.8-10.8)
--- NOTE | 2016-12-25 08:02 | CP.PCM.PN ---
Subjective - Date & Time of Evaluation Date of Evaluation: 12/25/16 Time of Evaluation: 07:00 - Subjective Subjective: Gen Surg: Dr. Negrete Pt S&E this AM. Patient reports passing some flatus. Denies having any more bloody BMs. Patient tolerating regular diet. Complaining of abdominal pain along RAZA drains. RAZA output, R drain: 35cc w/ maroon fluid, left drain: 35cc w/ serosanguinous. Patient reports feeling better. Hgb has remained stable. Review of vitals is normal. Objective - Vital Signs/Intake and Output Vital Signs (last 24 hours): Temp Pulse Resp BP Pulse Ox 98 F 66 20 147/65 97 12/24/16 23:15 12/25/16 00:58 12/24/16 23:15 12/24/16 23:15 12/24/16 23:15 Intake and Output: 12/25/16 12/25/16 06:59 18:59 Intake Total 800 Output Total 230 Balance 570 - Medications Medications: Current Medications Aspirin (Ecotrin) 81 mg PO DAILY [facility] Last Admin: 12/24/16 09:16 Dose: 81 mg Enoxaparin Sodium (Lovenox) 40 mg SC DAILY [facility] Last Admin: 12/24/16 09:16 Dose: 40 mg Potassium Chloride 20 meq/ (Sodium Chloride) 1,010 mls @ 100 mls/hr IV .Q10H6M [facility] Last Admin: 12/25/16 02:54 Dose: Not Given Vancomycin/Sodium Chloride (Vancocin) 200 mls @ 133 mls/hr IVPB Q12H [facility] Stop: 12/29/16 11:31 Last Admin: 12/24/16 23:32 Dose: 133 mls/hr Ibuprofen (Motrin Tab) 600 mg PO TID PRN PRN Reason: Pain, moderate (4-7) Last Admin: 12/24/16 21:27 Dose: 600 mg Insulin Human Regular (Novolin R) 0 unit SC ACHS [facility] PRN Reason: Protocol Last Admin: 12/25/16 07:15 Dose: Not Given Pantoprazole Sodium (Protonix Ec Tab) 40 mg PO DAILY [facility] Rosuvastatin Calcium (Crestor) 20 mg PO HS [facility] Last Admin: 12/24/16 21:23 Dose: 20 mg - Labs Labs: 12/25/16 07:13 12/24/16 12:05 PT 13.5 SECONDS (9.7-12.2) H 12/20/16 05:55 INR 1.2 12/20/16 05:55 APTT 28 SECONDS (21-34) 12/20/16 05:55 - Constitutional Appears: Non-toxic, No Acute Distress - Head Exam Head Exam: NORMOCEPHALIC - Eye Exam Eye Exam: EOMI - ENT Exam ENT Exam: Mucous Membranes Moist - Respiratory Exam Respiratory Exam: NORMAL BREATHING PATTERN - Cardiovascular Exam Cardiovascular Exam: +S1, +S2 - GI/Abdominal Exam GI & Abdominal Exam: Soft, Tenderness - Neurological Exam Neurological Exam: Alert, Awake, Oriented x3 - Psychiatric Exam Psychiatric exam: Normal Mood - Skin Skin Exam: Dry, Intact, Warm Assessment and Plan - Assessment and Plan (Free Text) Assessment: 71 yo F s/p exp. laparotomy w/ rectosigmoid colon resection for removal of eroding mesh, POD #6 -Advance to Regular diet -Monitor bowel function -Monitor for bleeding -Possible d/c tomorrow -Encourage OOB to chair, ambulation, and incentive spirometer use -DVT Px -Dw Dr. Caden Nelson PGY-1
[2016-12-25 08:07] LABS: CHLORIDE 109 mmol/L (98-107); POTASSIUM 3.7 mmol/L (3.6-5.2); SODIUM 140 mmol/L (132-148)
[2016-12-25 08:09] LABS: AST/SGOT 21 U/L (14-36); BILIRUBIN,TOTAL 0.6 mg/dL (0.2-1.3); CARBON DIOXIDE 20 mmol/L (22-30); GFR AFRICAN-AMERICAN > 60
[2016-12-25 08:10] LABS: ALB/GLOB RATIO 0.9 (1.0-2.1); ALKALINE PHOSPHATASE 52 U/L (38-126); ALT/SGPT 15 U/L (9-52); BLOOD UREA NITROGEN 6 mg/dL (7-17); CALCIUM 7.4 mg/dl (8.6-10.4); GLUCOSE,RANDOM 90 mg/dL (65-105); PHOSPHOROUS 2.9 mg/dL (2.5-4.5); TOTAL PROTEIN 4.7 g/dL (6.3-8.3)
[2016-12-25 08:11] LABS: MAGNESIUM 1.9 mg/dL (1.6-2.3)
[2016-12-25 09:09] LABS: EOSINOPHIL 7 % (0-4); NEUTROPHIL 84 % (50-75); TOTAL CELLS COUNTED 100
--- NOTE | 2016-12-25 09:21 | CP.PCM.PN ---
Subjective - Date & Time of Evaluation Date of Evaluation: 12/25/16 Time of Evaluation: 09:19 - Subjective Subjective: No reported bleeding, flatus passed hgb=8.5 Objective - Vital Signs/Intake and Output Vital Signs (last 24 hours): Temp Pulse Resp BP Pulse Ox 98 F 75 20 193/70 H 99 12/25/16 07:00 12/25/16 07:00 12/25/16 07:00 12/25/16 07:00 12/25/16 07:00 Intake and Output: 12/25/16 12/25/16 06:59 18:59 Intake Total 800 Output Total 230 Balance 570 - Medications Medications: Current Medications Aspirin (Ecotrin) 81 mg PO DAILY [facility] Last Admin: 12/24/16 09:16 Dose: 81 mg Enoxaparin Sodium (Lovenox) 40 mg SC DAILY [facility] Last Admin: 12/24/16 09:16 Dose: 40 mg Potassium Chloride 20 meq/ (Sodium Chloride) 1,010 mls @ 100 mls/hr IV .Q10H6M [facility] Last Admin: 12/25/16 02:54 Dose: Not Given Vancomycin/Sodium Chloride (Vancocin) 200 mls @ 133 mls/hr IVPB Q12H [facility] Stop: 12/29/16 11:31 Last Admin: 12/24/16 23:32 Dose: 133 mls/hr Ibuprofen (Motrin Tab) 600 mg PO TID PRN PRN Reason: Pain, moderate (4-7) Last Admin: 12/24/16 21:27 Dose: 600 mg Insulin Human Regular (Novolin R) 0 unit SC ACHS [facility] PRN Reason: Protocol Last Admin: 12/25/16 07:15 Dose: Not Given Pantoprazole Sodium (Protonix Ec Tab) 40 mg PO DAILY [facility] Rosuvastatin Calcium (Crestor) 20 mg PO HS [facility] Last Admin: 12/24/16 21:23 Dose: 20 mg - Labs Labs: 12/25/16 07:13 12/25/16 07:13 PT 13.5 SECONDS (9.7-12.2) H 12/20/16 05:55 INR 1.2 12/20/16 05:55 APTT 28 SECONDS (21-34) 12/20/16 05:55 - Constitutional Appears: No Acute Distress - Head Exam Head Exam: ATRAUMATIC, NORMOCEPHALIC - Respiratory Exam Respiratory Exam: NORMAL BREATHING PATTERN - Cardiovascular Exam Cardiovascular Exam: REGULAR RHYTHM - GI/Abdominal Exam GI & Abdominal Exam: Soft, Diminished Bowel Sounds. absent: Tenderness Additional comments: incisional site intact - Extremities Exam Extremities Exam: Normal Inspection Assessment and Plan (1) Coronary artery disease Status: Chronic (2) Ileus following gastrointestinal surgery Assessment & Plan: Improving Continue ambulation and advance diet as per surgery. Status: Acute (3) Rectal bleeding Assessment & Plan: No further bleeding and H/H relatively unchanged Post op care per surgery Status: Acute
[2016-12-25] MEDS: Enoxaparin 40 mg Syringe SC SCH (11:13)
[2016-12-25] MEDS: Pantoprazole 40 mg EC Tab PO SCH (11:14)
[2016-12-25] MEDS: Vancomycin 1 gm/NS 200 ml 200 ML IVPB SCH (11:14)
--- NOTE | 2016-12-25 12:48 | CP.PCM.PN ---
<Ayan Ac - Last Filed: 12/25/16 12:44> Subjective - Date & Time of Evaluation Date of Evaluation: 12/25/16 Time of Evaluation: 12:44 - Subjective Subjective: PGY-[address] Conley's service Pt seen and examined at bedside. Pt states that she has abdominal pain still but feeling better. She has had bowel movements and flatus. States that he is tolerating her diet. Denies fevers, chills, chest pain, sob, nausea or vomiting. Objective - Vital Signs/Intake and Output Vital Signs (last 24 hours): Temp Pulse Resp BP Pulse Ox 98 F 75 20 193/70 H 99 12/25/16 07:00 12/25/16 07:00 12/25/16 07:00 12/25/16 07:00 12/25/16 07:00 Intake and Output: 12/25/16 12/25/16 06:59 18:59 Intake Total 800 Output Total 230 Balance 570 - Medications Medications: Current Medications Aspirin (Ecotrin) 81 mg PO DAILY [facility] Last Admin: 12/25/16 11:14 Dose: 81 mg Enoxaparin Sodium (Lovenox) 40 mg SC DAILY [facility] Last Admin: 12/25/16 11:13 Dose: 40 mg Hydromorphone HCl (Dilaudid) 2 mg PO Q4H PRN PRN Reason: Pain, severe (8-10) Last Admin: 12/25/16 11:13 Dose: 2 mg Potassium Chloride 20 meq/ (Sodium Chloride) 1,010 mls @ 100 mls/hr IV .Q10H6M [facility] Last Admin: 12/25/16 11:15 Dose: 100 mls/hr Vancomycin/Sodium Chloride (Vancocin) 200 mls @ 133 mls/hr IVPB Q12H [facility] Stop: 12/29/16 11:31 Last Admin: 12/25/16 11:14 Dose: 133 mls/hr Ibuprofen (Motrin Tab) 600 mg PO TID PRN PRN Reason: Pain, moderate (4-7) Last Admin: 12/24/16 21:27 Dose: 600 mg Insulin Human Regular (Novolin R) 0 unit SC ACHS [facility] PRN Reason: Protocol Last Admin: 12/25/16 07:15 Dose: Not Given Pantoprazole Sodium (Protonix Ec Tab) 40 mg PO DAILY [facility] Last Admin: 12/25/16 11:14 Dose: 40 mg Rosuvastatin Calcium (Crestor) 20 mg PO HS [facility] Last Admin: 12/24/16 21:23 Dose: 20 mg - Labs Labs: 12/25/16 07:13 12/25/16 07:13 PT 13.5 SECONDS (9.7-12.2) H 12/20/16 05:55 INR 1.2 12/20/16 05:55 APTT 28 SECONDS (21-34) 12/20/16 05:55 - Constitutional Appears: Non-toxic, No Acute Distress - Head Exam Head Exam: ATRAUMATIC, NORMOCEPHALIC - Respiratory Exam Respiratory Exam: Clear to Ausculation Bilateral, NORMAL BREATHING PATTERN - Cardiovascular Exam Cardiovascular Exam: +S1, +S2 - GI/Abdominal Exam GI & Abdominal Exam: Soft, Tenderness, Normal Bowel Sounds Additional comments: Incision sites are c/d/i, no erythema - Neurological Exam Neurological Exam: Alert, Awake - Skin Skin Exam: Dry, Warm Assessment and Plan - Assessment and Plan (Free Text) Assessment: Acute GI Bleed - s/p exp. laparotomy w/ rectosigmoid colon resection for removal of eroding mesh, POD #6 - reports no more bloody BMs - Per surgery -Advance to Regular diet -Monitor bowel function -Monitor for bleeding -Possible d/c tomorrow -Encourage OOB to chair, ambulation, and incentive spirometer use -DVT Px - Colonoscopy 12/14 - Bleeding due to mesh fistulization/erosion following rectopexy. Visible mesh at 20-25cm with much "trauma", ulceration and edema. Satellite area that appears to be directly related to trauma from the edge of the mesh was oozing with the edge of a vessel visible. Clipped using a resolution clip with hemostasis. Still some oozing blood seen from under the area covered with mesh. Not felt to be safe to utilize cautery in this area. Mesh erosion - as above UTI - Urine culture 12/22 - enterrococcus facealis - Started Vanocmycin (12/24) for a UTI based on her PCN allergy and the urince culture senstivity. Will give 5 days History of Atrial Fibrillation - Patient currently not on anticoagulation agents - Hold ASA due to bleed - Consult Cardiology, Dr. Whitaker. - stress test - normal nuclear stress test CAD - history of cardiac stents - Continue home medications: Coreg 12.5 mg po daily Losartan 50 mg po daily Atorvastatin 40 mg po daily ASA held DMII - Continue home medication: - Metformin 500 mg po daily - on hold - Accuchecks Infrarenal Abdominal Aortic Aneurysm - CT abdomen from 08/31/16 shows a 4cm infra-renal AAA Prophylaxis - SCD - Protonix - VTE ppx started Dispo - Pt to go to [facility] awaiting placement [All management per Dr. Conley] <Otoniel Conley Jr. - Last Filed: 12/26/16 11:11> Objective - Vital Signs/Intake and Output Vital Signs (last 24 hours): Temp Pulse Resp BP Pulse Ox 97.8 F 71 20 151/74 H 96 12/26/16 07:57 12/26/16 07:57 12/26/16 07:57 12/26/16 07:57 12/26/16 07:57 Intake and Output: 12/26/16 12/26/16 06:59 18:59 Intake Total 2040 Output Total 640 Balance 1400 - Medications Medications: Current Medications Aspirin (Ecotrin) 81 mg PO DAILY [facility] Last Admin: 12/25/16 11:14 Dose: 81 mg Enoxaparin Sodium (Lovenox) 40 mg SC DAILY [facility] Last Admin: 12/25/16 11:13 Dose: 40 mg Hydromorphone HCl (Dilaudid) 2 mg PO Q4H PRN PRN Reason: Pain, severe (8-10) Last Admin: 12/26/16 06:05 Dose: 2 mg Potassium Chloride 20 meq/ (Sodium Chloride) 1,010 mls @ 100 mls/hr IV .Q10H6M [facility] Last Admin: 12/26/16 00:44 Dose: 100 mls/hr Vancomycin/Sodium Chloride (Vancocin) 200 mls @ 133 mls/hr IVPB Q12H [facility] Stop: 12/29/16 11:31 Last Admin: 12/26/16 00:44 Dose: 133 mls/hr Ibuprofen (Motrin Tab) 600 mg PO TID PRN PRN Reason: Pain, moderate (4-7) Last Admin: 12/24/16 21:27 Dose: 600 mg Insulin Human Regular (Novolin R) 0 unit SC [facility] PRN Reason: Protocol Last Admin: 12/25/16 21:33 Dose: Not Given Pantoprazole Sodium (Protonix Ec Tab) 40 mg PO DAILY [facility] Last Admin: 12/25/16 11:14 Dose: 40 mg Rosuvastatin Calcium (Crestor) 20 mg PO HS [facility] Last Admin: 12/25/16 21:36 Dose: 20 mg - Labs Labs: 12/25/16 07:13 12/25/16 07:13 PT 13.5 SECONDS (9.7-12.2) H 12/20/16 05:55 INR 1.2 12/20/16 05:55 APTT 28 SECONDS (21-34) 12/20/16 05:55 Attending/Attestation - Attestation I have personally seen and examined this patient.: Yes I have fully participated in the care of the patient.: Yes I have reviewed all pertinent clinical information, including history, physical exam and plan: Yes Notes (Text): 12/26/16 11:11 Patient seen and examined, agree with resident note in plan of care.
--- NOTE | 2016-12-25 21:07 | CP.PCM.PN ---
Subjective - Date & Time of Evaluation Date of Evaluation: 12/25/16 Time of Evaluation: 13:45 - Subjective Subjective: Patient seen and evaluated Feels better able to handle food Objective - Vital Signs/Intake and Output Vital Signs (last 24 hours): Temp Pulse Resp BP Pulse Ox 98.3 F 74 20 146/75 97 12/25/16 15:51 12/25/16 15:51 12/25/16 15:51 12/25/16 15:51 12/25/16 15:51 - Medications Medications: Current Medications Aspirin (Ecotrin) 81 mg PO DAILY [facility] Last Admin: 12/25/16 11:14 Dose: 81 mg Enoxaparin Sodium (Lovenox) 40 mg SC DAILY [facility] Last Admin: 12/25/16 11:13 Dose: 40 mg Hydromorphone HCl (Dilaudid) 2 mg PO Q4H PRN PRN Reason: Pain, severe (8-10) Last Admin: 12/25/16 11:13 Dose: 2 mg Potassium Chloride 20 meq/ (Sodium Chloride) 1,010 mls @ 100 mls/hr IV .Q10H6M [facility] Last Admin: 12/25/16 11:15 Dose: 100 mls/hr Vancomycin/Sodium Chloride (Vancocin) 200 mls @ 133 mls/hr IVPB Q12H [facility] Stop: 12/29/16 11:31 Last Admin: 12/25/16 11:14 Dose: 133 mls/hr Ibuprofen (Motrin Tab) 600 mg PO TID PRN PRN Reason: Pain, moderate (4-7) Last Admin: 12/24/16 21:27 Dose: 600 mg Insulin Human Regular (Novolin R) 0 unit SC ACHS [facility] PRN Reason: Protocol Last Admin: 12/25/16 17:21 Dose: 2 unit Pantoprazole Sodium (Protonix Ec Tab) 40 mg PO DAILY [facility] Last Admin: 12/25/16 11:14 Dose: 40 mg Rosuvastatin Calcium (Crestor) 20 mg PO HS [facility] Last Admin: 12/24/16 21:23 Dose: 20 mg - Labs Labs: 12/25/16 07:13 12/25/16 07:13 PT 13.5 SECONDS (9.7-12.2) H 12/20/16 05:55 INR 1.2 12/20/16 05:55 APTT 28 SECONDS (21-34) 12/20/16 05:55
[2016-12-26] MEDS: Vancomycin 1 gm/NS 200 ml 200 ML IVPB SCH ×2 (00:44→11:53)
[2016-12-26 01:17] VITALS: PULSE 71; O2SAT 96
[2016-12-26] MEDS: (Novolin R) Insulin Human Regular 100 units/ml vial SC SCH ×2 (07:30→12:17)
[2016-12-26 07:58] VITALS: BP 151/74; TEMP 97.8
--- NOTE | 2016-12-26 08:00 | CP.PCM.PN ---
Subjective - Date & Time of Evaluation Date of Evaluation: 12/26/16 Time of Evaluation: 06:45 - Subjective Subjective: Gen Surg: Dr. Negrete Pt S&E. Reports passing flatus, had one small BM yesterday. Tolerating regular diet. Low output from RAZA drains b/l. No acute events over night. Will remove RAZA drains today. Denies headaches, f/c, chest pain/SOB, n/v/d. Objective - Vital Signs/Intake and Output Vital Signs (last 24 hours): Temp Pulse Resp BP Pulse Ox 97.8 F 71 20 151/74 H 96 12/26/16 07:57 12/26/16 07:57 12/26/16 07:57 12/26/16 07:57 12/26/16 07:57 Intake and Output: 12/26/16 12/26/16 06:59 18:59 Intake Total 2040 Output Total 640 Balance 1400 - Medications Medications: Current Medications Aspirin (Ecotrin) 81 mg PO DAILY [facility] Last Admin: 12/25/16 11:14 Dose: 81 mg Enoxaparin Sodium (Lovenox) 40 mg SC DAILY [facility] Last Admin: 12/25/16 11:13 Dose: 40 mg Hydromorphone HCl (Dilaudid) 2 mg PO Q4H PRN PRN Reason: Pain, severe (8-10) Last Admin: 12/26/16 06:05 Dose: 2 mg Potassium Chloride 20 meq/ (Sodium Chloride) 1,010 mls @ 100 mls/hr IV .Q10H6M [facility] Last Admin: 12/26/16 00:44 Dose: 100 mls/hr Vancomycin/Sodium Chloride (Vancocin) 200 mls @ 133 mls/hr IVPB Q12H [facility] Stop: 12/29/16 11:31 Last Admin: 12/26/16 00:44 Dose: 133 mls/hr Ibuprofen (Motrin Tab) 600 mg PO TID PRN PRN Reason: Pain, moderate (4-7) Last Admin: 12/24/16 21:27 Dose: 600 mg Insulin Human Regular (Novolin R) 0 unit SC ACHS [facility] PRN Reason: Protocol Last Admin: 12/25/16 21:33 Dose: Not Given Pantoprazole Sodium (Protonix Ec Tab) 40 mg PO DAILY [facility] Last Admin: 12/25/16 11:14 Dose: 40 mg Rosuvastatin Calcium (Crestor) 20 mg PO HS [facility] Last Admin: 12/25/16 21:36 Dose: 20 mg - Labs Labs: 12/25/16 07:13 12/25/16 07:13 PT 13.5 SECONDS (9.7-12.2) H 12/20/16 05:55 INR 1.2 12/20/16 05:55 APTT 28 SECONDS (21-34) 12/20/16 05:55 - Constitutional Appears: No Acute Distress - Head Exam Head Exam: NORMOCEPHALIC - Eye Exam Eye Exam: Normal appearance - ENT Exam ENT Exam: Mucous Membranes Moist - Respiratory Exam Respiratory Exam: NORMAL BREATHING PATTERN - Cardiovascular Exam Cardiovascular Exam: +S1, +S2 - GI/Abdominal Exam GI & Abdominal Exam: Soft, Tenderness Additional comments: Lower abdominal tenderness along RAZA drain sites - Neurological Exam Neurological Exam: Alert, Awake, Oriented x3 - Psychiatric Exam Psychiatric exam: Normal Mood - Skin Skin Exam: Dry, Normal Color Assessment and Plan - Assessment and Plan (Free Text) Assessment: 71 yo F s/p exp. laparotomy w/ rectosigmoid colon resection for removal of eroding mesh, POD #7 -Patient clear for discharge from surgical standpoint -Will remove RAZA drains today -Regular diet -Encourage OOB to chair, ambulation, and incentive spirometer use -DVT/GI Px -Dw Dr. Caden Nelson PGY-1
--- NOTE | 2016-12-26 10:35 | CP.PCM.PN ---
Subjective - Date & Time of Evaluation Date of Evaluation: 12/26/16 Time of Evaluation: 10:33 - Subjective Subjective: No bleeding, tolerating diet, small stool noted, less incisional pain Objective - Vital Signs/Intake and Output Vital Signs (last 24 hours): Temp Pulse Resp BP Pulse Ox 97.8 F 71 20 151/74 H 96 12/26/16 07:57 12/26/16 07:57 12/26/16 07:57 12/26/16 07:57 12/26/16 07:57 Intake and Output: 12/26/16 12/26/16 06:59 18:59 Intake Total 2040 Output Total 640 Balance 1400 - Medications Medications: Current Medications Aspirin (Ecotrin) 81 mg PO DAILY [facility] Last Admin: 12/25/16 11:14 Dose: 81 mg Enoxaparin Sodium (Lovenox) 40 mg SC DAILY [facility] Last Admin: 12/25/16 11:13 Dose: 40 mg Hydromorphone HCl (Dilaudid) 2 mg PO Q4H PRN PRN Reason: Pain, severe (8-10) Last Admin: 12/26/16 06:05 Dose: 2 mg Potassium Chloride 20 meq/ (Sodium Chloride) 1,010 mls @ 100 mls/hr IV .Q10H6M [facility] Last Admin: 12/26/16 00:44 Dose: 100 mls/hr Vancomycin/Sodium Chloride (Vancocin) 200 mls @ 133 mls/hr IVPB Q12H [facility] Stop: 12/29/16 11:31 Last Admin: 12/26/16 00:44 Dose: 133 mls/hr Ibuprofen (Motrin Tab) 600 mg PO TID PRN PRN Reason: Pain, moderate (4-7) Last Admin: 12/24/16 21:27 Dose: 600 mg Insulin Human Regular (Novolin R) 0 unit SC ACHS [facility] PRN Reason: Protocol Last Admin: 12/25/16 21:33 Dose: Not Given Pantoprazole Sodium (Protonix Ec Tab) 40 mg PO DAILY [facility] Last Admin: 12/25/16 11:14 Dose: 40 mg Rosuvastatin Calcium (Crestor) 20 mg PO HS [facility] Last Admin: 12/25/16 21:36 Dose: 20 mg - Labs Labs: 12/25/16 07:13 12/25/16 07:13 PT 13.5 SECONDS (9.7-12.2) H 12/20/16 05:55 INR 1.2 12/20/16 05:55 APTT 28 SECONDS (21-34) 12/20/16 05:55 - Constitutional Appears: No Acute Distress - Head Exam Head Exam: ATRAUMATIC, NORMOCEPHALIC - Respiratory Exam Respiratory Exam: NORMAL BREATHING PATTERN - Cardiovascular Exam Cardiovascular Exam: REGULAR RHYTHM - GI/Abdominal Exam GI & Abdominal Exam: Soft, Diminished Bowel Sounds. absent: Tenderness Additional comments: Incision and RAZA intact, scant drainage serosanguinous - Extremities Exam Extremities Exam: Normal Inspection Assessment and Plan (1) Coronary artery disease Status: Chronic (2) Ileus following gastrointestinal surgery Status: Resolved (3) Rectal bleeding Assessment & Plan: Appears to be stable post op Discharge planning Will follow as needed or see as outpatient in my office. Thank you Status: Acute
[2016-12-26] MEDS: Pantoprazole 40 mg EC Tab PO SCH (11:45)
[2016-12-26] MEDS: Enoxaparin 40 mg Syringe SC SCH (11:45)
--- NOTE | 2016-12-26 14:35 | CP.PCM.DIS ---
Provider - Provider Date of Admission: 12/12/16 16:23 Attending physician: Otoniel Conley Jr, MD Primary care physician: Yael Consults: Cardio - [facility] - [facility] - [place] Time Spent in preparation of Discharge (in minutes): 31 Hospital Course - Lab Results Lab Results: Micro Results 12/22/16 Unknown Urine Urine Culture - Final Enterococcus Faecalis 12/21/16 Unknown Naris MRSA Culture - Final MRSA NOT DETECTED 12/19/16 Unknown Nose MRSA Culture (Admit) - Final MRSA NOT DETECTED Most Recent Lab Values WBC 7.6 K/uL (4.8-10.8) 12/25/16 07:13 RBC 3.09 Mil/uL (3.80-5.20) L 12/25/16 07:13 Hgb 8.5 g/dL (11.0-16.0) L 12/25/16 07:13 Hct 26.2 % (34.0-47.0) L 12/25/16 07:13 MCV 84.7 fL (81.0-99.0) 12/25/16 07:13 MCH 27.6 pg (27.0-31.0) 12/25/16 07:13 MCHC 32.5 g/dL (33.0-37.0) L 12/25/16 07:13 RDW 17.8 % (11.5-14.5) H 12/25/16 07:13 Plt Count 300 K/uL (130-400) 12/25/16 07:13 MPV 8.4 fL (7.2-11.7) 12/25/16 07:13 Neut % (Auto) 70.1 % (50.0-75.0) 12/25/16 07:13 Lymph % (Auto) 8.6 % (20.0-40.0) L 12/25/16 07:13 [place] % (Auto) 12.3 % (0.0-10.0) H 12/25/16 07:13 Eos % (Auto) 8.6 % (0.0-4.0) H 12/25/16 07:13 Baso % (Auto) 0.4 % (0.0-2.0) 12/25/16 07:13 Neut # 5.3 K/uL (1.8-7.0) 12/25/16 07:13 Lymph # 0.7 K/uL (1.0-4.3) L 12/25/16 07:13 [place] # 0.9 K/uL (0.0-0.8) H 12/25/16 07:13 Eos # 0.7 K/uL (0.0-0.7) 12/25/16 07:13 Baso # 0.0 K/uL (0.0-0.2) 12/25/16 07:13 Neutrophils % (Manual) 84 % (50-75) H 12/25/16 07:13 Band Neutrophils % 1 % (0-2) 12/25/16 07:13 Lymphocytes % (Manual) 4 % (20-40) L 12/25/16 07:13 Monocytes % (Manual) 4 % (0-10) 12/25/16 07:13 Eosinophils % (Manual) 7 % (0-4) H 12/25/16 07:13 Platelet Estimate Normal (NORMAL) 12/25/16 07:13 Giant Platelets Present 12/24/16 07:30 Polychromasia Slight 12/25/16 07:13 Hypochromasia (manual) Slight 12/25/16 07:13 Poikilocytosis (manual Slight 12/22/16 07:29 Anisocytosis (manual) Slight 12/25/16 07:13 Microcytosis (manual) Slight 12/25/16 07:13 Macrocytosis (manual) Slight 12/22/16 07:29 Ovalocytes Slight 12/21/16 06:37 PT 13.5 SECONDS (9.7-12.2) H 12/20/16 05:55 INR 1.2 12/20/16 05:55 APTT 28 SECONDS (21-34) 12/20/16 05:55 Puncture Site A line 12/19/16 18:25 pCO2 42 mm/Hg (35-45) 12/19/16 18:25 pO2 197 mm/Hg (80-100) H 12/19/16 18:25 HCO3 23.1 mmol/L (21-28) 12/19/16 18:25 ABG pH 7.35 (7.35-7.45) 12/19/16 18:25 ABG Total CO2 24.5 mmol/L (22-28) 12/19/16 18:25 ABG O2 Saturation 99.7 % (95-98) H 12/19/16 18:25 ABG Base Excess -2.3 mmol/L (-2.0-3.0) L 12/19/16 18:25 ABG Hemoglobin 10.1 g/dL (11.7-17.4) L 12/19/16 18:25 ABG Carboxyhemoglobin 2.0 % (0.5-1.5) H 12/19/16 18:25 POC ABG HHb (Measured) 0.3 % (0.0-5.0) 12/19/16 18:25 ABG Methemoglobin 1.3 % (0.0-3.0) 12/19/16 18:25 [place] Test Na 12/19/16 18:25 A-a O2 Difference 359.0 mm/Hg 12/19/16 14:55 Respiratory Index 1.2 12/19/16 14:55 Hgb O2 Saturation 96.4 % (95.0-98.0) 12/19/16 18:25 Liter Flow 4.0 12/19/16 18:25 FiO2 100.0 % 12/19/16 14:55 Sodium 140 mmol/L (132-148) 12/25/16 07:13 Potassium 3.7 mmol/L (3.6-5.2) 12/25/16 07:13 Chloride 109 mmol/L (98-107) H 12/25/16 07:13 Carbon Dioxide 20 mmol/L (22-30) L 12/25/16 07:13 Anion Gap 15 (10-20) 12/25/16 07:13 BUN 6 mg/dL (7-17) L 12/25/16 07:13 Creatinine 0.5 MG/DL (0.7-1.2) L 12/25/16 07:13 Est GFR ( Amer) > 60 12/25/16 07:13 Est GFR (Non-Af Amer) > 60 12/25/16 07:13 POC Glucose (mg/dL) 144 mg/dL (65-110) H 12/26/16 11:54 Random Glucose 90 mg/dL (65-105) 12/25/16 07:13 Calcium 7.4 mg/dl (8.6-10.4) L 12/25/16 07:13 Phosphorus 2.9 mg/dL (2.5-4.5) 12/25/16 07:13 Magnesium 1.9 mg/dL (1.6-2.3) 12/25/16 07:13 Total Bilirubin 0.6 mg/dL (0.2-1.3) 12/25/16 07:13 AST 21 U/L (14-36) 12/25/16 07:13 ALT 15 U/L (9-52) 12/25/16 07:13 Alkaline Phosphatase 52 U/L (38-126) 12/25/16 07:13 Total Protein 4.7 g/dL (6.3-8.3) L 12/25/16 07:13 Albumin 2.2 g/dL (3.5-5.0) L 12/25/16 07:13 Globulin 2.4 gm/dL (2.2-3.9) 12/25/16 07:13 Albumin/Globulin Ratio 0.9 (1.0-2.1) L 12/25/16 07:13 Blood Type A NEGATIVE 12/18/16 19:45 Antibody Screen Negative 12/18/16 19:45 - Hospital Course Hospital Course: On hospital admission Pt is 71F with medical history significant for internal hemorrhoids, diabetes, atrial fibrillation, CAD and anemia presenting to ED with complaint of weakness and dark bloody stool x3 days. Patient reports she has recent surgical history of rectal prolapse repair and was noted to have an ulcer to the affected area. She has a history of GI bleed for which she is seen by Dr. Hutchinson and multiple hospitalizations for anemia requiring blood transfusions. Patient reports she recently stopped blood thinners except for aspirin which she takes for atrial fibrillation. Patient admits to dizziness but denies other symptoms including abdominal pain, vomiting, chest pain, and shortness of breath. Per ED PA, Dr. Hutchinson reported no colonoscopy at this time as he is concerned for perforation. On hospital course Pt was admitted with a GI bleed, complicated by Afib, hx of CAD and DMII. She was found to have a hgb of 7.2 and was transfused with 2 units of PRBCs. GI was consulted and they recommended colonoscopy. Colonoscopy revealed visible mesh from prior procedure at 20-25cm with much "trauma", ulceration and edema. Hemostasis was achieved during procedure. Surgery was consulted to evaluate pt and determined that surgery was not emergent at that time. Cardiology was also asked to evaluate the pt due to hx of Afib and CAD. Dr Negrete, the pt's surgeon , eventually took the pt to the OR for a laparotomy, low anterior resection, excision rectosigmoid colon mesh, bilateral ureterolysis and repair of the sacral venous bleed. The pt tolerated the procedure well. She went to the ICU post procedure for observation but was transferred to med-surg floor the following day. Her hemoglobin remained stable despite reporting a few bloody BMs. Her bloody BMs resolved but was found to have a UTI and a course of 5 days of vancomycin was started. The pt continued to improve and pt cleared from surgery point of view for rehab. She was discharged in stable condition with her home medications and the rest of her course of antibiotics Diagnoses Acute lower GI bleed Acute blood loss anemia A-fib CAD DMII This is a summary of hospital events, please see EMR for further details. - Date & Time of H&P Date of H&P: 12/13/16 Time of H&P: 03:24 Discharge Exam - Head Exam Head Exam: ATRAUMATIC, NORMOCEPHALIC - Eye Exam Eye Exam: Normal appearance Pupil Exam: PERRL - Respiratory Exam Respiratory Exam: Clear to PA & Lateral, UNREMARKABLE - Cardiovascular Exam Cardiovascular Exam: +S1, +S2 - GI/Abdominal Exam GI & Abdominal Exam: Normal Bowel Sounds, Tenderness Additional comments: Bandages in place and c/d/i. Appropriate tenderness - Neurological Exam Neurological exam: Alert, Oriented x3 - Skin Skin Exam: Dry, Warm Discharge Plan - Discharge Medications Prescriptions: Vancomycin/0.9 % Sod Chloride [Vanco 1 Gram/250 ml-0.9% NaCl] 1 gm IV Q12H #6 plast..bag - Follow Up Plan Condition: FAIR Disposition: HOME/ ROUTINE Instructions: Pain Management After Surgery (DC), Pain Management After Surgery (GEN), Exploratory Laparotomy (DC) Additional Instructions: Pt medically stable for discharge to rehab. Pt needs to conitnue vancomycin for the next three days. Referrals: Eren Negrete MD [Staff Provider] -
--- NOTE | 2017-01-08 14:59 | OP ---
PROCEDURE DATE: 12/19/2016 SURGEON: Eren Negrete MD ASSISTANTS: Ricardo and Dr. Jaylon Heredia PREOPERATIVE DIAGNOSIS: Colorectal ulcer from previous placed mesh from a sling procedure. POSTOPERATIVE DIAGNOSES: Colorectal ulcer from previous placed mesh from a sling procedure with lowe r gastrointestinal bleeding. PROCEDURES PERFORMED: 1. Low anterior resection. 2. Bilateral ureterolysis. 3. Excision of perirectal mesh. 4. Repair of a sacral venous bleeding. ESTIMATED BLOOD LOSS: 1250 mL. FLUIDS GIVEN: 2000 mL of crystalloid, 2 units of 25% albumin, 2 units of packed cells and 3 units of FFP. URINE OUTPUT: 200 mL. SPECIMEN SENT: Rectosigmoid colon. FINDINGS: Extensive adhesions to the sacrum from the mesh, which had protruded through the mucosal w all. BRIEF HISTORY: This is a 71-year-old woman who had undergone previous sling operation for prolapsed rectum who had, during the course of the convalescence over the last 3 months, developed ulceration t o the sigmoid colon, which exposed the mucosa causing lower gastrointestinal bleeding and abdominal p ain. She now undergoes open surgery for low anterior resection. DESCRIPTION OF PROCEDURE: The patient was brought to the operating room and after induction of gener al endotracheal anesthesia, she was prepped and draped in usual sterile manner. Using a 10 blade, a lower midline incision was made through the skin and subcutaneous tissue and electrocautery was then used to enter the subcutaneous fat and midline fascia. The peritoneum was opened and some adhesions were initially lysed in order to adequately expose the pelvic floor. Using blunt and sharp dis section, the sigmoid colon was taken down and the splenic flexure was released to allow for future an astomosis. Our attention then turned to the pelvic floor. On the left side, there were significant adhesions to the pelvic space and the left ureter was dissected from the retroperitoneum into its ins ertion into the urinary bladder. Visualization was maintained of this structure during the whole cou rse of the procedure. Significant adhesions were also noted on the right and in the same fashion, th e ureter was lysed to the level of its insertion to the urinary bladder and these were retracted late ral during the course of the remainder of the operation. At this point, our attention then turned to lifting the sigmoid colon from the sacral space and due to significant adhesions, electrocautery was then used to dissect the sigmoid colon from the perirectal space into the mesocolon. Both femoral a nd profunda vessels were carefully dissected from this mass and the lesion was dissected to the level of the distal rectum. Once this was completed, the rectum was brought anteriorly and using a curved ELVA stapler, the rectum was transected distally and brought into the field. The proximal sigmoid co nasim was then transected using ELVA stapler and the mesentery was desiccated using LigaSure device. Th e specimen, which included the previous mesh, was sent to pathology after being appropriately marked. At this time, it was noted that there were bleeding vessels from the sacrum, which were venous in n ature, and using 3-0 Vicryl sutures, these were oversewn. The bleeding did continue for some time, h owever, the area was then packed with fibrillar collagen and pressure was placed. Once this was comp leted, the pads were removed and hemostasis was at this point deemed adequate. An anastomosis was th en fashioned with an EEA stapler after the sizing device was placed into the rectum and this was fire d in the usual fashion. Once this was completed, we examined 2 circumferential donuts and these were appropriately marked and sent to pathology as separate specimens. Using the water test, air was ins ufflated through the rectum and the anastomosis was deemed adequate at this point. Fluid was aspirat ed from peritoneal cavity and hemostasis at this point was deemed adequate. The ureters were then ex amined and felt to be fine. Two drains were placed into the abdominal cavity through separate stab i ncisions and placed into the rectal space. These were secured to the abdominal wall using 2-0 silk s utures. The midline fascia was then closed with continuous 0 PDS suture. The skin was closed with s taples. All counts were correct. The patient had placed a clean dressing. She was then awakened, e xtubated and brought to recovery in stable condition. Eren Negrete MD cc: [id number] TT: 01/08/2017 14:59:01 en
== END 2016-12-26 18:00 | DRG 330 ==
LOC: C.ER 15:22 → C.9E 16:23 → C.3T 18:16 → C.9I 12-19 14:47 → C.5T 12-21 15:38
PROVIDERS: ADMIT Internal Medicine; ATTEND Internal Medicine
PROC: 30233N1 Transfusion of Nonautologous Red Blood Cells into Peripheral Vein, Percutaneous Approach (ICD-10-PCS; 2016-12-12)
PROC: 0W3P8ZZ Control Bleeding in Gastrointestinal Tract, Via Natural or Artificial Opening Endoscopic (ICD-10-PCS; 2016-12-14)
PROC: 0DTP0ZZ Resection of Rectum, Open Approach (ICD-10-PCS; 2016-12-19)
PROC: 0DNW0ZZ Release Peritoneum, Open Approach (ICD-10-PCS; 2016-12-19)
PROC: 0TN70ZZ Release Left Ureter, Open Approach (ICD-10-PCS; 2016-12-19)
PROC: 0TN60ZZ Release Right Ureter, Open Approach (ICD-10-PCS; 2016-12-19)
PROC: 0DPD0JZ Removal of Synthetic Substitute from Lower Intestinal Tract, Open Approach (ICD-10-PCS; 2016-12-19)
PROC: 0DTN0ZZ Resection of Sigmoid Colon, Open Approach (ICD-10-PCS; principal; 2016-12-19 11:20)
DX: K91.89 Other postprocedural complications and disorders of digestive system (principal); K91.840 Postprocedural hemorrhage of a digestive system organ or structure following a digestive system procedure; K63.3 Ulcer of intestine; K92.2 Gastrointestinal hemorrhage, unspecified; K66.0 Peritoneal adhesions (postprocedural) (postinfection); D62 Acute posthemorrhagic anemia; D50.0 Iron deficiency anemia secondary to blood loss (chronic); I48.91 Unspecified atrial fibrillation; E11.9 Type 2 diabetes mellitus without complications; I10 Essential (primary) hypertension; N39.0 Urinary tract infection, site not specified; B95.2 Enterococcus as the cause of diseases classified elsewhere; K64.1 Second degree hemorrhoids; I25.10 Atherosclerotic heart disease of native coronary artery without angina pectoris; M19.90 Unspecified osteoarthritis, unspecified site; E78.00 Pure hypercholesterolemia, unspecified; Y83.2 Surgical operation with anastomosis, bypass or graft as the cause of abnormal reaction of the patient, or of later complication, without mention of misadventure at the time of the procedure; F17.210 Nicotine dependence, cigarettes, uncomplicated; Z86.73 Personal history of transient ischemic attack (TIA), and cerebral infarction without residual deficits; Z79.82 Long term (current) use of aspirin; Z95.5 Presence of coronary angioplasty implant and graft; Z79.84 Long term (current) use of oral hypoglycemic drugs

== ENCOUNTER 2017-01-11 10:10 | Inpatient (IN) | payer MEDICARE, OTHER ==
[2017-01-11 10:31] VITALS: BMI 22.6
--- NOTE | 2017-01-11 10:37 | CT ---
PROCEDURE: CT scan brain dated 01/11/2017 HISTORY: Code stroke. COMPARISON: Comparison made with CT scan brain dated 06/27/2016. TECHNIQUE: Axial al computed tomography images were obtained through the head/brain without intravenous contrast. Radiation dose: Total exam DLP = 1030.22 mGy-cm. This CT exam was performed using one or more of the following dose reduction techniques: Automated exposure control, adjustment of the mA and/or kV according to patient size, and/or use of iterative reconstruction technique. FINDINGS: HEMORRHAGE: No acute parenchymal, subarachnoid or extra-axial hemorrhage. . BRAIN: Re- demonstrated is a large wedge-shaped area of cystic encephalomalacia right posterior temporoparietal and occipital watershed zone consistent with chronic infarct changes. . Mild chronic periventricular ischemic changes seen extending peripherally into deep and subcortical white matter both cerebral hemispheres. There also appear to be a few scattered chronic bilateral basal nuclei lacunar type infarcts. Vague area of low attenuation within the brainstem could represent crossing streak and beam hardening artifact however age-indeterminate infarct not excluded. Note that the possibility of an underlying acute infarct cannot be excluded. Clinical correlation recommended. Mild vascular calcifications are present VENTRICLES: Mild moderate generalized volume loss CALVARIUM: There are no acute calvarial fractures. PARANASAL SINUSES: Unremarkable as visualized. No significant inflammatory changes. MASTOID AIR CELLS: Unremarkable as visualized. No inflammatory changes. OTHER FINDINGS: None. IMPRESSION: Re- demonstrated is large chronic right posterior temporoparietal and occipital infarct changes. There also appears to some mild involvement right occipital pole. Mild chronic white matter ischemic changes with a few scattered chronic bilateral basal nuclei lacunar type infarct. Questionable artifact versus age-indeterminate infarct within the brainstem.
[2017-01-11 10:57] LABS: BASO # 0.1 K/uL (0.0-0.2); BASO % 1.2 % (0.0-2.0); EOS # 0.3 K/uL (0.0-0.7); EOS % 2.8 % (0.0-4.0); HEMATOCRIT 36.6 % (34.0-47.0); LYMPH # 1.7 K/uL (1.0-4.3); MEAN CORPUSCULAR HEMOGLOBIN 25.8 pg (27.0-31.0); MEAN CORPUSCULAR HGB CONC 31.1 g/dL (33.0-37.0); MEAN PLATELET VOLUME 8.3 fL (7.2-11.7); MONO # 0.9 K/uL (0.0-0.8); MONO % 7.6 % (0.0-10.0); RED CELL DISTRIBUTION WIDTH 17.1 % (11.5-14.5)
[2017-01-11 10:59] LABS: WHITE BLOOD COUNT 12.1 K/uL (4.8-10.8)
[2017-01-11 11:09] LABS: CHLORIDE 103 mmol/L (98-107)
[2017-01-11 11:10] LABS: POTASSIUM 5.8 mmol/L (3.6-5.2); SODIUM 139 mmol/L (132-148)
[2017-01-11 11:12] LABS: ALB/GLOB RATIO 1.2 (1.0-2.1); ALKALINE PHOSPHATASE 84 U/L (38-126); AST/SGOT 32 U/L (14-36); BILIRUBIN,TOTAL 0.9 mg/dL (0.2-1.3); BLOOD UREA NITROGEN 12 mg/dL (7-17); CARBON DIOXIDE 20 mmol/L (22-30); CHOLESTEROL 122 mg/dL (0-199); GFR AFRICAN-AMERICAN > 60; GLUCOSE,RANDOM 158 mg/dL (65-105); TOTAL PROTEIN 7.9 g/dL (6.3-8.3)
[2017-01-11 11:13] LABS: ALT/SGPT 9 U/L (9-52); CALCIUM 9.2 mg/dl (8.6-10.4)
--- NOTE | 2017-01-11 11:22 | RAD ---
HISTORY: CVA alert COMPARISON: Chest x-ray performed 12/19/16 TECHNIQUE: Chest, one view. FINDINGS: Examination limited by habitus, patient obliquity, and hypoinflation. Interval removal of the nasogastric tube. LUNGS: No focal consolidation. Please note that chest x-ray has limited sensitivity for the detection of pulmonary masses. PLEURA: No significant pleural effusion identified. No definite pneumothorax . CARDIOVASCULAR: Partially obscured borderline cardiomegaly. OSSEOUS STRUCTURES: No acute osseous abnormality identified. VISUALIZED UPPER ABDOMEN: Unremarkable. OTHER FINDINGS: None. IMPRESSION: No focal consolidation, significant pleural effusion, or definite pneumothorax identified. Partially obscured borderline cardiomegaly.
--- NOTE | 2017-01-11 12:16 | C.PDOC ---
History Of Present Illness 71-year-old female, PMHx includes Hypertension, CAD, Gastritis, Diabetes and Hypercholesterolemia, is brought to the emergency department by ALS, with complaints of "seizure-like activity." Patient was found with involuntary shaking and screaming at approximately 09:15 this morning. Patient was not moving the left side of her body, resulting in 911 being called. Upon arrival to the ED, patient moaning and having involuntary tremors to B/L upper extremities and left lower extremity. No reported Hx of epilepsy or seizures. As per family, patient is not slurring her speech. No vomiting, injuries/trauma , chest pain, dizziness, or any other associated symptoms. No other complaints at this time. Chief Complaint (Nursing): Altered Mental Status History Per: Family History/Exam Limitations: no limitations Onset/Duration Of Symptoms: Hrs Current Symptoms Are (Timing): Still Present Past Medical History Reviewed: Historical Data, Nursing Documentation, Vital Signs Vital Signs: Last Vital Signs Temp 97.8 F 01/11/17 10:10 Pulse 79 01/11/17 12:47 Resp 20 01/11/17 12:47 BP 146/87 01/11/17 12:47 Pulse Ox 96 01/11/17 13:34 - Medical History PMH: Anemia ( acute and chronic due to GI blood loss), Arthritis, CAD, Colonic Polyps, Diabetes, Diverticulitis (diverticulosis 2014 and 05/2016), Gastritis, HTN, Hypercholesterolemia, TIA Denies: Crohn's Disease, Gall Bladder Disease, HIV, Pancreatitis, Chronic Kidney Disease Surgical History: Coronary Stent, Endoscopy - [facility] Procedures CLOSED ENDOSCOPIC BIOPSY OF LARGE INTESTINE (11/30/14) CONTROL BLEEDING IN GASTROINTESTINAL TRACT, ENDO (12/12/16) CORONAR ARTERIOGR-2 CATH (11/30/14) ESOPHAGOGASTRODUODENOSCOPY [EGD] W/CLOSED BIOPSY (11/30/14) EXCISION OF STOMACH, ENDO, DIAGN (04/09/16) INJECT/INFUSE NEC (06/04/05) LEFT HEART CARDIAC CATH (11/30/14) LT HEART ANGIOCARDIOGRAM (11/30/14) PACKED CELL TRANSFUSION (11/30/14) RELEASE LEFT URETER, OPEN APPROACH (12/12/16) RELEASE PERITONEUM, OPEN APPROACH (12/12/16) RELEASE RIGHT URETER, OPEN APPROACH (12/12/16) REMOVAL OF SYNTH SUB FROM LOW INTEST TRACT, OPEN APPROACH (12/12/16) REPAIR RECTUM, PERCUTANEOUS ENDOSCOPIC APPROACH (07/27/16) RESECTION OF RECTUM, OPEN APPROACH (12/12/16) RESECTION OF SIGMOID COLON, OPEN APPROACH (12/12/16) RESECTION OF SIGMOID COLON, PERCUTANEOUS ENDOSCOPIC APPROACH (07/27/16) ROBOTIC ASSISTED PROCEDURE OF TRUNK, PERC ENDO APPROACH (07/27/16) TRANSFUSE NONAUT FROZEN RED CELLS IN PERIPH VEIN, PERC (09/20/16) TRANSFUSE NONAUT RED BLOOD CELLS IN PERIPH VEIN, PERC (12/12/16) TRANSFUSE NONAUT WHOLE BLOOD IN PERIPH VEIN, PERC (10/13/16) Family History: States: Unknown Family Hx - Social History Hx Tobacco Use: Yes (cut down per daughter) Hx Alcohol Use: No Hx Substance Use: No - Immunization History Hx Tetanus Toxoid Vaccination: Yes Hx Influenza Vaccination: No (per pt declines) Hx Pneumococcal Vaccination: No Review Of Systems Except As Marked, All Systems Reviewed And Found Negative. Constitutional: Negative for: Fever Gastrointestinal: Negative for: Vomiting Neurological: Positive for: Seizures (No hx of seizures. involuntary shaking of extremities. ). Negative for: Dizziness Physical Exam - Physical Exam Appears: Non-toxic, No Acute Distress Skin: Warm, Dry, No Rash Head: Atraumatic, Normacephalic Eye(s): bilateral: Normal Inspection, PERRL, EOMI Nose: Normal Oral Mucosa: Moist Lips: Normal Appearing Neck: Normal ROM Respiratory: No Accessory Muscle Use Neurological/Psych: Other (Uncooperative with neuro exam.) ED Course And Treatment - Laboratory Results Result Diagrams: 01/11/17 10:52 01/11/17 10:52 ECG: Interpreted By Me, Viewed By Me Interpretation Of ECG: LAD Rate From EC O2 Sat by Pulse Oximetry: 96 - CT Scan/US CT HEAD Other Rad Studies (CT/US): Read By Radiologist, Radiology Report Reviewed CT/US Interpretation: Accession No. : [id number]. Patient Name / ID : MILLIE SEGOVIA / [id number]. Exam Date : 01/11/2017 10:22:17 ( Approved ). Study Comment : Sex / Age : F / [id number]. Creator : Eren Latif MD. Dictator : Eren Latif MD. Middle [employer] Assistant Principal : Associate Professor Of Anthropology : Eren Latif MD. Approver2 : Report Date : 01/11/2017 10:35:15. My Comment : . PROCEDURE: CT scan brain dated 01/11/2017. HISTORY: Code stroke. COMPARISON : Comparison made with CT scan brain dated 06/27/2016. TECHNIQUE: Axial al computed tomography images were obtained through the head/brain without intravenous contrast. Radiation dose: Total exam DLP = 1030.22 mGy-cm. This CT exam was performed using one or more of the following dose reduction techniques: Automated exposure control, adjustment of the mA and/or kV according to patient size, and/or use of iterative reconstruction technique. FINDINGS: HEMORRHAGE: No acute parenchymal, subarachnoid or extra-axial hemorrhage. . BRAIN: Re- demonstrated is a large wedge-shaped area of cystic encephalomalacia right posterior temporoparietal and occipital watershed zone consistent with chronic infarct changes. . Mild chronic periventricular ischemic changes seen extending peripherally into deep and subcortical white matter both cerebral hemispheres. There also appear to be a few scattered chronic bilateral basal nuclei lacunar type infarcts. Vague area of low attenuation within the brainstem could represent crossing streak and beam hardening artifact however age-indeterminate infarct not excluded. Note that the possibility of an underlying acute infarct cannot be excluded. Clinical correlation recommended. Mild vascular calcifications are present. VENTRICLES: Mild moderate generalized volume loss. CALVARIUM: There are no acute calvarial fractures. PARANASAL SINUSES: Unremarkable as visualized. No significant inflammatory changes. MASTOID AIR CELLS: Unremarkable as visualized. No inflammatory changes. OTHER FINDINGS: None. IMPRESSION: Re- demonstrated is large chronic right posterior temporoparietal and occipital infarct changes. There also appears to some mild involvement right occipital pole. Mild chronic white matter ischemic changes with a few scattered chronic bilateral basal nuclei lacunar type infarct. Questionable artifact versus age- indeterminate infarct within the brainstem. NIHSS Stroke Scale - Date/Time Evaluation Performed Time Performed: 10:15 When Was NIHSS Performed: Baseline - How Severe is the Stroke Level of Consciousness: 0=Alert LOC to Questions: 0=Both comments correct LOC to commands: 1=Obeys one correctly Best Gaze: 0=Normal Visual: 0=No visual loss Facial: 0=Normal Motor Arm - Left: 0=No drift Motor Arm - Right: 0=No drift Motor Leg - Left: 0=No drift Motor Leg - Right: 0=No drift Limb Ataxia: 0=Absent Sensory: 0=Normal Best Language: 0=No aphasia Dysarthia: 0=Normal articulation Extinction & Inattention (Neglect): 0=Normal, no object Score: 1 rTPA Inclusion/Exclusion - Refusal of Treatment Patient Refused Treatment: No - Inclusion Criteria for Altepase Patient is 18 years or Older: Yes The Clinical Diagnosis of Ischemic Stroke That is Causing a Potentially Disabling Neurological Deficit: No Time of Onset is Well Established to be Less Than 270 Minute Before Treatment Would Begin: Yes Risk/Benefit Discussed With Patient/Family Member Present: Yes Medical Decision Making Medical Decision Making: Impression Involuntary shaking of extremities. Uncooperative w/ exam. Plan: * Type and Screen * CT Head * EKG * CMP, Hgb A1C, Lipid Panel, Trop I * CBC, PTT, PT * Chest X-Ray * Ativan * Reassess and Disposition Case discussed w/ Dr Conley, who states that Potassium will not be treated at this time. Case discussed w/ Neurologist Dr Douglass, who states that patients symptoms are more seizure/anxiety, and she will be admitted to telemetry. Disposition - Disposition Disposition: HOSPITALIZED Disposition Time: 11:50 Condition: GUARDED - Clinical Impression Clinical Impression: Seizure - Scribe Statement The provider has reviewed the documentation as recorded by the Hunter Martino All medical record entries made by the Hunter were at my direction and personally dictated by me. I have reviewed the chart and agree that the record accurately reflects my personal performance of the history, physical exam, medical decision making, and the department course for this patient. I have also personally directed, reviewed, and agree with the discharge instructions and disposition.
[2017-01-11] MEDS ORDERED: Labetalol 25mg/5ml Syringe IVP ONE (16:00)
[2017-01-11] MEDS: (Novolog) Insulin Aspart, Recombinant 100 u/ml 10 ml vial SC SCH (16:50)
[2017-01-11] MEDS ORDERED: Sod Polystyrene Sulf 15 gm/60 ml Oral Susp PO ONE (17:09)
--- NOTE | 2017-01-11 17:24 | CP.PCM.HP ---
History of Present Illness - History of Present Illness History of Present Illness: CC: Left sided weakness and shaking HPI: Patient is a 71 year old female with past medical history of hypertension, diabetes, atrial fibrilliation, coronary artery disease with stent placement, and GI bleed presenting to the ED with left sided weakness and pain. Daughters of patient are present at bedside, providing most of the history of present illness. They state the patient was lying on the couch at home this morning at 9am when she yelled out for help. Her grandson immediately came to her attention and patient stated that she felt hot and diaphoretic and her left arm and leg suddenly became painful, weak, and numb. Grandson called ambulance, and one of the daughters arrived at concurrently with EMS. She states that the patient's left arm and leg were shaking and the left side of her mouth was drooping. Daughter states the patient experienced dysarthria and notes it was "if her tongue swelled up in her mouth." The speech improved upon arriving at the ED but the arm and leg movements persisted until Ativan was administered in the ED. Patient denies loss of consciousness, tingling, loss of bowel/bladder function, and biting of tongue. She also denies dizziness, vision changes, dysphagia, chest pain, palpitations, shortness of breath, abdominal pain, constipation/diarrhea, dysuria, hematuria, bloody stools, and lower extremity swelling. She currently complains of fatigue, weakness, and left- sided headache. PMD: Dr. Conley PMH: Hypertension, CAD, DM, HLD, anemia, GI bleed, diverticulitis, gastritis Meds: Aspirin 81mg po daily, Atorvastatin 40mg po HS, Losartan 50mg po daily, Metformin 500mg po daily, carvedilol 12.5mg po BID, pantoprazole 40mg po daily Allergies: Penicillin (rash) Family Hx: Mother of [place], brother of liver cancer Surgical Hx: exploratory laparotomy with rectosgmoid colon resection for removal of eroding mesh 12/19/16, rectal prolapse repair, colonoscopy, EGD with biopsy, internal hemorrhoid surgery (2016), coronary stents x 3 (2014) Social hx: Smokes 5-6 cigarettes per day x 48 years, denies alcohol and drug use. Lives with daughter. GI: Dr. Phipps Cardio: Dr. Whitaker Surgeon: Dr. Cedeno Present on Admission - Present on Admission Any Indicators Present on Admission: No History of DVT/PE: No History of Uncontrolled Diabetes: No Urinary Catheter: No Decubitus Ulcer Present: No Review of Systems - Constitutional Constitutional: Fatigue, Headache, Weakness. absent: Chills, Fever - EENT Eyes: Blurred Vision. absent: Change in Vision Nose/Mouth/Throat: absent: Nasal Congestion, Nasal Discharge - Cardiovascular Cardiovascular: Diaphoresis. absent: Chest Pain, Dyspnea, Leg Edema, Palpitations - Respiratory Respiratory: absent: Cough, Dyspnea, Hemoptysis - Gastrointestinal Gastrointestinal: absent: Abdominal Pain, Diarrhea, Fecal Incontinence, Hematemesis, Nausea, Vomiting - Genitourinary Genitourinary: Difficulty Urinating - Musculoskeletal Musculoskeletal: absent: Back Pain - Integumentary Integumentary: absent: Changing Lesions, New Lesions - Neurological Neurological: Abnormal Movements, Numbness, Headaches, Paresthesias, Weakness Past Patient History - Infectious Disease Hx of Infectious Diseases: None - Past Medical History & Family History Past Medical History?: Yes - Past Social History Smoking Status: Light Smoker < 10 Cigarettes Daily - CARDIAC Hx Hypercholesterolemia: Yes Hx Hypertension: Yes - PULMONARY Hx Respiratory Disorders: No - NEUROLOGICAL Hx Transient Ischemic Attacks (TIA): No - HEENT Hx HEENT Problems: No - RENAL Hx Chronic Kidney Disease: No - ENDOCRINE/METABOLIC Hx Endocrine Disorders: Yes Hx Diabetes Mellitus Type 1: No Hx Diabetes Mellitus Type 2: Yes - HEMATOLOGICAL/ONCOLOGICAL Hx Anemia: Yes ( acute and chronic due to GI blood loss) Hx Blood Transfusions: Yes Hx Blood Transfusion Reaction: No Hx Hepatitis A: No Hx Hepatitis B: No Hx Hepatitis C: No Hx Human Immunodeficiency Virus (HIV): No - INTEGUMENTARY Hx Dermatological Problems: No - MUSCULOSKELETAL/RHEUMATOLOGICAL Hx Falls: No - GASTROINTESTINAL Hx Diverticulitis: Yes (diverticulosis 2014 and 05/2016) Hx Gastritis: Yes Hx Ulcer: Yes - GENITOURINARY/GYNECOLOGICAL Hx Genitourinary Disorders: No - PSYCHIATRIC Hx Psychophysiologic Disorder: No - SURGICAL HISTORY Hx Coronary Stent: Yes (2012) - ANESTHESIA Hx Anesthesia: Yes Hx Anesthesia Reactions: No Hx Malignant Hyperthermia: No Has any member of the family had a problem w/ anesthesia?: No Meds Allergies/Adverse Reactions: Allergies Allergy/AdvReac Type Severity Reaction Status Date / Time Penicillins Allergy RASH Verified 04/20/17 10:11 acetaminophen [From Percocet] AdvReac DIZZINESS Verified 01/11/17 10:11 oxycodone HCl [From Percocet] AdvReac DIZZINESS Verified 01/11/17 10:11 Physical Exam - Constitutional Appears: Non-toxic, No Acute Distress - Head Exam Head Exam: ATRAUMATIC, NORMAL INSPECTION, NORMOCEPHALIC - Eye Exam Eye Exam: Normal appearance, PERRL Additional comments: Patient having difficulty keeping her eyes open. She is able to follow commands and open her eyes. She has difficulty performing extraocular movements due to fatigue/ativan had also been given earlier. - ENT Exam ENT Exam: Mucous Membranes Moist Additional comments: tongue midline - Respiratory Exam Respiratory Exam: Clear to Auscultation Bilateral, NORMAL BREATHING PATTERN. absent: Rales, Rhonchi, Wheezes - Cardiovascular Exam Cardiovascular Exam: Diastolic murmur, +S1, +S2. absent: Tachycardia Additional comments: bilateral carotid bruit present - GI/Abdominal Exam GI & Abdominal Exam: Normal Bowel Sounds, Soft. absent: Distended, Firm, Tenderness - Extremities Exam Extremities exam: Positive for: normal inspection, pedal pulses present. 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 to left hand 5/5 muscle strength to right upper and lower extremities, 4/5 muscle strength to left upper and lower extremities Pronator drift present to left upper extremity unable to perform finger to nose testing due to drowsiness pupils appear to be equal and reactive to light - Psychiatric Exam Psychiatric exam: Flat Affect - Skin Skin Exam: Intact, Normal Color, Warm Results - Vital Signs Recent Vital Signs: Last Vital Signs Temp 97.8 F 01/11/17 15:39 Pulse 76 01/11/17 16:10 Resp 20 01/11/17 15:39 BP 164/84 H 01/11/17 15:39 Pulse Ox 100 01/11/17 15:39 - Labs Result Diagrams: 01/11/17 10:52 01/11/17 16:54 Labs: Laboratory Results - last 24 hr 01/11/17 01/11/17 16:24 16:54 Potassium 3.4 L POC Glucose (mg/dL) 95 Assessment & Plan - Assessment and Plan (Free Text) Assessment: 1. Left Sided Weakness TIA/CVA vs. Seizure Head CT - Large chronic right posterior temporoparietal and occipital infarct changes. Mild involvement of right occipital pole. Mild chronic white matter ischemic changes with few scattered chronic bilateral nuclei lacunar type infarct. Questionable infarct of undetermined age within brainstem. f/u Brain MRI f/u EEG and prolactin level f/u Carotid Duplex Started on Aspirin 81 mg po daily Neurology, Dr. Hebert, consulted. Help appreciated. Seizure and aspiration precautions Fall Risk Precautions Speech and language pathology consult PT/OT 2. Hypertensive Crisis Initial BP: 237/105 Started on home anti-hypertensive agents: Coreg and Losartan. Given stat Labetalol 5 mg IVP once Monitor 3. Coronary Artery Disease History of cardiac stents Troponin I - 0.0210, follow-up ABRAHAM panel at 17:55 and 00:55 and serial EKGs EKG: NSR at rate of 78. Inferior infarct, age undetermined, Prolonged QT Continue home medications: Aspirin 81 mg po daily Coreg 12.5mg po daily Losartan 50mg po daily Rosuvastatin 20mg po daily Monitor 4. History of Atrial Fibrillation f/u echo Asa 81mg po daily Monitor 5. Diabetes Mellitus Type II Hemoglobin a1c 5.4 home medication Metformin 500mg po daily - held Started on Insulin sliding scale - low protocol Accuchecks 6. Hyperkalemia Potassium 5.8 Kayexalate given stat follow-up repeat potassium Monitor 7. Prophylaxis SCD Protonix 40 mg po daily Heparin 5000 U SC Q8H - Date & Time Date: 01/11/17 Time: 17:48
--- NOTE | 2017-01-11 23:55 | CP.PCM.CON ---
History of Present Illness - History of Present Illness History of Present Illness: Patient is a 71 year old female with past medical history of hypertension, diabetes, atrial fibrilliation, coronary artery disease with stent placement, and GI bleed presenting to the ED with left sided weakness and pain. Daughters of patient are present at bedside, providing most of the history of present illness. They state the patient was lying on the couch at home this morning at 9am when she yelled out for help. Her grandson immediately came to her attention and patient stated that she felt hot and diaphoretic and her left arm and leg suddenly became painful, weak, and numb. Grandson called ambulance, and one of the daughters arrived at concurrently with EMS. She states that the patient's left arm and leg were shaking and the left side of her mouth was drooping. Daughter states the patient experienced dysarthria and notes it was "if her tongue swelled up in her mouth." The speech improved upon arriving at the ED but the arm and leg movements persisted until Ativan was administered in the ED. Patient denies loss of consciousness, tingling, loss of bowel/bladder function, and biting of tongue. She also denies dizziness, vision changes, dysphagia, chest pain, palpitations, shortness of breath, abdominal pain, constipation/diarrhea, dysuria, hematuria, bloody stools, and lower extremity swelling. She currently complains of fatigue, weakness, and left- sided headache. PMD: Dr. Conley PMH: Hypertension, CAD, DM, HLD, anemia, GI bleed, diverticulitis, gastritis Meds: Aspirin 81mg po daily, Atorvastatin 40mg po HS, Losartan 50mg po daily, Metformin 500mg po daily, carvedilol 12.5mg po BID, pantoprazole 40mg po daily Allergies: Penicillin (rash) Family Hx: Mother of SD, brother of liver cancer Surgical Hx: exploratory laparotomy with rectosgmoid colon resection for removal of eroding mesh 12/19/16, rectal prolapse repair, colonoscopy, EGD with biopsy, internal hemorrhoid surgery (2016), coronary stents x 3 (2014) Social hx: Smokes 5-6 cigarettes per day x 48 years, denies alcohol and drug use. Lives with daughter. GI: Dr. Phipps Cardio: Dr. Whitaker Surgeon: Dr. Cedeno Present on Admission - Present on Admission Any Indicators Present on Admission: No History of DVT/PE: No History of Uncontrolled Diabetes: No Urinary Catheter: No Decubitus Ulcer Present: No [facility] Procedures CLOSED ENDOSCOPIC BIOPSY OF LARGE INTESTINE (11/30/14) CONTROL BLEEDING IN GASTROINTESTINAL TRACT, ENDO (12/12/16) CORONAR ARTERIOGR-2 CATH (11/30/14) ESOPHAGOGASTRODUODENOSCOPY [EGD] W/CLOSED BIOPSY (11/30/14) EXCISION OF STOMACH, ENDO, DIAGN (04/09/16) INJECT/INFUSE NEC (06/04/05) LEFT HEART CARDIAC CATH (11/30/14) LT HEART ANGIOCARDIOGRAM (11/30/14) PACKED CELL TRANSFUSION (11/30/14) RELEASE LEFT URETER, OPEN APPROACH (12/12/16) RELEASE PERITONEUM, OPEN APPROACH (12/12/16) RELEASE RIGHT URETER, OPEN APPROACH (12/12/16) REMOVAL OF SYNTH SUB FROM LOW INTEST TRACT, OPEN APPROACH (12/12/16) REPAIR RECTUM, PERCUTANEOUS ENDOSCOPIC APPROACH (07/27/16) RESECTION OF RECTUM, OPEN APPROACH (12/12/16) RESECTION OF SIGMOID COLON, OPEN APPROACH (12/12/16) RESECTION OF SIGMOID COLON, PERCUTANEOUS ENDOSCOPIC APPROACH (07/27/16) ROBOTIC ASSISTED PROCEDURE OF TRUNK, PERC ENDO APPROACH (07/27/16) TRANSFUSE NONAUT FROZEN RED CELLS IN PERIPH VEIN, PERC (09/20/16) TRANSFUSE NONAUT RED BLOOD CELLS IN PERIPH VEIN, PERC (12/12/16) TRANSFUSE NONAUT WHOLE BLOOD IN PERIPH VEIN, PERC (10/13/16) Past Patient History - Infectious Disease Hx of Infectious Diseases: None - Past Medical History & Family History Past Medical History?: Yes - Past Social History Smoking Status: Light Smoker < 10 Cigarettes Daily - CARDIAC Hx Hypercholesterolemia: Yes Hx Hypertension: Yes - PULMONARY Hx Respiratory Disorders: No - NEUROLOGICAL Hx Transient Ischemic Attacks (TIA): No - HEENT Hx HEENT Problems: No - RENAL Hx Chronic Kidney Disease: No - ENDOCRINE/METABOLIC Hx Endocrine Disorders: Yes Hx Diabetes Mellitus Type 1: No Hx Diabetes Mellitus Type 2: Yes HEMATOLOGICAL/ONCOLOGICAL Hx Anemia: Yes ( acute and chronic due to GI blood loss) Hx Blood Transfusions: Yes Hx Blood Transfusion Reaction: No Hx Hepatitis A: No Hx Hepatitis B: No Hx Hepatitis C: No Hx Human Immunodeficiency Virus (HIV): No - INTEGUMENTARY Hx Dermatological Problems: No - MUSCULOSKELETAL/RHEUMATOLOGICAL Hx Falls: No - GASTROINTESTINAL Hx Diverticulitis: Yes (diverticulosis 2014 and 05/2016) Hx Gastritis: Yes Hx Ulcer: Yes - GENITOURINARY/GYNECOLOGICAL Hx Genitourinary Disorders: No - PSYCHIATRIC Hx Psychophysiologic Disorder: No - SURGICAL HISTORY Hx Coronary Stent: Yes (2012) - ANESTHESIA Hx Anesthesia: Yes Hx Anesthesia Reactions: No Hx Malignant Hyperthermia: No Has any member of the family had a problem w/ anesthesia?: No Meds Allergies/Adverse Reactions: Allergies Allergy/AdvReac Type Severity Reaction Status Date / Time Penicillins Allergy RASH Verified 01/11/17 10:11 acetaminophen [From Percocet] AdvReac DIZZINESS Verified 01/11/17 10:11 oxycodone HCl [From Percocet] AdvReac DIZZINESS Verified 01/11/17 10:11 Neurological Exam Neurological exam: Oriented x3 Additional comments: 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 Left Sided Weakness TIA/CVA vs. Seizure Head CT - Large chronic right posterior temporoparietal and occipital infarct changes. Mild involvement of right occipital pole. Mild chronic white matter ischemic changes with few scattered chronic bilateral nuclei lacunar type infarct. Questionable infarct of undetermined age within brainstem. f/u Brain MRI f/u EEG and prolactin level f/u Carotid Duplex Started on Aspirin 81 mg po daily Neurology, Dr. Hebert, consulted. Help appreciated. Seizure and aspiration precautions Fall Risk Precautions Speech and language pathology consult PT/OT 2. Hypertensive Crisis Initial BP: 237/105 Started on home anti-hypertensive agents: Coreg and Losartan. Given stat Labetalol 5 mg IVP once Monitor 3. Coronary Artery Disease History of cardiac stents Troponin I - 0.0210, follow-up [facility] panel at 17:55 and 00:55 and serial EKGs EKG: NSR at rate of 78. Inferior infarct, age undetermined, Prolonged QT Continue home medications: Aspirin 81 mg po daily Coreg 12.5mg po daily Losartan 50mg po daily Rosuvastatin 20mg po daily Monitor 4. History of Atrial Fibrillation f/u echo Asa 81mg po daily Monitor 5. Diabetes Mellitus Type II Hemoglobin a1c 5.4 home medication Metformin 500mg po daily - held Started on Insulin sliding scale - low protocol Accuchecks 6. Hyperkalemia Potassium 5.8 Kayexalate given stat follow-up repeat potassium Monitor 7. Prophylaxis SCD Protonix 40 mg po daily Heparin 5000 U SC Q8H - Date & Time Date: 01/11/17 Time: 17:48 Past Patient History - Infectious Disease Hx of Infectious Diseases: None - Past Medical History & Family History Past Medical History?: Yes - Past Social History Smoking Status: Current Some Days Smoker - CARDIAC Hx Hypercholesterolemia: Yes Hx Hypertension: Yes Other/Comment: CAD - PULMONARY Hx Respiratory Disorders: No - NEUROLOGICAL Hx Neurological Disorder: No Hx Transient Ischemic Attacks (TIA): No - HEENT Hx HEENT Problems: No - RENAL Hx Chronic Kidney Disease: No - ENDOCRINE/METABOLIC Hx Endocrine Disorders: Yes Hx Diabetes Mellitus Type 1: No Hx Diabetes Mellitus Type 2: Yes - HEMATOLOGICAL/ONCOLOGICAL Hx Anemia: Yes ( acute and chronic due to GI blood loss) Hx Blood Transfusions: Yes Hx Blood Transfusion Reaction: No Hx Hepatitis A: No Hx Hepatitis B: No Hx Hepatitis C: No Hx Human Immunodeficiency Virus (HIV): No - INTEGUMENTARY Hx Dermatological Problems: No - MUSCULOSKELETAL/RHEUMATOLOGICAL Hx Musculoskeletal Disorders: No Hx Falls: No - GASTROINTESTINAL Hx Gastrointestinal Disorders: Yes Hx Diverticulitis: Yes (diverticulosis 2014 and 05/2016) Hx Gastritis: Yes Hx Ulcer: Yes - GENITOURINARY/GYNECOLOGICAL Hx Genitourinary Disorders: No - PSYCHIATRIC Hx Psychophysiologic Disorder: No Hx Substance Use: No - SURGICAL HISTORY Hx Coronary Stent: Yes (2012) Other/Comment: sigmoid resection and mesh removal in november 2016 - ANESTHESIA Hx Anesthesia: Yes Hx Anesthesia Reactions: No Hx Malignant Hyperthermia: No Has any member of the family had a problem w/ anesthesia?: No Meds Allergies/Adverse Reactions: Allergies Allergy/AdvReac Type Severity Reaction Status Date / Time Penicillins Allergy RASH Verified 01/11/17 10:11 acetaminophen [From Percocet] AdvReac DIZZINESS Verified 01/11/17 10:11 oxycodone HCl [From Percocet] AdvReac DIZZINESS Verified 01/11/17 10:11 - Medications Medications: Current Medications Aspirin (Ecotrin) 81 mg PO DAILY [facility] Carvedilol (Coreg) 12.5 mg PO BID [facility] Last Admin: 01/11/17 18:13 Dose: 12.5 mg Heparin Sodium (Porcine) (Heparin) 5,000 units SC Q8 [facility] Last Admin: 01/11/17 21:13 Dose: 5,000 units Levetiracetam 500 mg/ Sodium (Chloride) 105 mls @ 420 mls/hr IVPB Q12H [facility] Insulin Aspart (Novolog) 0 unit SC TIDAC [facility] PRN Reason: Protocol Last Admin: 01/11/17 16:50 Dose: Not Given Losartan Potassium (Cozaar) 50 mg PO DAILY [facility] Pantoprazole Sodium (Protonix Ec Tab) 40 mg PO DAILY [facility] Rosuvastatin Calcium (Crestor) 20 mg PO DAILY [facility] Physical Exam - Neurological Exam Additional comments: Mental Status: Awake, Alert, Oriented X 3 Fluent coherent speech Normal Memory X 3 Cranial Nerves II to XII: No Deficits Motor: Normal Tone, Normal Power DTR 0/4 Toes are down going bilaterally Cerebellar: Normal FNT Sensory: Reduced sensation peripherally in both UEs and LEs Stature and Gait: Reported to walk normally to the bathroom. Results - Vital Signs Recent Vital Signs: Last Vital Signs Temp 97.8 F 01/11/17 15:39 Pulse 69 01/11/17 18:05 Resp 20 01/11/17 15:39 BP 148/78 01/11/17 18:13 Pulse Ox 100 01/11/17 15:39 - Labs Result Diagrams: 01/11/17 10:52 01/11/17 16:54 Labs: Laboratory Results - last 24 hr 01/11/17 01/11/17 01/11/17 16:24 16:54 19:35 Potassium 3.4 L POC Glucose (mg/dL) 95 Total Creatine Kinase 29 L CK-MB (Mass) 1.34 Troponin I, Quant 0.0590 Prolactin 23.5 H 01/11/17 21:56 Potassium POC Glucose (mg/dL) 119 H Total Creatine Kinase CK-MB (Mass) Troponin I, Quant Prolactin Assessment & Plan (1) Abdominal aortic aneurysm (AAA) Status: Acute (2) Abdominal pain Status: Acute (3) Chest pain Status: Acute (4) Left hemiparesis Assessment and Plan: Head CT - Large chronic right posterior temporoparietal and occipital infarct changes. Mild involvement of right occipital pole. Mild chronic white matter ischemic changes with few scattered chronic bilateral nuclei lacunar type infarct. Questionable infarct of undetermined age within brainstem. The left side weakness has almost recovered. R/O Left Focal seizure with recovered left Justo's Paralysis. Status: Acute (5) Justo's paralysis Assessment and Plan: On top of her previous infarctive CVA as a focus. Status: Acute
[2017-01-12] MEDS: levETIRAcetam 500 MG in Sodium Chloride 0.9% 100 ML IVPB SCH ×2 (00:25→17:32)
[2017-01-12 03:43] LABS: RBC URINE 1 /hpf (0-3); URINE BACTERIA RARE (<OCC); URINE BILIRUBIN NEGATIVE (NEGATIVE); URINE BLOOD NEGATIVE (NEGATIVE); URINE COLOR Yellow (YELLOW); URINE GLUCOSE (UA) NORMAL (Normal); URINE KETONE NEGATIVE (NEGATIVE); URINE LEUKOCYTE ESTERASE 1+ Leu/uL (Negative); URINE PROTEIN NEGATIVE (NEGATIVE); URINE UROBILINOGEN NORMAL mg/dL (0.2-1.0); WBC URINE 5 /hpf (0-5)
[2017-01-12] MEDS: (Novolog) Insulin Aspart, Recombinant 100 u/ml 10 ml vial SC SCH ×3 (07:30→16:59)
[2017-01-12 07:39] LABS: BASO # 0.1 K/uL (0.0-0.2); BASO % 1.4 % (0.0-2.0); EOS # 0.2 K/uL (0.0-0.7); EOS % 2.9 % (0.0-4.0); HEMATOCRIT 30.8 % (34.0-47.0); LYMPH # 1.2 K/uL (1.0-4.3); LYMPH % 15.8 % (20.0-40.0); MEAN CELL VOLUME 81.7 fL (81.0-99.0); MEAN CORPUSCULAR HEMOGLOBIN 26.4 pg (27.0-31.0); MEAN CORPUSCULAR HGB CONC 32.3 g/dL (33.0-37.0); MEAN PLATELET VOLUME 8.5 fL (7.2-11.7); MONO # 0.7 K/uL (0.0-0.8); MONO % 8.9 % (0.0-10.0); RED CELL DISTRIBUTION WIDTH 17.4 % (11.5-14.5); WHITE BLOOD COUNT 7.9 K/uL (4.8-10.8)
[2017-01-12 07:43] LABS: CHLORIDE 102 mmol/L (98-107)
[2017-01-12 07:44] LABS: POTASSIUM 3.4 mmol/L (3.6-5.2)
[2017-01-12 07:46] LABS: BILIRUBIN,TOTAL 0.9 mg/dL (0.2-1.3); GFR AFRICAN-AMERICAN > 60
[2017-01-12 07:47] LABS: BLOOD UREA NITROGEN 13 mg/dL (7-17); MAGNESIUM 1.9 mg/dL (1.6-2.3); URIC ACID 5.6 mg/dL (2.2-7.5)
[2017-01-12 08:28] LABS: SODIUM 139 mmol/L (132-148)
[2017-01-12 08:31] LABS: ALKALINE PHOSPHATASE 92 U/L (38-126); ALT/SGPT 17 U/L (9-52); AST/SGOT 16 U/L (14-36); CALCIUM 8.4 mg/dl (8.6-10.4); CARBON DIOXIDE 24 mmol/L (22-30); GLUCOSE,RANDOM 94 mg/dL (65-105); TOTAL PROTEIN 6.5 g/dL (6.3-8.3)
[2017-01-12] MEDS: Pantoprazole 40 mg EC Tab PO SCH (09:28)
[2017-01-12] MEDS: Potassium Chloride 20 mEq ER Tab PO SCH (11:29)
--- NOTE | 2017-01-12 11:56 | CARD ---
APPROVED REPORT EKG Measurement Heart [id number] <Conclusion> Normal sinus rhythm Possible Left atrial enlargement Inferior infarct, age undetermined Abnormal ECG
--- NOTE | 2017-01-12 11:57 | CARD ---
APPROVED REPORT EKG Measurement Heart [id number] <Conclusion> Normal sinus rhythm Inferior infarct, age undetermined Prolonged QT Abnormal ECG
--- NOTE | 2017-01-12 15:13 | VASCLAB ---
PROCEDURE: HISTORY: Left sided weakness COMPARISON: Last exam 06/28/2016 TECHNIQUE: Grayscale and duplex Doppler evaluation of the cervical carotid and vertebral arteries were performed. The common carotid, carotid bifurcations and cervical Internal Carotid Artery (ICA) and proximal External Carotid Artery (ECA) were evaluated. The vertebral arteries were evaluated for gross patency and flow direction. Report prepared by SHARLA Mckeon FINDINGS: RIGHT CAROTID ARTERIES: 1. Common Carotid Artery: No significant focal plaque formation of the right common carotid artery. Maximum Peak Systolic velocity: 79 cm/sec: End-diastolic velocity 13 cm/sec. 2. Carotid Bifurcation: Calcific plaque formation. Maximum Peak Systolic velocity: 57 cm/sec: End-diastolic velocity 12 cm/sec. 3. Internal Carotid Artery: Plaque description: Calcific 3.1. Proximal Segment: Peak systolic velocity 79 cm/sec: End-diastolic velocity 18 cm/sec - % stenosis 0-15% 3.2. Middle Segment: Peak systolic velocity 65 cm/sec: End-diastolic velocity 17 cm/sec - % stenosis 0-15% 3.3. Distal Segment: Peak systolic velocity 93 cm/sec: End-diastolic velocity 20 cm/sec - % stenosis 0-15% 4. External Carotid Artery: No significant focal plaque formation. Peak systolic velocity 99 cm/sec 5. ICA/CCA Ratio: 1.5 LEFT CAROTID ARTERIES: 1. Common Carotid Artery: No significant focal plaque formation of the left common carotid artery. Maximum Peak Systolic velocity: 103 cm/sec: End-diastolic velocity 17 cm/sec. 2. Carotid Bifurcation: Calcific plaque formation. Maximum Peak Systolic velocity: 63 cm/sec: End-diastolic velocity 17 cm/sec. 3. Internal Carotid Artery: Plaque description: Calcific 3.1. Proximal Segment: Peak systolic velocity 99 cm/sec: End-diastolic velocity 26 cm/sec - % stenosis 0-15% 3.2. Middle Segment: Peak systolic velocity 66 cm/sec: End-diastolic velocity 22 cm/sec - % stenosis 0-15% 3.3. Distal Segment: Peak systolic velocity 117 cm/sec: End-diastolic velocity 43 cm/sec - % stenosis 0-15% 4. External Carotid Artery: No significant focal plaque formation. Peak systolic velocity 76 cm/sec 5. ICA/CCA Ratio: 1.6 VERTEBRAL ARTERIES: 1. Right Vertebral Artery: The right vertebral artery flow direction is antegrade. 2. Left Vertebral Artery: The left vertebral artery flow direction is antegrade. OTHER FINDINGS: 1. Right Brachial Blood pressure: 125 mmHg. 2. Left Brachial Blood pressure: 119 mmHg. IMPRESSION: RIGHT: Duplex scan does not suggest hemodynamically significant stenosis of the right extracranial carotid arteries. LEFT: Duplex scan does not suggest hemodynamically significant stenosis of the left extracranial carotid arteries.
[2017-01-12 17:44] VITALS: O2SAT 97
--- NOTE | 2017-01-12 22:54 | CP.PCM.PN ---
<Amanuel Bustamante - Last Filed: 01/13/17 00:44> Subjective - Date & Time of Evaluation Date of Evaluation: 01/12/17 Time of Evaluation: 09:07 - Subjective Subjective: Pt seen and examined. Pt reports that her weakness has resolved. Pt denies fever , chills, chest pain, headache, shortness of breath, nausea, and vomiting. Objective - Vital Signs/Intake and Output Vital Signs (last 24 hours): Temp Pulse Resp BP Pulse Ox 97.5 F L 64 20 140/78 97 01/12/17 15:13 01/12/17 16:47 01/12/17 15:13 01/12/17 17:32 01/12/17 15:13 Intake and Output: 01/12/17 01/13/17 18:59 06:59 Intake Total 450 600 Output Total 1 Balance 449 600 - Medications Medications: Current Medications Aspirin (Ecotrin) 81 mg PO DAILY [facility] Last Admin: 01/12/17 09:27 Dose: 81 mg Carvedilol (Coreg) 12.5 mg PO BID [facility] Last Admin: 01/12/17 17:32 Dose: 12.5 mg Heparin Sodium (Porcine) (Heparin) 5,000 units SC Q8 [facility] Last Admin: 01/12/17 21:14 Dose: 5,000 units Levetiracetam 500 mg/ Sodium (Chloride) 105 mls @ 420 mls/hr IVPB Q12H [facility] Insulin Aspart (Novolog) 0 unit SC TIDAC [facility] PRN Reason: Protocol Last Admin: 01/12/17 16:59 Dose: Not Given Losartan Potassium (Cozaar) 50 mg PO DAILY [facility] Last Admin: 01/12/17 09:28 Dose: 50 mg Pantoprazole Sodium (Protonix Ec Tab) 40 mg PO DAILY [facility] Last Admin: 01/12/17 09:28 Dose: 40 mg Pneumococcal Polyvalent Vaccine (Pneumovax 23 Vaccine) 0.5 ml IM .ONCE ONE Stop: 01/13/17 10:01 Potassium Chloride (K-Dur 20 Meq Er Tab) 40 meq PO DAILY [facility] Last Admin: 01/12/17 11:29 Dose: 40 meq Rosuvastatin Calcium (Crestor) 20 mg PO DAILY [facility] Last Admin: 01/12/17 09:31 Dose: 20 mg - Labs Labs: 01/12/17 07:17 01/12/17 07:17 PT 11.1 SECONDS (9.7-12.2) 01/11/17 10:52 INR 1.0 01/11/17 10:52 APTT 22 SECONDS (21-34) 01/11/17 10:52 - Constitutional Appears: No Acute Distress - Head Exam Head Exam: ATRAUMATIC, NORMOCEPHALIC - Eye Exam Eye Exam: EOMI, PERRL Pupil Exam: NORMAL ACCOMODATION, PERRL - ENT Exam ENT Exam: Mucous Membranes Moist. absent: Mucous Membranes Dry - Neck Exam Neck Exam: Full ROM. absent: Lymphadenopathy - Respiratory Exam Respiratory Exam: Clear to Ausculation Bilateral. absent: Rhonchi, Wheezes, Respiratory Distress - Cardiovascular Exam Cardiovascular Exam: +S1, +S2. absent: Gallop, Rubs - GI/Abdominal Exam GI & Abdominal Exam: Soft. absent: Distended, Guarding, Tenderness - Extremities Exam Extremities Exam: Full ROM. absent: Pedal Edema - Neurological Exam Neurological Exam: Alert, Awake, Oriented x3 - Psychiatric Exam Psychiatric exam: Normal Affect, Normal Mood - Skin Skin Exam: Normal Color, Warm Assessment and Plan - Assessment and Plan (Free Text) Assessment: 1. Left Sided Weakness TIA/CVA vs. Seizure Head CT - Large chronic right posterior temporoparietal and occipital infarct changes. Mild involvement of right occipital pole. Mild chronic white matter ischemic changes with few scattered chronic bilateral nuclei lacunar type infarct. Questionable infarct of undetermined age within brainstem. (please see full report) Brain MRI pending EEG pending prolactin level - 23. 5 elevated Carotid duplex - negative for stenosis of carotid ateries b/l Aspirin 81 mg po qd Keppra 500 mg po bid Neurology, Dr. Hebert, consulted. Help appreciated. per neuro, picture suggestive for Justo's paresis Hypertension Coreg 12.5 mg po BID Cozaar 50 mg po qd Coronary Artery Disease Troponin I - 0.0210, follow-up [facility] panel at 17:55 and 00:55 and serial EKGs EKG: NSR at rate of 78. Inferior infarct, age undetermined, Prolonged QT Continue home medications: Aspirin 81 mg po daily Coreg 12.5mg po daily Losartan 50mg po daily Rosuvastatin 20mg po daily Monitor History of Atrial Fibrillation Asa 81mg po daily Coreg 12.5 mg po bid Diabetes Mellitus Type II Hemoglobin a1c 5.4 home medication Metformin 500mg po daily - held Started on Insulin sliding scale - low protocol Accuchecks Prophylaxis SCD Protonix 40 mg po daily Heparin 5000 U SC Q8H <Otoniel Conley Jr. - Last Filed: 01/21/17 13:50> Objective - Vital Signs/Intake and Output Vital Signs (last 24 hours): Temp Pulse Resp BP Pulse Ox 97.7 F 68 20 170/80 H 97 01/13/17 15:41 01/13/17 15:41 01/13/17 15:41 01/13/17 18:04 01/13/17 15:41 - Labs Labs: 01/12/17 07:17 01/12/17 07:17 PT 11.1 SECONDS (9.7-12.2) 01/11/17 10:52 INR 1.0 01/11/17 10:52 APTT 22 SECONDS (21-34) 01/11/17 10:52 Attending/Attestation - Attestation I have personally seen and examined this patient.: Yes I have fully participated in the care of the patient.: Yes I have reviewed all pertinent clinical information, including history, physical exam and plan: Yes Notes (Text): 01/21/17 13:50 Agree with findings and plan
--- NOTE | 2017-01-13 00:25 | CP.PCM.PN ---
Subjective - Date & Time of Evaluation Date of Evaluation: 01/12/17 Time of Evaluation: 19:45 - Subjective Subjective: No Chnage in her condition. MRI Brain to assess For her Infarctive CVA. Objective - Vital Signs/Intake and Output Vital Signs (last 24 hours): Temp Pulse Resp BP Pulse Ox 97.5 F L 64 20 140/78 97 01/12/17 15:13 01/12/17 16:47 01/12/17 15:13 01/12/17 17:32 01/12/17 15:13 Intake and Output: 01/12/17 01/13/17 18:59 06:59 Intake Total 450 600 Output Total 1 Balance 449 600 - Medications Medications: Current Medications Aspirin (Ecotrin) 81 mg PO DAILY [facility] Last Admin: 01/12/17 09:27 Dose: 81 mg Carvedilol (Coreg) 12.5 mg PO BID [facility] Last Admin: 01/12/17 17:32 Dose: 12.5 mg Heparin Sodium (Porcine) (Heparin) 5,000 units SC Q8 [facility] Last Admin: 01/12/17 21:14 Dose: 5,000 units Levetiracetam 500 mg/ Sodium (Chloride) 105 mls @ 420 mls/hr IVPB Q12H [facility] Insulin Aspart (Novolog) 0 unit SC TIDAC [facility] PRN Reason: Protocol Last Admin: 01/12/17 16:59 Dose: Not Given Losartan Potassium (Cozaar) 50 mg PO DAILY [facility] Last Admin: 01/12/17 09:28 Dose: 50 mg Pantoprazole Sodium (Protonix Ec Tab) 40 mg PO DAILY [facility] Last Admin: 01/12/17 09:28 Dose: 40 mg Pneumococcal Polyvalent Vaccine (Pneumovax 23 Vaccine) 0.5 ml IM .ONCE ONE Stop: 01/13/17 10:01 Potassium Chloride (K-Dur 20 Meq Er Tab) 40 meq PO DAILY [facility] Last Admin: 01/12/17 11:29 Dose: 40 meq Rosuvastatin Calcium (Crestor) 20 mg PO DAILY [facility] Last Admin: 01/12/17 09:31 Dose: 20 mg - Labs Labs: 01/12/17 07:17 01/12/17 07:17 PT 11.1 SECONDS (9.7-12.2) 01/11/17 10:52 INR 1.0 01/11/17 10:52 APTT 22 SECONDS (21-34) 01/11/17 10:52 Assessment and Plan (1) Abdominal aortic aneurysm (AAA) Status: Acute (2) Abdominal pain Status: Acute (3) Chest pain Status: Acute (4) Left hemiparesis Status: Acute (5) Justo's paralysis Status: Acute
[2017-01-13] MEDS: levETIRAcetam 500 MG in Sodium Chloride 0.9% 100 ML IVPB SCH ×2 (05:02→17:00)
[2017-01-13] MEDS: (Novolog) Insulin Aspart, Recombinant 100 u/ml 10 ml vial SC SCH ×3 (08:05→17:00)
[2017-01-13] MEDS: Pantoprazole 40 mg EC Tab PO SCH (08:59)
[2017-01-13] MEDS: Potassium Chloride 20 mEq ER Tab PO SCH (08:59)
[2017-01-13] MEDS ORDERED: Pneumococcal 23-Valent Vaccine IM ONE (10:00)
--- NOTE | 2017-01-13 11:32 | CP.PCM.PN ---
<SaloEdilberto fuentes - Last Filed: 01/13/17 17:55> Subjective - Date & Time of Evaluation Date of Evaluation: 01/13/17 Time of Evaluation: 09:00 - Subjective Subjective: Medicine Progress note. Dr. Conley Pt seen and examined at bedside. As per nursing staff, no acute events overnight. Patient states that she is anxious about getting the MRI Brain this morning. She denies any SOB/CP. No N/V/D. Tolerating diet. No F/C. Still c/o some mild left lower extremity weakness. No new complaints. Objective - Vital Signs/Intake and Output Vital Signs (last 24 hours): Temp Pulse Resp BP Pulse Ox 98.2 F 67 18 144/72 97 01/13/17 07:20 01/13/17 07:20 01/13/17 07:20 01/13/17 08:59 01/13/17 07:20 Intake and Output: 01/13/17 01/13/17 06:59 18:59 Intake Total 600 Balance 600 - Medications Medications: Current Medications Aspirin (Ecotrin) 81 mg PO DAILY [facility] Last Admin: 01/13/17 08:59 Dose: 81 mg Carvedilol (Coreg) 12.5 mg PO BID [facility] Last Admin: 01/13/17 08:59 Dose: 12.5 mg Heparin Sodium (Porcine) (Heparin) 5,000 units SC Q8 [facility] Last Admin: 01/13/17 06:22 Dose: 5,000 units Levetiracetam 500 mg/ Sodium (Chloride) 105 mls @ 420 mls/hr IVPB Q12H [facility] Last Admin: 01/13/17 05:02 Dose: 420 mls/hr Insulin Aspart (Novolog) 0 unit SC TIDAC [facility] PRN Reason: Protocol Last Admin: 01/13/17 08:05 Dose: Not Given Losartan Potassium (Cozaar) 50 mg PO DAILY [facility] Last Admin: 01/13/17 08:59 Dose: 50 mg Pantoprazole Sodium (Protonix Ec Tab) 40 mg PO DAILY [facility] Last Admin: 01/13/17 08:59 Dose: 40 mg Potassium Chloride (K-Dur 20 Meq Er Tab) 40 meq PO DAILY [facility] Last Admin: 01/13/17 08:59 Dose: 40 meq Rosuvastatin Calcium (Crestor) 20 mg PO DAILY [facility] Last Admin: 01/13/17 09:02 Dose: 20 mg - Labs Labs: 01/12/17 07:17 01/12/17 07:17 PT 11.1 SECONDS (9.7-12.2) 01/11/17 10:52 INR 1.0 01/11/17 10:52 APTT 22 SECONDS (21-34) 01/11/17 10:52 - Constitutional Appears: Well, No Acute Distress - Head Exam Head Exam: ATRAUMATIC, NORMAL INSPECTION, NORMOCEPHALIC - Eye Exam Eye Exam: EOMI - ENT Exam ENT Exam: Mucous Membranes Moist - Respiratory Exam Respiratory Exam: Clear to Ausculation Bilateral, NORMAL BREATHING PATTERN. absent: Wheezes - Cardiovascular Exam Cardiovascular Exam: RRR, +S1, +S2. absent: JVD - GI/Abdominal Exam GI & Abdominal Exam: Soft. absent: Distended, Guarding, Rigid, Tenderness - Extremities Exam Extremities Exam: Normal Inspection - Neurological Exam Neurological Exam: Alert, Awake, Oriented x3 Neuro motor strength exam: Left Upper Extremity: 5, Right Upper Extremity: 5, Left Lower Extremity: 5, Right Lower Extremity: 5 - Psychiatric Exam Psychiatric exam: Normal Affect, Normal Mood - Skin Skin Exam: Dry, Intact, Normal Color, Warm Assessment and Plan - Assessment and Plan (Free Text) Assessment: 71yo F with PMHx of HTN, DM, A.Fib, CAD s/p stent, hx of GI bleed here for evaluation of L Sided Weakness. 1. Left Sided Weakness TIA/CVA vs. Seizure Head CT - Large chronic right posterior temporoparietal and occipital infarct changes. Mild involvement of right occipital pole. Mild chronic white matter ischemic changes with few scattered chronic bilateral nuclei lacunar type infarct. Questionable infarct of undetermined age within brainstem. (please see full report) Brain MRI - No Acute or subacute changes. Chronic R Posterior Temporoparietal and occipital infarct. Tiny chronic R cerebellar infarct (see full report) EEG completed. Awaiting report prolactin level - 23. 5 elevated Carotid duplex - negative for stenosis of carotid ateries b/l Aspirin 81 mg po qd Keppra 500 mg po bid Neurology, Dr. Douglass, consulted. Help appreciated. per neuro, picture suggestive for Justo's paresis 2. Hx of Hypertension Coreg 12.5 mg po BID Cozaar 50 mg po qd 3. Hx of Coronary Artery Disease Troponin I - Negative x3 EKG: NSR at rate of 78. Inferior infarct, age undetermined, Prolonged QT Continue home medications: Aspirin 81 mg po daily Coreg 12.5mg po daily Losartan 50mg po daily Rosuvastatin 20mg po daily 4. History of Atrial Fibrillation Asa 81mg po daily Coreg 12.5 mg po bid 5. Diabetes Mellitus Type II Hemoglobin a1c 5.4 home medication Metformin 500mg po daily - held Started on Insulin sliding scale - low protocol Accuchecks 6. PPx SCD Protonix 40 mg po daily Heparin 5000 U SC Q8H Discussed case with Dr. Yael Leong PGY1 <Otoniel Conley Jr. - Last Filed: 01/21/17 13:52> Objective - Vital Signs/Intake and Output Vital Signs (last 24 hours): Temp Pulse Resp BP Pulse Ox 97.7 F 68 20 170/80 H 97 01/13/17 15:41 01/13/17 15:41 01/13/17 15:41 01/13/17 18:04 01/13/17 15:41 - Labs Labs: 01/12/17 07:17 01/12/17 07:17 PT 11.1 SECONDS (9.7-12.2) 01/11/17 10:52 INR 1.0 01/11/17 10:52 APTT 22 SECONDS (21-34) 01/11/17 10:52 Attending/Attestation - Attestation I have personally seen and examined this patient.: Yes I have fully participated in the care of the patient.: Yes I have reviewed all pertinent clinical information, including history, physical exam and plan: Yes Notes (Text): 01/21/17 13:51 Agree with findings and plan
--- NOTE | 2017-01-13 11:53 | MRI ---
PROCEDURE: MRI BRAIN WITHOUT CONTRAST HISTORY: TIA/CVA COMPARISON: 01/11/17 TECHNIQUE: Multiplanar, multisequence MR images of the brain were obtained without intravenous contrast enhancement. FINDINGS: HEMORRHAGE: None DWI: No evidence of an acute or early subacute infarction. BRAIN PARENCHYMA: Re- demonstrated is a large wedge-shaped area of cystic encephalomalacia right posterior temporoparietal and occipital watershed zone consistent with chronic infarct changes. . Mild - to moderate chronic periventricular ischemic changes seen extending peripherally into deep and subcortical white matter both cerebral hemispheres. There a few scattered chronic bilateral basal nuclei and brainstem lacunar type infarcts. Tiny chronic right cerebellar infarct Partially empty sella. VENTRICLES: Mild generalized volume loss CRANIUM: Unremarkable. ORBITS: Grossly unremarkable. PARANASAL SINUSES/MASTOIDS: Clear VASCULAR SYSTEM: Skull base flow voids patent. OTHER FINDINGS: None. IMPRESSION: Re- demonstrated is a large wedge-shaped area of cystic encephalomalacia right posterior temporoparietal and occipital watershed zone consistent with chronic infarct changes. . Mild - to moderate chronic periventricular ischemic changes seen extending peripherally into deep and subcortical white matter both cerebral hemispheres. There a few scattered chronic bilateral basal nuclei and brainstem lacunar type infarcts. Tiny chronic right cerebellar infarct is present in
[2017-01-13 15:50] VITALS: PULSE 68; RESP 20; TEMP 97.7
--- NOTE | 2017-01-13 17:48 | CP.PCM.DIS ---
Provider - Provider Date of Admission: 01/11/17 11:51 Attending physician: Otoniel Conley Jr, MD Primary care physician: Yael Consults: Neuro: Evonne Time Spent in preparation of Discharge (in minutes): 45 Hospital Course - Lab Results Lab Results: Most Recent Lab Values WBC 7.9 K/uL (4.8-10.8) 01/12/17 07:17 RBC 3.77 Mil/uL (3.80-5.20) L 01/12/17 07:17 Hgb 9.9 g/dL (11.0-16.0) L 01/12/17 07:17 Hct 30.8 % (34.0-47.0) L 01/12/17 07:17 MCV 81.7 fL (81.0-99.0) 01/12/17 07: MCH 26.4 pg (27.0-31.0) L 01/12/17 07: MCHC 32.3 g/dL (33.0-37.0) L 01/12/17 07:17 RDW 17.4 % (11.5-14.5) H 01/12/17 07:17 Plt Count 436 K/uL (130-400) H D 01/12/17 07:17 MPV 8.5 fL (7.2-11.7) 01/12/17 07: Neut % (Auto) 71.0 % (50.0-75.0) 01/12/17 07: Lymph % (Auto) 15.8 % (20.0-40.0) L 01/12/17 07:17 [place] % (Auto) 8.9 % (0.0-10.0) 01/12/17 07:17 Eos % (Auto) 2.9 % (0.0-4.0) 01/12/17 07:17 Baso % (Auto) 1.4 % (0.0-2.0) 01/12/17 07:17 Neut # 5.6 K/uL (1.8-7.0) 01/12/17 07:17 Lymph # 1.2 K/uL (1.0-4.3) 01/12/17 07:17 [place] # 0.7 K/uL (0.0-0.8) 01/12/17 07:17 Eos # 0.2 K/uL (0.0-0.7) 01/12/17 07:17 Baso # 0.1 K/uL (0.0-0.2) 01/12/17 07:17 Differential Comment 01/11/17 10:52 ESR 30 mm/hr (0-20) H 01/12/17 07:17 PT 11.1 SECONDS (9.7-12.2) 01/11/17 10:52 INR 1.0 01/11/17 10:52 APTT 22 SECONDS (21-34) 01/11/17 10:52 Sodium 139 mmol/L (132-148) 01/12/17 07:17 Potassium 3.4 mmol/L (3.6-5.2) L 01/12/17 07:17 Chloride 102 mmol/L (98-107) 01/12/17 07:17 Carbon Dioxide 24 mmol/L (22-30) 01/12/17 07:17 Anion Gap 16 (10-20) 01/12/17 07:17 BUN 13 mg/dL (7-17) 01/12/17 07:17 Creatinine 0.6 MG/DL (0.7-1.2) L 01/12/17 07:17 Est GFR ( Amer) > 60 01/12/17 07:17 Est GFR (Non-Af Amer) > 60 01/12/17 07:17 POC Glucose (mg/dL) 105 mg/dL (65-110) 01/13/17 11:43 Random Glucose 94 mg/dL (65-105) 01/12/17 07:17 Hemoglobin A1c 5.4 % (4.2-6.5) 01/11/17 10:52 Uric Acid 5.6 mg/dL (2.2-7.5) 01/12/17 07:17 Calcium 8.4 mg/dl (8.6-10.4) L 01/12/17 07:17 Magnesium 1.9 mg/dL (1.6-2.3) 01/12/17 07:17 Total Bilirubin 0.9 mg/dL (0.2-1.3) 01/12/17 07:17 AST 16 U/L (14-36) 01/12/17 07:17 ALT 17 U/L (9-52) 01/12/17 07:17 Alkaline Phosphatase 92 U/L (38-126) 01/12/17 07:17 Total Creatine Kinase 28 U/L (30-135) L 01/12/17 01:22 CK-MB (Mass) 1.22 ng/mL (0.0-3.38) 01/12/17 01:22 Troponin I 0.0210 ng/mL (0.00-0.120) 01/11/17 10:52 Troponin I, Quant 0.0460 ng/mL (0.00-0.120) 01/12/17 01:22 C-React Prot High Sens 5.28 mg/L (1.00-3.00) H 01/12/17 07:17 Total Protein 6.5 g/dL (6.3-8.3) 01/12/17 07:17 Albumin 3.3 g/dL (3.5-5.0) L D 01/12/17 07:17 Globulin 3.2 gm/dL (2.2-3.9) 01/12/17 07: Albumin/Globulin Ratio 1.0 (1.0-2.1) 01/12/17 07:17 Triglycerides 229 mg/dL (0-149) H 01/11/17 10:52 Cholesterol 122 mg/dL (0-199) 01/11/17 10:52 LDL Cholesterol Direct 45 mg/dL (0-129) 01/11/17 10:52 HDL Cholesterol 32 mg/dL (30-70) 01/11/17 10:52 25-OH Vitamin D Total 13.8 NG/ML (30.0-100.0) L 01/13/17 07:37 Prolactin 23.5 ng/mL (3.0-18.9) H 01/11/17 16:54 Urine Color Yellow (YELLOW) 01/12/17 03:28 Urine Clarity Hazy (Clear) 01/12/17 03:28 Urine pH 6.0 (5.0-8.0) 01/12/17 03:28 Ur Specific [place] 1.015 (1.003-1.030) 01/12/17 03:28 Urine Protein Negative mg/dL (NEGATIVE) 01/12/17 03:28 Urine Glucose (UA) Normal mg/dL (Normal) 01/12/17 03:28 Urine Ketones Negative mg/dL (NEGATIVE) 01/12/17 03:28 Urine Blood Negative (NEGATIVE) 01/12/17 03:28 Urine Nitrate Negative (NEGATIVE) 01/12/17 03:28 Urine Bilirubin Negative (NEGATIVE) 01/12/17 03:28 Urine Urobilinogen Normal mg/dL (0.2-1.0) 01/12/17 03:28 Ur Leukocyte Esterase 1+ Qiana/uL (Negative) H 01/12/17 03:28 Urine WBC (Auto) 5 /hpf (0-5) 01/12/17 03:28 Urine RBC (Auto) 1 /hpf (0-3) 01/12/17 03:28 Ur Squamous Epith Cells 6 /hpf (0-5) H 01/12/17 03:28 Urine Bacteria Rare (<OCC) 01/12/17 03:28 Blood Type A NEGATIVE 01/11/17 10:53 Antibody Screen Negative 01/11/17 10:53 - Hospital Course Hospital Course: Upon Admission: 71yo F with PMHx of HTN, DM, A. Fib, CAD s/p stent placement, Hx of GI bleed here for evaluation of left sided weakness and pain. CT head was obtained which revealed no new hemorrhage. Neuro consult was obtained. Patient was started on Keppra in addition to her usual home meds. Prolactin was found to be elevated. Justo's paralysis considered. MRI brain was obtained which showed chronic ischemic changes and no acute CVA. EEG was obtained. Patient deemed stable for discharge on keppra. Patient and family agrees with plan. States that she will f /u with PMD and specialists as out-patient. 1. 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 Hx of HTN 3. Hx of CAD 4. Hx of A.Fib 5. Hx of DM Upon Discharge: Pt cleared for discharge as per Dr. Conley 1. Follow up with Dr. Conley in 2 weeks. Call for appointment 2. Follow up with your Neurologist 3. Resume all home meds 4. Start taking Keppra as directed 5. Return to the ER with any concerning symptoms New Prescriptions: 1. Keppra 500mg PO BID #60/0 Discharge Exam - Head Exam Head Exam: ATRAUMATIC, NORMAL INSPECTION, NORMOCEPHALIC - Eye Exam Eye Exam: EOMI, Normal appearance. absent: Scleral icterus Pupil Exam: PERRL - ENT Exam ENT Exam: Mucous Membranes Moist - Respiratory Exam Respiratory Exam: Clear to PA & Lateral. absent: Rhonchi, Wheezes, Respiratory Distress, UNREMARKABLE - Cardiovascular Exam Cardiovascular Exam: RRR, +S1, +S2. absent: JVD - GI/Abdominal Exam GI & Abdominal Exam: Soft. absent: Tenderness - Extremities Exam Extremities exam: normal inspection - Neurological Exam Neurological exam: Alert, Oriented x3 Additional comments: Muscle strength 5/5 all four extremities - Psychiatric Exam Psychiatric exam: Normal Affect, Normal Mood - Skin Skin Exam: Dry, Intact, Normal Color, Warm Discharge Plan - Discharge Medications Prescriptions: levETIRAcetam [Keppra] 500 mg PO BID #60 tab - Follow Up Plan Condition: GUARDED Disposition: HOME/ ROUTINE Instructions: Epilepsy (DC) Additional Instructions: Pt cleared for discharge as per Dr. Conley 1. Follow up with Dr. Conley in 2 weeks. Call for appointment 2. Follow up with your Neurologist 3. Resume all home meds 4. Start taking Keppra as directed 5. Return to the ER with any concerning symptoms New Prescriptions: 1. Keppra 500mg PO BID #60/0 Referrals: Otoniel Conley Jr., MD [Medical Doctor] -
[2017-01-13 18:05] VITALS: BP 170/80
--- NOTE | 2017-01-13 21:01 | CP.PCM.PN ---
Subjective - Date & Time of Evaluation Date of Evaluation: 01/13/17 Time of Evaluation: 17:00 - Subjective Subjective: No seizures, she did well and is discharged. Objective - Vital Signs/Intake and Output Vital Signs (last 24 hours): Temp Pulse Resp BP Pulse Ox 97.7 F 68 20 170/80 H 97 01/13/17 15:41 01/13/17 15:41 01/13/17 15:41 01/13/17 18:04 01/13/17 15:41 Intake and Output: 01/13/17 01/14/17 18:59 06:59 Intake Total 850 Balance 850 - Labs Labs: 01/12/17 07:17 01/12/17 07:17 PT 11.1 SECONDS (9.7-12.2) 01/11/17 10:52 INR 1.0 01/11/17 10:52 APTT 22 SECONDS (21-34) 01/11/17 10:52 Assessment and Plan (1) Abdominal aortic aneurysm (AAA) Status: Acute (2) Abdominal pain Status: Acute (3) Chest pain Status: Acute (4) Left hemiparesis Status: Acute (5) Justo's paralysis Status: Acute
--- NOTE | 2017-01-15 11:55 | CARD ---
APPROVED REPORT EKG Measurement Heart [id number] <Conclusion> Normal sinus rhythm LVH Inferior infarct, age undetermined can not be excluded. Abnormal ECG
--- NOTE | 2017-01-16 09:30 | EEG ---
DATE: 01/11/2017 The record is obtained for a history of TIA, rule out seizures, rule out cerebrovascular accident. S he has left-sided weakness. The record was obtained while the patient was awake and drowsy. The record was symmetrically equal on both sides with a velocity of 8 cycles per second. Waves are f airly formed, fairly organized with a posterior distribution, moderate in amplitude, reactive to eye opening by attenuation. There are no abnormal discharges, no spikes, no polyspikes, no sharp wave, n o focal slowing, no paroxysmal discharge. There are periods of drowsiness during which attenuation a nd slowing of the record were seen and theta waves were seen. There were eye movement artifacts, erwin ctrode artifacts, and muscle movement artifacts. IN SUMMARY: This is a normal awake and drowsy electroencephalogram. Clinical correlation is recomme nded. Bianca Douglass MD cc: [id number] TT: 01/16/2017 09:30:03 Confirmation # [id number] Dictation # [id number] mn
== END 2017-01-13 18:54 | disposition home or self-care (01) | DRG 57 ==
LOC: C.ER 10:10 → C.9E 11:51 → C.6T 13:06
PROVIDERS: ADMIT Internal Medicine; ATTEND Internal Medicine
DX: I69.398 Other sequelae of cerebral infarction (principal); R56.9 Unspecified convulsions; G83.84 Todd's paralysis (postepileptic); E87.5 Hyperkalemia; I16.9 Hypertensive crisis, unspecified; E11.9 Type 2 diabetes mellitus without complications; I10 Essential (primary) hypertension; E78.5 Hyperlipidemia, unspecified; I25.10 Atherosclerotic heart disease of native coronary artery without angina pectoris; I48.91 Unspecified atrial fibrillation; F17.210 Nicotine dependence, cigarettes, uncomplicated; Z95.5 Presence of coronary angioplasty implant and graft; Z79.84 Long term (current) use of oral hypoglycemic drugs; Z79.82 Long term (current) use of aspirin; Z88.6 Allergy status to analgesic agent; Z88.0 Allergy status to penicillin

== ENCOUNTER 2017-02-08 13:40 | Inpatient (IN) | payer MEDICARE, OTHER ==
[2017-02-08] MEDS ORDERED: Sodium Chloride 0.9% 1,000 ML IV ONE (21:30)
--- NOTE | 2017-02-08 21:50 | CP.PCM.CON ---
History of Present Illness - History of Present Illness History of Present Illness: 71 yo female well known to me with h/o recurrent GI bleeding felt to be due to rectal prolapse that was repaired by rectopexy last fall that was complicated by mesh erosion into sigmoid colon resulting in ulceration and bleeding from mucosa. After observation for healing the patient was readmitted in 11/2016 with recurrent bleeding at which time she was taken for laparotomy and resection of mesh/inflammatory mass and reanatomosis. Surgery was complicated by pelvic bleeding that was contolled at time of laparotomy. She was readmitted last month with symptoms of a seizure or mini-stoke but had no bleeding. Today she had an episode of BRBPR in association with a syncopal episode. Hgb in ED report to be 7. Blood was fresh and red in nature. Case discussed with [facility] inpatient services and advised that surgical team be called (Dr Negrete) and if bleeding episode occurs in ED to obtain a stat nuclear bleeding scan. Patient is 6 weeks post-operative at this point in time. Other work up has shown gastritis and an ulcer in the past. No tarry or melanotic stools. No chest pain, SOB. Admitted to telemetry for work-up of syncope likely due to acute GI blood loss. Review of Systems - Cardiovascular Cardiovascular: Syncope. absent: Chest Pain at Rest, Chest Pain with Activity, Claudication, Dyspnea - Gastrointestinal Gastrointestinal: As Per HPI, Hematochezia Past Patient History - Infectious Disease Hx of Infectious Diseases: None - Past Medical History & Family History Past Medical History?: Yes - Past Social History Smoking Status: Current Some Days Smoker Alcohol: None Home Situation {Lives}: With Family - CARDIAC Hx Cardiac Disorders: Yes (A.Fib,CAD with stent) Hx Hypercholesterolemia: Yes Hx Hypertension: Yes - PULMONARY Hx Respiratory Disorders: No - NEUROLOGICAL Hx Neurological Disorder: No Hx Transient Ischemic Attacks (TIA): No - HEENT Hx HEENT Problems: No - RENAL Hx Chronic Kidney Disease: No - ENDOCRINE/METABOLIC Hx Diabetes Mellitus Type 2: Yes - HEMATOLOGICAL/ONCOLOGICAL Hx Anemia: Yes ( acute and chronic due to GI blood loss) Hx Blood Transfusions: Yes Hx Blood Transfusion Reaction: No Hx Hepatitis A: No Hx Hepatitis B: No Hx Hepatitis C: No Hx Human Immunodeficiency Virus (HIV): No - INTEGUMENTARY Hx Dermatological Problems: No - MUSCULOSKELETAL/RHEUMATOLOGICAL Hx Musculoskeletal Disorders: No Hx Falls: No - GASTROINTESTINAL Hx Gastrointestinal Disorders: Yes Hx Bowel Surgery: Yes (Rectopexy 2015, Resection of Mesh erosion/perforation 2016 in sigmoid ) Hx Clostridium Difficile: No Hx Colitis: No Hx Colostomy: No Hx Constipation: No Hx Crohn's Disease: No Hx Diarrhea: No Hx Diverticulitis: Yes (diverticulosis 2014 and 05/2016) Hx Esophageal Varices: No Hx Fatty Liver Disease: No Hx Gall Bladder Disease: No Hx Gastritis: Yes Hx Gastroesophageal Reflux: Yes Hx Hemorrhoids: Yes Hx Ileostomy: No Hx Irritable Bowel: No Hx Liver Failure: No Hx Nausea: No Hx Pancreatitis: No HX Swallowing Problems: No Hx Ulcer: Yes (Rectosigmoid ulcer with bleeding 2016) Hx Vomiting: No - GENITOURINARY/GYNECOLOGICAL Hx Genitourinary Disorders: No - PSYCHIATRIC Hx Psychophysiologic Disorder: No Hx Substance Use: No - SURGICAL HISTORY Hx Coronary Stent: Yes (2012) Other/Comment: sigmoid resection and mesh removal in november 2016 - ANESTHESIA Hx Anesthesia: Yes Hx Anesthesia Reactions: No Hx Malignant Hyperthermia: No Meds Allergies/Adverse Reactions: Allergies Allergy/AdvReac Type Severity Reaction Status Date / Time Penicillins Allergy RASH Verified 01/11/17 10:11 acetaminophen [From Percocet] AdvReac DIZZINESS Verified 01/11/17 10:11 oxycodone HCl [From Percocet] AdvReac DIZZINESS Verified 01/11/17 10:11 - Medications Medications: Current Medications Hydromorphone HCl (Dilaudid) 2 mg PO Q4 PRN PRN Reason: Pain, severe (8-10) Sodium Chloride (Sodium Chloride 0.9%) 1,000 mls @ 100 mls/hr IV .Q10H ONE Stop: 02/09/17 07:29 Levetiracetam (Keppra) 500 mg PO BID MARY Losartan Potassium (Cozaar) 50 mg PO DAILY MARY Pantoprazole Sodium (Protonix Inj) 40 mg IVP BID MARY Rosuvastatin Calcium (Crestor) 20 mg PO HS MARY Physical Exam - Constitutional Appears: No Acute Distress - Head Exam Head Exam: ATRAUMATIC, NORMOCEPHALIC - Eye Exam Eye Exam: EOMI - Respiratory Exam Respiratory Exam: NORMAL BREATHING PATTERN - Cardiovascular Exam Cardiovascular Exam: REGULAR RHYTHM, +S1 - GI/Abdominal Exam GI & Abdominal Exam: Normal Bowel Sounds, Soft. absent: Tenderness Additional comments: well healed scars - Rectal Exam Rectal Exam: Bloody Stool - Extremities Exam Extremities exam: Positive for: normal inspection - Neurological Exam Neurological exam: Alert, Oriented x3 - Psychiatric Exam Psychiatric exam: Normal Affect, Normal Mood Results - Vital Signs Recent Vital Signs: Last Vital Signs Temp 97.9 F 02/08/17 20:54 Pulse 65 02/08/17 20:54 Resp 20 02/08/17 20:54 BP 135/76 02/08/17 20:54 Pulse Ox 100 02/08/17 20:54 - Labs Result Diagrams: 02/08/17 23:15 02/09/17 06:22 Assessment & Plan (1) Hematochezia Assessment and Plan: Acute onset of rectal bleeding likely again related to recent revision of rectopexy vs hemorrhoids. Doubt UGI source but may need to exclude. Recent surgery 6-7 weeks ago may benefit from delay in colonoscopy if possible. Will plan for colonoscopy in am if there is further drop in H/H or active bleeding. Bleeding Scan also discussed with house staff. Transfuse to hgb>10 Protonix IVPB (no infusion needed) Surgical reevaluation Status: Acute (2) Anemia due to blood loss, acute Assessment and Plan: as above Status: Acute (3) Syncope and collapse Assessment and Plan: Likely due to acute blood loss and transient hypotension Status: Acute
--- NOTE | 2017-02-08 23:13 | NM ---
EXAM: NM GI Bleeding Scan CLINICAL HISTORY: 71 years old, female; Signs and symptoms; Symptoms: Rectal bleeding; Additional info: Gi bleed TECHNIQUE: Frontal images of the abdomen and pelvis were obtained over 60 minutes following the intravenous administration of [id number] red blood cells (21mCi of Tc99m Ultratag RBC). EXAM DATE/TIME: Exam ordered 02/08/2017 9:26 PM COMPARISON: CT - ANGIO ABDOMEN PELVIS W/CONT 09/20/2016 9:18:11 PM FINDINGS: Stomach and bowel: Unremarkable. No active GI bleeding. The faint blush of contrast in the pelvis likely corresponds to bladder. Please note, the patient had a history of rectal pathology. On comparison with the CT of 09-20-2016, rectal activity in the area of previous abnormality might be obscured by expected bladder activity. Other: A large focus in the mid-abdomen likely corresponds to the known abdominal aortic aneurysm. This appears on the first flow image and persists unchanged throughout the study. IMPRESSION: No active GI bleeding, noting that a small amount of rectal activity might be obscured by normal bladder activity.
[2017-02-08 23:23] LABS: HEMATOCRIT 21.2 % (34.0-47.0); MEAN CORPUSCULAR HGB CONC 31.5 g/dL (33.0-37.0)
[2017-02-08 23:40] LABS: MEAN CELL VOLUME 82.4 fL (81.0-99.0); MEAN PLATELET VOLUME 9.2 fL (7.2-11.7); RED CELL DISTRIBUTION WIDTH 17.7 % (11.5-14.5); WHITE BLOOD COUNT 7.1 K/uL (4.8-10.8)
[2017-02-09 00:03] LABS: BASO # 0.1 K/uL (0.0-0.2); EOS # 0.4 K/uL (0.0-0.7); EOS % 4.8 % (0.0-4.0); LYMPH # 1.5 K/uL (1.0-4.3); LYMPH % 18.6 % (20.0-40.0); MEAN CELL VOLUME 81.3 fL (81.0-99.0); MEAN PLATELET VOLUME 8.9 fL (7.2-11.7); MONO # 0.8 K/uL (0.0-0.8); MONO % 10.2 % (0.0-10.0); RED CELL DISTRIBUTION WIDTH 17.4 % (11.5-14.5); WHITE BLOOD COUNT 8.1 K/uL (4.8-10.8)
[2017-02-09 06:04] LABS: URINE COLOR YELLOW (YELLOW); URINE GLUCOSE (UA) Normal (Normal)
[2017-02-09 06:05] LABS: RBC URINE 5 /hpf (0-3); URINE BILIRUBIN NEGATIVE (NEGATIVE); URINE BLOOD 1+ (NEGATIVE); URINE KETONE NEGATIVE (NEGATIVE); URINE LEUKOCYTE ESTERASE Negative Leu/uL (Negative); URINE PROTEIN NEGATIVE (NEGATIVE); URINE UROBILINOGEN Normal mg/dL (0.2-1.0)
[2017-02-09 06:06] LABS: URINE BACTERIA RARE (<OCC); WBC URINE 1 /hpf (0-5)
[2017-02-09] MEDS ORDERED: Bisacodyl 5mg EC Tab PO STA (06:30)
[2017-02-09 06:39] LABS: CHLORIDE 109 mmol/L (98-107); SODIUM 138 mmol/L (132-148)
[2017-02-09 06:40] LABS: POTASSIUM 3.8 mmol/L (3.6-5.2)
[2017-02-09 06:41] LABS: GFR AFRICAN-AMERICAN > 60
[2017-02-09 06:42] LABS: ALB/GLOB RATIO 1.1 (1.0-2.1); ALKALINE PHOSPHATASE 65 U/L (38-126); ALT/SGPT 16 U/L (9-52); AST/SGOT 15 U/L (14-36); BILIRUBIN,TOTAL 1.1 mg/dL (0.2-1.3); BLOOD UREA NITROGEN 21 mg/dL (7-17); CALCIUM 7.2 mg/dl (8.6-10.4); CARBON DIOXIDE 21 mmol/L (22-30); GLUCOSE,RANDOM 92 mg/dL (65-105); PHOSPHOROUS 3.9 mg/dL (2.5-4.5); TOTAL PROTEIN 5.3 g/dL (6.3-8.3)
[2017-02-09 06:43] LABS: MAGNESIUM 1.9 mg/dL (1.6-2.3)
[2017-02-09] MEDS ORDERED: Bisacodyl 5mg EC Tab PO ONE (06:48)
[2017-02-09] MEDS ORDERED: Peg-Electrolyte Oral Soln 4L (Golytely) PO ONE (07:00)
--- NOTE | 2017-02-09 07:38 | CP.PCM.PN ---
Objective - Vital Signs/Intake and Output Vital Signs (last 24 hours): Temp Pulse Resp BP Pulse Ox 98.0 F 68 20 144/78 98 02/09/17 06:20 02/09/17 06:20 02/09/17 06:20 02/09/17 06:20 02/09/17 00:00 Intake and Output: 02/09/17 02/09/17 06:59 18:59 Intake Total 273 Balance 273 - Medications Medications: Current Medications Hydromorphone HCl (Dilaudid) 2 mg PO Q4 PRN PRN Reason: Pain, severe (8-10) Levetiracetam (Keppra) 500 mg PO BID MARY Losartan Potassium (Cozaar) 50 mg PO DAILY MARY Pantoprazole Sodium (Protonix Inj) 40 mg IVP BID MARY Rosuvastatin Calcium (Crestor) 20 mg PO HS MARY Last Admin: 02/08/17 22:00 Dose: Not Given - Labs Labs: 02/08/17 23:15 02/09/17 06:22 PT 11.6 SECONDS (9.7-12.2) 02/08/17 13:40 INR 1.0 02/08/17 13:40 APTT 31 SECONDS (21-34) 02/08/17 13:40
[2017-02-09 07:59] LABS: BLOOD UREA NITROGEN 30 mg/dL (7-17); GFR AFRICAN-AMERICAN > 60; GLUCOSE,RANDOM 94 mg/dL (65-105); POTASSIUM 4.4 mmol/L (3.6-5.2); SODIUM 136 mmol/L (132-148)
[2017-02-09 08:00] LABS: ALB/GLOB RATIO 1.1 (1.0-2.1); CALCIUM 8.3 mg/dl (8.6-10.4); CARBON DIOXIDE 19 mmol/L (22-30); CHLORIDE 106 mmol/L (98-107); TOTAL PROTEIN 6.2 g/dL (6.3-8.3)
[2017-02-09 08:01] LABS: ALKALINE PHOSPHATASE 75 U/L (38-126); ALT/SGPT 22 U/L (9-52); AST/SGOT 16 U/L (14-36); BILIRUBIN,TOTAL 0.5 mg/dL (0.2-1.3)
[2017-02-09 08:20] VITALS: O2SAT 99
--- NOTE | 2017-02-09 08:54 | RAD ---
PROCEDURE: CHEST RADIOGRAPH, 1 VIEW HISTORY: SYNCOPE COMPARISON: 01/11/2017 FINDINGS: LUNGS: Mild venous congestion. Right hilar prominence. Biapical pleural thickening. PLEURA: No pneumothorax or pleural fluid seen. CARDIOVASCULAR: Normal. OSSEOUS STRUCTURES: No significant abnormalities. VISUALIZED UPPER ABDOMEN: Normal. OTHER FINDINGS: None. IMPRESSION: Mild venous congestion. Right hilar prominence. Biapical pleural thickening.
--- NOTE | 2017-02-09 09:02 | CT ---
PROCEDURE: CT Abdomen and Pelvis with contrast HISTORY: R/O OBST COMPARISON: CT of the abdomen and pelvis with contrast performed 09/20/16 TECHNIQUE: Contrast dose: 100 ccVisipaque 320 Radiation dose: Total exam DLP = 293.81 mGy-cm. This CT exam was performed using one or more of the following dose reduction techniques: Automated exposure control, adjustment of the mA and/or kV according to patient size, and/or use of iterative reconstruction technique. FINDINGS: LOWER THORAX: No visible consolidation, pleural effusion, or pneumothorax. Small hiatal hernia/distal esophageal wall thickening. LIVER: Unremarkable. GALLBLADDER AND BILE DUCTS: Unremarkable. PANCREAS: Unremarkable. SPLEEN: Unremarkable. ADRENALS: Unremarkable. KIDNEYS AND URETERS: The kidneys enhance symmetrically. No hydronephrosis or obstructing calculus evident. VASCULATURE: Extensive atherosclerotic calcifications of the aorta and branches. Infrarenal abdominal aortic aneurysm measures approximately 4.1 cm (AP) by 4.1 cm (transverse) by 4.8 cm (cc). BOWEL: Stomach is nondistended. Lack of oral contrast limits evaluation for bowel pathology. Surgical clips and anastomotic suture material consistent with prior sigmoid resection and reanastomosis. Moderate diverticulosis without CT evidence of acute diverticulitis. Bowel loops appear within normal limits of caliber without evidence of obstruction. [id number] constipation. APPENDIX: The appendix appears within normal limits of caliber. No secondary signs of acute appendicitis. PERITONEUM: No significant free fluid. No definite free air. LYMPH NODES: No bulky adenopathy evident. BLADDER: Unremarkable. REPRODUCTIVE: Uterus is present. BONES: Osseous demineralization. Degenerative changes. OTHER FINDINGS: Presacral fluid collection measuring approximately 4.9 cm. IMPRESSION: 4.9 cm presacral fluid collection. Correlate clinically for seroma versus abscess. Mild to moderate constipation. Infrarenal abdominal aortic aneurysm measures approximately 4.1 x 4.1 x 4.8 cm. Additional incidental findings as above. Preliminary impression was provided by virtual radiologic.
--- NOTE | 2017-02-09 09:31 | CT ---
PROCEDURE: CT HEAD WITHOUT CONTRAST. HISTORY: Dizziness, visual disturbance, hypotensive, syncope, diabetes COMPARISON: None available. TECHNIQUE: Axial computed tomography images were obtained through the head/brain without intravenous contrast. Radiation dose: Total exam DLP = 742.34 mGy-cm. This CT exam was performed using one or more of the following dose reduction techniques: Automated exposure control, adjustment of the mA and/or kV according to patient size, and/or use of iterative reconstruction technique. FINDINGS: HEMORRHAGE: No intracranial hemorrhage. BRAIN: Diffuse atrophy with prominence of the ventricles and sulci noted. No mass effect or edema. Intracranial atherosclerotic calcifications. Extensive encephalomalacia involving the right parietal lobe; correlate clinically for remote trauma or infarction. Additionally, scattered periventricular and subcortical white matter hypodensities, which are nonspecific, but often seen with chronic microvascular ischemic disease. Please note that MRI with diffusion imaging is more sensitive in the detection of acute ischemic event. VENTRICLES: No hydrocephalus. CALVARIUM: Unremarkable. PARANASAL SINUSES: Unremarkable as visualized. No significant inflammatory changes. MASTOID AIR CELLS: Unremarkable as visualized. No inflammatory changes. OTHER FINDINGS: None. IMPRESSION: Generalized atrophy. Encephalomalacia involving the right parietal lobe; correlate clinically for remote trauma or infarction. Additional nonspecific scattered white matter changes. Please note that MRI with diffusion imaging is more sensitive in the detection of acute ischemic event.
[2017-02-09] MEDS ORDERED: Dextrose 5%/0.9% NS 1,000 ML IV SCH (11:00)
[2017-02-09] MEDS ORDERED: Phenylephrine 10 mg/ml Inj ONE (12:33)
[2017-02-09 12:53] LABS: BASO # 0.1 K/uL (0.0-0.2); BASO % 1.1 % (0.0-2.0); EOS # 0.4 K/uL (0.0-0.7); HEMATOCRIT 30.2 % (34.0-47.0); LYMPH # 1.1 K/uL (1.0-4.3); LYMPH % 10.7 % (20.0-40.0); MEAN CELL VOLUME 83.2 fL (81.0-99.0); MEAN CORPUSCULAR HEMOGLOBIN 26.7 pg (27.0-31.0); MEAN CORPUSCULAR HGB CONC 32.1 g/dL (33.0-37.0); MEAN PLATELET VOLUME 9.7 fL (7.2-11.7); MONO # 0.9 K/uL (0.0-0.8); MONO % 8.8 % (0.0-10.0); RED CELL DISTRIBUTION WIDTH 16.9 % (11.5-14.5)
--- NOTE | 2017-02-09 12:59 | CP.PCM.PN ---
Subjective - Date & Time of Evaluation Date of Evaluation: 02/09/17 Time of Evaluation: 12:55 - Subjective Subjective: No bowel movement or bleeding. Drop in Hgb to 6.7 noted. Two units PRBCs given. Attempt to prep patient for colonoscopy today was unsuccessful as she only took two glasses of laxative with no response. Notified at 11:30 about lack of cooperation. Objective - Vital Signs/Intake and Output Vital Signs (last 24 hours): Temp Pulse Resp BP Pulse Ox 98.2 F 60 20 185/71 H 99 02/09/17 09:00 02/09/17 10:38 02/09/17 09:00 02/09/17 10:38 02/09/17 07:00 Intake and Output: 02/09/17 02/09/17 06:59 18:59 Intake Total 273 325 Balance 273 325 - Medications Medications: Current Medications Hydromorphone HCl (Dilaudid) 2 mg PO Q4 PRN PRN Reason: Pain, severe (8-10) Dextrose/Sodium Chloride (Dextrose 5%/0.9% Ns 1000 Ml) 1,000 mls @ 100 mls/hr IV .Q10H [facility] Last Admin: 02/09/17 11:37 Dose: 100 mls/hr Levetiracetam (Keppra) 500 mg PO BID [facility] Last Admin: 02/09/17 10:39 Dose: 500 mg Losartan Potassium (Cozaar) 50 mg PO DAILY [facility] Last Admin: 02/09/17 10:39 Dose: 50 mg Pantoprazole Sodium (Protonix Inj) 40 mg IVP BID [facility] Last Admin: 02/09/17 10:39 Dose: 40 mg Rosuvastatin Calcium (Crestor) 20 mg PO HS [facility] Last Admin: 02/08/17 22:00 Dose: Not Given - Labs Labs: 02/08/17 23:15 02/09/17 06:22 PT 11.6 SECONDS (9.7-12.2) 02/08/17 13:40 INR 1.0 02/08/17 13:40 APTT 31 SECONDS (21-34) 02/08/17 13:40 - Constitutional Appears: No Acute Distress - Head Exam Head Exam: ATRAUMATIC, NORMOCEPHALIC - Eye Exam Eye Exam: EOMI, PERRL - Respiratory Exam Respiratory Exam: NORMAL BREATHING PATTERN - Cardiovascular Exam Cardiovascular Exam: REGULAR RHYTHM - GI/Abdominal Exam GI & Abdominal Exam: Soft, Normal Bowel Sounds. absent: Distended, Guarding, Rigid, Tenderness, Mass - Extremities Exam Extremities Exam: Normal Inspection Assessment and Plan (1) Hematochezia Assessment & Plan: Bleeding Scan essentially negative but done long after bleeding episode occurred. Will monitor for evidence of recurrent bleeding Plan for full colonoscopy on Sunday morning unless expedited exam needed due to clinical change management administrator weekend. Dr Nova to be informed of clinical events. Keep on clear liquids. Repeat CBC Scheduled for 8asunday for examination. Awaiting surgical follow up. Status: Acute (2) Anemia due to blood loss, acute Assessment & Plan: Check CBC as ordered post transfusion. Specimen not run by laboratory from 10am... Status: Acute (3) Syncope and collapse Status: Resolved
[2017-02-09 15:47] LABS: VENOUS BLOOD GAS PCO2 31 mmHg (40-60); VENOUS BLOOD PH 7.41 (7.32-7.43)
[2017-02-09 15:59] VITALS: BP 124/71; PULSE 80; RESP 20; TEMP 98.3
--- NOTE | 2017-02-09 16:07 | CP.PCM.DIS ---
Provider - Provider Date of Admission: 02/08/17 15:30 Attending physician: Otoniel Conley Jr, MD Primary care physician: Dr. Conley Consults: Dr. Evangelina NICHOLAS Time Spent in preparation of Discharge (in minutes): 45 Hospital Course - Lab Results Lab Results: Most Recent Lab Values WBC 10.0 K/uL (4.8-10.8) 02/09/17 12:50 RBC 3.63 Mil/uL (3.80-5.20) L 02/09/17 12:50 Hgb 9.7 g/dL (11.0-16.0) L D 02/09/17 12:50 Hct 30.2 % (34.0-47.0) L 02/09/17 12:50 MCV 83.2 fL (81.0-99.0) 02/09/17 12:50 MCH 26.7 pg (27.0-31.0) L 02/09/17 12:50 MCHC 32.1 g/dL (33.0-37.0) L 02/09/17 12:50 RDW 16.9 % (11.5-14.5) H 02/09/17 12:50 Plt Count 222 K/uL (130-400) 02/09/17 12:50 MPV 9.7 fL (7.2-11.7) 02/09/17 12:50 Neut % (Auto) 75.4 % (50.0-75.0) H 02/09/17 12:50 Lymph % (Auto) 10.7 % (20.0-40.0) L 02/09/17 12:50 [place] % (Auto) 8.8 % (0.0-10.0) 02/09/17 12:50 Eos % (Auto) 4.0 % (0.0-4.0) 02/09/17 12:50 Baso % (Auto) 1.1 % (0.0-2.0) 02/09/17 12:50 Neut # 7.5 K/uL (1.8-7.0) H 02/09/17 12:50 Lymph # 1.1 K/uL (1.0-4.3) 02/09/17 12:50 [place] # 0.9 K/uL (0.0-0.8) H 02/09/17 12:50 Eos # 0.4 K/uL (0.0-0.7) 02/09/17 12:50 Baso # 0.1 K/uL (0.0-0.2) 02/09/17 12:50 PT 11.6 SECONDS (9.7-12.2) 02/08/17 13:40 INR 1.0 02/08/17 13:40 APTT 31 SECONDS (21-34) 02/08/17 13:40 pO2 35 mm/Hg (30-55) 02/09/17 15:43 VBG pH 7.41 (7.32-7.43) 02/09/17 15:43 VBG pCO2 31 mmHg (40-60) L 02/09/17 15:43 VBG HCO3 21.0 mmol/L 02/09/17 15:43 VBG Total CO2 20.6 mmol/L (22-28) L 02/09/17 15:43 VBG O2 Sat (Calc) 76.0 % (40-65) H 02/09/17 15:43 VBG Base Excess -4.0 mmol/L (0.0-2.0) L 02/09/17 15:43 VBG Potassium 4.3 mmol/L (3.6-5.2) 02/09/17 15:43 Sodium 141.0 mmol/l (132-148) 02/09/17 15:43 Chloride 114.0 mmol/L (98-107) H 02/09/17 15:43 Glucose 91 mg/dl (65-105) 02/09/17 15:43 Lactate 1.5 mmol/L (0.7-2.1) 02/09/17 15:43 Sodium 138 mmol/L (132-148) 02/09/17 06:22 Potassium 3.8 mmol/L (3.6-5.2) 02/09/17 06:22 Chloride 109 mmol/L (98-107) H 02/09/17 06:22 Carbon Dioxide 21 mmol/L (22-30) L 02/09/17 06:22 Anion Gap 12 (10-20) 02/09/17 06:22 BUN 21 mg/dL (7-17) H 02/09/17 06:22 Creatinine 0.7 MG/DL (0.7-1.2) 02/09/17 06:22 Est GFR ( Amer) > 60 02/09/17 06:22 Est GFR (Non-Af Amer) > 60 02/09/17 06:22 POC Glucose (mg/dL) 90 mg/dL (65-110) 02/08/17 22:40 Random Glucose 92 mg/dL (65-105) 02/09/17 06:22 Calcium 7.2 mg/dl (8.6-10.4) L 02/09/17 06:22 Phosphorus 3.9 mg/dL (2.5-4.5) 02/09/17 06:22 Magnesium 1.9 mg/dL (1.6-2.3) 02/09/17 06:22 Total Bilirubin 1.1 mg/dL (0.2-1.3) 02/09/17 06:22 AST 15 U/L (14-36) 02/09/17 06:22 ALT 16 U/L (9-52) 02/09/17 06:22 Alkaline Phosphatase 65 U/L (38-126) 02/09/17 06:22 Total Creatine Kinase 23 U/L (30-135) L 02/09/17 06:22 CK-MB (Mass) 0.47 ng/mL (0.0-3.38) 02/09/17 06:22 Troponin I < 0.0120 ng/mL (0.00-0.120) 02/08/17 13:40 Troponin I, Quant < 0.0120 ng/mL (0.00-0.120) 02/09/17 06:22 Total Protein 5.3 g/dL (6.3-8.3) L 02/09/17 06:22 Albumin 2.8 g/dL (3.5-5.0) L 02/09/17 06:22 Globulin 2.5 gm/dL (2.2-3.9) 02/09/17 06:22 Albumin/Globulin Ratio 1.1 (1.0-2.1) 02/09/17 06:22 Venous Blood Potassium 4.3 mmol/L (3.6-5.2) 02/09/17 15:43 Urine Color Yellow (YELLOW) 02/08/17 13:40 Urine Clarity Clear (Clear) 02/08/17 13:40 Urine pH 6.0 (5.0-8.0) 02/08/17 13:40 Ur Specific [place] 1.009 (1.003-1.030) 02/08/17 13:40 Urine Protein Negative mg/dL (NEGATIVE) 02/08/17 13:40 Urine Glucose (UA) Normal mg/dL (Normal) 02/08/17 13:40 Urine Ketones Negative mg/dL (NEGATIVE) 02/08/17 13:40 Urine Blood 1+ (NEGATIVE) H 02/08/17 13:40 Urine Nitrate Negative (NEGATIVE) 02/08/17 13:40 Urine Bilirubin Negative (NEGATIVE) 02/08/17 13:40 Urine Urobilinogen Normal mg/dL (0.2-1.0) 02/08/17 13:40 Ur Leukocyte Esterase Negative Qiana/uL (Negative) 02/08/17 13:40 Urine WBC (Auto) 1 /hpf (0-5) 02/08/17 13:40 Urine RBC (Auto) 5 /hpf (0-3) H 02/08/17 13:40 Ur Squamous Epith Cells 1 /hpf (0-5) 02/08/17 13:40 Urine Bacteria Rare (<OCC) 02/08/17 13:40 Stool Occult Blood Positive (NEGATIVE) H 02/08/17 15:00 Blood Type A NEGATIVE 02/08/17 22:45 Antibody Screen Negative 02/08/17 22:45 - Hospital Course Hospital Course: Upon Admission As per H&P "71 yo female well known to me with h/o recurrent GI bleeding felt to be due to rectal prolapse that was repaired by rectopexy last fall that was complicated by mesh erosion into sigmoid colon resulting in ulceration and bleeding from mucosa. After observation for healing the patient was readmitted in 11/2016 with recurrent bleeding at which time she was taken for laparotomy and resection of mesh/inflammatory mass and reanatomosis. Surgery was complicated by pelvic bleeding that was contolled at time of laparotomy. She was readmitted last month with symptoms of a seizure or mini- stoke but had no bleeding. Today she had an episode of BRBPR in association with a syncopal episode. Hgb in ED report to be 7. Blood was fresh and red in nature. Case discussed with medical nurse and advised that surgical team be called (Dr Raccuia) and if bleeding episode occurs in ED to obtain a stat nuclear bleeding scan. Patient is 6 weeks post-operative at this point in time. Other work up has shown gastritis and an ulcer in the past. No tarry or melanotic stools. No chest pain, SOB. Admitted to telemetry for work-up of syncope likely due to acute GI blood loss. " Patient was admitted to the floor. CT head showed generalized atrophy; encephalomalacia involving the R parietal lobe; please note MRI with diffusion imaging is more sensitive in the detection of acute ischemic event. Patient was transfused 2U PRBC. GI bleed scan showed no active GI bleeding and CT abdomen/ pelvis showed 4.9 cm presacral fluid collection [seroma vs abscess], infrarenal abdominal aortic aneurysm 4.1 x 4.1 x 4.8cm. Patient was due for a colonoscopy but was refusing to drink prep and wanted to go home. After labs and vitals were reviewed, patient was deemed medically stable for discharge and was to follow up for a colonoscopy with Dr. Hutchinson on 02/12. Upon Discharge Patient stable for discharge home as per Dr. Conley. Patient to resume all home medications. Patient to follow up Monday 02/12 at 8:00am with Dr. Hutchinson for colonoscopy. Patient to also follow up with PMD Dr. Conley within 7 days. If symptoms persist or worsen patient to visit ER immediately. Instructions discussed in detail with patient who understands and agrees. Please note this is a discharge summary for full hospital course please refer to medical records. Discharge Exam - Head Exam Head Exam: ATRAUMATIC, NORMOCEPHALIC - Eye Exam Eye Exam: EOMI, Normal appearance, PERRL. absent: Conjunctival injection, Scleral icterus - ENT Exam ENT Exam: Mucous Membranes Moist - Neck Exam Neck exam: Full Rom, Normal Inspection - Respiratory Exam Respiratory Exam: Clear to PA & Lateral, NORMAL BREATHING PATTERN, UNREMARKABLE. absent: Accessory Muscle Use, Rales, Rhonchi, Wheezes, Respiratory Distress - Cardiovascular Exam Cardiovascular Exam: REGULAR RHYTHM, RRR, +S1, +S2 - GI/Abdominal Exam GI & Abdominal Exam: Normal Bowel Sounds, Soft. absent: Tenderness - Extremities Exam Extremities exam: normal capillary refill, normal inspection, pedal pulses present - Back Exam Back exam: NORMAL INSPECTION. absent: rash noted - Neurological Exam Neurological exam: Alert, Oriented x3 - Psychiatric Exam Psychiatric exam: Normal Affect, Normal Mood - Skin Skin Exam: Dry, Intact, Pallor, Warm Discharge Plan - Follow Up Plan Condition: FAIR Disposition: HOME/ ROUTINE Instructions: Gastrointestinal Bleeding (DC), Clear Liquid Diet (DC), Anemia ( DC) Additional Instructions: Patient stable for discharge home as per Dr. Conley. Patient to resume all home medications. Patient to follow up Monday 02/12 at 8:00am with Dr. Hutchinson for colonoscopy. Patient to also follow up with PMD Dr. Conley within 7 days. If symptoms persist or worsen patient to visit ER immediately. Instructions discussed in detail with patient who understands and agrees. Referrals: Otoniel Conley Jr., MD [Family Provider] - Jcarlos Hutchinson MD [Staff Provider] -
--- NOTE | 2017-03-05 14:36 | CARD ---
APPROVED REPORT EKG Measurement Heart [id number] <Conclusion> Normal sinus rhythm Inferior infarct, age undetermined Abnormal ECG
== END 2017-02-09 18:00 | disposition home or self-care (01) | DRG 378 ==
LOC: C.ER 13:40 → C.6T 15:30
PROVIDERS: ADMIT Internal Medicine; ATTEND Internal Medicine
PROC: 30233N1 Transfusion of Nonautologous Red Blood Cells into Peripheral Vein, Percutaneous Approach (ICD-10-PCS; principal; 2017-02-08)
DX: K92.1 Melena (principal); D62 Acute posthemorrhagic anemia; I10 Essential (primary) hypertension; F17.210 Nicotine dependence, cigarettes, uncomplicated; R55 Syncope and collapse; I25.10 Atherosclerotic heart disease of native coronary artery without angina pectoris; R03.1 Nonspecific low blood-pressure reading; E78.00 Pure hypercholesterolemia, unspecified; Z95.5 Presence of coronary angioplasty implant and graft

== ENCOUNTER 2017-05-03 19:57 | Inpatient (IN) | payer MEDICARE, OTHER ==
[2017-05-03 19:58] VITALS: BMI 22.6
[2017-05-03 20:43] LABS: BASO # 0.1 K/uL (0.0-0.2); BASO % 1.2 % (0.0-2.0); EOS # 0.7 K/uL (0.0-0.7); EOS % 9.5 % (0.0-4.0); HEMATOCRIT 26.4 % (34.0-47.0); LYMPH # 1.7 K/uL (1.0-4.3); LYMPH % 21.8 % (20.0-40.0); MEAN CELL VOLUME 88.6 fL (81.0-99.0); MEAN CORPUSCULAR HEMOGLOBIN 29.2 pg (27.0-31.0); MEAN CORPUSCULAR HGB CONC 32.9 g/dL (33.0-37.0); MEAN PLATELET VOLUME 9.3 fL (7.2-11.7); MONO # 0.8 K/uL (0.0-0.8); MONO % 11.2 % (0.0-10.0); NRBC % 0.1 % (0.0-2.0); WHITE BLOOD COUNT 7.6 K/uL (4.8-10.8)
[2017-05-03 20:54] LABS: CHLORIDE 107 mmol/L (98-107)
[2017-05-03 20:55] LABS: POTASSIUM 4.3 mmol/L (3.6-5.2); SODIUM 140 mmol/L (132-148)
[2017-05-03 20:57] LABS: BILIRUBIN,TOTAL 0.7 mg/dL (0.2-1.3); GFR AFRICAN-AMERICAN > 60
[2017-05-03 20:58] LABS: ALB/GLOB RATIO 1.3 (1.0-2.1); ALKALINE PHOSPHATASE 76 U/L (38-126); ALT/SGPT 22 U/L (9-52); AST/SGOT 31 U/L (14-36); BLOOD UREA NITROGEN 26 mg/dL (7-17); CARBON DIOXIDE 20 mmol/L (22-30); GLUCOSE,RANDOM 114 mg/dL (65-105); TOTAL PROTEIN 6.7 g/dL (6.3-8.3)
--- NOTE | 2017-05-03 23:09 | C.PDOC ---
History Of Present Illness 71 y/o female presents to ED accompanied by family, who reports the patient had an episode of chest pain, hypotension and diaphoresis, while at home. Family reports patient was walking when she had symptoms suddenly. Blood pressure taken at home was noted to be 50/31. On arrival, patient is w/o any complaints. Denies chest pain, SOB, fever, or cough. Patient had a normal pharmacologic perfusion scan in November,. Denies black tarry stool or rectal bleeding. Chief Complaint (Nursing): Weakness/Neurological Deficit History Per: Patient, Family History/Exam Limitations: no limitations Onset/Duration Of Symptoms: Hrs Current Symptoms Are (Timing): Still Present Activity At Onset Of Symptoms: Walking Seizure Or Post-ictal Symptoms: None Fall Associated With With Symptoms: No Recent travel outside of the [place]: No Past Medical History Reviewed: Historical Data, Nursing Documentation, Vital Signs Vital Signs: Last Vital Signs Temp 97.4 F L 05/03/17 20:16 Pulse 78 05/03/17 23:15 Resp 24 05/03/17 23:15 BP 118/55 L 05/03/17 23:15 Pulse Ox 100 05/03/17 23:37 - Medical History PMH: Anemia ( acute and chronic due to GI blood loss), Arthritis, CAD, Colonic Polyps, Diabetes, Diverticulitis (diverticulosis 2014 and 05/2016), Gastritis, HTN, Hypercholesterolemia Surgical History: Coronary Stent (2012), Endoscopy - [facility] Procedures CLOSED ENDOSCOPIC BIOPSY OF LARGE INTESTINE (11/30/14) CONTROL BLEEDING IN GASTROINTESTINAL TRACT, ENDO (12/12/16) CORONAR ARTERIOGR-2 CATH (11/30/14) ESOPHAGOGASTRODUODENOSCOPY [EGD] W/CLOSED BIOPSY (11/30/14) EXCISION OF STOMACH, ENDO, DIAGN (04/09/16) INJECT/INFUSE NEC (06/04/05) LEFT HEART CARDIAC CATH (11/30/14) LT HEART ANGIOCARDIOGRAM (11/30/14) PACKED CELL TRANSFUSION (11/30/14) RELEASE LEFT URETER, OPEN APPROACH (12/12/16) RELEASE PERITONEUM, OPEN APPROACH (12/12/16) RELEASE RIGHT URETER, OPEN APPROACH (12/12/16) REMOVAL OF SYNTH SUB FROM LOW INTEST TRACT, OPEN APPROACH (12/12/16) REPAIR RECTUM, PERCUTANEOUS ENDOSCOPIC APPROACH (07/27/16) RESECTION OF RECTUM, OPEN APPROACH (12/12/16) RESECTION OF SIGMOID COLON, OPEN APPROACH (12/12/16) RESECTION OF SIGMOID COLON, PERCUTANEOUS ENDOSCOPIC APPROACH (07/27/16) ROBOTIC ASSISTED PROCEDURE OF TRUNK, PERC ENDO APPROACH (07/27/16) TRANSFUSE NONAUT FROZEN RED CELLS IN PERIPH VEIN, PERC (09/20/16) TRANSFUSE NONAUT RED BLOOD CELLS IN PERIPH VEIN, PERC (02/08/17) TRANSFUSE NONAUT WHOLE BLOOD IN PERIPH VEIN, PERC (10/13/16) Family History: States: Unknown Family Hx - Social History Hx Tobacco Use: Yes (cut down per daughter) Hx Alcohol Use: No Hx Substance Use: No - Immunization History Hx Tetanus Toxoid Vaccination: Yes Hx Influenza Vaccination: No (per pt declines) Hx Pneumococcal Vaccination: No Review Of Systems Except As Marked, All Systems Reviewed And Found Negative. Constitutional: Negative for: Fever, Chills Cardiovascular: Positive for: Chest Pain Respiratory: Negative for: Cough, Shortness of Breath, Wheezing Skin: Negative for: Rash Neurological: Negative for: Headache, Dizziness Physical Exam - Physical Exam Appears: Non-toxic, No Acute Distress Skin: Normal Color, Warm, Dry Head: Atraumatic, Normacephalic Oral Mucosa: Moist Chest: Symmetrical Cardiovascular: Rhythm Regular Respiratory: Normal Breath Sounds, No Rales, No Rhonchi, No Wheezing Gastrointestinal/Abdominal: Soft, No Tenderness, No Guarding, No Rebound Back: Normal Inspection Extremity: Normal ROM, Capillary Refill (< 2 sec.) Neurological/Psych: Oriented x3, Normal Speech, Normal Cognition ED Course And Treatment - Laboratory Results Result Diagrams: 05/03/17 20:35 05/03/17 20:35 ECG: Interpreted By Mi ECG Rhythm: Sinus Rhythm ECG Interpretation: Normal Interpretation Of ECG: normal axis and intervals Rate From EC (bpm) O2 Sat by Pulse Oximetry: 100 (RA) Pulse Ox Interpretation: Normal - Radiology CXR: Interpreted by Mi CXR Interpretation: Yes: No Acute Disease Medical Decision Making Medical Decision Making: PLAN: EKG, CXR, bloodwork ordered. Patient placed on cardiac exercise specialist. PROGRESS: Case discussed with PMD Dr. Conley who will admit under his service. Disposition - Disposition Disposition Time: 21:40 Condition: STABLE - Clinical Impression Clinical Impression: Chest pain, Near syncope - Scribe Statement The provider has reviewed the documentation as recorded by the Scribe SM All medical record entries made by the Scribe were at my direction and personally dictated by me. I have reviewed the chart and agree that the record accurately reflects my personal performance of the history, physical exam, medical decision making, and the department course for this patient. I have also personally directed, reviewed, and agree with the discharge instructions and disposition.
--- NOTE | 2017-05-04 07:26 | CP.PCM.HP ---
History of Present Illness - History of Present Illness History of Present Illness: Patient was seen and examined at approximately 7:10 AM this morning. Chart Picker was not notified by the ED of patient's admission to attending service as per protocol. Patient was admitted to the floor without notification to covering night resident. CC: chest pain HPI: 71 year old female with PMHx significant for hypertension, CAD, DM, HLD, anemia, GI bleed, diverticulitis and gastritis presents with complaints of chest pain which started the evening prior. Patient described the pain as substernal without radiation. The pain was not reproducible or exacerbated by movements. Patient states that she was not sure whether her blood pressure was elevated or decreased at the time because it often fluctuates. Per the ED note, patient's blood pressure was checked at home and found to be hypotensive which prompted a trip to the emergency room for further evaluation. Patient states that she had some nausea and shortness of breath last night. At the time of evaluation this morning, patient denies chest pain or palpitations, fevers or chills, headaches, urinary or bowel changes. PMH: as stated above Surgical Hx: exploratory laparotomy with rectosgmoid colon resection for removal of eroding mesh 12/19/16, rectal prolapse repair, colonoscopy, EGD with biopsy, internal hemorrhoid surgery (2016), coronary stents x 3 (2014) Family Hx: Mother of PR, brother of liver cancer Meds: Aspirin 81mg po daily, Atorvastatin 40mg po HS, Losartan 50mg po daily, Metformin 500mg po daily, carvedilol 12.5mg po BID, pantoprazole 40mg po daily Social hx: Smokes 5-6 cigarettes per day x 48 years, denies alcohol and drug use. Lives with daughter. Allergies: Penicillin (rash) PMD: Dr. Conley GI: Dr. Hutchinson Cardio: Dr. Whitaker Surgeon: Dr. Negrete Present on Admission - Present on Admission Any Indicators Present on Admission: No Review of Systems - Review of Systems Systems not reviewed;Unavailable: Language Barrier - EENT Eyes: As Per HPI Nose/Mouth/Throat: As Per HPI - Cardiovascular Cardiovascular: As Per HPI, Chest Pain, Chest Pain at Rest - Respiratory Respiratory: As Per HPI, Dyspnea. absent: Cough - Gastrointestinal Gastrointestinal: Nausea. absent: Abdominal Pain, Vomiting - Genitourinary Genitourinary: absent: Urinary Frequency, Urinary Urgency Past Patient History - Infectious Disease Hx of Infectious Diseases: None - Past Medical History & Family History Past Medical History?: Yes - Past Social History Smoking Status: Current Some Days Smoker - CARDIAC Hx Hypercholesterolemia: Yes Hx Hypertension: Yes - PULMONARY Hx Respiratory Disorders: No - NEUROLOGICAL Hx Transient Ischemic Attacks (TIA): No - HEENT Hx HEENT Problems: No - RENAL Hx Chronic Kidney Disease: No - ENDOCRINE/METABOLIC Hx Diabetes Mellitus Type 2: Yes - HEMATOLOGICAL/ONCOLOGICAL Hx Anemia: Yes ( acute and chronic due to GI blood loss) - INTEGUMENTARY Hx Dermatological Problems: No - MUSCULOSKELETAL/RHEUMATOLOGICAL Hx Arthritis: Yes - GASTROINTESTINAL Hx Diverticulitis: Yes (diverticulosis 2014 and 05/2016) Hx Gastritis: Yes - GENITOURINARY/GYNECOLOGICAL Hx Genitourinary Disorders: No - PSYCHIATRIC Hx Substance Use: No - SURGICAL HISTORY Hx Coronary Stent: Yes (2012) - ANESTHESIA Hx Anesthesia: Yes Hx Anesthesia Reactions: No Hx Malignant Hyperthermia: No Meds Allergies/Adverse Reactions: Allergies Allergy/AdvReac Type Severity Reaction Status Date / Time Penicillins Allergy RASH Verified 05/03/17 20:32 acetaminophen [From Percocet] AdvReac DIZZINESS Verified 01/11/17 10:11 oxycodone HCl [From Percocet] AdvReac DIZZINESS Verified 01/11/17 10:11 Physical Exam - Constitutional Appears: Non-toxic, No Acute Distress - Head Exam Head Exam: ATRAUMATIC, NORMAL INSPECTION, NORMOCEPHALIC - Eye Exam Eye Exam: EOMI, Normal appearance Pupil Exam: NORMAL ACCOMODATION - ENT Exam ENT Exam: Mucous Membranes Moist, Normal Exam - Neck Exam Neck exam: Positive for: Full Rom - Respiratory Exam Respiratory Exam: NORMAL BREATHING PATTERN. absent: Wheezes - Cardiovascular Exam Cardiovascular Exam: +S1, +S2, Systolic Murmur Additional comments: no tenderness on palpation - GI/Abdominal Exam GI & Abdominal Exam: Soft. absent: Firm, Tenderness - Extremities Exam Extremities exam: Positive for: full ROM, normal capillary refill, pedal edema ( trace), pedal pulses present. Negative for: tenderness - Back Exam Back exam: FULL ROM - Neurological Exam Neurological exam: Alert, Oriented x3 - Psychiatric Exam Psychiatric exam: Normal Affect, Normal Mood - Skin Skin Exam: Dry, Intact, Normal Color, Warm Results - Vital Signs Recent Vital Signs: Last Vital Signs Temp 97.4 F L 05/03/17 20:16 Pulse 78 05/03/17 23:15 Resp 24 05/03/17 23:15 BP 118/55 L 05/03/17 23:15 Pulse Ox 100 05/04/17 00:21 - Labs Result Diagrams: 05/03/17 20:35 05/03/17 20:35 Assessment & Plan - Assessment and Plan (Free Text) Assessment: Chest Pain w/ Hx of Coronary Artery Disease Telemetry monitoring ABRAHAM 1- upper end of normal EKG 1- NSR with possible age undetermined prior infarct F/U ABRAHAM 2 and 3 with EKGs Echo from 11/2016 indicates EF of 60-65%; Mild pulm HTN noted, mild concentric LVH, mild to moderate mitral regurgitation. Refer to full port Crestor 20 mg PO HS Cont to monitor Hypotension No antihypertensive medications at this time Patient may benefit from fluid bolus if hypotension persists History of Atrial Fibrillation ASA 81mg po daily Hold Betablocker and other anti-hypertensive medications due to hypotension Diabetes Mellitus Type II Hemoglobin A1c on last admission 5.4 Insulin sliding scale - low protocol Accuchecks Anemia Hgb 8.7 Patient's has a history of anemia with varying range of Hgb Monitor Hgb at this time. PPx SCDs Protonix 40 mg po daily Heparin 5000 U SC Q8H
--- NOTE | 2017-05-04 08:38 | RAD ---
PROCEDURE: CHEST RADIOGRAPH, 1 VIEW HISTORY: chest pain COMPARISON: Portable chest 02/08/2017 FINDINGS: LUNGS: Clear. PLEURA: No pneumothorax or pleural fluid seen. CARDIOVASCULAR: Stable mild cardiomegaly. No pulmonary vascular derangement identified. OSSEOUS STRUCTURES: No significant abnormalities. VISUALIZED UPPER ABDOMEN: Normal. OTHER FINDINGS: None. IMPRESSION: Stable mild cardiomegaly. No acute infiltrate or pleural effusion identified. No significant interval change.
[2017-05-04] MEDS ORDERED: Pantoprazole 40 mg EC Tab PO SCH (10:00)
[2017-05-04 10:57] LABS: BASO % 0.7 % (0.0-2.0); EOS # 0.5 K/uL (0.0-0.7); EOS % 8.3 % (0.0-4.0); HEMATOCRIT 24.4 % (34.0-47.0); LYMPH % 17.8 % (20.0-40.0); MEAN CELL VOLUME 88.3 fL (81.0-99.0); MEAN CORPUSCULAR HEMOGLOBIN 28.2 pg (27.0-31.0); MEAN PLATELET VOLUME 8.6 fL (7.2-11.7); MONO # 0.5 K/uL (0.0-0.8); RED CELL DISTRIBUTION WIDTH 18.3 % (11.5-14.5); WHITE BLOOD COUNT 5.7 K/uL (4.8-10.8)
[2017-05-04 11:09] LABS: CHLORIDE 106 mmol/L (98-107)
[2017-05-04 11:10] LABS: POTASSIUM 4.3 mmol/L (3.6-5.2); SODIUM 137 mmol/L (132-148)
[2017-05-04 11:12] LABS: ALB/GLOB RATIO 1.3 (1.0-2.1); ALKALINE PHOSPHATASE 67 U/L (38-126); ALT/SGPT 22 U/L (9-52); AST/SGOT 16 U/L (14-36); BILIRUBIN,TOTAL 0.5 mg/dL (0.2-1.3); BLOOD UREA NITROGEN 20 mg/dL (7-17); CARBON DIOXIDE 20 mmol/L (22-30); GFR AFRICAN-AMERICAN > 60; GLUCOSE,RANDOM 130 mg/dL (65-105); TOTAL PROTEIN 6.2 g/dL (6.3-8.3)
[2017-05-04 11:13] LABS: CALCIUM 8.1 mg/dl (8.6-10.4); MAGNESIUM 1.7 mg/dL (1.6-2.3); PHOSPHOROUS 3.1 mg/dL (2.5-4.5)
[2017-05-04] MEDS: (Novolog) Insulin Aspart, Recombinant 100 u/ml 10 ml vial SC SCH ×3 (11:45→21:50)
--- NOTE | 2017-05-04 11:52 | CP.PCM.PN ---
<Cyndy Mullen - Last Filed: 05/04/17 17:06> Subjective - Date & Time of Evaluation Date of Evaluation: 05/04/17 Time of Evaluation: 07:00 - Subjective Subjective: Medicine Note for Dr. Conley Patient was seen and examined at bedside. Patient reports she feels weak and tired. Denied any bowel movements. Denied fever, chills, headache, chest pain, abdominal pain, n/v/d/c, Objective - Vital Signs/Intake and Output Vital Signs (last 24 hours): Temp Pulse Resp BP Pulse Ox 97.6 F 59 L 18 140/58 L 97 05/04/17 07:07 05/04/17 07:07 05/04/17 07:07 05/04/17 07:07 05/04/17 07:07 - Medications Medications: Current Medications Sodium Chloride (Sodium Chloride 0.9%) 1,000 mls @ 100 mls/hr IV .Q10H [facility] Insulin Aspart (Novolog) 0 unit SC ACHS [facility] PRN Reason: Protocol Last Admin: 05/04/17 11:45 Dose: Not Given Levetiracetam (Keppra) 500 mg PO BID [facility] Last Admin: 05/04/17 09:07 Dose: 500 mg Pantoprazole Sodium (Protonix Ec Tab) 40 mg PO DAILY [facility] Last Admin: 05/04/17 09:07 Dose: 40 mg Pneumococcal Polyvalent Vaccine (Pneumovax 23 Vaccine) 0.5 ml IM .ONCE ONE Stop: 05/06/17 10:01 Rosuvastatin Calcium (Crestor) 20 mg PO HS [facility] - Labs Labs: 05/04/17 10:50 05/04/17 10:50 - Constitutional Appears: No Acute Distress - Head Exam Head Exam: NORMAL INSPECTION, NORMOCEPHALIC - Eye Exam Eye Exam: EOMI, Normal appearance, PERRL - ENT Exam ENT Exam: Mucous Membranes Dry - Respiratory Exam Respiratory Exam: Clear to Ausculation Bilateral, NORMAL BREATHING PATTERN - Cardiovascular Exam Cardiovascular Exam: REGULAR RHYTHM, RRR, +S1, +S2 - GI/Abdominal Exam GI & Abdominal Exam: Soft, Normal Bowel Sounds. absent: Distended, Tenderness - Extremities Exam Extremities Exam: Normal Inspection. absent: Pedal Edema, Tenderness - Neurological Exam Neurological Exam: Alert, Awake, Oriented x3 - Psychiatric Exam Psychiatric exam: Normal Affect, Normal Mood - Skin Skin Exam: Dry, Intact, Pallor, Warm Assessment and Plan - Assessment and Plan (Free Text) Plan: Anemia * Most likely secondary to GI Bleed * Hemoglobin 8.7 --> 7.8 * Currently getting transfused 2 units of PRBCs * GI consulted - Dr. Phipps - office call this morning * Patient had multiple surgeries secondary to a rectal prolapse where she had a mesh placed and then removed. She has been seen for GI bleeds here and most recently at [facility] where she had an EGD performed on 04/17/17. She was found to have an active bleed. She was discharged the same day. She has been having dark tarry tools for the past week. * F/U Stool Occult x3, AM labs Hypotensive * NS @ 100cc/hr * Continue to monitor Hx of HTN * Patient takes Cozaar 50mg PO daily - this was held due to hypotension HLD * Crestor 20mg PO Daily DM * Patient takes Metformin 500mg PO daily - will hold * Accuchecks * ISS-low * Monitor Atrial Fibrillation * Patient takes ASA 81mg PO daily - this was held due to possible GI bleed CAD with Stents * Dr. Whitaker performed her cardiac cath and stent placements in 2014 * Cardiology consulted for cardiac clearance for EGD and Colonoscopy * As per conversation with Dr. Whitaker- She is low cardiac risk for Colonoscopy and Endoscopy under conscious sedation. Seizures * Keppra 500mg PO BID Hx of CVA Infrarenal AAA * 02/08/17 CT Abdomen and Pelvis - 4 x 4 x 4.8 cm * Will need repeat abdominal US or CT in 6-12 months for monitoring DW Paz Lyn DO, PGY-1 <Otoniel Conley Jr. - Last Filed: 05/06/17 16:40> Objective - Vital Signs/Intake and Output Vital Signs (last 24 hours): Temp Pulse Resp BP Pulse Ox 98.1 F 65 20 120/67 98 05/06/17 15:27 05/06/17 15:27 05/06/17 15:27 05/06/17 15:27 05/06/17 15:27 Intake and Output: 05/06/17 05/06/17 06:59 18:59 Intake Total 440 400 Balance 440 400 - Medications Medications: Current Medications Amlodipine Besylate (Norvasc) 5 mg PO DAILY [facility] Last Admin: 05/06/17 11:00 Dose: 5 mg Insulin Aspart (Novolog) 0 unit SC ACHS [facility] PRN Reason: Protocol Last Admin: 05/06/17 11:58 Dose: Not Given Levetiracetam (Keppra) 500 mg PO BID [facility] Last Admin: 05/06/17 11:00 Dose: 500 mg Losartan Potassium (Cozaar) 50 mg PO DAILY [facility] Last Admin: 05/06/17 11:00 Dose: 50 mg Pantoprazole Sodium (Protonix Ec Tab) 40 mg PO BID [facility] Last Admin: 05/06/17 11:00 Dose: 40 mg Rosuvastatin Calcium (Crestor) 20 mg PO HS [facility] Last Admin: 05/05/17 21:42 Dose: 20 mg - Labs Labs: 05/06/17 07:18 05/06/17 07:18 Attending/Attestation - Attestation I have personally seen and examined this patient.: Yes I have fully participated in the care of the patient.: Yes I have reviewed all pertinent clinical information, including history, physical exam and plan: Yes Notes (Text): 05/06/17 16:40 Agree with resident note and findings
--- NOTE | 2017-05-04 13:42 | CP.PCM.CON ---
History of Present Illness - History of Present Illness History of Present Illness: I WAS NEVER NOTIFIED OF THIS CONSULTATION BY THE FLOOR OR ADMITTING MD. 71 year old female well known to me and seen in my office yesterday after being admitted to [facility] by family for persistent GI bleeding. I was unable to obtain copies of reports as of this dictation but reportedly had "bleeding lesions" in her stomach that were treated and placed on double dose PPI. She was scheduled to have and EGD and Colonoscopy here by me but was brought to [facility] family instread. She denied any bleeding, chest pain, SOB or dizziness when seen yesterday. Records were requested and follow up scheduled for 2-3 weeks to re-assess. She had recurrent bleeding related to multiple surgeries related to rectal prolapse and then perforation of mesh following rectopexy within the last year. She has had full resection of mesh and reanastamosis several months ago following the perforation being identified by colonoscopy. She is admitted now after syncopal episode at home and having hypotension in the field. Again no active bleeding is reported. She is found to be anemic with hgb dropping from 8 to 7 since admission. She says that her stools have nunu black but no gross melena. Unclear as to her levels at time of discharge from [facility]. She also does not know who the GI doctor was that took care of her there!! There have been multiple levels of miscommunication with her and the family over the past few months that have been well documented and resulted in a letter being sent from my office to Herlinda's home. Review of Systems - Cardiovascular Cardiovascular: Chest Pain, Dyspnea, Lightheadedness - Gastrointestinal Gastrointestinal: As Per HPI Past Patient History - Infectious Disease Hx of Infectious Diseases: None - Past Medical History & Family History Past Medical History?: Yes - Past Social History Smoking Status: Current Some Days Smoker Alcohol: None Drugs: Denies Domestic Violence: Negative - CARDIAC Hx Cardiac Disorders: Yes Hx Hypercholesterolemia: Yes Hx Hypertension: Yes - PULMONARY Hx Respiratory Disorders: No - NEUROLOGICAL Hx Transient Ischemic Attacks (TIA): No - HEENT Hx HEENT Problems: No - RENAL Hx Chronic Kidney Disease: No - ENDOCRINE/METABOLIC Hx Diabetes Mellitus Type 2: Yes - HEMATOLOGICAL/ONCOLOGICAL Hx Anemia: Yes ( acute and chronic due to GI blood loss) Hx Blood Transfusions: Yes Hx Cirrhosis: No Hx Hepatitis A: No Hx Hepatitis B: No Hx Hepatitis C: No Hx Human Immunodeficiency Virus (HIV): No - INTEGUMENTARY Hx Dermatological Problems: No - MUSCULOSKELETAL/RHEUMATOLOGICAL Hx Arthritis: Yes - GASTROINTESTINAL Hx Gastrointestinal Disorders: Yes Hx Bowel Surgery: Yes (resection of perforated rectopexy and mesh/sigmoid colon) Hx Clostridium Difficile: No Hx Colitis: No Hx Colostomy: No Hx Constipation: No Hx Crohn's Disease: No Hx Diarrhea: No Hx Diverticulitis: Yes (diverticulosis 2014 and 05/2016) Hx Esophageal Varices: No Hx Fatty Liver Disease: No Hx Gall Bladder Disease: No Hx Gastritis: Yes Hx Gastroesophageal Reflux: Yes Hx Hemorrhoids: Yes Hx Ileostomy: No Hx Irritable Bowel: No Hx Liver Failure: No Hx Nausea: No Hx Pancreatitis: No HX Swallowing Problems: No Hx Ulcer: No Hx Vomiting: No Other/Comment: Rectal prolapse with rectal erosions/bleeding requiring rectopexy - GENITOURINARY/GYNECOLOGICAL Hx Genitourinary Disorders: No - PSYCHIATRIC Hx Substance Use: No - SURGICAL HISTORY Hx Surgeries: Yes Hx Coronary Stent: Yes (2012) Other/Comment: Rectopexy followed by revision resection due to sigmoid mesh perforation with ulceration and bleeding - ANESTHESIA Hx Anesthesia: Yes Hx Anesthesia Reactions: No Hx Malignant Hyperthermia: No Meds Allergies/Adverse Reactions: Allergies Allergy/AdvReac Type Severity Reaction Status Date / Time Penicillins Allergy RASH Verified 05/03/17 20:32 acetaminophen [From Percocet] AdvReac DIZZINESS Verified 01/11/17 10:11 oxycodone HCl [From Percocet] AdvReac DIZZINESS Verified 01/11/17 10:11 - Medications Medications: Current Medications Sodium Chloride (Sodium Chloride 0.9%) 1,000 mls @ 100 mls/hr IV .Q10H [facility] Insulin Aspart (Novolog) 0 unit SC ACHS [facility] PRN Reason: Protocol Last Admin: 05/04/17 11:45 Dose: Not Given Levetiracetam (Keppra) 500 mg PO BID [facility] Last Admin: 05/04/17 09:07 Dose: 500 mg Pantoprazole Sodium (Protonix Ec Tab) 40 mg PO DAILY [facility] Last Admin: 05/04/17 09:07 Dose: 40 mg Pneumococcal Polyvalent Vaccine (Pneumovax 23 Vaccine) 0.5 ml IM .ONCE ONE Stop: 05/06/17 10:01 Rosuvastatin Calcium (Crestor) 20 mg PO HS [facility] Physical Exam - Constitutional Appears: No Acute Distress - Head Exam Head Exam: ATRAUMATIC, NORMOCEPHALIC - Eye Exam Eye Exam: EOMI, PERRL - Respiratory Exam Respiratory Exam: NORMAL BREATHING PATTERN - Cardiovascular Exam Cardiovascular Exam: REGULAR RHYTHM, +S1 - GI/Abdominal Exam GI & Abdominal Exam: Normal Bowel Sounds, Soft. absent: Distended, Guarding, Mass, Rebound, Tenderness - Rectal Exam Rectal Exam: Black Stool - Extremities Exam Extremities exam: Positive for: normal inspection. Negative for: pedal edema - Neurological Exam Neurological exam: Alert, Oriented x3 - Psychiatric Exam Psychiatric exam: Normal Affect, Normal Mood Results - Vital Signs Recent Vital Signs: Last Vital Signs Temp 97.6 F 05/04/17 07:07 Pulse 59 L 05/04/17 07:07 Resp 18 05/04/17 07:07 BP 140/58 L 05/04/17 07:07 Pulse Ox 97 05/04/17 07:07 - Labs Result Diagrams: 05/05/17 07:56 05/05/17 07:56 Labs: Laboratory Results - last 24 hr 05/04/17 05/04/17 05/04/17 08:19 09:23 10:50 WBC 5.7 RBC 2.77 L Hgb 7.8 L Hct 24.4 L MCV 88.3 MCH 28.2 MCHC 32.0 L RDW 18.3 H Plt Count 261 MPV 8.6 Neut % (Auto) 64.2 Lymph % (Auto) 17.8 L [place] % (Auto) 9.0 Eos % (Auto) 8.3 H Baso % (Auto) 0.7 Neut # 3.6 Lymph # 1.0 [place] # 0.5 Eos # 0.5 Baso # 0.0 Sodium Potassium Chloride Carbon Dioxide Anion Gap BUN Creatinine Est GFR ( Amer) Est GFR (Non-Af Amer) POC Glucose (mg/dL) 104 Random Glucose Calcium Phosphorus Magnesium Total Bilirubin AST ALT Alkaline Phosphatase Total Creatine Kinase 27 L CK-MB (Mass) 1.03 Troponin I, Quant < 0.0120 Total Protein Albumin Globulin Albumin/Globulin Ratio Blood Type Antibody Screen 05/04/17 05/04/17 05/04/17 10:50 10:50 11:02 WBC RBC Hgb Hct MCV MCH MCHC RDW Plt Count MPV Neut % (Auto) Lymph % (Auto) [place] % (Auto) Eos % (Auto) Baso % (Auto) Neut # Lymph # [place] # Eos # Baso # Sodium 137 Potassium 4.3 Chloride 106 Carbon Dioxide 20 L Anion Gap 15 BUN 20 H Creatinine 0.7 Est GFR ( Amer) > 60 Est GFR (Non-Af Amer) > 60 POC Glucose (mg/dL) 127 H Random Glucose 130 H Calcium 8.1 L Phosphorus 3.1 Magnesium 1.7 Total Bilirubin 0.5 AST 16 ALT 22 Alkaline Phosphatase 67 Total Creatine Kinase CK-MB (Mass) Troponin I, Quant Total Protein 6.2 L Albumin 3.5 Globulin 2.7 Albumin/Globulin Ratio 1.3 Blood Type A NEGATIVE Antibody Screen Negative Assessment & Plan (1) Iron deficiency anemia Assessment and Plan: Monitor for evidence of active bleeding Further work up pending prior records and clearance by Cardiology. Status: Acute (2) GI bleeding Assessment and Plan: Request records from [facility] as to results of EGD, unable to obtain [facility] records thus far. Continue high dose PPI for now. Unclear if black stool represents current GI bleeding and need for repeat EGD. ? need for repeat EGD and colonoscopy (as originally planned due to BRBPR last month following surgery) Defer w/u at present pending Cardiology evalution for syncope Status: Acute (3) Diverticulosis large intestine w/o perforation or abscess w/o bleeding Status: Chronic (4) Syncope Assessment and Plan: Work up in progress. Does not appear to be related to acute GI blood loss and she was asymptomatic when seen in office 24 hours ago!! She has been more profoundly anemic in the past without syncope. Cardiac and Neuro work up in progress. Status: Acute
[2017-05-04] MEDS: Sodium Chloride 0.9% 1,000 ML IV SCH ×2 (15:34→19:05)
[2017-05-04] MEDS: Pantoprazole 40 mg EC Tab PO SCH (18:21)
[2017-05-04 22:56] LABS: RBC URINE < 1 /hpf (0-3); URINE BILIRUBIN NEGATIVE (NEGATIVE); URINE BLOOD NEGATIVE (NEGATIVE); URINE COLOR Straw (YELLOW); URINE GLUCOSE (UA) NORMAL (Normal); URINE KETONE NEGATIVE (NEGATIVE); URINE LEUKOCYTE ESTERASE NEG Leu/uL (Negative); URINE PROTEIN NEGATIVE (NEGATIVE); URINE UROBILINOGEN NORMAL mg/dL (0.2-1.0); WBC URINE 1 /hpf (0-5)
[2017-05-05] MEDS: Sodium Chloride 0.9% 1,000 ML IV SCH (04:35)
[2017-05-05] MEDS: (Novolog) Insulin Aspart, Recombinant 100 u/ml 10 ml vial SC SCH ×4 (07:28→21:43)
--- NOTE | 2017-05-05 07:29 | CP.PCM.CON ---
History of Present Illness - History of Present Illness History of Present Illness: CC: Pre procedure cardiac risk assessment HPI: 71F with hx of multi vessel CAD, GIB, HTN, Hyperlipidemia admitted for possible syncopial episode (History not very clear). On interview patient denies exertional chest pain or dyspnea. PMH: as stated above Surgical Hx: exploratory laparotomy with rectosgmoid colon resection for removal of eroding mesh 12/19/16, rectal prolapse repair, colonoscopy, EGD with biopsy, internal hemorrhoid surgery (2016), coronary stents x 3 (2014) Family Hx: Mother of NC, brother of liver cancer Meds: Aspirin 81mg po daily, Atorvastatin 40mg po HS, Losartan 50mg po daily, Metformin 500mg po daily, carvedilol 12.5mg po BID, pantoprazole 40mg po daily Social hx: Smokes 5-6 cigarettes per day x 48 years, denies alcohol and drug use. Lives with daughter. Allergies: Penicillin (rash) PMD: Dr. Conley GI: Dr. Hutchinson Surgeon: Dr. Negrete Present on Admission - Present on Admission Any Indicators Present on Admission: No Review of Systems - Review of Systems Systems not reviewed;Unavailable: Language Barrier - EENT Eyes: As Per HPI Nose/Mouth/Throat: As Per HPI - Cardiovascular Cardiovascular: As Per HPI, Chest Pain, Chest Pain at Rest - Respiratory Respiratory: As Per HPI, Dyspnea. absent: Cough - Gastrointestinal Gastrointestinal: Nausea. absent: Abdominal Pain, Vomiting - Genitourinary Genitourinary: absent: Urinary Frequency, Urinary Urgency Physical Exam - Constitutional Appears: Non-toxic, No Acute Distress - Head Exam Head Exam: ATRAUMATIC, NORMAL INSPECTION, NORMOCEPHALIC - Eye Exam Eye Exam: EOMI, Normal appearance Pupil Exam: NORMAL ACCOMODATION - ENT Exam ENT Exam: Mucous Membranes Moist, Normal Exam - Neck Exam Neck exam: Positive for: Full Rom - Respiratory Exam Respiratory Exam: NORMAL BREATHING PATTERN. absent: Wheezes - Cardiovascular Exam Cardiovascular Exam: +S1, +S2, Systolic Murmur Additional comments: no tenderness on palpation - GI/Abdominal Exam GI & Abdominal Exam: Soft. absent: Firm, Tenderness - Extremities Exam Extremities exam: Positive for: full ROM, normal capillary refill, pedal edema ( trace), pedal pulses present. Negative for: tenderness - Back Exam Back exam: FULL ROM - Neurological Exam Neurological exam: Alert, Oriented x3 - Psychiatric Exam Psychiatric exam: Normal Affect, Normal Mood - Skin Skin Exam: Dry, Intact, Normal Color, Warm Past Patient History - Infectious Disease Hx of Infectious Diseases: None - Past Medical History & Family History Past Medical History?: Yes - Past Social History Smoking Status: Current Some Days Smoker - CARDIAC Hx Hypercholesterolemia: Yes Hx Hypertension: Yes - PULMONARY Hx Respiratory Disorders: No - NEUROLOGICAL Hx Transient Ischemic Attacks (TIA): No - HEENT Hx HEENT Problems: No - RENAL Hx Chronic Kidney Disease: No - ENDOCRINE/METABOLIC Hx Diabetes Mellitus Type 2: Yes - HEMATOLOGICAL/ONCOLOGICAL Hx Anemia: Yes ( acute and chronic due to GI blood loss) - INTEGUMENTARY Hx Dermatological Problems: No - MUSCULOSKELETAL/RHEUMATOLOGICAL Hx Arthritis: Yes - GASTROINTESTINAL Hx Diverticulitis: Yes (diverticulosis 2014 and 05/2016) Hx Gastritis: Yes - GENITOURINARY/GYNECOLOGICAL Hx Genitourinary Disorders: No - PSYCHIATRIC Hx Substance Use: No - SURGICAL HISTORY Hx Coronary Stent: Yes (2012) - ANESTHESIA Hx Anesthesia: Yes Hx Anesthesia Reactions: No Hx Malignant Hyperthermia: No Meds Allergies/Adverse Reactions: Allergies Allergy/AdvReac Type Severity Reaction Status Date / Time Penicillins Allergy RASH Verified 05/03/17 20:32 acetaminophen [From Percocet] AdvReac DIZZINESS Verified 01/11/17 10:11 oxycodone HCl [From Percocet] AdvReac DIZZINESS Verified 01/11/17 10:11 - Medications Medications: Current Medications Sodium Chloride (Sodium Chloride 0.9%) 1,000 mls @ 100 mls/hr IV .Q10H [facility] Last Admin: 05/05/17 04:35 Dose: Not Given Insulin Aspart (Novolog) 0 unit SC ACHS [facility] PRN Reason: Protocol Last Admin: 05/04/17 21:50 Dose: Not Given Levetiracetam (Keppra) 500 mg PO BID [facility] Last Admin: 05/04/17 18:21 Dose: 500 mg Pantoprazole Sodium (Protonix Ec Tab) 40 mg PO BID [facility] Last Admin: 05/04/17 18:21 Dose: 40 mg Pneumococcal Polyvalent Vaccine (Pneumovax 23 Vaccine) 0.5 ml IM .ONCE ONE Stop: 05/06/17 10:01 Rosuvastatin Calcium (Crestor) 20 mg PO HS [facility] Last Admin: 05/04/17 21:57 Dose: 20 mg Results - Vital Signs Recent Vital Signs: Last Vital Signs Temp 98.1 F 05/04/17 23:35 Pulse 60 05/05/17 00:29 Resp 20 05/04/17 23:35 BP 164/64 H 05/04/17 23:35 Pulse Ox 98 05/04/17 23:35 - Labs Result Diagrams: 05/04/17 10:50 05/04/17 10:50 Labs: Laboratory Results - last 24 hr 05/04/17 05/04/17 05/04/17 08:19 09:23 10:50 WBC 5.7 RBC 2.77 L Hgb 7.8 L Hct 24.4 L MCV 88.3 MCH 28.2 MCHC 32.0 L RDW 18.3 H Plt Count 261 MPV 8.6 Neut % (Auto) 64.2 Lymph % (Auto) 17.8 L Mccracken % (Auto) 9.0 Eos % (Auto) 8.3 H Baso % (Auto) 0.7 Neut # 3.6 Lymph # 1.0 Mccracken # 0.5 Eos # 0.5 Baso # 0.0 Sodium Potassium Chloride Carbon Dioxide Anion Gap BUN Creatinine Est GFR ( Amer) Est GFR (Non-Af Amer) POC Glucose (mg/dL) 104 Random Glucose Calcium Phosphorus Magnesium Total Bilirubin AST ALT Alkaline Phosphatase Total Creatine Kinase 27 L CK-MB (Mass) 1.03 Troponin I, Quant < 0.0120 Total Protein Albumin Globulin Albumin/Globulin Ratio Urine Color Urine Clarity Urine pH Ur Specific Lolita Urine Protein Urine Glucose (UA) Urine Ketones Urine Blood Urine Nitrate Urine Bilirubin Urine Urobilinogen Ur Leukocyte Esterase Urine WBC (Auto) Urine RBC (Auto) Ur Squamous Epith Cells Blood Type Antibody Screen 05/04/17 05/04/17 05/04/17 10:50 10:50 11:02 WBC RBC Hgb Hct MCV MCH MCHC RDW Plt Count MPV Neut % (Auto) Lymph % (Auto) Mccracken % (Auto) Eos % (Auto) Baso % (Auto) Neut # Lymph # Mccracken # Eos # Baso # Sodium 137 Potassium 4.3 Chloride 106 Carbon Dioxide 20 L Anion Gap 15 BUN 20 H Creatinine 0.7 Est GFR ( Amer) > 60 Est GFR (Non-Af Amer) > 60 POC Glucose (mg/dL) 127 H Random Glucose 130 H Calcium 8.1 L Phosphorus 3.1 Magnesium 1.7 Total Bilirubin 0.5 AST 16 ALT 22 Alkaline Phosphatase 67 Total Creatine Kinase CK-MB (Mass) Troponin I, Quant Total Protein 6.2 L Albumin 3.5 Globulin 2.7 Albumin/Globulin Ratio 1.3 Urine Color Urine Clarity Urine pH Ur Specific Lolita Urine Protein Urine Glucose (UA) Urine Ketones Urine Blood Urine Nitrate Urine Bilirubin Urine Urobilinogen Ur Leukocyte Esterase Urine WBC (Auto) Urine RBC (Auto) Ur Squamous Epith Cells Blood Type A NEGATIVE Antibody Screen Negative 05/04/17 05/04/17 05/04/17 14:55 16:26 21:40 WBC RBC Hgb Hct MCV MCH MCHC RDW Plt Count MPV Neut % (Auto) Lymph % (Auto) Mccracken % (Auto) Eos % (Auto) Baso % (Auto) Neut # Lymph # Mccracken # Eos # Baso # Sodium Potassium Chloride Carbon Dioxide Anion Gap BUN Creatinine Est GFR ( Amer) Est GFR (Non-Af Amer) POC Glucose (mg/dL) 137 H 109 Random Glucose Calcium Phosphorus Magnesium Total Bilirubin AST ALT Alkaline Phosphatase Total Creatine Kinase 37 CK-MB (Mass) 0.91 Troponin I, Quant < 0.0120 Total Protein Albumin Globulin Albumin/Globulin Ratio Urine Color Urine Clarity Urine pH Ur Specific Lolita Urine Protein Urine Glucose (UA) Urine Ketones Urine Blood Urine Nitrate Urine Bilirubin Urine Urobilinogen Ur Leukocyte Esterase Urine WBC (Auto) Urine RBC (Auto) Ur Squamous Epith Cells Blood Type Antibody Screen 05/04/17 05/05/17 22:38 06:21 WBC RBC Hgb Hct MCV MCH MCHC RDW Plt Count MPV Neut % (Auto) Lymph % (Auto) Mccracken % (Auto) Eos % (Auto) Baso % (Auto) Neut # Lymph # Mccracken # Eos # Baso # Sodium Potassium Chloride Carbon Dioxide Anion Gap BUN Creatinine Est GFR ( Amer) Est GFR (Non-Af Amer) POC Glucose (mg/dL) 81 Random Glucose Calcium Phosphorus Magnesium Total Bilirubin AST ALT Alkaline Phosphatase Total Creatine Kinase CK-MB (Mass) Troponin I, Quant Total Protein Albumin Globulin Albumin/Globulin Ratio Urine Color Straw Urine Clarity Clear Urine pH 6.0 Ur Specific Lolita 1.013 Urine Protein Negative Urine Glucose (UA) Normal Urine Ketones Negative Urine Blood Negative Urine Nitrate Negative Urine Bilirubin Negative Urine Urobilinogen Normal Ur Leukocyte Esterase Neg Urine WBC (Auto) 1 Urine RBC (Auto) < 1 Ur Squamous Epith Cells 1 Blood Type Antibody Screen Assessment & Plan - Assessment and Plan (Free Text) Assessment: 71 F withhx of CAD s/p Multiple stents, GI bleeding admitted for possible syncopial episode after hypotension (?Vasovagal) GI planning for Endoscopy and Colonoscopy Patient had recent work up done recently ECHO: Normal EF Stress Test: Normal carotids: Normal EKG: NSR Troponins: Normal Basing upon ACC/AHA criteria this patient assessed as low to intermediate risk for Cardiac events for these low risk procedures like Endoscopy and Colonoscopy under conscious sedation. Hence Cardiac point of view I have no contra indication if these GI procedures are clinically beneficial and indicated for this patient care. I do not recommend any additional cardiac tests or procedures in preparation for Endoscopy or Colonoscopy. D/W patient at bed side who agreed to undergo the needed GI procedures Thank you
--- NOTE | 2017-05-05 07:42 | CP.PCM.PN ---
Subjective - Date & Time of Evaluation Date of Evaluation: 05/05/17 Time of Evaluation: 07:00 - Subjective Subjective: Medicine Note for Dr. Conley Patient was seen and examined at bedside. Patient reported she had a BM last night, dark, tarry, no BRBPR. Denied fever, chills, headache, chest pain, abdominal pain, n/v/d/c, or urinary symptoms. Objective - Vital Signs/Intake and Output Vital Signs (last 24 hours): Temp Pulse Resp BP Pulse Ox 98.1 F 60 20 164/64 H 98 05/04/17 23:35 05/05/17 00:29 05/04/17 23:35 05/04/17 23:35 05/04/17 23:35 Intake and Output: 05/05/17 05/05/17 06:59 18:59 Intake Total 1906 Balance 1906 - Medications Medications: Current Medications Sodium Chloride (Sodium Chloride 0.9%) 1,000 mls @ 100 mls/hr IV .Q10H [facility] Last Admin: 05/05/17 04:35 Dose: Not Given Insulin Aspart (Novolog) 0 unit SC [facility] PRN Reason: Protocol Last Admin: 05/05/17 07:28 Dose: Not Given Levetiracetam (Keppra) 500 mg PO BID [facility] Last Admin: 05/04/17 18:21 Dose: 500 mg Pantoprazole Sodium (Protonix Ec Tab) 40 mg PO BID [facility] Last Admin: 05/04/17 18:21 Dose: 40 mg Pneumococcal Polyvalent Vaccine (Pneumovax 23 Vaccine) 0.5 ml IM .ONCE ONE Stop: 05/06/17 10:01 Rosuvastatin Calcium (Crestor) 20 mg PO [facility] Last Admin: 05/04/17 21:57 Dose: 20 mg - Labs Labs: 05/04/17 10:50 05/04/17 10:50 - Constitutional Appears: No Acute Distress - Head Exam Head Exam: NORMAL INSPECTION, NORMOCEPHALIC - Eye Exam Eye Exam: EOMI, Normal appearance, PERRL Pupil Exam: NORMAL ACCOMODATION - ENT Exam ENT Exam: Mucous Membranes Moist - Respiratory Exam Respiratory Exam: Clear to Ausculation Bilateral, NORMAL BREATHING PATTERN. absent: Decreased Breath Sounds - Cardiovascular Exam Cardiovascular Exam: REGULAR RHYTHM, RRR - GI/Abdominal Exam GI & Abdominal Exam: Soft, Tenderness, Normal Bowel Sounds. absent: Distended - Extremities Exam Extremities Exam: Normal Inspection. absent: Pedal Edema, Tenderness - Neurological Exam Neurological Exam: Alert, Awake, Oriented x3 - Skin Skin Exam: Dry, Intact, Normal Color, Warm. absent: Pallor Assessment and Plan - Assessment and Plan (Free Text) Plan: Anemia * Most likely secondary to GI Bleed * Hemoglobin 8.7 --> 7.8 * GI consulted - Dr. Phipps - office call this morning. As per nursing plan for EGD and Colonoscopy on Sunday. * Patient had multiple surgeries secondary to a rectal prolapse where she had a mesh placed and then removed. She has been seen for GI bleeds here and most recently at [place] where she had an EGD performed on 04/17/17. She was found to have an active bleed. She was discharged the same day. She has been having dark tarry tools for the past week. * S/P 2 units of PRBCs - 2- more units cb be placed on hold- 7.8 --> 10.8 * F/U STOOL OCCULTS CAD with Stents * Dr. Whitaker performed her cardiac cath and stent placements in 2014 * Cardiology consulted for cardiac clearance for EGD and Colonoscopy * As per conversation with Dr. Whitaker- She is low cardiac risk for Colonoscopy and Endoscopy under conscious sedation. Hx of HTN * Patient takes Cozaar 50mg PO daily - RESUMED Hypotensive - RESOLVED * NS @ 100cc/hr * S/P 2 units of PRBCs * Continue to monitor HLD * Crestor 20mg PO Daily DM * Patient takes Metformin 500mg PO daily - will hold * Accuchecks * ISS-low * Monitor Atrial Fibrillation * Patient takes ASA 81mg PO daily - this was held due to possible GI bleed Seizures * Keppra 500mg PO BID Hx of CVA Infrarenal AAA * 02/08/17 CT Abdomen and Pelvis - 4 x 4 x 4.8 cm * Will need repeat abdominal US or CT in 6-12 months for monitoring Prophylactic Measures * VTE c/i due to history and current GI bleed, SCDs * GI PPX - c/i due to GI bleed * [facility] Paz Mirza Dr., DO, PGY-1
[2017-05-05 08:07] LABS: BASO # 0.1 K/uL (0.0-0.2); BASO % 0.7 % (0.0-2.0); EOS # 0.6 K/uL (0.0-0.7); EOS % 7.7 % (0.0-4.0); HEMATOCRIT 32.9 % (34.0-47.0); LYMPH # 1.1 K/uL (1.0-4.3); LYMPH % 13.6 % (20.0-40.0); MEAN CORPUSCULAR HEMOGLOBIN 27.9 pg (27.0-31.0); MEAN CORPUSCULAR HGB CONC 32.8 g/dL (33.0-37.0); MEAN PLATELET VOLUME 8.3 fL (7.2-11.7); MONO # 0.8 K/uL (0.0-0.8); MONO % 9.1 % (0.0-10.0); NRBC % 0.1 % (0.0-2.0); WHITE BLOOD COUNT 8.2 K/uL (4.8-10.8)
[2017-05-05 08:14] LABS: MEAN CELL VOLUME 85.3 fL (81.0-99.0)
[2017-05-05 08:23] LABS: ALB/GLOB RATIO 1.2 (1.0-2.1); ALKALINE PHOSPHATASE 76 U/L (38-126); ALT/SGPT 25 U/L (9-52); AST/SGOT 18 U/L (14-36); BILIRUBIN,TOTAL 0.8 mg/dL (0.2-1.3); BLOOD UREA NITROGEN 16 mg/dL (7-17); CALCIUM 8.9 mg/dl (8.6-10.4); CARBON DIOXIDE 22 mmol/L (22-30); CHLORIDE 107 mmol/L (98-107); GFR AFRICAN-AMERICAN > 60; GLUCOSE,RANDOM 99 mg/dL (65-105); PHOSPHOROUS 3.1 mg/dL (2.5-4.5); POTASSIUM 4.5 mmol/L (3.6-5.2); SODIUM 142 mmol/L (132-148); TOTAL PROTEIN 6.7 g/dL (6.3-8.3)
[2017-05-05] MEDS: Pantoprazole 40 mg EC Tab PO SCH ×2 (09:32→18:49)
--- NOTE | 2017-05-05 10:12 | CP.PCM.PN ---
Subjective - Date & Time of Evaluation Date of Evaluation: 05/05/17 Time of Evaluation: 10:10 - Subjective Subjective: Covering Dr Hutchinson CC: Anemia/me;alfredo/syncope follow up Denies dyspnea, chest pain, dizziness, abdominal pain. Sees black stool this morning Transfused PRBCs Objective - Vital Signs/Intake and Output Vital Signs (last 24 hours): Temp Pulse Resp BP Pulse Ox 98 F 58 L 18 191/73 H 97 05/05/17 07:50 05/05/17 08:53 05/05/17 07:50 05/05/17 07:50 05/05/17 07:50 Intake and Output: 05/05/17 05/05/17 06:59 18:59 Intake Total 1906 Balance 1906 - Medications Medications: Current Medications Insulin Aspart (Novolog) 0 unit SC ACHS [facility] PRN Reason: Protocol Last Admin: 05/05/17 07:28 Dose: Not Given Levetiracetam (Keppra) 500 mg PO BID [facility] Last Admin: 05/05/17 09:32 Dose: 500 mg Losartan Potassium (Cozaar) 50 mg PO DAILY [facility] Last Admin: 05/05/17 09:32 Dose: 50 mg Pantoprazole Sodium (Protonix Ec Tab) 40 mg PO BID [facility] Last Admin: 05/05/17 09:32 Dose: 40 mg Pneumococcal Polyvalent Vaccine (Pneumovax 23 Vaccine) 0.5 ml IM .ONCE ONE Stop: 05/06/17 10:01 Rosuvastatin Calcium (Crestor) 20 mg PO HS [facility] Last Admin: 05/04/17 21:57 Dose: 20 mg - Labs Labs: 05/05/17 07:56 05/05/17 07:56 - Constitutional Appears: Well, No Acute Distress - Head Exam Head Exam: NORMOCEPHALIC - Eye Exam Eye Exam: absent: Scleral icterus - Respiratory Exam Respiratory Exam: Clear to Ausculation Bilateral - Cardiovascular Exam Cardiovascular Exam: REGULAR RHYTHM - GI/Abdominal Exam GI & Abdominal Exam: Soft. absent: Tenderness, Organomegaly - Extremities Exam Extremities Exam: Normal Inspection Assessment and Plan (1) Iron deficiency anemia due to chronic blood loss Assessment & Plan: History of melena, anemia on multiple hospital admissions (previously due to rectal bleed post surgery), and most recently due to "vein in stomach" on EGD at [place] recently, further details unknown at present. Rec: PPI, monitor Hgb, consider repeat EGD by Dr Hutchinson. May advance diet. Status: Chronic (2) Syncope and collapse Assessment & Plan: Cardiology evaluation read and appreciated Status: Resolved
--- NOTE | 2017-05-05 21:34 | CP.PCM.PN ---
Subjective - Date & Time of Evaluation Date of Evaluation: 05/05/17 Time of Evaluation: 13:35 - Subjective Subjective: Patient seen and evaluated Denies chest pain and dyspnea Objective - Vital Signs/Intake and Output Vital Signs (last 24 hours): Temp Pulse Resp BP Pulse Ox 97.7 F 59 L 20 170/80 H 99 05/05/17 16:05 05/05/17 16:05 05/05/17 16:05 05/05/17 16:05 05/05/17 16:05 - Medications Medications: Current Medications Insulin Aspart (Novolog) 0 unit SC [facility] PRN Reason: Protocol Last Admin: 05/05/17 17:15 Dose: Not Given Levetiracetam (Keppra) 500 mg PO BID [facility] Last Admin: 05/05/17 18:49 Dose: 500 mg Losartan Potassium (Cozaar) 50 mg PO DAILY [facility] Last Admin: 05/05/17 09:32 Dose: 50 mg Pantoprazole Sodium (Protonix Ec Tab) 40 mg PO BID [facility] Last Admin: 05/05/17 18:49 Dose: 40 mg Pneumococcal Polyvalent Vaccine (Pneumovax 23 Vaccine) 0.5 ml IM .ONCE ONE Stop: 05/06/17 10:01 Rosuvastatin Calcium (Crestor) 20 mg PO HS [facility] Last Admin: 05/04/17 21:57 Dose: 20 mg - Labs Labs: 05/05/17 07:56 05/05/17 07:56 - Head Exam Head Exam: ATRAUMATIC, NORMAL INSPECTION - Eye Exam Eye Exam: EOMI, Normal appearance, PERRL Pupil Exam: NORMAL ACCOMODATION - ENT Exam ENT Exam: Mucous Membranes Moist, Normal Exam - Neck Exam Neck Exam: Full ROM, Normal Inspection - Respiratory Exam Respiratory Exam: Clear to Ausculation Bilateral, NORMAL BREATHING PATTERN - Cardiovascular Exam Cardiovascular Exam: REGULAR RHYTHM, +S1, +S2 - GI/Abdominal Exam GI & Abdominal Exam: Soft, Normal Bowel Sounds - Extremities Exam Extremities Exam: Full ROM, Normal Inspection - Neurological Exam Neurological Exam: Alert, Awake, CN II-XII Intact - Psychiatric Exam Psychiatric exam: Normal Mood - Skin Skin Exam: Warm Assessment and Plan - Assessment and Plan (Free Text) Assessment: 1. GI bleeding/anemia 2. CAD s/p stents 2015. cardiac point of view stable 3. HTN controlled For pre Op please read my initial consult Thank you
[2017-05-06 07:39] LABS: BASO % 0.7 % (0.0-2.0); EOS # 0.6 K/uL (0.0-0.7); EOS % 9.5 % (0.0-4.0); HEMATOCRIT 33.3 % (34.0-47.0); LYMPH % 15.8 % (20.0-40.0); MEAN CELL VOLUME 84.9 fL (81.0-99.0); MEAN CORPUSCULAR HEMOGLOBIN 28.3 pg (27.0-31.0); MEAN CORPUSCULAR HGB CONC 33.4 g/dL (33.0-37.0); MEAN PLATELET VOLUME 8.1 fL (7.2-11.7); MONO # 0.7 K/uL (0.0-0.8); MONO % 11.6 % (0.0-10.0); NRBC % 0.1 % (0.0-2.0); RED CELL DISTRIBUTION WIDTH 18.9 % (11.5-14.5); WHITE BLOOD COUNT 6.4 K/uL (4.8-10.8)
[2017-05-06 07:43] LABS: CHLORIDE 105 mmol/L (98-107); POTASSIUM 4.1 mmol/L (3.6-5.2); SODIUM 138 mmol/L (132-148)
[2017-05-06 07:46] LABS: ALB/GLOB RATIO 1.2 (1.0-2.1); ALKALINE PHOSPHATASE 74 U/L (38-126); AST/SGOT 17 U/L (14-36); BILIRUBIN,TOTAL 0.7 mg/dL (0.2-1.3); BLOOD UREA NITROGEN 14 mg/dL (7-17); CARBON DIOXIDE 23 mmol/L (22-30); GFR AFRICAN-AMERICAN > 60; GLUCOSE,RANDOM 91 mg/dL (65-105); PHOSPHOROUS 3.7 mg/dL (2.5-4.5); TOTAL PROTEIN 6.8 g/dL (6.3-8.3)
[2017-05-06 07:47] LABS: ALT/SGPT 25 U/L (9-52); CALCIUM 9.1 mg/dl (8.6-10.4); MAGNESIUM 1.8 mg/dL (1.6-2.3)
[2017-05-06] MEDS: (Novolog) Insulin Aspart, Recombinant 100 u/ml 10 ml vial SC SCH ×4 (08:43→21:55)
--- NOTE | 2017-05-06 08:45 | CP.PCM.PN ---
Subjective - Date & Time of Evaluation Date of Evaluation: 05/06/17 Time of Evaluation: 08:40 - Subjective Subjective: Patient had a single bowel movement yesterday which was dark (black). She has not had a bowel movement so far today. She denies having nausea, vomiting, abdominal pain. Objective - Vital Signs/Intake and Output Vital Signs (last 24 hours): Temp Pulse Resp BP Pulse Ox 97.6 F 53 L 18 162/74 H 98 05/06/17 07:25 05/06/17 07:25 05/06/17 07:25 05/06/17 07:25 05/06/17 07:25 Intake and Output: 05/06/17 05/06/17 06:59 18:59 Intake Total 440 Balance 440 - Medications Medications: Current Medications Amlodipine Besylate (Norvasc) 5 mg PO DAILY [facility] Insulin Aspart (Novolog) 0 unit SC ACHS [facility] PRN Reason: Protocol Last Admin: 05/05/17 21:43 Dose: Not Given Levetiracetam (Keppra) 500 mg PO BID [facility] Last Admin: 05/05/17 18:49 Dose: 500 mg Losartan Potassium (Cozaar) 50 mg PO DAILY [facility] Last Admin: 05/05/17 09:32 Dose: 50 mg Pantoprazole Sodium (Protonix Ec Tab) 40 mg PO BID [facility] Last Admin: 05/05/17 18:49 Dose: 40 mg Pneumococcal Polyvalent Vaccine (Pneumovax 23 Vaccine) 0.5 ml IM .ONCE ONE Stop: 05/06/17 10:01 Rosuvastatin Calcium (Crestor) 20 mg PO [facility] Last Admin: 05/05/17 21:42 Dose: 20 mg - Labs Labs: 05/06/17 07:18 05/06/17 07:18 - Constitutional Appears: No Acute Distress - Head Exam Head Exam: ATRAUMATIC, NORMOCEPHALIC - Eye Exam Eye Exam: EOMI, PERRL - Neck Exam Neck Exam: absent: Lymphadenopathy, Thyromegaly - Respiratory Exam Respiratory Exam: NORMAL BREATHING PATTERN. absent: Rales, Rhonchi, Wheezes - Cardiovascular Exam Cardiovascular Exam: REGULAR RHYTHM, +S1, +S2. absent: Gallop, Rubs, Murmur - GI/Abdominal Exam GI & Abdominal Exam: Soft, Normal Bowel Sounds. absent: Tenderness, Mass, Organomegaly - Rectal Exam Rectal Exam: Deferred - Extremities Exam Extremities Exam: absent: Calf Tenderness, Pedal Edema Assessment and Plan (1) Melena Assessment & Plan: Patient had another black bowel movement yesterday. After transfusion, the HGB has remained stable, and is now 11.1 (was 10.8). She had an EGD at [facility], but the reports have not yet been obtained. In view of recurrent melena requiring transfusion, I would recommend repeat EGD in AM. Status: Acute
--- NOTE | 2017-05-06 08:54 | CP.PCM.PN ---
<Lars Flores - Last Filed: 05/06/17 09:17> Subjective - Date & Time of Evaluation Date of Evaluation: 05/06/17 Time of Evaluation: 08:54 - Subjective Subjective: PGY1 Medicine Note for Dr. Conley Patient was seen and examined at bedside. She reports that she had one BM yesterday and it appeared more brown than black compared to sunday's BM. Patient currently has no complaints. Denied fever, chills, headache, chest pain , abdominal pain, n/v/d/c, or urinary symptoms. Objective - Vital Signs/Intake and Output Vital Signs (last 24 hours): Temp Pulse Resp BP Pulse Ox 97.6 F 53 L 18 162/74 H 98 05/06/17 07:25 05/06/17 07:25 05/06/17 07:25 05/06/17 07:25 05/06/17 07:25 Intake and Output: 05/06/17 05/06/17 06:59 18:59 Intake Total 440 Balance 440 - Medications Medications: Current Medications Amlodipine Besylate (Norvasc) 5 mg PO DAILY ON LICENSE OF [facility] Insulin Aspart (Novolog) 0 unit SC ACHS ON LICENSE OF [facility] PRN Reason: Protocol Last Admin: 05/06/17 08:43 Dose: Not Given Levetiracetam (Keppra) 500 mg PO BID ON LICENSE OF [facility] Last Admin: 05/05/17 18:49 Dose: 500 mg Losartan Potassium (Cozaar) 50 mg PO DAILY ON [facility] OF [facility] Last Admin: 05/05/17 09:32 Dose: 50 mg Pantoprazole Sodium (Protonix Ec Tab) 40 mg PO BID ON LICENSE OF [facility] Last Admin: 05/05/17 18:49 Dose: 40 mg Pneumococcal Polyvalent Vaccine (Pneumovax 23 Vaccine) 0.5 ml IM .ONCE ONE Stop: 05/06/17 10:01 Rosuvastatin Calcium (Crestor) 20 mg PO HS ON LICENSE OF [facility] Last Admin: 05/05/17 21:42 Dose: 20 mg - Labs Labs: 05/06/17 07:18 05/06/17 07:18 Assessment and Plan - Assessment and Plan (Free Text) Plan: Anemia * Most likely secondary to GI Bleed * STOOL OCCULT (05/05) = positive * Hemoglobin stable 10.8 --> 11.1 * GI consulted - Dr. Phipps - office call this morning. As per nursing plan for EGD and Colonoscopy on Sunday. * Patient had multiple surgeries secondary to a rectal prolapse where she had a mesh placed and then removed. She has been seen for GI bleeds here and most recently at [place] where she had an EGD performed on 04/17/17. She was found to have an active bleed. She was discharged the same day. She has been having dark tarry tools for the past week. * S/P 2 units of PRBCs - 2- more units cb be placed on hold- 7.8 --> 10.8 CAD with Stents * Dr. Whitaker performed her cardiac cath and stent placements in 2014 * Cardiology consulted for cardiac clearance for EGD and Colonoscopy * As per Dr. Whitaker- She is low cardiac risk for Colonoscopy and Endoscopy under conscious sedation. Hx of HTN * Patient takes Cozaar 50mg PO daily - RESUMED Hypotensive - RESOLVED * NS @ 100cc/hr * S/P 2 units of PRBCs * Continue to monitor HLD * Crestor 20mg PO Daily DM * Patient takes Metformin 500mg PO daily - will hold * Accuchecks * ISS-low * Monitor Atrial Fibrillation * Patient takes ASA 81mg PO daily - this was held due to possible GI bleed Seizures * Keppra 500mg PO BID Hx of CVA Infrarenal AAA * 02/08/17 CT Abdomen and Pelvis - 4 x 4 x 4.8 cm * Will need repeat abdominal US or CT in 6-12 months for monitoring Prophylactic Measures * VTE c/i due to history and current GI bleed, SCDs * GI PPX - c/i due to GI bleed * D Lars Flores PGY1 <Otoniel Conley Jr. - Last Filed: 05/06/17 16:42> Objective - Vital Signs/Intake and Output Vital Signs (last 24 hours): Temp Pulse Resp BP Pulse Ox 98.1 F 65 20 120/67 98 05/06/17 15:27 05/06/17 15:27 05/06/17 15:27 05/06/17 15:27 05/06/17 15:27 Intake and Output: 05/06/17 05/06/17 06:59 18:59 Intake Total 440 400 Balance 440 400 - Medications Medications: Current Medications Amlodipine Besylate (Norvasc) 5 mg PO DAILY [facility] Last Admin: 05/06/17 11:00 Dose: 5 mg Insulin Aspart (Novolog) 0 unit SC ACHS ON [facility] OF [facility] PRN Reason: Protocol Last Admin: 05/06/17 11:58 Dose: Not Given Levetiracetam (Keppra) 500 mg PO BID ON [facility] Last Admin: 05/06/17 11:00 Dose: 500 mg Losartan Potassium (Cozaar) 50 mg PO DAILY ON [facility] Last Admin: 05/06/17 11:00 Dose: 50 mg Pantoprazole Sodium (Protonix Ec Tab) 40 mg PO BID ON [facility] Last Admin: 05/06/17 11:00 Dose: 40 mg Rosuvastatin Calcium (Crestor) 20 mg PO HS ON [facility] OF [facility] Last Admin: 05/05/17 21:42 Dose: 20 mg - Labs Labs: 05/06/17 07:18 05/06/17 07:18 Attending/Attestation - Attestation I have personally seen and examined this patient.: Yes I have fully participated in the care of the patient.: Yes I have reviewed all pertinent clinical information, including history, physical exam and plan: Yes Notes (Text): 05/06/17 16:42 Agree with resident note and findings
[2017-05-06] MEDS ORDERED: Pneumococcal 23-Valent Vaccine IM ONE (10:00)
[2017-05-06] MEDS: Pantoprazole 40 mg EC Tab PO SCH ×2 (11:00→17:20)
[2017-05-06 15:31] VITALS: RESP 20
--- NOTE | 2017-05-06 19:55 | CP.PCM.PN ---
Subjective - Date & Time of Evaluation Date of Evaluation: 05/06/17 Time of Evaluation: 06:45 - Subjective Subjective: Patient seen and evaluated No cardiac events noted Objective - Vital Signs/Intake and Output Vital Signs (last 24 hours): Temp Pulse Resp BP Pulse Ox 98.1 F 65 20 120/67 98 05/06/17 15:27 05/06/17 15:27 05/06/17 15:27 05/06/17 15:27 05/06/17 15:27 Intake and Output: 05/06/17 05/07/17 18:59 06:59 Intake Total 400 Balance 400 - Medications Medications: Current Medications Amlodipine Besylate (Norvasc) 5 mg PO DAILY [facility] Last Admin: 05/06/17 11:00 Dose: 5 mg Insulin Aspart (Novolog) 0 unit SC ACHS [facility] PRN Reason: Protocol Last Admin: 05/06/17 16:55 Dose: Not Given Levetiracetam (Keppra) 500 mg PO BID [facility] Last Admin: 05/06/17 17:20 Dose: 500 mg Losartan Potassium (Cozaar) 50 mg PO DAILY [facility] Last Admin: 05/06/17 11:00 Dose: 50 mg Pantoprazole Sodium (Protonix Ec Tab) 40 mg PO BID [facility] Last Admin: 05/06/17 17:20 Dose: 40 mg Rosuvastatin Calcium (Crestor) 20 mg PO HS [facility] Last Admin: 05/05/17 21:42 Dose: 20 mg - Labs Labs: 05/06/17 07:18 05/06/17 07:18 - Head Exam Head Exam: ATRAUMATIC, NORMAL INSPECTION - Eye Exam Eye Exam: EOMI, Normal appearance, PERRL Pupil Exam: NORMAL ACCOMODATION - ENT Exam ENT Exam: Mucous Membranes Moist, Normal Exam - Respiratory Exam Respiratory Exam: Clear to Ausculation Bilateral, NORMAL BREATHING PATTERN - Cardiovascular Exam Cardiovascular Exam: REGULAR RHYTHM, +S1, +S2 - GI/Abdominal Exam GI & Abdominal Exam: Soft, Normal Bowel Sounds - Extremities Exam Extremities Exam: Full ROM, Normal Capillary Refill, Normal Inspection - Back Exam Back Exam: NORMAL INSPECTION - Neurological Exam Neurological Exam: Alert, Awake, CN II-XII Intact, Normal Gait, Oriented x3 - Psychiatric Exam Psychiatric exam: Normal Affect, Normal Mood - Skin Skin Exam: Dry, Warm Assessment and Plan - Assessment and Plan (Free Text) Assessment: 1. GI bleeding/anemia 2. CAD s/p stents 2015. cardiac point of view stable 3. HTN controlled For pre Op please read my initial consult Thank you
[2017-05-07 00:59] VITALS: O2SAT 97
[2017-05-07 07:36] LABS: BASO % 0.6 % (0.0-2.0); EOS # 0.6 K/uL (0.0-0.7); EOS % 8.8 % (0.0-4.0); HEMATOCRIT 34.2 % (34.0-47.0); LYMPH # 1.2 K/uL (1.0-4.3); LYMPH % 18.2 % (20.0-40.0); MEAN CELL VOLUME 85.1 fL (81.0-99.0); MEAN CORPUSCULAR HEMOGLOBIN 28.4 pg (27.0-31.0); MEAN CORPUSCULAR HGB CONC 33.4 g/dL (33.0-37.0); MEAN PLATELET VOLUME 8.4 fL (7.2-11.7); MONO # 0.8 K/uL (0.0-0.8); MONO % 11.5 % (0.0-10.0); NRBC % 0.2 % (0.0-2.0); RED CELL DISTRIBUTION WIDTH 18.8 % (11.5-14.5); WHITE BLOOD COUNT 6.5 K/uL (4.8-10.8)
--- NOTE | 2017-05-07 07:42 | CP.PCM.PN ---
<Cyndy Mullen - Last Filed: 05/07/17 07:37> Subjective - Date & Time of Evaluation Date of Evaluation: 05/07/17 Time of Evaluation: 07:00 - Subjective Subjective: Medicine Note for Dr. Conley Patient was seen and examined at bedside. NPO - for EGD today. Patient reports she feels much better. Denied fever, chills, headache, chest pain, abdominal pain, n/v/d/c, or urinary symptoms. Objective - Vital Signs/Intake and Output Vital Signs (last 24 hours): Temp Pulse Resp BP Pulse Ox 97.5 F L 56 L 20 123/65 97 05/06/17 23:29 05/07/17 00:54 05/06/17 23:29 05/06/17 23:29 05/06/17 23:29 - Medications Medications: Current Medications Amlodipine Besylate (Norvasc) 5 mg PO DAILY [facility] Last Admin: 05/06/17 11:00 Dose: 5 mg Insulin Aspart (Novolog) 0 unit SC ACHS [facility] PRN Reason: Protocol Last Admin: 05/06/17 21:55 Dose: Not Given Levetiracetam (Keppra) 500 mg PO BID [facility] Last Admin: 05/06/17 17:20 Dose: 500 mg Losartan Potassium (Cozaar) 50 mg PO DAILY [facility] Last Admin: 05/06/17 11:00 Dose: 50 mg Pantoprazole Sodium (Protonix Ec Tab) 40 mg PO BID [facility] Last Admin: 05/06/17 17:20 Dose: 40 mg Rosuvastatin Calcium (Crestor) 20 mg PO HS [facility] Last Admin: 05/06/17 21:21 Dose: 20 mg - Labs Labs: 05/06/17 07:18 05/06/17 07:18 - Constitutional Appears: No Acute Distress - Head Exam Head Exam: NORMAL INSPECTION, NORMOCEPHALIC - Eye Exam Eye Exam: EOMI, Normal appearance, PERRL Pupil Exam: NORMAL ACCOMODATION - ENT Exam ENT Exam: Mucous Membranes Moist - Respiratory Exam Respiratory Exam: Clear to Ausculation Bilateral, NORMAL BREATHING PATTERN. absent: Wheezes - Cardiovascular Exam Cardiovascular Exam: REGULAR RHYTHM, RRR, +S1, +S2 - GI/Abdominal Exam GI & Abdominal Exam: Soft, Normal Bowel Sounds. absent: Distended, Tenderness - Extremities Exam Extremities Exam: Normal Inspection. absent: Pedal Edema, Tenderness - Neurological Exam Neurological Exam: Alert, Awake, Oriented x3 - Psychiatric Exam Psychiatric exam: Normal Affect, Normal Mood - Skin Skin Exam: Dry, Intact, Normal Color, Warm. absent: Pallor Assessment and Plan - Assessment and Plan (Free Text) Plan: Anemia * Most likely secondary to GI Bleed * GI consulted - Dr. Phipps - office call this morning. As per nursing plan for EGD and Colonoscopy on Sunday. * Patient had multiple surgeries secondary to a rectal prolapse where she had a mesh placed and then removed. She has been seen for GI bleeds here and most recently at [place] where she had an EGD performed on 04/17/17. She was found to have an active bleed. She was discharged the same day. She has been having dark tarry tools for the past week. * S/P 2 units of PRBCs on 05/04 - 2- more units will be placed on hold * 1st STOOL OCCULT + positive * NPO - for EGD today 05/07/17, possible colonoscopy. Unclear if colonoscopy will be done today as well. CAD with Stents * Dr. Whitaker performed her cardiac cath and stent placements in 2014 * Cardiology consulted for cardiac clearance for EGD and Colonoscopy * As per conversation with Dr. Whitaker- She is low cardiac risk for Colonoscopy and Endoscopy under conscious sedation. Hx of HTN * Patient takes Cozaar 50mg PO daily * Added Norvasc 5mg PO daily HLD * Crestor 20mg PO Daily DM * Patient takes Metformin 500mg PO daily - will hold * Accuchecks * ISS-low * Monitor Atrial Fibrillation * Patient takes ASA 81mg PO daily - this was held due to possible GI bleed Seizures * Keppra 500mg PO BID Hypotensive - RESOLVED * NS @ 100cc/hr * S/P 2 units of PRBCs * Continue to monitor Hx of CVA Infrarenal AAA * 02/08/17 CT Abdomen and Pelvis - 4 x 4 x 4.8 cm * Will need repeat abdominal US or CT in 6-12 months for monitoring Prophylactic Measures * VTE c/i due to history and current GI bleed, SCDs * GI PPX - c/i due to GI bleed * HHD DW Paz Lyn DO, PGY-1 <Otoniel Conley Jr. - Last Filed: 05/15/17 10:36> Objective - Vital Signs/Intake and Output Vital Signs (last 24 hours): Temp Pulse Resp BP Pulse Ox 98.0 F 60 20 112/65 97 05/07/17 08:32 05/07/17 08:32 05/07/17 08:32 05/07/17 08:32 05/07/17 08:32 - Labs Labs: 05/07/17 07:18 05/07/17 07:18 Attending/Attestation - Attestation I have personally seen and examined this patient.: Yes I have fully participated in the care of the patient.: Yes I have reviewed all pertinent clinical information, including history, physical exam and plan: Yes Notes (Text): 05/15/17 10:35 Agree with resident note and findings
[2017-05-07 07:54] VITALS: PULSE 60
[2017-05-07] MEDS: (Novolog) Insulin Aspart, Recombinant 100 u/ml 10 ml vial SC SCH (07:57)
--- NOTE | 2017-05-07 08:11 | CP.PCM.PN ---
Subjective - Date & Time of Evaluation Date of Evaluation: 05/07/17 Time of Evaluation: 08:06 - Subjective Subjective: No further bleeding and stools more brown than black, NO change in H/H since transfusions. EGD planned for today in view of black stools since admission and recent "bleeding gastric lesions" found and treated at [place] two weeks ago ( report still not received by hospital or office as requested). In the absence of further "rectal bleeding/hematochezia" (which she DID report in office prior to admit to [place] and resulted in scheduling of outpatient EGD/Colonoscopy ) it was felt a follow up EGD to assess the UGI source would be prudent with the colonoscopy to be deferred, and not warranted, at the current time. Patient and family notified Dr Nova yesterday that unless she was going to have both procedures done that they didn't want anything to be done to avoid additional anesthesia requirements. I spoke with son personally at 10:30 last pm and explained my thought process on this and the fact that taking a "prep" in the setting of a possible active UGI bleed/ulcer could precipitate active bleeding. The family conferenced on this and again decided NOT to procede with EGD at this time. I explained there is truly no reason to do a colonoscopy if she had a documented stomach lesion that was bleeding "just to check on the status of the surgical healing in the sigmoid" unless we suspect there is further bleeding from this area. (Son also expressed that she was admitted for low blood pressure and not bleeding and that her hemoglobin upon discharge from [place] "7.2" which is similar to that on admission here. No prior results were known to us upon admission) Objective - Vital Signs/Intake and Output Vital Signs (last 24 hours): Temp Pulse Resp BP Pulse Ox 97.5 F L 60 20 123/65 97 05/06/17 23:29 05/07/17 04:46 05/06/17 23:29 05/06/17 23:29 05/06/17 23:29 Intake and Output: 05/07/17 05/07/17 06:59 18:59 Intake Total 0 Balance 0 - Medications Medications: Current Medications Amlodipine Besylate (Norvasc) 5 mg PO DAILY [facility] Last Admin: 05/06/17 11:00 Dose: 5 mg Insulin Aspart (Novolog) 0 unit SC ACHS [facility] PRN Reason: Protocol Last Admin: 05/07/17 07:57 Dose: Not Given Levetiracetam (Keppra) 500 mg PO BID [facility] Last Admin: 05/06/17 17:20 Dose: 500 mg Losartan Potassium (Cozaar) 50 mg PO DAILY [facility] Last Admin: 05/06/17 11:00 Dose: 50 mg Pantoprazole Sodium (Protonix Ec Tab) 40 mg PO BID [facility] Last Admin: 05/06/17 17:20 Dose: 40 mg Rosuvastatin Calcium (Crestor) 20 mg PO HS [facility] Last Admin: 05/06/17 21:21 Dose: 20 mg - Labs Labs: 05/07/17 07:18 05/06/17 07:18 - Constitutional Appears: No Acute Distress - Head Exam Head Exam: ATRAUMATIC, NORMOCEPHALIC - Eye Exam Eye Exam: EOMI, PERRL - Respiratory Exam Respiratory Exam: NORMAL BREATHING PATTERN - Cardiovascular Exam Cardiovascular Exam: REGULAR RHYTHM, +S1 - GI/Abdominal Exam GI & Abdominal Exam: Soft, Normal Bowel Sounds. absent: Tenderness, Mass - Extremities Exam Extremities Exam: Normal Inspection Assessment and Plan (1) Iron deficiency anemia Assessment & Plan: H/H stable Status: Acute (2) GI bleeding Assessment & Plan: NO evidence of further active bleeding. Still await review of workup from [facility]. EGD +/- colonoscopy can be arranged as out patient after further observation. Plan for discharge to outpatient follow up as discussed with son last evening. Follow up appointment had been made for two weeks from now on visit from last week. Status: Acute (3) Diverticulosis large intestine w/o perforation or abscess w/o bleeding Status: Chronic (4) Syncope Assessment & Plan: Further CArdiac work up if needed. Status: Acute (5) Occult blood positive stool Assessment & Plan: Occult blood positive likely related to UGI source. No workup at current time as per family wishes as repeat EGD would be of benefit and not a colonoscopy until UGI source has been assessed and report form [facility] obtained. Status: Acute
[2017-05-07 08:20] LABS: CHLORIDE 103 mmol/L (98-107); POTASSIUM 4.3 mmol/L (3.6-5.2); SODIUM 139 mmol/L (132-148)
[2017-05-07 08:22] LABS: ALB/GLOB RATIO 1.3 (1.0-2.1); AST/SGOT 17 U/L (14-36); BILIRUBIN,TOTAL 0.7 mg/dL (0.2-1.3); CARBON DIOXIDE 23 mmol/L (22-30); GFR AFRICAN-AMERICAN > 60; TOTAL PROTEIN 6.9 g/dL (6.3-8.3)
[2017-05-07 08:23] LABS: ALKALINE PHOSPHATASE 78 U/L (38-126); ALT/SGPT 24 U/L (9-52); BLOOD UREA NITROGEN 16 mg/dL (7-17); GLUCOSE,RANDOM 93 mg/dL (65-105); MAGNESIUM 1.8 mg/dL (1.6-2.3); PHOSPHOROUS 3.9 mg/dL (2.5-4.5)
[2017-05-07 08:33] VITALS: BP 112/65; TEMP 98
--- NOTE | 2017-05-07 09:27 | CP.PCM.DIS ---
Provider - Provider Date of Admission: 05/03/17 21:48 Attending physician: Otoniel Conley Jr, MD Time Spent in preparation of Discharge (in minutes): 55 Hospital Course - Lab Results Lab Results: Most Recent Lab Values WBC 6.5 K/uL (4.8-10.8) 05/07/17 07:18 RBC 4.03 Mil/uL (3.80-5.20) 05/07/17 07:18 Hgb 11.4 g/dL (11.0-16.0) 05/07/17 07:18 Hct 34.2 % (34.0-47.0) 05/07/17 07:18 MCV 85.1 fL (81.0-99.0) 05/07/17 07:18 MCH 28.4 pg (27.0-31.0) 05/07/17 07:18 MCHC 33.4 g/dL (33.0-37.0) 05/07/17 07:18 RDW 18.8 % (11.5-14.5) H 05/07/17 07:18 Plt Count 343 K/uL (130-400) 05/07/17 07:18 MPV 8.4 fL (7.2-11.7) 05/07/17 07:18 Neut % (Auto) 60.9 % (50.0-75.0) 05/07/17 07:18 Lymph % (Auto) 18.2 % (20.0-40.0) L 05/07/17 07:18 Bucks % (Auto) 11.5 % (0.0-10.0) H 05/07/17 07:18 Eos % (Auto) 8.8 % (0.0-4.0) H 05/07/17 07:18 Baso % (Auto) 0.6 % (0.0-2.0) 05/07/17 07:18 Neut # 4.0 K/uL (1.8-7.0) 05/07/17 07:18 Lymph # 1.2 K/uL (1.0-4.3) 05/07/17 07:18 Bucks # 0.8 K/uL (0.0-0.8) 05/07/17 07:18 Eos # 0.6 K/uL (0.0-0.7) 05/07/17 07:18 Baso # 0.0 K/uL (0.0-0.2) 05/07/17 07:18 Sodium 139 mmol/L (132-148) 05/07/17 07:18 Potassium 4.3 mmol/L (3.6-5.2) 05/07/17 07:18 Chloride 103 mmol/L (98-107) 05/07/17 07:18 Carbon Dioxide 23 mmol/L (22-30) 05/07/17 07:18 Anion Gap 17 (10-20) 05/07/17 07:18 BUN 16 mg/dL (7-17) 05/07/17 07:18 Creatinine 0.7 MG/DL (0.7-1.2) 05/07/17 07:18 Est GFR ( Amer) > 60 05/07/17 07:18 Est GFR (Non-Af Amer) > 60 05/07/17 07:18 POC Glucose (mg/dL) 102 mg/dL (65-110) 05/07/17 06:08 Random Glucose 93 mg/dL (65-105) 05/07/17 07:18 Calcium 9.0 mg/dl (8.6-10.4) 05/07/17 07:18 Phosphorus 3.9 mg/dL (2.5-4.5) 05/07/17 07:18 Magnesium 1.8 mg/dL (1.6-2.3) 05/07/17 07:18 Total Bilirubin 0.7 mg/dL (0.2-1.3) 05/07/17 07:18 AST 17 U/L (14-36) 05/07/17 07:18 ALT 24 U/L (9-52) 05/07/17 07:18 Alkaline Phosphatase 78 U/L (38-126) 05/07/17 07:18 Total Creatine Kinase 37 U/L (30-135) 05/04/17 14:55 CK-MB (Mass) 0.91 ng/mL (0.0-3.38) 05/04/17 14:55 Troponin I 0.0160 ng/mL (0.00-0.120) 05/03/17 20:35 Troponin I, Quant < 0.0120 ng/mL (0.00-0.120) 05/04/17 14:55 NT-Pro-B Natriuret Pep 555 pg/mL (0-900) 05/03/17 20:35 Total Protein 6.9 g/dL (6.3-8.3) 05/07/17 07:18 Albumin 3.9 g/dL (3.5-5.0) 05/07/17 07:18 Globulin 3.0 gm/dL (2.2-3.9) 05/07/17 07:18 Albumin/Globulin Ratio 1.3 (1.0-2.1) 05/07/17 07:18 Urine Color Straw (YELLOW) 05/04/17 22:38 Urine Clarity Clear (Clear) 05/04/17 22:38 Urine pH 6.0 (5.0-8.0) 05/04/17 22:38 Ur Specific Morrison 1.013 (1.003-1.030) 05/04/17 22:38 Urine Protein Negative mg/dL (NEGATIVE) 05/04/17 22:38 Urine Glucose (UA) Normal mg/dL (Normal) 05/04/17 22:38 Urine Ketones Negative mg/dL (NEGATIVE) 05/04/17 22:38 Urine Blood Negative (NEGATIVE) 05/04/17 22:38 Urine Nitrate Negative (NEGATIVE) 05/04/17 22:38 Urine Bilirubin Negative (NEGATIVE) 05/04/17 22:38 Urine Urobilinogen Normal mg/dL (0.2-1.0) 05/04/17 22:38 Ur Leukocyte Esterase Neg Qiana/uL (Negative) 05/04/17 22:38 Urine WBC (Auto) 1 /hpf (0-5) 05/04/17 22:38 Urine RBC (Auto) < 1 /hpf (0-3) 05/04/17 22:38 Ur Squamous Epith Cells 1 /hpf (0-5) 05/04/17 22:38 Stool Occult Blood Positive (NEGATIVE) H 05/05/17 17:25 Blood Type A NEGATIVE 05/04/17 10:50 Antibody Screen Negative 05/04/17 10:50 - Hospital Course Hospital Course: Upon Admission: Patient was seen and examined at approximately 7:10 AM this morning. Pipe Layer Helper was not notified by the ED of patient's admission to attending service as per protocol. Patient was admitted to the floor without notification to covering night resident. CC: chest pain HPI: 71 year old female with PMHx significant for hypertension, CAD, DM, HLD, anemia, GI bleed, diverticulitis and gastritis presents with complaints of chest pain which started the evening prior. Patient described the pain as substernal without radiation. The pain was not reproducible or exacerbated by movements. Patient states that she was not sure whether her blood pressure was elevated or decreased at the time because it often fluctuates. Per the ED note, patient's blood pressure was checked at home and found to be hypotensive which prompted a trip to the emergency room for further evaluation. Patient states that she had some nausea and shortness of breath last night. At the time of evaluation this morning, patient denies chest pain or palpitations, fevers or chills, headaches, urinary or bowel changes. PMH: as stated above Surgical Hx: exploratory laparotomy with rectosgmoid colon resection for removal of eroding mesh 12/19/16, rectal prolapse repair, colonoscopy, EGD with biopsy, internal hemorrhoid surgery (2015), coronary stents x 3 (2014) Family Hx: Mother of [place], brother of liver cancer Meds: Aspirin 81mg po daily, Atorvastatin 40mg po HS, Losartan 50mg po daily, Metformin 500mg po daily, carvedilol 12.5mg po BID, pantoprazole 40mg po daily Social hx: Smokes 5-6 cigarettes per day x 48 years, denies alcohol and drug use. Lives with daughter. Allergies: Penicillin (rash) PMD: Dr. Conley GI: Dr. Hutchinson Cardio: Dr. Whitaker Surgeon: Dr. Negrete Throughout Hospital Course: Patient was admitted due to hypotension and chest pain. Patient report dark, tarry stools, and had a hx of GI bleed. Patient had multiple surgeries secondary to a rectal prolapse where she had a mesh placed and then removed. She has been seen for GI bleeds here and most recently at [place] where she had an EGD performed on 04/17/17. She was found to have an active bleed. She was discharged the same day. Due to a drop in hemoglobin patient was transfused 2 units of PRBCs. Patient's GI, Dr. Phipps, was consulted. Original plan was for EGD and Colonoscopy on the following Sunday. However, patient's hemoglobin is stable and the family requested she gets BOTH EGD and Colonoscopy performed, not only one or the either. Dr. Phipps spoke to the family extensively and the family conferenced on this and again decided NOT to procede with EGD at this time. Patient is stable for discharge. This is a brief summary of the patient's hospital course. Please review EMR for full record. Discharge Exam - Head Exam Head Exam: ATRAUMATIC, NORMOCEPHALIC - Eye Exam Eye Exam: EOMI, Normal appearance, PERRL Pupil Exam: NORMAL ACCOMODATION - Respiratory Exam Respiratory Exam: NORMAL BREATHING PATTERN. absent: Decreased Breath Sounds - Cardiovascular Exam Cardiovascular Exam: REGULAR RHYTHM, RRR, +S1, +S2 - GI/Abdominal Exam GI & Abdominal Exam: Normal Bowel Sounds, Soft. absent: Distended - Rectal Exam Rectal Exam: Deferred - Extremities Exam Extremities exam: normal inspection, pedal pulses present - Neurological Exam Neurological exam: Alert, CN II-XII Intact, Oriented x3 - Skin Skin Exam: Dry, Intact, Normal Color, Warm Discharge Plan - Discharge Medications Prescriptions: amLODIPine [Norvasc] 5 mg PO DAILY #30 tab - Follow Up Plan Condition: STABLE Disposition: HOME/ ROUTINE Additional Instructions: Patient is to continue her home medications INCLUDING NORVASC 5mg by mouth daily (for her blood pressure, so two medications Cozaar and Norvasc for blood pressure). Patient is to follow up with , or another fire prevention research engineer for further workup. Patient is to follow up with Dr. Conley within 1 week. Please return to the ED if your are hypotensive, have chest pain, feel week, or continue to have bloody, or dark bowel movements. Paciente es continuar susanna medicamentos en casa INCLUYENDO NORVASC 5 mg por va oral todos los barajas (para randall presin arterial, por lo que dos medicamentos Cozaar y Norvasc para la presin arterial). El paciente debe seguir con el , u otro gastroenterlogo para el estudio adicional. El paciente debe hacer un seguimiento con el Dr. Conley dentro de oniel semana. Por favor, regrese al servicio de urgencias si tiene hipotensin, si tiene dolor en el pecho, siente semana o si contina con movimientos sangrientos o oscuros. Referrals: Otoniel Conley Jr., MD [Medical Doctor] - Jcarlos Hutchinson MD [Staff Provider] -
[2017-05-07] MEDS: Pantoprazole 40 mg EC Tab PO SCH (09:54)
--- NOTE | 2017-05-07 22:36 | CP.PCM.PN ---
Subjective - Date & Time of Evaluation Date of Evaluation: 05/07/17 Time of Evaluation: 07:15 - Subjective Subjective: Patient seen and evaluated Feels good Possible d/c today Follow up with my office in 2 weeks D/W patient Objective - Vital Signs/Intake and Output Vital Signs (last 24 hours): Temp Pulse Resp BP Pulse Ox 98.0 F 60 20 112/65 97 05/07/17 08:32 05/07/17 08:32 05/07/17 08:32 05/07/17 08:32 05/07/17 08:32 - Labs Labs: 05/07/17 07:18 05/07/17 07:18
--- NOTE | 2017-05-15 20:06 | CARD ---
APPROVED REPORT EKG Measurement Heart [id number] <Conclusion> Normal sinus rhythm Possible Inferior infarct, age undetermined Abnormal ECG
--- NOTE | 2017-05-16 14:33 | CARD ---
APPROVED REPORT EKG Measurement Heart [id number] <Conclusion> Normal sinus rhythm Possible Inferior infarct, age undetermined Abnormal ECG
--- NOTE | 2017-05-16 14:33 | CARD ---
APPROVED REPORT EKG Measurement Heart [id number] <Conclusion> Normal sinus rhythm Possible Inferior infarct, age undetermined Abnormal ECG
== END 2017-05-07 11:15 | disposition home or self-care (01) | DRG 812 ==
LOC: C.ER 19:57 → OBSVTOIN 21:48 → C.9E 21:48 → C.6T 23:06
PROVIDERS: ADMIT Internal Medicine; ATTEND Internal Medicine
PROC: 30233N1 Transfusion of Nonautologous Red Blood Cells into Peripheral Vein, Percutaneous Approach (ICD-10-PCS; principal; 2017-05-03)
DX: D50.0 Iron deficiency anemia secondary to blood loss (chronic) (principal); I27.2 Other secondary pulmonary hypertension; I95.9 Hypotension, unspecified; K92.1 Melena; I48.91 Unspecified atrial fibrillation; R56.9 Unspecified convulsions; E11.9 Type 2 diabetes mellitus without complications; I10 Essential (primary) hypertension; I34.0 Nonrheumatic mitral (valve) insufficiency; R55 Syncope and collapse; F17.200 Nicotine dependence, unspecified, uncomplicated; I71.4 Abdominal aortic aneurysm, without rupture; E78.00 Pure hypercholesterolemia, unspecified; K57.90 Diverticulosis of intestine, part unspecified, without perforation or abscess without bleeding; I25.10 Atherosclerotic heart disease of native coronary artery without angina pectoris; E78.5 Hyperlipidemia, unspecified; Z80.0 Family history of malignant neoplasm of digestive organs; Z82.49 Family history of ischemic heart disease and other diseases of the circulatory system; Z95.5 Presence of coronary angioplasty implant and graft; Z86.73 Personal history of transient ischemic attack (TIA), and cerebral infarction without residual deficits

== ENCOUNTER 2018-01-17 20:39 | Inpatient (IN) | payer MEDICARE ==
[2018-01-17 20:40] VITALS: BMI 22.6
[2018-01-17 21:40] LABS: BASO # 0.1 K/uL (0.0-0.2); BASO % 0.8 % (0.0-2.0); EOS # 0.4 K/uL (0.0-0.7); EOS % 4.5 % (0.0-4.0); HEMOGLOBIN 6.6 g/dL (11.0-16.0); LYMPH # 1.2 K/uL (1.0-4.3); LYMPH % 13.2 % (20.0-40.0); MEAN CORPUSCULAR HEMOGLOBIN 26.1 pg (27.0-31.0); MEAN CORPUSCULAR HGB CONC 32.4 g/dL (33.0-37.0); MEAN PLATELET VOLUME 9.1 fL (7.2-11.7); MONO # 0.9 K/uL (0.0-0.8); MONO % 9.9 % (0.0-10.0); NEUT # 6.5 K/uL (1.8-7.0); NEUT % 71.6 % (50.0-75.0); NRBC % 0.1 % (0.0-2.0); RBC 2.55 Mil/uL (3.80-5.20); RED CELL DISTRIBUTION WIDTH 17.2 % (11.5-14.5); WHITE BLOOD COUNT 9.1 K/uL (4.8-10.8)
[2018-01-17 21:43] LABS: MEAN CELL VOLUME 80.6 fL (81.0-99.0)
[2018-01-17 21:52] LABS: INR 0.9; PROTHROMBIN TIME 10.2 SECONDS (9.7-12.2)
[2018-01-17 21:55] LABS: ALB/GLOB RATIO 1.2 (1.0-2.1); ALBUMIN 3.7 g/dL (3.5-5.0); ALT/SGPT 17 U/L (9-52); AST/SGOT 20 U/L (14-36); BLOOD UREA NITROGEN 18 mg/dL (7-17); GFR AFRICAN-AMERICAN > 60; GFR NON-AFRICAN AMERICAN > 60
--- NOTE | 2018-01-17 22:49 | C.PDOC ---
Time Seen by Provider: 01/17/18 21:34 Chief Complaint (Nursing): GI Problem History Per: Patient, Family Onset/Duration Of Symptoms: Days (about 1 week) Current Symptoms Are (Timing): Still Present Number Of Bleeding Episodes: Multiple: Amount of Blood Loss: Medium Severity: Moderate Associated Symptoms: Melena Modifying Factors: None Additional History Per: Prior Records Past Medical History Reviewed: Historical Data, Nursing Documentation, Vital Signs Vital Signs: Last Vital Signs Temp 98.5 F 01/17/18 20:45 Pulse 74 01/17/18 22:04 Resp 20 01/17/18 22:04 BP 143/64 01/17/18 22:04 Pulse Ox 100 01/17/18 22:04 - Medical History PMH: Anemia ( acute and chronic due to GI blood loss), Arthritis, Atrial Fibrillation, CAD, Cardia Arrhythmia, Colonic Polyps, Diabetes, Diverticulitis ( diverticulosis 2014 and 05/2016), Gastritis, HTN, Hypercholesterolemia, Seizures Surgical History: Coronary Stent (2012), Endoscopy Other Surgeries: Partial colectomy? - [facility] Procedures CLOSED ENDOSCOPIC BIOPSY OF LARGE INTESTINE (11/30/14) CONTROL BLEEDING IN GASTROINTESTINAL TRACT, ENDO (12/12/16) CORONAR ARTERIOGR-2 CATH (11/30/14) ESOPHAGOGASTRODUODENOSCOPY [EGD] W/CLOSED BIOPSY (11/30/14) EXCISION OF STOMACH, ENDO, DIAGN (04/09/16) INJECT/INFUSE NEC (06/04/05) LEFT HEART CARDIAC CATH (11/30/14) LT HEART ANGIOCARDIOGRAM (11/30/14) PACKED CELL TRANSFUSION (11/30/14) RELEASE LEFT URETER, OPEN APPROACH (12/12/16) RELEASE PERITONEUM, OPEN APPROACH (12/12/16) RELEASE RIGHT URETER, OPEN APPROACH (12/12/16) REMOVAL OF SYNTH SUB FROM LOW INTEST TRACT, OPEN APPROACH (12/12/16) REPAIR RECTUM, PERCUTANEOUS ENDOSCOPIC APPROACH (07/27/16) RESECTION OF RECTUM, OPEN APPROACH (12/12/16) RESECTION OF SIGMOID COLON, OPEN APPROACH (12/12/16) RESECTION OF SIGMOID COLON, PERCUTANEOUS ENDOSCOPIC APPROACH (07/27/16) ROBOTIC ASSISTED PROCEDURE OF TRUNK, PERC ENDO APPROACH (07/27/16) TRANSFUSE NONAUT FROZEN RED CELLS IN PERIPH VEIN, PERC (12/28/16) TRANSFUSE NONAUT RED BLOOD CELLS IN PERIPH VEIN, PERC (05/03/17) TRANSFUSE NONAUT WHOLE BLOOD IN PERIPH VEIN, PERC (10/13/16) Family History: States: Unknown Family Hx - Social History Hx Tobacco Use: Yes (cut down per daughter) Hx Alcohol Use: No Hx Substance Use: No - Immunization History Hx Tetanus Toxoid Vaccination: Yes Hx Influenza Vaccination: No (per pt declines) Hx Pneumococcal Vaccination: No Review Of Systems Except As Marked, All Systems Reviewed And Found Negative. Constitutional: Negative for: Fever Cardiovascular: Negative for: Chest Pain Respiratory: Negative for: Shortness of Breath Gastrointestinal: Negative for: Vomiting, Abdominal Pain Musculoskeletal: Positive for: Back Pain. Negative for: Neck Pain Skin: Negative for: Rash Neurological: Negative for: Weakness, Numbness Physical Exam - Physical Exam Appears: No Acute Distress Skin: Warm, Dry, Pale Head: Atraumatic, Normacephalic Eye(s): bilateral: PERRL, EOMI, Conjunctiva Pale Neck: Normal ROM, Supple Cardiovascular: Rhythm Regular Respiratory: Normal Breath Sounds, No Accessory Muscle Use Gastrointestinal/Abdominal: Soft, No Tenderness Rectal: Heme Positive, Other (Dark-brown stool) Extremity: Normal ROM Neurological/Psych: Oriented x3, Normal Motor, Normal Sensation ED Course And Treatment - Laboratory Results Result Diagrams: 01/17/18 21:35 01/17/18 21:35 Lab Interpretation: Abnormal Interpretation Of Abnormal: Anemia O2 Sat by Pulse Oximetry: 100 Pulse Ox Interpretation: Normal Progress - Interventions Interventions:: Observation - Medications Administered Intravenous: Other (PPI) - Data Reviewed Data Reviewed: Lab, Old records - Critical Care Citical Care: Excluding Proc Time Critical Care Time: 45 minutes - Continuity of Care Discussed patient case with:: Patient, Family-HIPPA compliant, ED Nurse, PMD - Patient Plan Patient Plan: Admission, Telemetry Disposition Discussed With DrJairo: Otoniel Conley Jr. Comment: He accepted pt on his service. Pt was also signed out to MAR. Doctor Will See Patient In The: Hospital Counseled Patient/Family Regarding: Studies Performed, Diagnosis - Disposition Disposition: HOSPITALIZED Disposition Time: 22:51 Condition: GUARDED Forms: [facility] (French) - Clinical Impression Clinical Impression: Anemia, GI bleeding
--- NOTE | 2018-01-17 23:12 | CP.PCM.HP ---
History of Present Illness - History of Present Illness History of Present Illness: CC: black tarry stools x 1d PMD: Dr. Conley HPI: 71 year old female with PMHx significant for hypertension, CAD, DM, HLD, anemia, GI bleed, diverticulitis and gastritis presenting for black tarry stools. She states she had an endoscopy and colonoscopy at [facility] yesterday and since then has developed black tarry stools. She has no other complaints; denies fevers/chills, STEPHENSON, CP, SOB, abdominal pain, N/V/D, dysuria/freq/urg or lower extremity pain/swelling. She has stopped taking her aspirin and plavix 2/ 2 to GI bleeding with a significant history for stent placement. PMH: as stated above Surgical Hx: exploratory laparotomy with rectosgmoid colon resection for removal of eroding mesh 12/19/16, rectal prolapse repair, colonoscopy, EGD with biopsy, internal hemorrhoid surgery (2016), coronary stents x 3 (2014) Family Hx: Mother of [place], brother of liver cancer Meds: Aspirin held 2/2 to bleed, Atorvastatin 40mg po HS, Losartan 50mg po daily , Metformin 500mg po daily, carvedilol 12.5mg po BID, pantoprazole 40mg po daily Social hx: Smokes 5-6 cigarettes per day x 48 years, denies alcohol and drug use. Lives with daughter. Allergies: Penicillin (rash) PMD: Dr. Conley GI: Dr. Hutchinson (although patient requesting to see someone else) Cardio: Dr. Whitaker Surgeon: Dr. Negrete Present on Admission - Present on Admission Any Indicators Present on Admission: Yes History of DVT/PE: No History of Uncontrolled Diabetes: Yes Urinary Catheter: No Decubitus Ulcer Present: No Past Patient History - Infectious Disease Hx of Infectious Diseases: None - Past Medical History & Family History Past Medical History?: Yes - Past Social History Smoking Status: Current Some Days Smoker - CARDIAC Hx Atrial Fibrillation: Yes Hx Cardia Arrhythmia: Yes Hx Hypercholesterolemia: Yes Hx Hypertension: Yes - PULMONARY Hx Respiratory Disorders: No - NEUROLOGICAL Hx Seizures: Yes - HEENT Hx HEENT Problems: No - RENAL Hx Chronic Kidney Disease: No - ENDOCRINE/METABOLIC Hx Diabetes Mellitus Type 2: Yes - HEMATOLOGICAL/ONCOLOGICAL Hx Anemia: Yes ( acute and chronic due to GI blood loss) - INTEGUMENTARY Hx Dermatological Problems: No - MUSCULOSKELETAL/RHEUMATOLOGICAL Hx Arthritis: Yes - GASTROINTESTINAL Hx Diverticulitis: Yes (diverticulosis 2014 and 05/2016) Hx Gastritis: Yes - GENITOURINARY/GYNECOLOGICAL Hx Genitourinary Disorders: No - PSYCHIATRIC Hx Substance Use: No - SURGICAL HISTORY Hx Coronary Stent: Yes (2012) - ANESTHESIA Hx Anesthesia: Yes Hx Anesthesia Reactions: No Hx Malignant Hyperthermia: No Meds Allergies/Adverse Reactions: Allergies Allergy/AdvReac Type Severity Reaction Status Date / Time Penicillins Allergy RASH Verified 01/17/18 20:42 acetaminophen [From Percocet] AdvReac DIZZINESS Verified 01/17/18 20:42 oxycodone HCl [From Percocet] AdvReac DIZZINESS Verified 01/17/18 20:42 Results - Vital Signs Recent Vital Signs: Last Vital Signs Temp 98.5 F 01/17/18 20:45 Pulse 74 01/17/18 22:04 Resp 20 01/17/18 22:04 BP 143/64 01/17/18 22:04 Pulse Ox 100 01/17/18 22:51 - Labs Result Diagrams: 01/17/18 21:35 01/17/18 21:35 Labs: Laboratory Results - last 24 hr 01/17/18 01/17/18 01/17/18 21:35 21:35 21:35 WBC 9.1 RBC 2.55 L Hgb 6.6 L D Hct 20.5 L MCV 80.6 L D MCH 26.1 L MCHC 32.4 L RDW 17.2 H Plt Count 404 H MPV 9.1 Neut % (Auto) 71.6 Lymph % (Auto) 13.2 L [place] % (Auto) 9.9 Eos % (Auto) 4.5 H Baso % (Auto) 0.8 Neut # (Auto) 6.5 Lymph # (Auto) 1.2 [place] # (Auto) 0.9 H Eos # (Auto) 0.4 Baso # (Auto) 0.1 PT 10.2 INR 0.9 APTT 24 Sodium 137 Potassium 4.6 Chloride 102 Carbon Dioxide 20 L Anion Gap 20 BUN 18 H Creatinine 0.8 Est GFR ( Amer) > 60 Est GFR (Non-Af Amer) > 60 Random Glucose 246 H Calcium 8.0 L Total Bilirubin 0.4 AST 20 ALT 17 Alkaline Phosphatase 92 Total Protein 6.7 Albumin 3.7 Globulin 3.0 Albumin/Globulin Ratio 1.2 Stool Occult Blood 01/17/18 21:52 WBC RBC Hgb Hct MCV MCH MCHC RDW Plt Count MPV Neut % (Auto) Lymph % (Auto) [place] % (Auto) Eos % (Auto) Baso % (Auto) Neut # (Auto) Lymph # (Auto) [place] # (Auto) Eos # (Auto) Baso # (Auto) PT INR APTT Sodium Potassium Chloride Carbon Dioxide Anion Gap BUN Creatinine Est GFR ( Amer) Est GFR (Non-Af Amer) Random Glucose Calcium Total Bilirubin AST ALT Alkaline Phosphatase Total Protein Albumin Globulin Albumin/Globulin Ratio Stool Occult Blood Positive H Assessment & Plan - Assessment and Plan (Free Text) Assessment: 72yo F admitted for GI Bleed and acute anemia GI Bleed -NPO -GI Consult; Dr Valdez; thank you for your help -Protonix 80mg BID for bleed -2units PRBC to bring patient up to 8hgb; currently 6.6 -telemetry -patient had recent colonoscopy and endoscopy at [facility], reportedly yesterday Hx hypertension -IV hydralazine for stricter BP control; maintain under 160/80 -hold PO meds for now CAD -hold aspirin and plavix 2/2 to bleed DM -insulin sliding scale hypoglycemia protocol HLD -will hold statin for now in lieu of GI bleed and NPO Proph -chemical anticoagulation contraindicated -Protonix 80mg BID discussed with Dr. Yael Ruiz PGY2 s Decision To Admit - Pt Status Changed To: Hospital Disposition Of: Inpatient - Admit Certification Admit to Inpatient:: After my assessment, the patient will require hospitalization for at least two midnights. This is because of the severity of symptoms shown, intensity of services needed, and/or the medical risk in this patient being treated as an outpatient. - InPatient: Physician Admission Certification:: GI bleed - . Bed Request Type: Telemetry Admitting Physician: Otoniel Conley Jr.
[2018-01-17] MEDS: Sodium Chloride 0.9% 1,000 ML IV SCH (23:23)
[2018-01-17] MEDS ORDERED: Sodium Chloride 0.9% 1,000 ML ONE (23:24)
[2018-01-17] MEDS ORDERED: Glucagon Recombinant 1 mg Inj IM PRN (23:56)
[2018-01-17] MEDS ORDERED: Dextrose 50% SYRINGE Inj (50 ml) IV PRN (23:56)
[2018-01-18 06:28] LABS: BASO # 0.1 K/uL (0.0-0.2); BASO % 1.3 % (0.0-2.0); EOS # 0.6 K/uL (0.0-0.7); EOS % 6.1 % (0.0-4.0); HEMOGLOBIN 8.2 g/dL (11.0-16.0); LYMPH # 1.7 K/uL (1.0-4.3); LYMPH % 17.3 % (20.0-40.0); MEAN CELL VOLUME 81.9 fL (81.0-99.0); MEAN CORPUSCULAR HEMOGLOBIN 27.3 pg (27.0-31.0); MEAN CORPUSCULAR HGB CONC 33.3 g/dL (33.0-37.0); MEAN PLATELET VOLUME 8.9 fL (7.2-11.7); MONO # 1.1 K/uL (0.0-0.8); MONO % 11.1 % (0.0-10.0); NEUT # 6.1 K/uL (1.8-7.0); NEUT % 64.2 % (50.0-75.0); NRBC % 0.2 % (0.0-2.0); RED CELL DISTRIBUTION WIDTH 17.1 % (11.5-14.5); WHITE BLOOD COUNT 9.6 K/uL (4.8-10.8)
[2018-01-18 06:57] LABS: ALB/GLOB RATIO 1.1 (1.0-2.1); ALBUMIN 3.5 g/dL (3.5-5.0); ALT/SGPT 19 U/L (9-52); AST/SGOT 18 U/L (14-36); BLOOD UREA NITROGEN 13 mg/dL (7-17); CALCIUM 7.5 mg/dl (8.6-10.4); GFR AFRICAN-AMERICAN > 60; GFR NON-AFRICAN AMERICAN > 60
[2018-01-18] MEDS ORDERED: Pantoprazole 80 MG in Sodium Chloride 0.9% 100 ML IVP SCH (09:00)
[2018-01-18] MEDS: (Novolog) Insulin Aspart, Recombinant 100 u/ml 10 ml vial SC SCH ×4 (09:15→21:42)
[2018-01-18] MEDS: levETIRAcetam 500 MG in Sodium Chloride 0.9% 100 ML IVPB SCH (09:37)
[2018-01-18] MEDS: Pantoprazole 80 MG in Sodium Chloride 0.9% 100 ML IV SCH ×3 (09:56→22:07)
[2018-01-18] MEDS ORDERED: Sodium Chloride 0.9% 1,000 ML ONE (10:00)
[2018-01-18] MEDS: Sodium Chloride 0.9% 1,000 ML IV SCH ×3 (10:01→22:07)
[2018-01-19] MEDS ORDERED: Sodium Chloride 0.9% 1,000 ML IV SCH (00:23)
[2018-01-19 00:31] VITALS: TEMP 98
[2018-01-19 07:25] LABS: BASO % 0.5 % (0.0-2.0); EOS # 0.5 K/uL (0.0-0.7); EOS % 6.3 % (0.0-4.0); HEMOGLOBIN 8.7 g/dL (11.0-16.0); LYMPH # 0.9 K/uL (1.0-4.3); LYMPH % 11.5 % (20.0-40.0); MEAN CELL VOLUME 81.8 fL (81.0-99.0); MEAN CORPUSCULAR HEMOGLOBIN 27.4 pg (27.0-31.0); MEAN CORPUSCULAR HGB CONC 33.5 g/dL (33.0-37.0); MEAN PLATELET VOLUME 8.9 fL (7.2-11.7); MONO # 0.9 K/uL (0.0-0.8); MONO % 12.3 % (0.0-10.0); NEUT # 5.3 K/uL (1.8-7.0); NEUT % 69.4 % (50.0-75.0); RBC 3.18 Mil/uL (3.80-5.20); WHITE BLOOD COUNT 7.6 K/uL (4.8-10.8)
[2018-01-19 07:57] VITALS: BP 167/67; RESP 18; O2SAT 98
[2018-01-19 08:15] VITALS: PULSE 76
[2018-01-19 08:17] LABS: ALB/GLOB RATIO 1.1 (1.0-2.1); ALBUMIN 3.3 g/dL (3.5-5.0); ALT/SGPT 19 U/L (9-52); AST/SGOT 22 U/L (14-36); BLOOD UREA NITROGEN 9 mg/dL (7-17); CALCIUM 8.4 mg/dl (8.6-10.4); GFR AFRICAN-AMERICAN > 60; GFR NON-AFRICAN AMERICAN > 60
[2018-01-19] MEDS: (Novolog) Insulin Aspart, Recombinant 100 u/ml 10 ml vial SC SCH ×2 (08:24→12:42)
[2018-01-19] MEDS: levETIRAcetam 500 MG in Sodium Chloride 0.9% 100 ML IVPB SCH (09:35)
--- NOTE | 2018-01-19 11:16 | PN ---
DATE: LOCATION: [facility], bed A. SUBJECTIVE: This is a 72-year-old female seen initially for GI consultation on 01/18/2018, reexamined again today without any significant clinical changes or reported nausea or vomiting, but dyspepsia with mild generalized weakness and malaise. The entire chart is reviewed including, but not limited to, the most recent lab and radiology study results, current and the previous medication list, current and the previous medical events. Case discussed with the staff at length. It has to be mentioned that the patient's lab results post blood transfusion showed hemoglobin of 8.7, hematocrit 26 with normal white blood cells and platelet count, with low creatinine, blood glucose level 160, calcium 8.4, albumin 3.3, with normal PT and PTT. CAT scan of the abdomen and pelvis was suggested, not done yet. PHYSICAL EXAMINATION: GENERAL: A 72 years old female, appeared to be awake and alert. VITAL SIGNS: Afebrile with pulse of 74, respiratory rate of 20 to 22, blood pressure of 160/64. HEENT: Showed pale, dry mucous membranes. Nonicteric sclerae. LUNGS: Few scattered crepitations. Decreased air entry at bases. HEART: Positive S1 and S2. ABDOMEN: Soft with mild generalized tenderness, slightly distended. No mass or organomegaly. No rebound tenderness or guarding. RECTAL: The patient refused. EXTREMITIES: Mild lower extremity edematous changes. NEUROLOGIC: No reported new neurological deficits, sensory or motor. IMPRESSION: 1. Gastrointestinal bleeding, upper versus lower with melena. 2. Anemia secondary to above. 3. Known history of but not limited to hypertension, diabetes mellitus, coronary artery disease, hyperlipidemia, diverticulosis with reported diverticulitis before. 4. The patient again had recently upper and lower endoscopy at [facility]. Official report and results are not available. SUGGESTIONS: 1. Continue current management. 2. The patient may need repeat upper endoscopy if her symptoms persist. 3. Further recommendation to follow and proton pump inhibitors as well as cancer markers ordered. Cliff Sarmiento MD
--- NOTE | 2018-01-19 13:13 | CP.PCM.DIS ---
Provider - Provider Date of Admission: 01/17/18 22:52 Attending physician: Otoniel Conley Jr, MD Primary care physician: Otoniel Conley Jr, MD Consults: GI: Dr. Valdez Time Spent in preparation of Discharge (in minutes): 45 Diagnosis - Discharge Diagnosis (1) GI bleeding Status: Acute (2) CAD (coronary artery disease) Status: Chronic (3) HTN (hypertension) Status: Chronic (4) Diabetes mellitus Status: Chronic (5) Diverticulosis large intestine w/o perforation or abscess w/o bleeding Status: Chronic Priority: Low (6) Iron deficiency anemia due to chronic blood loss Status: Chronic Priority: High Hospital Course - Lab Results Lab Results: Most Recent Lab Values WBC 7.6 K/uL (4.8-10.8) 01/19/18 07:15 RBC 3.18 Mil/uL (3.80-5.20) L 01/19/18 07:15 Hgb 8.7 g/dL (11.0-16.0) L 01/19/18 07:15 Hct 26.0 % (34.0-47.0) L 01/19/18 07:15 MCV 81.8 fL (81.0-99.0) 01/19/18 07:15 MCH 27.4 pg (27.0-31.0) 01/19/18 07:15 MCHC 33.5 g/dL (33.0-37.0) 01/19/18 07:15 RDW 17.0 % (11.5-14.5) H 01/19/18 07:15 Plt Count 310 K/uL (130-400) 01/19/18 07:15 MPV 8.9 fL (7.2-11.7) 01/19/18 07:15 Neut % (Auto) 69.4 % (50.0-75.0) 01/19/18 07:15 Lymph % (Auto) 11.5 % (20.0-40.0) L 01/19/18 07:15 [place] % (Auto) 12.3 % (0.0-10.0) H 01/19/18 07:15 Eos % (Auto) 6.3 % (0.0-4.0) H 01/19/18 07:15 Baso % (Auto) 0.5 % (0.0-2.0) 01/19/18 07:15 Neut # (Auto) 5.3 K/uL (1.8-7.0) 01/19/18 07:15 Lymph # (Auto) 0.9 K/uL (1.0-4.3) L 01/19/18 07:15 [place] # (Auto) 0.9 K/uL (0.0-0.8) H 01/19/18 07:15 Eos # (Auto) 0.5 K/uL (0.0-0.7) 01/19/18 07:15 Baso # (Auto) 0.0 K/uL (0.0-0.2) 01/19/18 07:15 PT 10.2 SECONDS (9.7-12.2) 01/17/18 21:35 INR 0.9 01/17/18 21:35 APTT 24 SECONDS (21-34) 01/17/18 21:35 Sodium 141 mmol/L (132-148) 01/19/18 07:15 Potassium 3.8 mmol/L (3.6-5.2) 01/19/18 07:15 Chloride 108 mmol/L (98-107) H 01/19/18 07:15 Carbon Dioxide 23 mmol/L (22-30) 01/19/18 07:15 Anion Gap 14 (10-20) 01/19/18 07:15 BUN 9 mg/dL (7-17) 01/19/18 07:15 Creatinine 0.6 mg/dL (0.7-1.2) L 01/19/18 07:15 Est GFR ( Amer) > 60 01/19/18 07:15 Est GFR (Non-Af Amer) > 60 01/19/18 07:15 POC Glucose (mg/dL) 211 mg/dL (65-110) H 01/19/18 11:16 Random Glucose 150 mg/dL (65-105) H 01/19/18 07:15 Calcium 8.4 mg/dl (8.6-10.4) L 01/19/18 07:15 Phosphorus 3.0 mg/dL (2.5-4.5) 01/19/18 07:15 Magnesium 2.1 mg/dL (1.6-2.3) 01/19/18 07:15 Total Bilirubin 1.1 mg/dL (0.2-1.3) 01/19/18 07:15 AST 22 U/L (14-36) 01/19/18 07:15 ALT 19 U/L (9-52) 01/19/18 07:15 Alkaline Phosphatase 84 U/L (38-126) 01/19/18 07:15 Total Protein 6.4 g/dL (6.3-8.3) 01/19/18 07:15 Albumin 3.3 g/dL (3.5-5.0) L 01/19/18 07:15 Globulin 3.1 gm/dL (2.2-3.9) 01/19/18 07:15 Albumin/Globulin Ratio 1.1 (1.0-2.1) 01/19/18 07:15 Stool Occult Blood Positive (NEGATIVE) H 01/17/18 21:52 Blood Type A NEGATIVE 01/17/18 21:35 Antibody Screen Positive 01/17/18 21:35 Antibody Identification Non Specific Antibody 01/17/18 21:35 - Hospital Course Hospital Course: HPI: 71 year old female with PMHx significant for hypertension, CAD, DM, HLD, anemia, GI bleed, diverticulitis and gastritis presenting for black tarry stools. She states she had an endoscopy and colonoscopy at [place] yesterday and since then has developed black tarry stools. She has no other complaints; denies fevers/chills, STEPHENSON, CP, SOB, abdominal pain, N/V/D, dysuria/freq/urg or lower extremity pain/swelling. She has stopped taking her aspirin and plavix 2/ 2 to GI bleeding with a significant history for stent placement. Briefly, on admission patient was noted to have Hgb of 6.6. She was transfused 2 units and Hgb improved to 8.2. Patient's bleeding improved. GI was consulted and recommended continuing IV protonix and fluids. GI also recommended checking cancer markers. Specifically CA 125 and CEA were checked and both were normal. Patient's symptoms improved and Hgb was stabilized. Patient was deemed stable for discharge per Dr. Conley. - Date & Time of H&P Date of H&P: 01/19/18 Time of H&P: 13:09 Discharge Exam - Head Exam Head Exam: ATRAUMATIC, NORMOCEPHALIC - ENT Exam ENT Exam: Mucous Membranes Moist - Respiratory Exam Respiratory Exam: Clear to PA & Lateral, NORMAL BREATHING PATTERN. absent: Rales, Rhonchi, Wheezes - Cardiovascular Exam Cardiovascular Exam: REGULAR RHYTHM, +S1, +S2. absent: Diastolic murmur, Gallop , Rubs, Systolic Murmur - GI/Abdominal Exam GI & Abdominal Exam: Normal Bowel Sounds, Soft, Unremarkable. absent: Distended , Firm, Guarding, Rigid, Tenderness - Extremities Exam Additional comments: no edema or tenderness - Neurological Exam Neurological exam: Alert, Oriented x3 - Psychiatric Exam Psychiatric exam: Normal Affect, Normal Mood - Skin Skin Exam: Dry, Intact, Normal Color, Warm Discharge Plan - Follow Up Plan Condition: GUARDED Disposition: HOME/ ROUTINE Additional Instructions: Patient is stable for discharge per Dr. Conley Patient is to follow up with PMD upon discharge. Patient is also to follow up with incising machine operator upon discharge. Patient is to continue taking her home medications a prescribed. Patient is told ot return to ED if symptoms worsen. Referrals: Otoniel Conley Jr., MD [Primary Care Provider] -
--- NOTE | 2018-01-21 09:50 | PN ---
DATE: 01/18/2018 LOCATION: In the ER. SUBJECTIVE: This is a 72-year-old female seen initially for GI consultation on 01/17/2018, reexamined again today without reported significant clinical changes or active bleeding so far. No reported chest pain or palpitation. The entire chart is reviewed including, but not limited to, the most recent lab and radiology study results, current and the previous medication list, current and the previous medical events. The patient is post blood transfusion. Case discussed with the staff at length. The most recent lab results post blood transfusion showed hemoglobin 8.2, hematocrit 24.5 with normal white blood cells and platelet count. CO2 content 20 indicative of metabolic acidosis. Blood glucose level of 159, calcium 7.5. Stool for occult blood positive. PHYSICAL EXAMINATION: GENERAL: A 72 years old female. VITAL SIGNS: Afebrile with pulse of 78, respiratory rate of 20 to 22, blood pressure of 164/62. HEENT: Showed pale, dry oral mucous membrane. Nonicteric sclerae. LUNGS: Few scattered crepitations. Decreased air entry at bases. HEART: Positive S1 and S2. ABDOMEN: Soft with mild generalized tenderness. No mass or organomegaly. No rebound tenderness or guarding but a slight distention. RECTAL: The patient refused. EXTREMITIES: Without significant clubbing or cyanosis but mild lower extremities edematous changes. IMPRESSION: 1. Gastrointestinal bleeding upper versus lower, the patient mentioned that she had recently upper and lower endoscopy, very recently at [facility] which was reported as diverticulosis and gastritis, as she was told. 2. Severe anemia secondary to gastrointestinal blood loss upper versus lower. 3. Known history but not limited to exploratory laparotomy with rectosigmoid colon resection, status post rectal prolapse repair with hemorrhoidectomy before. 4. Coronary artery disease with status post cardiac stent insertion. 5. Known history of diabetes mellitus, hyperlipidemia, with hypertension. 6. Metabolic acidosis most likely secondary to above. SUGGESTIONS: 1. Agree with your plan. 2. Correct underlying electrolyte imbalance. 3. Sectional abdominal and pelvic scan. 4. Correct any underlying coagulopathy; if any, would repeat PT and PTT. 5. Proton pump inhibitors, IV. 6. If the patient has continuous bleeding or/and black tarry stool, then upper endoscopy to be repeated when the patient is more stable clinically. Thank you for letting me participate in your patient's case management. Further evaluation to follow. Cliff Sarmiento MD
--- NOTE | 2018-01-21 09:55 | CON ---
DATE: 01/18/2018 LOCATION: 569, bed A. HISTORY OF PRESENT ILLNESS: I was called for a GI consultation by the private MD, Dr. Conley. The patient is seen and fully examined in the presence of medical staff, as well as the nursing staff on 01/18/2018 as requested by the primary MD. The entire chart is reviewed including but not limited to the most recent labs and the radiology study results, current and the previous medication list, current and the previous medical events, allergy to medication list as well as all the available current and the previous medical records. The case was discussed with staff at length pre and post my GI consultation on 01/18/2018. This is a 72-year-old female with multiple past medical history, who presented to the emergency room with black tarry stool with most recent upper and lower endoscopy in [facility] about 24-48 hours prior to her admission as her statement. No reported chest pain, palpitations, significant chills, fevers or shortness of breath. No hematemesis. PAST MEDICAL HISTORY: Including but not limited to hypertension, coronary artery disease, hyperlipidemia, diabetes mellitus, GI bleeding by history with reported peptic ulcer disease and diverticulosis with recurrent diverticulitis in the past. Status post exploratory laparotomy with rectosigmoid colon resection removal of eroding mesh. Status post rectal prolapse repair. Status post hemorrhoidectomy. Status post coronary artery stent insertion three years ago. FAMILY HISTORY: Positive for liver CA in her brother. CURRENT MEDICATIONS: Medication list was reviewed post admission. ALLERGIES TO MEDICATIONS: PENICILLIN. It has to be mentioned that reviewing the chart and questioning the patient about her GI strategy execution consultant before, again the patient indicated that it used to be Dr. Phipps and she requested to be seen by another distribution technician despite my clear discussion with her. At this point as per the patient's request, I will continue to followup the patient and as per the admitting physician's request. After being admitted to the hospital, the patient was found to have hemoglobin of 6.6, hematocrit 20.5, with thrombocytosis of 404, blood glucose level 245 with normal white blood cells, but low indices highly suggestive of hypochromic microcytic anemia. Normal PT and PTT, but BUN mildly elevated to 18 with normal creatinine, CO2 content 20 indicative of metabolic acidosis. Blood glucose level 246. Calcium of 8. PHYSICAL EXAMINATION: GENERAL: A 72-year-old female who appears to be awake, alert, and oriented. VITAL SIGNS: Afebrile with pulse of 70, respiratory rate 20 to 22, and blood pressure 140/60. HEENT: Showed pale, dry oral mucous membranes. Nonicteric sclerae. LUNGS: Few scattered mild crepitations with decreased air entry at bases. HEART: Positive S1 and S2. LYMPH NODES: No lymphadenitis or lymphadenopathy. ABDOMEN: Soft. Bowel sounds are present with generalized tenderness. No mass or organomegaly. No rebound tenderness or guarding. RECTAL: Positive for guaiac-positive stool, and black tarry color. EXTREMITIES: Right lower extremity edematous. No clubbing or cyanosis. NEUROLOGIC: No reported new neurological deficits, sensory or motor. No reported focal deficits. IMPRESSION: 1. Gastrointestinal bleeding endoscopic evaluation of the GI tract in [facility] of unclear etiology. 2. Anemia, severe, secondary to above. 3. Rule out occult gastrointestinal malignancy. 4. Multiple past medical history as mentioned above. It has to be mentioned that the nature and the endoscopic finding of the upper and lower endoscopy done at [facility] at the time of my GI consultation. It is not clear if the patient had polypectomy, hot biopsy or not. It has to be mentioned also this case to be discussed with Dr. Phipps as he is available as again the patient requested to be seen by another distribution technician as per her request and as reported in the initial H and P. Please see H and P notes. RECOMMENDATIONS: 1. Blood transfusion to keep hemoglobin around 10 gm percent. 2. Proton pump inhibitors. 3. Endoscopic evaluation of the GI tract when the patient is more stable clinically. 4. abdominal and pelvic CAT scan. 5. Surgical consultation as needed. Further recommendations to follow. Thank you for letting me participate in your patient's case management. Cliff Sarmeinto MD
--- NOTE | 2018-01-21 19:55 | CP.PCM.PN ---
Subjective - Date & Time of Evaluation Date of Evaluation: 01/18/18 Time of Evaluation: 13:00 Objective - Vital Signs/Intake and Output Vital Signs (last 24 hours): Temp Pulse Resp BP Pulse Ox 98.0 F 76 18 167/67 H 98 01/19/18 07:00 01/19/18 08:11 01/19/18 07:00 01/19/18 07:00 01/19/18 07:00 - Labs Labs: 01/19/18 07:15 01/19/18 07:15 PT 10.2 SECONDS (9.7-12.2) 01/17/18 21:35 INR 0.9 01/17/18 21:35 APTT 24 SECONDS (21-34) 01/17/18 21:35
== END 2018-01-19 13:39 | disposition home or self-care (01) | DRG 812 ==
LOC: C.ER 20:39 → SUPCPDRO 20:39 → C.9E 22:52 → C.5S 01-18 11:07
PROVIDERS: ADMIT Internal Medicine; ATTEND Internal Medicine
PROC: 30233N1 Transfusion of Nonautologous Red Blood Cells into Peripheral Vein, Percutaneous Approach (ICD-10-PCS; principal; 2018-01-18)
DX: D62 Acute posthemorrhagic anemia (principal); K92.2 Gastrointestinal hemorrhage, unspecified; E87.2 Acidosis; K57.92 Diverticulitis of intestine, part unspecified, without perforation or abscess without bleeding; D50.0 Iron deficiency anemia secondary to blood loss (chronic); E11.9 Type 2 diabetes mellitus without complications; I10 Essential (primary) hypertension; I25.10 Atherosclerotic heart disease of native coronary artery without angina pectoris; I48.91 Unspecified atrial fibrillation; E78.00 Pure hypercholesterolemia, unspecified; E78.5 Hyperlipidemia, unspecified; M19.90 Unspecified osteoarthritis, unspecified site; F17.210 Nicotine dependence, cigarettes, uncomplicated; Z86.010 Personal history of colon polyps; Z95.5 Presence of coronary angioplasty implant and graft

== ENCOUNTER 2018-03-03 12:09 | Inpatient (IN) | payer MEDICARE ==
[2018-03-03 12:10] VITALS: BMI 22.6
[2018-03-03 13:43] LABS: BASO % 0.5 % (0.0-2.0); EOS # 0.1 K/uL (0.0-0.7); EOS % 1.1 % (0.0-4.0); LYMPH # 1.2 K/uL (1.0-4.3); LYMPH % 11.6 % (20.0-40.0); MEAN CELL VOLUME 88.2 fL (81.0-99.0); MEAN CORPUSCULAR HEMOGLOBIN 28.4 pg (27.0-31.0); MEAN CORPUSCULAR HGB CONC 32.2 g/dL (33.0-37.0); MEAN PLATELET VOLUME 8.7 fL (7.2-11.7); MONO # 0.9 K/uL (0.0-0.8); MONO % 8.3 % (0.0-10.0); NEUT # 8.1 K/uL (1.8-7.0); NEUT % 78.5 % (50.0-75.0); NRBC % 0.4 % (0.0-2.0); RBC 1.83 Mil/uL (3.80-5.20); RED CELL DISTRIBUTION WIDTH 23.4 % (11.5-14.5); WHITE BLOOD COUNT 10.3 K/uL (4.8-10.8)
[2018-03-03 13:51] LABS: INR 1.1; PROTHROMBIN TIME 12.3 SECONDS (9.7-12.2)
[2018-03-03 13:53] LABS: HEMOGLOBIN 5.2 g/dL (11.0-16.0)
[2018-03-03 13:57] LABS: ALT/SGPT 23 U/L (9-52); AST/SGOT 53 U/L (14-36); BLOOD UREA NITROGEN 29 mg/dL (7-17); CALCIUM 8.4 mg/dl (8.6-10.4); GFR AFRICAN-AMERICAN > 60; GFR NON-AFRICAN AMERICAN > 60
[2018-03-03 14:10] LABS: ALB/GLOB RATIO 1.1 (1.0-2.1); ALBUMIN 3.3 g/dL (3.5-5.0)
--- NOTE | 2018-03-03 14:42 | C.PDOC ---
History Of Present Illness 72 yo female with PMH Anemia (secondary to GI bleeding), Atrial Fibrillation, CAD, Diabetes, Gastritis, HTN c/o weakness for 4 days. Also admits to feeling weak, tired, and occassionally dizziness. Pt notes h/o similar episodes in the past with transfusion last 2 months ago. PT has been followed with GI with h/o colonoscopy. Denies chest pain, sob, n/v, fever, abdominal pain, bleeding from other sites or current dizziness. 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 History/Exam Limitations: no limitations Onset/Duration Of Symptoms: Days Current Symptoms Are (Timing): Still Present Past Medical History Vital Signs: Last Vital Signs Temp 98.5 F 03/03/18 17:52 Pulse 88 03/03/18 17:52 Resp 19 03/03/18 17:52 BP 126/56 L 03/03/18 17:52 Pulse Ox 100 03/03/18 18:50 - Medical History PMH: Anemia ( acute and chronic due to GI blood loss), Arthritis, Atrial Fibrillation, CAD, Cardia Arrhythmia, Colonic Polyps, Diabetes, Diverticulitis ( diverticulosis 2014 and 05/2016), Gastritis, HTN, Hypercholesterolemia, Seizures Denies: Crohn's Disease, Gall Bladder Disease, HIV, Pancreatitis, Chronic Kidney Disease, TIA Surgical History: Coronary Stent, Endoscopy Other Surgeries: Rectosgmoid colon resection 12/19/16, internal hemorrhoid surgery (2016), coronary stents x 3 (2014) - [facility] Procedures CLOSED ENDOSCOPIC BIOPSY OF LARGE INTESTINE (11/30/14) CONTROL BLEEDING IN GASTROINTESTINAL TRACT, ENDO (12/12/16) CORONAR ARTERIOGR-2 CATH (11/30/14) ESOPHAGOGASTRODUODENOSCOPY [EGD] W/CLOSED BIOPSY (11/30/14) EXCISION OF STOMACH, ENDO, DIAGN (04/09/16) INJECT/INFUSE NEC (06/04/05) LEFT HEART CARDIAC CATH (11/30/14) LT HEART ANGIOCARDIOGRAM (11/30/14) PACKED CELL TRANSFUSION (11/30/14) RELEASE LEFT URETER, OPEN APPROACH (12/12/16) RELEASE PERITONEUM, OPEN APPROACH (12/12/16) RELEASE RIGHT URETER, OPEN APPROACH (12/12/16) REMOVAL OF SYNTH SUB FROM LOW INTEST TRACT, OPEN APPROACH (12/12/16) REPAIR RECTUM, PERCUTANEOUS ENDOSCOPIC APPROACH (07/27/16) RESECTION OF RECTUM, OPEN APPROACH (12/12/16) RESECTION OF SIGMOID COLON, OPEN APPROACH (12/12/16) RESECTION OF SIGMOID COLON, PERCUTANEOUS ENDOSCOPIC APPROACH (07/27/16) ROBOTIC ASSISTED PROCEDURE OF TRUNK, PERC ENDO APPROACH (07/27/16) TRANSFUSE NONAUT FROZEN RED CELLS IN PERIPH VEIN, PERC (09/20/16) TRANSFUSE NONAUT RED BLOOD CELLS IN PERIPH VEIN, PERC (01/17/18) TRANSFUSE NONAUT WHOLE BLOOD IN PERIPH VEIN, PERC (10/13/16) Family History: States: [place] - Social History Hx Tobacco Use: Yes (cut down per daughter) Hx Alcohol Use: No Hx Substance Use: No - Immunization History Hx Tetanus Toxoid Vaccination: Yes Hx Influenza Vaccination: No (per pt declines) Hx Pneumococcal Vaccination: No Review Of Systems Except As Marked, All Systems Reviewed And Found Negative. Constitutional: Positive for: Weakness Neurological: Positive for: Dizziness Physical Exam - Physical Exam Appears: Well, Non-toxic, No Acute Distress Skin: Warm, Dry, Pale Head: Atraumatic, Normacephalic Eye(s): bilateral: PERRL, EOMI, Conjunctiva Pale Nose: Normal Oral Mucosa: Moist Neck: Normal, Normal ROM, Supple Chest: Symmetrical Cardiovascular: Rhythm Regular Respiratory: Normal Breath Sounds, No Accessory Muscle Use Gastrointestinal/Abdominal: Normal Exam, Soft, No Tenderness Rectal: Melena Back: Normal Inspection Extremity: Normal ROM Neurological/Psych: Oriented x3, Normal Speech ED Course And Treatment - Laboratory Results Result Diagrams: 03/03/18 13:38 03/03/18 13:38 ECG: Interpreted By Me, Viewed By Me ECG Rhythm: Sinus Rhythm, Nonspecific Changes Rate From EC O2 Sat by Pulse Oximetry: 100 Progress Note: Case discussed with Dr Conley, agreed upon plan and admission. Disposition - Disposition Disposition: HOSPITALIZED Disposition Time: 14:00 Condition: STABLE - Clinical Impression Clinical Impression: GI bleed, Anemia
[2018-03-03] MEDS ORDERED: Sodium Chloride 0.9% 1,000 ML ONE (15:28)
--- NOTE | 2018-03-03 15:32 | CP.PCM.HP ---
History of Present Illness - History of Present Illness History of Present Illness: HPI: 72 year old female with past medical history of hypertension, CAD, DM, HLD , anemia, GI bleed, diverticulitis and gastritis presented to hospital for black tarry stools ongoing for about 4 days. Patient also complains of dyspnea , lightheadedness since this morning. Patient was brought in by son via ambulance due to her symptoms. Patient has had episodes of recurrent rectal bleeding in the past. She follows with [facility] and has had colonoscopy and EGD in past. Patient was admitted recently for similar symptoms in 12/2017. At that time she was noted to have acute blood loss anemia and discharged after transfusions. Patient then followed up with her GI doctor who performed a capsule swallow study 3 weeks ago. Patient is unsure if she passed the capsule completely through. Currently, patient is resting comfortably. Denies having any CP, SOB, abd pain, N/V/D/C, F/C. PMH: as stated above Surgical Hx: exploratory laparotomy with rectosgmoid colon resection for removal of eroding mesh 12/19/16, rectal prolapse repair, colonoscopy, EGD with biopsy, internal hemorrhoid surgery (2015), coronary stents x 3 (2014) Family Hx: Mother of NE, brother of liver cancer Meds: Aspirin held 2/2 to bleed, Atorvastatin 40mg po HS, Losartan 50mg po daily , Metformin 500mg po daily, carvedilol 12.5mg po BID, pantoprazole 40mg po daily Social hx: Smokes 5-6 cigarettes per day x 48 years, denies alcohol and drug use. Lives with daughter. Allergies: Penicillin (rash) PMD: Dr. Conley GI: [facility] Present on Admission - Present on Admission Any Indicators Present on Admission: No Review of Systems - Constitutional Constitutional: absent: Chills, Fever, Headache - EENT Eyes: absent: Blurred Vision, Change in Vision Nose/Mouth/Throat: absent: Nasal Congestion, Nasal Discharge, Dysphagia, Sore Throat - Cardiovascular Cardiovascular: Dyspnea. absent: Chest Pain, Chest Pain with Activity, Dyspnea on Exertion, Edema, Lightheadedness, Palpitations, Pedal Edema - Respiratory Respiratory: absent: Cough, Dyspnea, Dyspnea on Exertion, Wheezing, Chest Congestion - Gastrointestinal Gastrointestinal: Melena. absent: Abdominal Pain, Constipation, Diarrhea, Dysphagia, Hematemesis, Hematochezia, Nausea, Vomiting - Genitourinary Genitourinary: absent: Dysuria, Hematuria, Urinary Frequency, Urinary Urgency - Musculoskeletal Musculoskeletal: absent: Back Pain, Numbness, Stiffness, Tingling - Integumentary Integumentary: absent: Acne, Lesions, Rash, Sores - Neurological Neurological: absent: Headaches, Syncope, Vertigo, Weakness - Psychiatric Psychiatric: absent: Anxiety, Depression Past Patient History - Infectious Disease Hx of Infectious Diseases: None - Past Medical History & Family History Past Medical History?: Yes - Past Social History Smoking Status: Light Smoker < 10 Cigarettes Daily Chewing Tobacco Use: No Cigar Use: No Alcohol: None Drugs: Denies Home Situation {Lives}: With Family - CARDIAC Hx Atrial Fibrillation: Yes Hx Cardia Arrhythmia: Yes Hx Hypercholesterolemia: Yes Hx Hypertension: Yes - PULMONARY Hx Respiratory Disorders: No - NEUROLOGICAL Hx Seizures: Yes Hx Transient Ischemic Attacks (TIA): No - HEENT Hx HEENT Problems: No - RENAL Hx Chronic Kidney Disease: No - ENDOCRINE/METABOLIC Hx Endocrine Disorders: Yes Hx Diabetes Mellitus Type 2: Yes - HEMATOLOGICAL/ONCOLOGICAL Hx Anemia: Yes ( acute and chronic due to GI blood loss) Hx Human Immunodeficiency Virus (HIV): No - INTEGUMENTARY Hx Dermatological Problems: No - MUSCULOSKELETAL/RHEUMATOLOGICAL Hx Arthritis: Yes - GASTROINTESTINAL Hx Crohn's Disease: No Hx Diverticulitis: Yes (diverticulosis 2014 and 05/2016) Hx Gall Bladder Disease: No Hx Gastritis: Yes Hx Pancreatitis: No - GENITOURINARY/GYNECOLOGICAL Hx Genitourinary Disorders: No - PSYCHIATRIC Hx Substance Use: No - SURGICAL HISTORY Hx Coronary Stent: Yes (2012) - ANESTHESIA Hx Anesthesia: Yes Hx Anesthesia Reactions: No Hx Malignant Hyperthermia: No Meds Allergies/Adverse Reactions: Allergies Allergy/AdvReac Type Severity Reaction Status Date / Time Penicillins Allergy RASH Verified 03/03/18 12:45 acetaminophen [From Percocet] AdvReac DIZZINESS Verified 03/03/18 12:45 oxycodone HCl [From Percocet] AdvReac DIZZINESS Verified 03/03/18 12:45 Physical Exam - Constitutional Appears: Non-toxic, No Acute Distress - Head Exam Head Exam: ATRAUMATIC - Eye Exam Pupil Exam: PERRL - ENT Exam ENT Exam: Mucous Membranes Moist - Respiratory Exam Respiratory Exam: Clear to Auscultation Bilateral. absent: Accessory Muscle Use , Rales, Rhonchi, Wheezes, Respiratory Distress - Cardiovascular Exam Cardiovascular Exam: REGULAR RHYTHM, +S1, +S2. absent: Diastolic murmur, Gallop , Rubs, Systolic Murmur - GI/Abdominal Exam GI & Abdominal Exam: Normal Bowel Sounds, Soft. absent: Distended, Firm, Guarding, Rigid, Tenderness - Extremities Exam Extremities exam: Negative for: pedal edema, tenderness - Neurological Exam Neurological exam: Alert, Oriented x3 - Psychiatric Exam Psychiatric exam: Normal Affect, Normal Mood - Skin Skin Exam: Dry, Intact, Normal Color, Warm Results - Vital Signs Recent Vital Signs: Last Vital Signs Temp 99.1 F 03/03/18 12:12 Pulse 88 03/03/18 15:11 Resp 15 03/03/18 15:11 BP 149/53 L 03/03/18 15:11 Pulse Ox 99 03/03/18 15:11 - Labs Result Diagrams: 03/03/18 13:38 03/03/18 13:38 Labs: Laboratory Results - last 24 hr 03/03/18 03/03/18 03/03/18 12:46 13:38 13:38 WBC 10.3 RBC 1.83 L Hgb 5.2 L* D Hct 16.1 L MCV 88.2 D MCH 28.4 MCHC 32.2 L RDW 23.4 H Plt Count 289 MPV 8.7 Neut % (Auto) 78.5 H Lymph % (Auto) 11.6 L [place] % (Auto) 8.3 Eos % (Auto) 1.1 Baso % (Auto) 0.5 Neut # (Auto) 8.1 H Lymph # (Auto) 1.2 [place] # (Auto) 0.9 H Eos # (Auto) 0.1 Baso # (Auto) 0.0 PT 12.3 H INR 1.1 APTT 29 Sodium Potassium Chloride Carbon Dioxide Anion Gap BUN Creatinine Est GFR ( Amer) Est GFR (Non-Af Amer) POC Glucose (mg/dL) 157 H Random Glucose Calcium Total Bilirubin AST ALT Alkaline Phosphatase Total Protein Albumin Globulin Albumin/Globulin Ratio Stool Occult Blood 03/03/18 03/03/18 13:38 13:38 WBC RBC Hgb Hct MCV MCH MCHC RDW Plt Count MPV Neut % (Auto) Lymph % (Auto) [place] % (Auto) Eos % (Auto) Baso % (Auto) Neut # (Auto) Lymph # (Auto) [place] # (Auto) Eos # (Auto) Baso # (Auto) PT INR APTT Sodium 137 Potassium 5.1 Chloride 106 Carbon Dioxide 20 L Anion Gap 16 BUN 29 H Creatinine 0.7 Est GFR ( Amer) > 60 Est GFR (Non-Af Amer) > 60 POC Glucose (mg/dL) Random Glucose 136 H Calcium 8.4 L Total Bilirubin 0.7 AST 53 H D ALT 23 Alkaline Phosphatase 57 Total Protein 6.3 Albumin 3.3 L Globulin 2.9 Albumin/Globulin Ratio 1.1 Stool Occult Blood Positive H Assessment & Plan - Assessment and Plan (Free Text) Assessment: 72 year old female with past medical history of hypertension, CAD, DM, HLD, anemia, GI bleed, diverticulitis and gastritis is admitted for GI Bleed and acute anemia GI Bleed -Admit to telemetry -GI Consult; Dr Valdez; thank you for your help -Protonix 80mg IVP stat. Will continue protonix 40 mg IV BID -patient had recent colonoscopy and endoscopy at [facility]. Patient prefers to follow up with her own GI doc for further work up -Recent capsule study. Will check abd x ray to see if capsule has passed Acute blood loss anemia - Hgb on presentation is 5.2 - Will transfuse PRBC with goal of Hgb to be 10. Consent in chart - Will transfuse 2 units and repeat CBC and transfuse more if necessary. 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 Conley - Date & Time Date: 03/03/18 Time: 18:46
[2018-03-03] MEDS: Sodium Chloride 0.9% 1,000 ML IV SCH (15:33)
--- NOTE | 2018-03-03 16:46 | RAD ---
HISTORY: capsule endoscopy COMPARISON: No prior. FINDINGS: BOWEL: Normal. No obstruction. No free air. BONES: Normal. OTHER FINDINGS: None. IMPRESSION: No active disease.
[2018-03-03] MEDS ORDERED: Dextrose 50% SYRINGE Inj (50 ml) IV PRN (18:56)
[2018-03-03] MEDS ORDERED: Glucagon Recombinant 1 mg Inj IM PRN (18:56)
[2018-03-03] MEDS: (Novolin R) Insulin Human Regular 100 units/ml vial SC SCH (22:00)
[2018-03-04 07:29] LABS: BASO # 0.1 K/uL (0.0-0.2); BASO % 0.7 % (0.0-2.0); EOS # 0.2 K/uL (0.0-0.7); EOS % 2.6 % (0.0-4.0); LYMPH % 11.9 % (20.0-40.0); MEAN CELL VOLUME 86.6 fL (81.0-99.0); MEAN CORPUSCULAR HGB CONC 33.5 g/dL (33.0-37.0); MEAN PLATELET VOLUME 8.8 fL (7.2-11.7); MONO # 0.9 K/uL (0.0-0.8); NEUT # 6.4 K/uL (1.8-7.0); NEUT % 73.8 % (50.0-75.0); NRBC % 0.5 % (0.0-2.0); RBC 2.55 Mil/uL (3.80-5.20); RED CELL DISTRIBUTION WIDTH 18.9 % (11.5-14.5); WHITE BLOOD COUNT 8.6 K/uL (4.8-10.8)
[2018-03-04 07:30] LABS: HEMOGLOBIN 7.4 g/dL (11.0-16.0)
[2018-03-04 07:39] LABS: ALBUMIN 3.2 g/dL (3.5-5.0); ALT/SGPT 29 U/L (9-52); AST/SGOT 26 U/L (14-36); BLOOD UREA NITROGEN 24 mg/dL (7-17); CALCIUM 8.1 mg/dl (8.6-10.4)
[2018-03-04] MEDS: (Novolin R) Insulin Human Regular 100 units/ml vial SC SCH ×4 (07:57→21:10)
[2018-03-04 08:02] LABS: ALB/GLOB RATIO 1.1 (1.0-2.1); GFR AFRICAN-AMERICAN > 60; GFR NON-AFRICAN AMERICAN > 60
[2018-03-04] MEDS: Sodium Chloride 0.9% 1,000 ML IV SCH ×2 (12:24→21:11)
[2018-03-04 13:36] VITALS: RESP 20
--- NOTE | 2018-03-04 14:44 | CP.PCM.PN ---
Subjective - Date & Time of Evaluation Date of Evaluation: 03/04/18 Time of Evaluation: 14:41 - Subjective Subjective: patient seen and examined at bedside. Doing well. No chest pain or SOB. Not complaining of any nausea or vomiting. Denies any melenotic stool or coffee ground emesis. No complaints at this time. Tolerating diet. Objective - Vital Signs/Intake and Output Vital Signs (last 24 hours): Temp Pulse Resp BP Pulse Ox 98.4 F 80 20 146/76 97 03/04/18 14:15 03/04/18 14:27 03/04/18 14:15 03/04/18 14:15 03/04/18 07:00 Intake and Output: 03/04/18 03/04/18 06:59 18:59 Intake Total 1010 0 Balance 1010 0 - Medications Medications: Current Medications Sodium Chloride (Sodium Chloride 0.9%) 1,000 mls @ 100 mls/hr IV .Q10H [facility] Last Admin: 03/04/18 12:24 Dose: Not Given Insulin Human Regular (Novolin R) 0 unit SC ACHS [facility] PRN Reason: Protocol Last Admin: 03/04/18 12:24 Dose: Not Given Levetiracetam (Keppra) 500 mg PO BID [facility] Last Admin: 03/04/18 10:10 Dose: Not Given Pantoprazole Sodium (Protonix Inj) 40 mg IVP Q12H [facility] Last Admin: 03/04/18 10:10 Dose: Not Given - Labs Labs: 03/04/18 07:04 03/04/18 07:04 PT 12.3 SECONDS (9.7-12.2) H 03/03/18 13:38 INR 1.1 03/03/18 13:38 APTT 29 SECONDS (21-34) 03/03/18 13:38 - Constitutional Appears: Well - Head Exam Head Exam: ATRAUMATIC, NORMAL INSPECTION, NORMOCEPHALIC - Eye Exam Eye Exam: EOMI, Normal appearance, PERRL Pupil Exam: NORMAL ACCOMODATION, PERRL - ENT Exam ENT Exam: Mucous Membranes Moist, Normal Exam - Neck Exam Neck Exam: Full ROM, Normal Inspection. absent: Lymphadenopathy - Respiratory Exam Respiratory Exam: Clear to Ausculation Bilateral, NORMAL BREATHING PATTERN - Cardiovascular Exam Cardiovascular Exam: REGULAR RHYTHM, +S1, +S2. absent: Murmur - GI/Abdominal Exam GI & Abdominal Exam: Soft, Normal Bowel Sounds. absent: Tenderness - Extremities Exam Extremities Exam: Full ROM, Normal Capillary Refill, Normal Inspection. absent : Joint Swelling, Pedal Edema - Back Exam Back Exam: NORMAL INSPECTION - Neurological Exam Neurological Exam: Alert, Awake, CN II-XII Intact, Normal Gait, Oriented x3 - Psychiatric Exam Psychiatric exam: Normal Affect, Normal Mood - Skin Skin Exam: Dry, Intact, Normal Color, Warm Assessment and Plan (1) GI bleed Assessment & Plan: patient had multiple episodes of melanotic stools which prompted her to come to the ED. Has had multiple EGDs and Colonoscopy in the past. None have shown bleeding. Patient has had capsule endoscopy, the results of which have not been read. Her primary GI team is at [facility]. Patient came with Hgb of 5. Transfused two units PRBC overnight. Will transfuse 2 more with a goal of 10 today. Will recheck CBC in the afternoon as well as CMP and replace electrolytes as needed. Bleeding scan today. Dr. Valdez is GI on the case. Patient on Protonix 40 IV BID. Will monitor closely for further signs of bleeding. Patient is diabetic on metformin. Hold metformin while in the hospital. Will start sliding scale. Status: Acute
--- NOTE | 2018-03-04 18:43 | PN ---
DATE: 03/04/2018 LOCATION: 658, bed A. SUBJECTIVE: This is a 72-year-old female seen initially for GI consultation as requested by Dr. Conley and admitting medical staff on 02/22/2018, reexamined again today post-blood transfusion, without reported chest pain, palpitation, or evidence of active bleeding. Today's lab showed hemoglobin of 7.4, hematocrit 2.1 with normal platelet count and normal white blood cell with BUN 24, normal creatinine, blood glucose 160, calcium 8.1, albumin 3.2, total protein 6. Stool for occult blood was positive. It has to be mentioned that a decision was made to any aggressive issue in the meantime and the patient was scheduled for bleeding scan, not completely done yet. PHYSICAL EXAMINATION: GENERAL: A 72-year-old female. VITAL SIGNS: Afebrile with pulse of 74, respiratory rate 20 to 22, blood pressure 140/72. HEENT: Showed pale, dry oral mucous membrane. Nonicteric sclerae. LUNGS: Few scattered crepitation. Decreased air entry at bases. HEART: Positive S1 and S2. ABDOMEN: Soft with mild generalized tenderness. No mass or organomegaly. No rebound tenderness or guarding. RECTAL EXAMINATION: The patient refused. EXTREMITIES: Without significant clubbing or cyanosis, but mild lower extremity edematous changes. NEUROLOGICAL: No reported new neurological deficits, sensory or motor. No reported new focal deficits. IMPRESSION: 1. Anemia with guaiac-positive stool, most likely secondary to her back injury. 2. Rule out occult gastrointestinal malignancy. 3. Known history of but not limited to cardiac catheterization assessment, chronic atrial fibrillation, hypertension, coronary artery disease, hyperlipidemia with reported seizure disorder before. 4. Status post coronary stent insertion. 5. Reported history of rectosigmoid colon resection about a year ago. SUGGESTIONS: 1. Agree with your plan. 2. Follow up bleeding scan as ordered by the admitting medical team. 3. More blood transfusion to keep hemoglobin around 10 g percent. 4. Cancer markers including CEA. 5. We will observe closely with you. Thank you for letting me participate in your patient's case management. Cliff Sarmiento MD
[2018-03-05 00:05] LABS: ALB/GLOB RATIO 1.2 (1.0-2.1); ALBUMIN 3.4 g/dL (3.5-5.0); ALT/SGPT 32 U/L (9-52); AST/SGOT 31 U/L (14-36); BLOOD UREA NITROGEN 21 mg/dL (7-17); CALCIUM 8.1 mg/dl (8.6-10.4); GFR AFRICAN-AMERICAN > 60; GFR NON-AFRICAN AMERICAN > 60
[2018-03-05 01:33] LABS: BASO # 0.1 K/uL (0.0-0.2); BASO % 0.7 % (0.0-2.0); EOS # 0.4 K/uL (0.0-0.7); EOS % 4.8 % (0.0-4.0); HEMOGLOBIN 10.1 g/dL (11.0-16.0); LYMPH # 1.2 K/uL (1.0-4.3); LYMPH % 14.6 % (20.0-40.0); MEAN CELL VOLUME 87.1 fL (81.0-99.0); MEAN CORPUSCULAR HEMOGLOBIN 29.1 pg (27.0-31.0); MEAN CORPUSCULAR HGB CONC 33.4 g/dL (33.0-37.0); MEAN PLATELET VOLUME 9.2 fL (7.2-11.7); MONO # 1.2 K/uL (0.0-0.8); MONO % 14.5 % (0.0-10.0); NEUT # 5.5 K/uL (1.8-7.0); NEUT % 65.4 % (50.0-75.0); NRBC % 0.7 % (0.0-2.0); RBC 3.46 Mil/uL (3.80-5.20); RED CELL DISTRIBUTION WIDTH 17.5 % (11.5-14.5); WHITE BLOOD COUNT 8.5 K/uL (4.8-10.8)
[2018-03-05 01:58] VITALS: O2SAT 98
[2018-03-05 07:50] VITALS: BP 158/75; TEMP 97.7
[2018-03-05] MEDS: (Novolin R) Insulin Human Regular 100 units/ml vial SC SCH ×2 (08:16→12:36)
[2018-03-05 08:30] VITALS: PULSE 71
[2018-03-05 09:25] LABS: BASO # 0.1 K/uL (0.0-0.2); BASO % 0.7 % (0.0-2.0); EOS # 0.5 K/uL (0.0-0.7); EOS % 6.7 % (0.0-4.0); HEMOGLOBIN 10.2 g/dL (11.0-16.0); LYMPH % 12.7 % (20.0-40.0); MEAN CORPUSCULAR HEMOGLOBIN 28.8 pg (27.0-31.0); MEAN CORPUSCULAR HGB CONC 33.5 g/dL (33.0-37.0); MEAN PLATELET VOLUME 8.9 fL (7.2-11.7); MONO % 12.4 % (0.0-10.0); NEUT # 5.3 K/uL (1.8-7.0); NEUT % 67.5 % (50.0-75.0); NRBC % 0.2 % (0.0-2.0); RBC 3.53 Mil/uL (3.80-5.20); RED CELL DISTRIBUTION WIDTH 17.9 % (11.5-14.5); WHITE BLOOD COUNT 7.8 K/uL (4.8-10.8)
--- NOTE | 2018-03-05 09:33 | PN ---
DATE: 03/05/2018 LOCATION: 658, bed A. SUBJECTIVE: This is a 72 years old female, seen and examined early in rounds post blood transfusion without any reported adverse reaction. Denied any significant complaint of shortness of breath, palpitation or active bleeding. No chills or fever reported. The patient is somewhat tolerating oral intake. The entire chart is reviewed including but not limited to the most recent lab and radiology study results, current and previous medication list, current and previous medical events and post transfusion hemoglobin reported 10.1 and hematocrit 30.2 today with normal white blood cells and normal platelet count. Blood glucose level reported to be 163. Again all the cancer markers are reported to be normal. PHYSICAL EXAMINATION: GENERAL: A 72 years old female. VITAL SIGNS: Afebrile with pulse of 72, respiratory rate 20 to 22, blood pressure of 136/78. HEENT: Pale, dry oral mucous membrane, nonicteric sclera. LUNGS: Few scattered crepitation. Decreased air entry at bases. HEART: Positive S1 and S2. ABDOMEN: Soft with mild generalized tenderness. No mass or organomegaly. No rebound tenderness or guarding. RECTAL: The patient refused. EXTREMITIES: Without edema, clubbing or cyanosis. NEUROLOGIC: No reported new neurological deficit, sensory or motor. IMPRESSION: 1. Recurrent episode of melena with gastrointestinal blood loss. 2. Severe anemia secondary to above. 3. Rule out occult gastrointestinal malignancy. 4. Known history of diabetes mellitus, chronic atrial fibrillation with hypertension and coronary artery disease. 5. Known history of seizure disorder with hyperlipidemia by history. 6. Coronary artery disease with status post cardiac stent insertion by history. 7. Reported history of rectosigmoid colon resection about a year ago of unclear etiology, details of which is not available. SUGGESTION: 1. Continue current management. 2. Repeat H and H. 3. Follow up cancer markers as reported before. 4. Awaiting bleeding scan report as well as previously done capsule endoscopy in another medical institution to rule out possible malformation. 5. It has to be mentioned that it was requested for now at least there is no aggressive procedure to be done and close observation to follow that to be discussed; however, with the admitting medical team as well as the patient and their family pending see official report of the capsule endoscopy done before. 6. If the patient has subsequent and sudden drop of hemoglobin and hematocrit, then a stat CAT scan angiography to be scheduled. 7. We will follow up closely with you. Cliff Sarmiento MD
[2018-03-05 09:49] LABS: ALB/GLOB RATIO 1.4 (1.0-2.1); ALBUMIN 3.6 g/dL (3.5-5.0); ALT/SGPT 31 U/L (9-52); AST/SGOT 32 U/L (14-36); BLOOD UREA NITROGEN 18 mg/dL (7-17); CALCIUM 8.3 mg/dl (8.6-10.4); GFR AFRICAN-AMERICAN > 60; GFR NON-AFRICAN AMERICAN > 60
--- NOTE | 2018-03-05 13:38 | NM ---
PROCEDURE: Nuclear medicine gastrointestinal bleeding scan. HISTORY: gi bleed COMPARISON: Nuclear GI bleeding scan 02/08/2017. TECHNIQUE: 4 cc of patient blood was withdrawn and mixed with 21.5 of technetium ultra tagged. Images of the abdomen and pelvis were obtained in the anterior and posterior projection at 1 min intervals over a period of 60 minutes. Further, additional series of images was acquired 90 minutes post isotope administration for 15 minutes. FINDINGS: Abnormal increased activity is identified in the stomach, particularly at the proximal fundus which propagates into the small bowel in latter phase of the 1st hour and is more definitively shown in the 90 minutes series. Findings positive for active gastric bleed. Physiologic activity was seen in the heart, liver, spleen and blood vessels. IMPRESSION: Findings positive for active gastric bleeding potentially from the proximal fundus or even cardiac portion. Findings discussed with Dr. Conley, with written down read back verification 03/04/2018 3:55 p.m.
--- NOTE | 2018-03-05 14:20 | CP.PCM.DIS ---
Provider - Provider Date of Admission: 03/03/18 14:05 Attending physician: Otoniel Conley Jr, MD Primary care physician: Yael Consults: José Miguel Time Spent in preparation of Discharge (in minutes): 45 Diagnosis - Discharge Diagnosis (1) GI bleed Status: Acute Hospital Course - Lab Results Lab Results: Most Recent Lab Values WBC 7.8 K/uL (4.8-10.8) 03/05/18 09:18 RBC 3.53 Mil/uL (3.80-5.20) L 03/05/18 09:18 Hgb 10.2 g/dL (11.0-16.0) L 03/05/18 09:18 Hct 30.3 % (34.0-47.0) L 03/05/18 09:18 MCV 86.0 fL (81.0-99.0) 03/05/18 09:18 MCH 28.8 pg (27.0-31.0) 03/05/18 09:18 MCHC 33.5 g/dL (33.0-37.0) 03/05/18 09:18 RDW 17.9 % (11.5-14.5) H 03/05/18 09:18 Plt Count 247 K/uL (130-400) 03/05/18 09:18 MPV 8.9 fL (7.2-11.7) 03/05/18 09:18 Neut % (Auto) 67.5 % (50.0-75.0) 03/05/18 09:18 Lymph % (Auto) 12.7 % (20.0-40.0) L 03/05/18 09:18 [place] % (Auto) 12.4 % (0.0-10.0) H 03/05/18 09:18 Eos % (Auto) 6.7 % (0.0-4.0) H 03/05/18 09:18 Baso % (Auto) 0.7 % (0.0-2.0) 03/05/18 09:18 Neut # (Auto) 5.3 K/uL (1.8-7.0) 03/05/18 09:18 Lymph # (Auto) 1.0 K/uL (1.0-4.3) 03/05/18 09:18 [place] # (Auto) 1.0 K/uL (0.0-0.8) H 03/05/18 09:18 Eos # (Auto) 0.5 K/uL (0.0-0.7) 03/05/18 09:18 Baso # (Auto) 0.1 K/uL (0.0-0.2) 03/05/18 09:18 PT 12.3 SECONDS (9.7-12.2) H 03/03/18 13:38 INR 1.1 03/03/18 13:38 APTT 29 SECONDS (21-34) 03/03/18 13:38 Sodium 138 mmol/L (132-148) 03/05/18 09:18 Potassium 3.6 mmol/L (3.6-5.2) 03/05/18 09:18 Chloride 102 mmol/L (98-107) 03/05/18 09:18 Carbon Dioxide 22 mmol/L (22-30) 03/05/18 09:18 Anion Gap 18 (10-20) 03/05/18 09:18 BUN 18 mg/dL (7-17) H 03/05/18 09:18 Creatinine 0.8 mg/dL (0.7-1.2) 03/05/18 09:18 Est GFR ( Amer) > 60 03/05/18 09:18 Est GFR (Non-Af Amer) > 60 03/05/18 09:18 POC Glucose (mg/dL) 240 mg/dL (65-110) H 03/05/18 11:05 Random Glucose 267 mg/dL (65-105) H 03/05/18 09:18 Calcium 8.3 mg/dl (8.6-10.4) L 03/05/18 09:18 Total Bilirubin 1.0 mg/dL (0.2-1.3) 03/05/18 09:18 AST 32 U/L (14-36) 03/05/18 09:18 ALT 31 U/L (9-52) 03/05/18 09:18 Alkaline Phosphatase 69 U/L (38-126) 03/05/18 09:18 Total Protein 6.3 g/dL (6.3-8.3) 03/05/18 09:18 Albumin 3.6 g/dL (3.5-5.0) 03/05/18 09:18 Globulin 2.7 gm/dL (2.2-3.9) 03/05/18 09:18 Albumin/Globulin Ratio 1.4 (1.0-2.1) 03/05/18 09:18 Carcinoembryonic Ag 1.2 ng/mL (0-3.0) 03/04/18 23:46 CA 19-9 Antigen 3.6 U/mL (0-37) 03/04/18 23:46 CA 125 Antigen 6.2 U/mL (0-35) 03/04/18 23:46 Stool Occult Blood Positive (NEGATIVE) H 03/03/18 13:38 Blood Type A NEGATIVE 03/03/18 14:06 Antibody Screen Positive 03/03/18 14:06 Antibody Identification Anti E 03/03/18 14:06 Antigen Identification E Antigen - NEGATIVE 03/03/18 16:13 - Hospital Course Hospital Course: On Admission: 72 year old female with past medical history of hypertension, CAD, DM, HLD, anemia, GI bleed, diverticulitis and gastritis presented to hospital for black tarry stools ongoing for about 4 days. Patient also complains of dyspnea, lightheadedness since this morning. Patient was brought in by son via ambulance due to her symptoms. Patient has had episodes of recurrent rectal bleeding in the past. She follows with [facility] and has had colonoscopy and EGD in past. Patient was admitted recently for similar symptoms in 12/2017. At that time she was noted to have acute blood loss anemia and discharged after transfusions. Patient then followed up with her GI doctor who performed a capsule swallow study 3 weeks ago. Patient is unsure if she passed the capsule completely through. Currently, patient is resting comfortably. Denies having any CP, SOB, abd pain, N/V/D/C, F/C. Hospital Course: Patient was transfused 4 units up to HgB of 10. Positive Bleeding scan in the fundus of the stomach and first part of SB. Patient had no further episodes of GIU bleeding. Patient requesting to follow up with her primary GI Dr [facility]. Patient was discharged on protonix and copy of GI bleeding scan disc. Discharge Exam - Head Exam Head Exam: ATRAUMATIC, NORMAL INSPECTION, NORMOCEPHALIC - Eye Exam Eye Exam: EOMI, Normal appearance, PERRL Pupil Exam: NORMAL ACCOMODATION, PERRL - Respiratory Exam Respiratory Exam: Clear to PA & Lateral, NORMAL BREATHING PATTERN, UNREMARKABLE - Cardiovascular Exam Cardiovascular Exam: REGULAR RHYTHM. absent: Tachycardia - GI/Abdominal Exam GI & Abdominal Exam: Normal Bowel Sounds, Soft, Unremarkable. absent: Distended , Tenderness - Neurological Exam Neurological exam: Alert, CN II-XII Intact, Normal Gait, Oriented x3, Reflexes Normal - Psychiatric Exam Psychiatric exam: Normal Affect, Normal Mood - Skin Skin Exam: Dry, Intact, Normal Color, Warm Discharge Plan - Discharge Medications Prescriptions: Pantoprazole [Protonix EC Tab] 40 mg PO BID 30 Days #60 ect - Follow Up Plan Condition: STABLE Disposition: HOME/ ROUTINE Instructions: Carbohydrate Counting Diet, Diabetes Diet , Gastrointestinal Bleeding (DC), Normocytic Normochromic Anemia (DC) Additional Instructions: Please follow up with your primary doctor, GI doctor and Sur[facility]. I have provided you with a CD of the bleeding scan. Please continue to take Protonix 40mg twice daily. Please come back to ED if symptoms return.
--- NOTE | 2018-03-06 22:41 | CARD ---
APPROVED REPORT EKG Measurement Heart [id number] <Conclusion> Normal sinus rhythm Possible Inferior infarct, age undetermined ST & T wave abnormality, consider lateral ischemia Prolonged QT Abnormal ECG
== END 2018-03-05 13:27 | disposition home or self-care (01) | DRG 378 ==
LOC: C.ER 12:09 → C.9E 14:05 → C.6T 18:49
PROVIDERS: ADMIT Internal Medicine; ATTEND Internal Medicine
PROC: 30233N1 Transfusion of Nonautologous Red Blood Cells into Peripheral Vein, Percutaneous Approach (ICD-10-PCS; principal; 2018-03-03)
DX: K92.2 Gastrointestinal hemorrhage, unspecified (principal); D62 Acute posthemorrhagic anemia; D50.0 Iron deficiency anemia secondary to blood loss (chronic); E11.9 Type 2 diabetes mellitus without complications; I10 Essential (primary) hypertension; I25.10 Atherosclerotic heart disease of native coronary artery without angina pectoris; G40.909 Epilepsy, unspecified, not intractable, without status epilepticus; I69.398 Other sequelae of cerebral infarction; I48.2 Chronic atrial fibrillation; E78.5 Hyperlipidemia, unspecified; E78.00 Pure hypercholesterolemia, unspecified; F17.210 Nicotine dependence, cigarettes, uncomplicated; Z86.010 Personal history of colon polyps; Z95.5 Presence of coronary angioplasty implant and graft; Z79.84 Long term (current) use of oral hypoglycemic drugs; Z79.899 Other long term (current) drug therapy

== ENCOUNTER 2018-05-11 13:25 | Inpatient (IN) | payer MEDICARE ==
[2018-05-11 13:25] VITALS: BMI 22.6
--- NOTE | 2018-05-11 15:09 | C.PDOC ---
History Of Present Illness 72 year old female, with PMHx of CAD, stents placed 3 years ago, presents to ED for evaluation of mid epigastric abdominal and sub-xiphoid pain that developed 2 days ago but worse since last night. Notes pain occasionally radiates to the back. As per son, patient is no longer allowed to take Aspirin. Denies shortness of breath, numbness, weakness, nausea, vomiting, diarrhea, diaphoresis , or fever. Time Seen by Provider: 05/11/18 13:48 Chief Complaint (Nursing): Chest Pain History Per: Patient History/Exam Limitations: no limitations Onset/Duration Of Symptoms: Days Current Symptoms Are (Timing): Still Present Quality: "Pain" Associated Symptoms: denies: Nausea, Diaphoresis, Syncope Modifying Factors: None Exacerbating Factors: None Alleviating Factors: None Additional History Per: Patient Past Medical History Reviewed: Historical Data, Nursing Documentation, Vital Signs Vital Signs: Last Vital Signs Temp 98.1 F 05/14/18 07:00 Pulse 57 L 05/14/18 08:00 Resp 20 05/14/18 07:00 BP 148/65 05/14/18 10:19 Pulse Ox 98 05/14/18 07:00 - Medical History PMH: Anemia ( acute and chronic due to GI blood loss), Arthritis, Atrial Fibrillation, CAD, Cardia Arrhythmia, Colonic Polyps, Diabetes, Diverticulitis ( diverticulosis 2014 and 05/2016), Gastritis, HTN, Hypercholesterolemia, Seizures Denies: Crohn's Disease, Gall Bladder Disease, HIV, Pancreatitis, Chronic Kidney Disease, TIA Surgical History: Coronary Stent (2012), Endoscopy - [facility] Procedures CLOSED ENDOSCOPIC BIOPSY OF LARGE INTESTINE (11/30/14) CONTROL BLEEDING IN GASTROINTESTINAL TRACT, ENDO (12/12/16) CORONAR ARTERIOGR-2 CATH (11/30/14) ESOPHAGOGASTRODUODENOSCOPY [EGD] W/CLOSED BIOPSY (11/30/14) EXCISION OF STOMACH, ENDO, DIAGN (04/09/16) INJECT/INFUSE NEC (06/04/05) LEFT HEART CARDIAC CATH (11/30/14) LT HEART ANGIOCARDIOGRAM (11/30/14) PACKED CELL TRANSFUSION (11/30/14) RELEASE LEFT URETER, OPEN APPROACH (12/12/16) RELEASE PERITONEUM, OPEN APPROACH (12/12/16) RELEASE RIGHT URETER, OPEN APPROACH (12/12/16) REMOVAL OF SYNTH SUB FROM LOW INTEST TRACT, OPEN APPROACH (12/12/16) REPAIR RECTUM, PERCUTANEOUS ENDOSCOPIC APPROACH (07/27/16) RESECTION OF RECTUM, OPEN APPROACH (12/12/16) RESECTION OF SIGMOID COLON, OPEN APPROACH (12/12/16) RESECTION OF SIGMOID COLON, PERCUTANEOUS ENDOSCOPIC APPROACH (07/27/16) ROBOTIC ASSISTED PROCEDURE OF TRUNK, PERC ENDO APPROACH (07/27/16) TRANSFUSE NONAUT FROZEN RED CELLS IN PERIPH VEIN, PERC (09/20/16) TRANSFUSE NONAUT RED BLOOD CELLS IN PERIPH VEIN, PERC (03/03/18) TRANSFUSE NONAUT WHOLE BLOOD IN PERIPH VEIN, PERC (10/13/16) Family History: States: Unknown Family Hx, [place] - Social History Hx Tobacco Use: Yes (cut down per daughter) Hx Alcohol Use: No Hx Substance Use: No - Immunization History Hx Tetanus Toxoid Vaccination: Yes Hx Influenza Vaccination: No (per pt declines) Hx Pneumococcal Vaccination: No Review Of Systems Except As Marked, All Systems Reviewed And Found Negative. Constitutional: Negative for: Fever, Chills, Sweats Cardiovascular: Negative for: Chest Pain, Palpitations Respiratory: Negative for: Shortness of Breath Gastrointestinal: Positive for: Abdominal Pain. Negative for: Nausea, Vomiting , Diarrhea, Constipation Genitourinary: Negative for: Dysuria, Frequency, Hematuria Neurological: Negative for: Weakness, Numbness Physical Exam - Physical Exam Appears: Non-toxic, No Acute Distress, Other (mildly obese) Skin: Normal Color, Warm, Dry, Pale Head: Atraumatic, Normacephalic Eye(s): bilateral: Normal Inspection Oral Mucosa: Moist Neck: Normal ROM, Supple Chest: Symmetrical, No Tenderness Cardiovascular: Rhythm Regular, No Murmur Respiratory: Normal Breath Sounds, No Rales, No Rhonchi, No Wheezing Gastrointestinal/Abdominal: Bowel Sounds, Soft, No Tenderness, No Guarding, No Rebound Back: No CVA Tenderness Extremity: Normal ROM, No Pedal Edema, No Calf Tenderness Neurological/Psych: Oriented x3, Normal Speech, Normal Motor, Normal Sensation Gait: Steady ED Course And Treatment - Laboratory Results Result Diagrams: 05/14/18 06:56 05/14/18 06:56 ECG: Interpreted By Me, Viewed By Me ECG Rhythm: Sinus Rhythm ECG Interpretation: No Acute Changes Interpretation Of ECG: No ST/T wave changes. Rate From EC (bpm) O2 Sat by Pulse Oximetry: 99 (RA) Pulse Ox Interpretation: Normal - Radiology CXR: Interpreted by Me, Viewed By Me CXR Interpretation: Yes: No Acute Disease, Cardiomegaly Medical Decision Making Medical Decision Making: Plan: Blood work CXR Disposition - Disposition Disposition: HOSPITALIZED Disposition Time: 16:20 Condition: GOOD - Clinical Impression Clinical Impression: Chest pain, Iron deficiency anemia due to chronic blood loss, Near syncope - PA / [employer] / Resident Statement MD/DO has reviewed & agrees with the documentation as recorded. - Scribe Statement The provider has reviewed the documentation as recorded by the Scribe KP All medical record entries made by the Scribe were at my direction and personally dictated by me. I have reviewed the chart and agree that the record accurately reflects my personal performance of the history, physical exam, medical decision making, and the department course for this patient. I have also personally directed, reviewed, and agree with the discharge instructions and disposition.
[2018-05-11 15:26] LABS: BASO # 0.1 K/uL (0.0-0.2); BASO % 0.7 % (0.0-2.0); EOS # 0.2 K/uL (0.0-0.7); EOS % 2.1 % (0.0-4.0); LYMPH # 1.3 K/uL (1.0-4.3); LYMPH % 13.9 % (20.0-40.0); MEAN CELL VOLUME 90.1 fL (81.0-99.0); MEAN CORPUSCULAR HEMOGLOBIN 29.6 pg (27.0-31.0); MEAN CORPUSCULAR HGB CONC 32.9 g/dL (33.0-37.0); MEAN PLATELET VOLUME 9.1 fL (7.2-11.7); MONO # 0.9 K/uL (0.0-0.8); MONO % 9.3 % (0.0-10.0); NEUT # 6.9 K/uL (1.8-7.0); NRBC % 0.4 % (0.0-2.0); RBC 2.02 Mil/uL (3.80-5.20); RED CELL DISTRIBUTION WIDTH 20.4 % (11.5-14.5); WHITE BLOOD COUNT 9.4 K/uL (4.8-10.8)
[2018-05-11 16:05] LABS: ALB/GLOB RATIO 1.4 (1.0-2.1); ALBUMIN 3.3 g/dL (3.5-5.0); ALT/SGPT 37 U/L (9-52); AST/SGOT 26 U/L (14-36); BLOOD UREA NITROGEN 25 mg/dL (7-17); CALCIUM 8.8 mg/dl (8.6-10.4); GFR AFRICAN-AMERICAN > 60; GFR NON-AFRICAN AMERICAN > 60
[2018-05-11 16:16] LABS: B-TYPE NATRIURETIC PEPTIDE 1060 pg/mL (0-900); CK-MB 0.83 ng/mL (0.0-3.38)
[2018-05-11] MEDS ORDERED: Glucagon Recombinant 1 mg Inj IM PRN (17:25)
[2018-05-11] MEDS ORDERED: Dextrose 50% SYRINGE Inj (50 ml) IV PRN (17:25)
[2018-05-11] MEDS ORDERED: Pantoprazole 80 MG in Sodium Chloride 0.9% 100 ML IVP SCH (17:30)
--- NOTE | 2018-05-11 17:41 | CP.PCM.HP ---
History of Present Illness - History of Present Illness History of Present Illness: Patient is a 72 year old female with past medical history of GI bleed, hypertension, CAD and NC s/p 3 stents in 2014, diabetes, who presents to the ER with complaint of epigastric pain that began yesterday morning with breakfast. Patient states that pain is not worse with food and that she was able to eat full lunch and dinner yesterday as well. Patient also admits to black tarry stools for past 2-3 days. She denies bright red blood per rectum or hematemesis. Patient also admits to dyspnea on exertion but denies orthopnea. Patient was recently hospitalized in February 2018 with GI bleed and had bleeding scan positive for "active gastric bleeding potentially from the proximal fundus or cardiac portion." Patient follows with GI group at [place] and states last visit was 1-2 months ago but does not recall any changes to regimen. Patient's aspirin and plavix were previously discontinued due to GI bleed. Patient currently resting comfortably and has no additional complaints. PMD: Yael PMHx: GI bleed, HTN, HLD, CAD, NC in 2014 with 3 stents placed in [place], diabetes, diverticulitis, gastritis, CVA with subsequent seizure x 1 episode Meds: Verified with patient's pharmacy: metformin 500mg daily, lipitor 40mg HS, keppra 500mg BID, protonix 40mg BID, losartan 100mg daily, coreg 12.5mg Surgical Hx: exploratory laparotomy with rectosgmoid colon resection for removal of eroding mesh 12/19/16, rectal prolapse repair, colonoscopy, EGD with biopsy, internal hemorrhoid surgery (2015), coronary stents x 3 (2014) Family Hx: Mother of NC, brother of liver cancer Social hx: Smokes 5-6 cigarettes per day x 48 years, denies alcohol and drug use. Lives with daughter. Allergies: Penicillin (rash) Present on Admission - Present on Admission Any Indicators Present on Admission: No Review of Systems - Constitutional Constitutional: Fatigue. absent: Chills, Fever - EENT Ears: absent: Dizziness - Cardiovascular Cardiovascular: Dyspnea on Exertion. absent: Chest Pain, Edema, Lightheadedness , Orthopnea, Syncope - Respiratory Respiratory: Dyspnea on Exertion. absent: Cough - Gastrointestinal Gastrointestinal: Abdominal Pain (epigastric), Melena. absent: Coffee Ground Emesis, Constipation, Diarrhea, Dyspepsia, Hematemesis, Hematochezia, Nausea, Vomiting - Genitourinary Genitourinary: absent: Difficulty Urinating, Dysuria, Hematuria - Musculoskeletal Musculoskeletal: Back Pain - Integumentary Integumentary: absent: Dry Skin, Rash - Neurological Neurological: absent: Dizziness, Weakness Past Patient History - Infectious Disease Hx of Infectious Diseases: None - Past Medical History & Family History Past Medical History?: Yes - Past Social History Smoking Status: Never Smoked - CARDIAC Hx Atrial Fibrillation: Yes Hx Cardia Arrhythmia: Yes Hx Hypercholesterolemia: Yes Hx Hypertension: Yes - PULMONARY Hx Respiratory Disorders: No - NEUROLOGICAL Hx Seizures: Yes Hx Transient Ischemic Attacks (TIA): No - HEENT Hx HEENT Problems: No - RENAL Hx Chronic Kidney Disease: No - ENDOCRINE/METABOLIC Hx Endocrine Disorders: Yes Hx Diabetes Mellitus Type 2: Yes - HEMATOLOGICAL/ONCOLOGICAL Hx Anemia: Yes ( acute and chronic due to GI blood loss) Hx Human Immunodeficiency Virus (HIV): No - INTEGUMENTARY Hx Dermatological Problems: No - MUSCULOSKELETAL/RHEUMATOLOGICAL Hx Arthritis: Yes - GASTROINTESTINAL Hx Crohn's Disease: No Hx Diverticulitis: Yes (diverticulosis 2014 and 05/2016) Hx Gall Bladder Disease: No Hx Gastritis: Yes Hx Pancreatitis: No - GENITOURINARY/GYNECOLOGICAL Hx Genitourinary Disorders: No - PSYCHIATRIC Hx Substance Use: No - SURGICAL HISTORY Hx Coronary Stent: Yes (2012) - ANESTHESIA Hx Anesthesia: Yes Hx Anesthesia Reactions: No Hx Malignant Hyperthermia: No Meds Allergies/Adverse Reactions: Allergies Allergy/AdvReac Type Severity Reaction Status Date / Time Penicillins Allergy RASH Verified 03/03/18 12:45 acetaminophen [From Percocet] AdvReac DIZZINESS Verified 03/03/18 12:45 oxycodone HCl [From Percocet] AdvReac DIZZINESS Verified 03/03/18 12:45 Physical Exam - Constitutional Appears: Non-toxic, No Acute Distress - Head Exam Head Exam: ATRAUMATIC, NORMOCEPHALIC - Eye Exam Eye Exam: EOMI Additional comments: conjunctival pallor - ENT Exam ENT Exam: Mucous Membranes Moist - Respiratory Exam Respiratory Exam: Clear to Auscultation Bilateral, NORMAL BREATHING PATTERN. absent: Rales, Rhonchi, Wheezes - Cardiovascular Exam Cardiovascular Exam: +S1, +S2, Systolic Murmur - GI/Abdominal Exam GI & Abdominal Exam: Normal Bowel Sounds, Soft, Tenderness (epigastric ). absent: Distended, Firm, Guarding - Rectal Exam Rectal Exam: Black Stool (minimal residue of dark stool). absent: Bloody Stool (no aleksander blood) - Extremities Exam Extremities exam: Positive for: normal inspection. Negative for: calf tenderness, pedal edema - Neurological Exam Neurological exam: Alert - Psychiatric Exam Psychiatric exam: Normal Affect - Skin Skin Exam: Pallor, Warm Results - Vital Signs Recent Vital Signs: Last Vital Signs Temp 99.2 F 05/11/18 13:57 Pulse 78 05/11/18 15:12 Resp 14 05/11/18 15:12 BP 103/43 L 05/11/18 15:12 Pulse Ox 99 05/11/18 16:16 - Labs Result Diagrams: 05/11/18 15:11 05/11/18 15:11 Labs: Laboratory Results - last 24 hr 05/11/18 05/11/18 05/11/18 15:11 15:11 16:08 WBC 9.4 RBC 2.02 L Hgb 6.0 L* D Hct 18.2 L MCV 90.1 D MCH 29.6 MCHC 32.9 L RDW 20.4 H Plt Count 235 MPV 9.1 Neut % (Auto) 74.0 Lymph % (Auto) 13.9 L [place] % (Auto) 9.3 Eos % (Auto) 2.1 Baso % (Auto) 0.7 Neut # (Auto) 6.9 Lymph # (Auto) 1.3 [place] # (Auto) 0.9 H Eos # (Auto) 0.2 Baso # (Auto) 0.1 Sodium 138 Potassium 4.8 Chloride 103 Carbon Dioxide 23 Anion Gap 16 BUN 25 H Creatinine 0.7 Est GFR ( Amer) > 60 Est GFR (Non-Af Amer) > 60 Random Glucose 208 H Calcium 8.8 Total Bilirubin 0.6 AST 26 ALT 37 Alkaline Phosphatase 69 Total Creatine Kinase 26 L CK-MB (Mass) 0.83 Troponin I < 0.0120 NT-Pro-B Natriuret Pep 1060 H Total Protein 5.7 L Albumin 3.3 L Globulin 2.4 Albumin/Globulin Ratio 1.4 Blood Type A NEGATIVE Antibody Screen Negative Assessment & Plan - Assessment and Plan (Free Text) Assessment: 72 year old female with PMHx of hypertension, DM, HLD, NC with stents, anemia, GI bleed, diverticulitis and gastritis is admitted for GI Bleed and acute anemia GI Bleed -Admit to telemetry -Protonix drip -capsule study 02/2018 showed active gastric bleeding potentially from the proximal fundus or cardiac portion (see full report) -rectal exam positive for dark stool, occult blood testing pending -clear liquid diet Chest pain likely epigastric pain due to GI bleed patient has history of NC with stents x 3 in 2014 and cannot take aspirin or plavix due to GI bleed first troponin negative, will continue to trend Acute blood loss anemia - Hgb on presentation is 6.0 - Will transfuse 2 units PRBC, consent in chart Elevated BNP last echo 11/2016: EF 60-65%, mild concentric left ventricular hypertrophy. Left atrial pressure mildly elevated. Mitral annular calcification mild. MItral regurgitation mild to moderate. Mild tricuspid regurgitation. Right ventricular systolic pressure estimated at 40mmgHg. Mild pulmonary hypertension. portable chest xray in ER shows mild congestion, official report pending will monitor volume status and give lasix after transfusion if necessary Hx hypertension -Continue Coreg 12.5 mg po BID -continue losartan 100mg PO daily DM - Accuchecks ACHS - ISS - Hold home metformin - hypoglycemia protocol HLD -continue equivalent for home med lipitor 40 Seizure disorder 2/2 CVA -Continue home medication keppra 500 mg po BID Prophylactic measure -chemical anticoagulation contraindicated due to bleed -SCDs -protonix drip Management as per Dr. Conley
--- NOTE | 2018-05-11 17:55 | RAD ---
Chest x-ray single frontal view History: Chest pain. Comparison: 05/03/2017 Findings: Mild venous congestion. Right hilar prominence. Cardiomegaly. Tortuous aorta. Degenerative changes in the spine and shoulders. Impression: Mild venous congestion. Right hilar prominence. Cardiomegaly. Tortuous aorta.
[2018-05-11] MEDS: Pantoprazole 80 MG in Sodium Chloride 0.9% 100 ML IVPB SCH (20:25)
[2018-05-11] MEDS: (Novolin R) Insulin Human Regular 100 units/ml vial SC SCH (22:14)
[2018-05-12] MEDS: Pantoprazole 80 MG in Sodium Chloride 0.9% 100 ML IVPB SCH ×2 (06:08→16:27)
[2018-05-12] MEDS: (Novolin R) Insulin Human Regular 100 units/ml vial SC SCH ×4 (07:26→21:32)
[2018-05-12 08:37] LABS: BASO % 0.5 % (0.0-2.0); EOS # 0.3 K/uL (0.0-0.7); EOS % 3.7 % (0.0-4.0); HEMOGLOBIN 7.8 g/dL (11.0-16.0); LYMPH # 0.8 K/uL (1.0-4.3); LYMPH % 11.7 % (20.0-40.0); MEAN CELL VOLUME 88.7 fL (81.0-99.0); MEAN CORPUSCULAR HGB CONC 33.9 g/dL (33.0-37.0); MEAN PLATELET VOLUME 8.9 fL (7.2-11.7); MONO # 0.7 K/uL (0.0-0.8); MONO % 10.1 % (0.0-10.0); NEUT # 5.4 K/uL (1.8-7.0); NRBC % 0.2 % (0.0-2.0); RBC 2.61 Mil/uL (3.80-5.20); WHITE BLOOD COUNT 7.3 K/uL (4.8-10.8)
[2018-05-12 09:06] LABS: ALB/GLOB RATIO 1.3 (1.0-2.1); ALBUMIN 3.1 g/dL (3.5-5.0); ALT/SGPT 33 U/L (9-52); AST/SGOT 23 U/L (14-36); BLOOD UREA NITROGEN 22 mg/dL (7-17); CALCIUM 8.1 mg/dl (8.6-10.4); GFR AFRICAN-AMERICAN > 60; GFR NON-AFRICAN AMERICAN > 60
--- NOTE | 2018-05-12 16:51 | CP.PCM.PN ---
Subjective - Date & Time of Evaluation Date of Evaluation: 05/12/18 Time of Evaluation: 10:15 - Subjective Subjective: Medicine progress note for Dr. Conley's service Patient seen and examined this morning and again on rounds. Patient reports feeling much better and more energetic since receiving two units PRBCs overnight. Patient reports chest pain/ epigastric pain has resolved and has improved appetite. Objective - Vital Signs/Intake and Output Vital Signs (last 24 hours): Temp Pulse Resp BP Pulse Ox 97.7 F 66 18 151/81 H 97 05/12/18 08:00 05/12/18 08:00 05/12/18 08:00 05/12/18 10:37 05/12/18 08:00 Intake and Output: 05/12/18 05/12/18 06:59 18:59 Intake Total 200 Balance 200 - Medications Medications: Current Medications Carvedilol (Coreg) 12.5 mg PO BID [facility] Last Admin: 05/12/18 10:37 Dose: 12.5 mg Dextrose (Dextrose 50% Inj) 0 ml IV STAT PRN; Protocol PRN Reason: Hypoglycemia Protocol Dextrose (Glutose 15) 0 gm PO ONCE PRN; Protocol PRN Reason: Hypoglycemia Protocol Glucagon (Glucagen Diagnostic Kit) 0 mg IM STAT PRN; Protocol PRN Reason: Hypoglycemia Protocol Dextrose (Dextrose 5% In Water 1000 Ml) 1,000 mls @ 0 mls/hr IV .Q0M PRN; Protocol; Per Protocol PRN Reason: Hypoglycemia Protocol Pantoprazole Sodium 80 mg/ (Sodium Chloride) 100 mls @ 10 mls/hr IVPB .Q10H MARY PRN Reason: 8 MG/HR Last Admin: 05/12/18 16:27 Dose: 10 mls/hr Insulin Human Regular (Novolin R) 0 unit SC ACHS MARY PRN Reason: Protocol Last Admin: 05/12/18 16:27 Dose: Not Given Levetiracetam (Keppra) 500 mg PO BID [facility] Last Admin: 05/12/18 10:37 Dose: 500 mg Losartan Potassium (Cozaar) 100 mg PO DAILY [facility] Last Admin: 05/12/18 10:36 Dose: 100 mg Rosuvastatin Calcium (Crestor) 20 mg PO HS [facility] Last Admin: 05/11/18 21:15 Dose: 20 mg - Labs Labs: 05/12/18 08:21 05/12/18 08:21 - Constitutional Appears: Non-toxic, No Acute Distress, Chronically Ill - Head Exam Head Exam: ATRAUMATIC, NORMOCEPHALIC - Eye Exam Eye Exam: EOMI Additional comments: conjunctival pallor improved - ENT Exam ENT Exam: Mucous Membranes Moist - Respiratory Exam Respiratory Exam: Clear to Ausculation Bilateral, NORMAL BREATHING PATTERN - Cardiovascular Exam Cardiovascular Exam: +S1, +S2, Murmur (mitral regurg) - GI/Abdominal Exam GI & Abdominal Exam: Soft, Normal Bowel Sounds. absent: Tenderness - Extremities Exam Extremities Exam: Normal Inspection. absent: Calf Tenderness - Neurological Exam Neurological Exam: Alert, Awake - Psychiatric Exam Psychiatric exam: Normal Affect - Skin Skin Exam: Pallor (improved from prior), Warm Assessment and Plan - Assessment and Plan (Free Text) Assessment: 72 year old female with PMHx of hypertension, DM, HLD, LA with stents, anemia, GI bleed, diverticulitis and gastritis is admitted for GI Bleed and acute anemia GI Bleed -Admit to telemetry -Protonix drip -capsule study 02/2018 showed active gastric bleeding potentially from the proximal fundus or cardiac portion (see full report) -rectal exam positive for dark stool, occult blood testing pending -advance diet to diabetic diet -patient status post 2 units PRBC with Chest pain likely epigastric pain due to GI bleed patient has history of LA with stents x 3 in 2014 and cannot take aspirin or plavix due to GI bleed troponins negative Acute blood loss anemia - Hgb on presentation is 6.0, 7.8 after 2 units PRBC - will transfuse one more unit Elevated BNP last echo 11/2016: EF 60-65%, mild concentric left ventricular hypertrophy. Left atrial pressure mildly elevated. Mitral annular calcification mild. MItral regurgitation mild to moderate. Mild tricuspid regurgitation. Right ventricular systolic pressure estimated at 40mmgHg. Mild pulmonary hypertension. portable chest xray in ER shows mild congestion, official report pending will monitor volume status and give lasix after transfusion if necessary will check new echo Hx hypertension -Continue Coreg 12.5 mg po BID -continue losartan 100mg PO daily DM - Accuchecks ACHS - ISS - Hold home metformin - hypoglycemia protocol HLD -continue equivalent for home med lipitor 40 Seizure disorder 2/2 CVA -Continue home medication keppra 500 mg po BID Prophylactic measure -chemical anticoagulation contraindicated due to bleed -SCDs -protonix drip Management as per Dr. Conley
[2018-05-13 01:31] VITALS: RESP 20
[2018-05-13 06:28] LABS: BASO % 0.5 % (0.0-2.0); EOS # 0.4 K/uL (0.0-0.7); EOS % 5.3 % (0.0-4.0); HEMOGLOBIN 8.7 g/dL (11.0-16.0); LYMPH # 0.9 K/uL (1.0-4.3); MEAN CELL VOLUME 88.1 fL (81.0-99.0); MEAN CORPUSCULAR HEMOGLOBIN 29.4 pg (27.0-31.0); MEAN CORPUSCULAR HGB CONC 33.4 g/dL (33.0-37.0); MEAN PLATELET VOLUME 8.6 fL (7.2-11.7); MONO # 0.9 K/uL (0.0-0.8); MONO % 12.1 % (0.0-10.0); NEUT # 5.3 K/uL (1.8-7.0); NEUT % 70.1 % (50.0-75.0); RBC 2.96 Mil/uL (3.80-5.20); RED CELL DISTRIBUTION WIDTH 17.1 % (11.5-14.5); WHITE BLOOD COUNT 7.6 K/uL (4.8-10.8)
[2018-05-13 07:03] LABS: ALB/GLOB RATIO 1.5 (1.0-2.1); ALBUMIN 3.4 g/dL (3.5-5.0); ALT/SGPT 35 U/L (9-52); AST/SGOT 20 U/L (14-36); BLOOD UREA NITROGEN 18 mg/dL (7-17); CALCIUM 8.3 mg/dl (8.6-10.4); GFR AFRICAN-AMERICAN > 60; GFR NON-AFRICAN AMERICAN > 60
[2018-05-13] MEDS: Pantoprazole 80 MG in Sodium Chloride 0.9% 100 ML IVPB SCH ×3 (11:20→18:01)
[2018-05-13] MEDS: (Novolin R) Insulin Human Regular 100 units/ml vial SC SCH ×4 (12:41→22:59)
--- NOTE | 2018-05-13 18:02 | CP.PCM.PN ---
Subjective - Date & Time of Evaluation Date of Evaluation: 05/13/18 Time of Evaluation: 10:45 - Subjective Subjective: PGY-1 Medicine Progress Note for Dr. Conley's service Patient seen and examined at bedside. Patient offers no acute complaints. Patient received 1 unit of pRBCs today and 2 yesterday. Patient denies abdominal pain, hematochezia, melena, nausea, vomiting, sob, chest pain, dysuria , headaches, dizziness, palpitations. Objective - Vital Signs/Intake and Output Vital Signs (last 24 hours): Temp Pulse Resp BP Pulse Ox 97.7 F 64 20 104/49 L 98 05/13/18 15:44 05/13/18 16:24 05/13/18 15:44 05/13/18 15:44 05/13/18 15:44 Intake and Output: 05/13/18 05/13/18 06:59 18:59 Intake Total 405 240 Balance 405 240 - Medications Medications: Current Medications Carvedilol (Coreg) 12.5 mg PO BID [facility] Last Admin: 05/13/18 11:10 Dose: 12.5 mg Dextrose (Dextrose 50% Inj) 0 ml IV STAT PRN; Protocol PRN Reason: Hypoglycemia Protocol Dextrose (Glutose 15) 0 gm PO ONCE PRN; Protocol PRN Reason: Hypoglycemia Protocol Glucagon (Glucagen Diagnostic Kit) 0 mg IM STAT PRN; Protocol PRN Reason: Hypoglycemia Protocol Dextrose (Dextrose 5% In Water 1000 Ml) 1,000 mls @ 0 mls/hr IV .Q0M PRN; Protocol; Per Protocol PRN Reason: Hypoglycemia Protocol Pantoprazole Sodium 80 mg/ (Sodium Chloride) 100 mls @ 10 mls/hr IVPB .Q10H SURNIDER PRN Reason: 8 MG/HR Last Admin: 05/13/18 12:45 Dose: Not Given Insulin Human Regular (Novolin R) 0 unit SC ACHS SURINDER PRN Reason: Protocol Last Admin: 05/13/18 12:41 Dose: 2 units Levetiracetam (Keppra) 500 mg PO BID [facility] Last Admin: 05/13/18 11:10 Dose: 500 mg Losartan Potassium (Cozaar) 100 mg PO DAILY [facility] Last Admin: 05/13/18 11:14 Dose: 100 mg Rosuvastatin Calcium (Crestor) 20 mg PO HS [facility] Last Admin: 05/12/18 21:32 Dose: 20 mg - Labs Labs: 05/13/18 06:16 05/13/18 06:16 - Constitutional Appears: Non-toxic, No Acute Distress - Head Exam Head Exam: NORMAL INSPECTION, NORMOCEPHALIC - Eye Exam Eye Exam: EOMI, Normal appearance. absent: Nystagmus, Scleral icterus - ENT Exam ENT Exam: Mucous Membranes Dry - Respiratory Exam Respiratory Exam: Clear to Ausculation Bilateral, NORMAL BREATHING PATTERN. absent: Rales, Rhonchi, Wheezes - Cardiovascular Exam Cardiovascular Exam: REGULAR RHYTHM, +S1, +S2 - GI/Abdominal Exam GI & Abdominal Exam: Soft, Normal Bowel Sounds. absent: Distended, Firm, Guarding, Rigid, Tenderness - Extremities Exam Extremities Exam: Normal Inspection. absent: Calf Tenderness, Pedal Edema - Back Exam Back Exam: NORMAL INSPECTION. absent: CVA tenderness (L), CVA tenderness (R) - Neurological Exam Neurological Exam: Alert, Awake, Oriented x3 - Psychiatric Exam Psychiatric exam: Normal Affect, Normal Mood - Skin Skin Exam: Intact, Normal Color Assessment and Plan - Assessment and Plan (Free Text) Assessment: 72 yo female with PMH of GI bleed, hypertension, CAD, and [place] s/p 3 stents in 2014, DM, who presents to ER with complaint of epigastric pain that began yesterday morning with breakfast; noted to have black tarry stools for past 2-3 days; labs showed Hgb 6.0 on admission; has received 3 units of blood; repeat CBC pending after last unit Plan: Anemia 02/2018 Bleeding scan: Findings positive for active gastric bleeding potentially form the proximal fundus or even cardiac portion Rectal exam positive for dark stool as per prior weekend medicine note Hgb 8.7; repeat CBC pending; s/p 3units of pRBCs MCV 88 Monitor H&H currently asymptomatic Consider iron studies if patient continues to drop HTN Losartan 100mg po daily surinder Carvedilol 12.5mg po bid Hx of MD s/p 3 stents Crestor 20mg po HS surinder AC held due to blood loss DM2 BS 174 (relatively controlled) ISS Hypoglycemic protocol; ACHS Seizure Disorder Keppra 500mg po bid surinder PPX DVT ppx: SCDs, heparin held secondary to acute blood loss GI ppx: Protonix drip @10mls/hr IVPB q10h surinder
[2018-05-13 20:00] LABS: BASO % 0.3 % (0.0-2.0); EOS # 0.4 K/uL (0.0-0.7); EOS % 4.7 % (0.0-4.0); LYMPH # 1.1 K/uL (1.0-4.3); LYMPH % 13.6 % (20.0-40.0); MEAN CELL VOLUME 88.6 fL (81.0-99.0); MEAN CORPUSCULAR HEMOGLOBIN 29.8 pg (27.0-31.0); MEAN CORPUSCULAR HGB CONC 33.6 g/dL (33.0-37.0); MONO # 0.9 K/uL (0.0-0.8); MONO % 10.9 % (0.0-10.0); NEUT # 5.7 K/uL (1.8-7.0); NEUT % 70.5 % (50.0-75.0); NRBC % 0.1 % (0.0-2.0); RBC 3.01 Mil/uL (3.80-5.20); RED CELL DISTRIBUTION WIDTH 17.3 % (11.5-14.5); WHITE BLOOD COUNT 8.1 K/uL (4.8-10.8)
--- NOTE | 2018-05-13 22:46 | CARD ---
APPROVED REPORT Date of service: 05/13/2018 EXAM: Two-dimensional and M-mode echocardiogram with Doppler and color Doppler. Other Information Quality : TDSRhythm : INDICATION Cardiac Disease: CAD Chest Pain Syncope RISK FACTORS Hypertension Diabetes 2D DIMENSIONS IVSd1.5 (0.7-1.1cm)LVDd4.2 (3.9-5.9cm) PWd1.2 (0.7-1.1cm)LVDs2.4 (2.5-4.0cm) FS (%) 41.5 %LVEF (%)72.8 (>50%) M-Mode DIMENSIONS Left Atrium (MM)2.63 (2.5-4.0cm)IVSd1.52 (0.7-1.1cm) Aortic Root3.04 (2.2-3.7cm)LVDd6.22 (4.0-5.6cm) Aortic Cusp Exc.2.19 (1.5-2.0cm)PWd1.40 (0.7-1.1cm) FS (%) 31 %LVDs4.28 (2.0-3.8cm) LVEF (%)58 (>50%) Aortic Valve AoV Peak Rfwsmsuk276.4cm/Mak Peak GR.11mmHgLVOT Peak Cxetxoeu511.8cm/s Mitral Valve MV E Kbtlaesz26.3cm/sMV A Uycrubjo741.7cm/sE/A ratio0.8 TDI E/Lateral E'0.0E/Medial E'0.0 Tricuspid Valve TR Peak Ivynsooc471xe/sTR Peak Gr.[id number] <Conclusion> Limited study technically Left ventricle: sigmodial thickening of the proximal septum; questionable anterior motion of the mitral leaflet size;; intracavitary gradient was indeterminate; if clinically relevant obtain a SUSHMA or a repeat doppler study: normal; overall ejection fraction: 65%: diastolic filling pressures: elevated Mitral valve: annulus: normal: leaflets: normal: excursion: normal; no significant trans-mitral gradient: no significant incompetence: left atrium: normal Aortic valve: leaflets: normal: excursion: normal; no significant trans-aortic gradient: No significant incompetence: aortic root: normal Right sided Structures: Pulmonary valve: normal; no significant incompetence; Tricuspid valve: normal; no significant incompetence: Intra-cardiac hemodynamics: pulmonary systolic pressures: normal; central venous pressures: normal No pericardial effusion
[2018-05-14] MEDS: Pantoprazole 80 MG in Sodium Chloride 0.9% 100 ML IVPB SCH ×2 (04:09→11:14)
[2018-05-14 07:09] LABS: BASO % 0.4 % (0.0-2.0); EOS # 0.4 K/uL (0.0-0.7); EOS % 5.1 % (0.0-4.0); HEMOGLOBIN 8.9 g/dL (11.0-16.0); LYMPH # 0.9 K/uL (1.0-4.3); LYMPH % 11.3 % (20.0-40.0); MEAN CELL VOLUME 88.4 fL (81.0-99.0); MEAN CORPUSCULAR HEMOGLOBIN 29.8 pg (27.0-31.0); MEAN CORPUSCULAR HGB CONC 33.7 g/dL (33.0-37.0); MEAN PLATELET VOLUME 9.2 fL (7.2-11.7); MONO # 0.9 K/uL (0.0-0.8); MONO % 11.7 % (0.0-10.0); NEUT # 5.7 K/uL (1.8-7.0); NEUT % 71.5 % (50.0-75.0); NRBC % 0.1 % (0.0-2.0); RED CELL DISTRIBUTION WIDTH 17.4 % (11.5-14.5)
[2018-05-14 07:15] LABS: ALB/GLOB RATIO 1.6 (1.0-2.1); ALBUMIN 3.5 g/dL (3.5-5.0); ALT/SGPT 41 U/L (9-52); AST/SGOT 21 U/L (14-36); BLOOD UREA NITROGEN 15 mg/dL (7-17); CALCIUM 8.3 mg/dl (8.6-10.4); GFR AFRICAN-AMERICAN > 60; GFR NON-AFRICAN AMERICAN > 60
[2018-05-14 07:32] VITALS: BP 148/65; TEMP 98.1
[2018-05-14 08:21] VITALS: PULSE 57
[2018-05-14] MEDS: (Novolin R) Insulin Human Regular 100 units/ml vial SC SCH ×2 (08:26→11:51)
--- NOTE | 2018-05-14 11:43 | CP.PCM.DIS ---
Provider - Provider Date of Admission: 05/11/18 16:37 Attending physician: Otoniel Conley Jr, MD Time Spent in preparation of Discharge (in minutes): 45 Hospital Course - Lab Results Lab Results: Most Recent Lab Values WBC 8.0 K/uL (4.8-10.8) 05/14/18 06:56 RBC 3.00 Mil/uL (3.80-5.20) L 05/14/18 06:56 Hgb 8.9 g/dL (11.0-16.0) L 05/14/18 06:56 Hct 26.6 % (34.0-47.0) L 05/14/18 06:56 MCV 88.4 fL (81.0-99.0) 05/14/18 06:56 MCH 29.8 pg (27.0-31.0) 05/14/18 06:56 MCHC 33.7 g/dL (33.0-37.0) 05/14/18 06:56 RDW 17.4 % (11.5-14.5) H 05/14/18 06:56 Plt Count 242 K/uL (130-400) 05/14/18 06:56 MPV 9.2 fL (7.2-11.7) 05/14/18 06:56 Neut % (Auto) 71.5 % (50.0-75.0) 05/14/18 06:56 Lymph % (Auto) 11.3 % (20.0-40.0) L 05/14/18 06:56 [place] % (Auto) 11.7 % (0.0-10.0) H 05/14/18 06:56 Eos % (Auto) 5.1 % (0.0-4.0) H 05/14/18 06:56 Baso % (Auto) 0.4 % (0.0-2.0) 05/14/18 06:56 Neut # (Auto) 5.7 K/uL (1.8-7.0) 05/14/18 06:56 Lymph # (Auto) 0.9 K/uL (1.0-4.3) L 05/14/18 06:56 [place] # (Auto) 0.9 K/uL (0.0-0.8) H 05/14/18 06:56 Eos # (Auto) 0.4 K/uL (0.0-0.7) 05/14/18 06:56 Baso # (Auto) 0.0 K/uL (0.0-0.2) 05/14/18 06:56 Sodium 141 mmol/L (132-148) 05/14/18 06:56 Potassium 4.1 mmol/L (3.6-5.2) 05/14/18 06:56 Chloride 105 mmol/L (98-107) 05/14/18 06:56 Carbon Dioxide 23 mmol/L (22-30) 05/14/18 06:56 Anion Gap 17 (10-20) 05/14/18 06:56 BUN 15 mg/dL (7-17) 05/14/18 06:56 Creatinine 0.7 mg/dL (0.7-1.2) 05/14/18 06:56 Est GFR ( Amer) > 60 05/14/18 06:56 Est GFR (Non-Af Amer) > 60 05/14/18 06:56 POC Glucose (mg/dL) 347 mg/dL (65-110) H 05/14/18 11:15 Random Glucose 154 mg/dL (65-105) H 05/14/18 06:56 Calcium 8.3 mg/dl (8.6-10.4) L 05/14/18 06:56 Phosphorus 3.8 mg/dL (2.5-4.5) 05/14/18 06:56 Magnesium 1.9 mg/dL (1.6-2.3) 05/14/18 06:56 Total Bilirubin 0.8 mg/dL (0.2-1.3) 05/14/18 06:56 AST 21 U/L (14-36) 05/14/18 06:56 ALT 41 U/L (9-52) 05/14/18 06:56 Alkaline Phosphatase 71 U/L (38-126) 05/14/18 06:56 Total Creatine Kinase 26 U/L (30-135) L 05/11/18 15:11 CK-MB (Mass) 0.83 ng/mL (0.0-3.38) 05/11/18 15:11 Troponin I 0.0150 ng/mL (0.00-0.120) 05/12/18 08:21 NT-Pro-B Natriuret Pep 1060 pg/mL (0-900) H 05/11/18 15:11 Total Protein 5.7 g/dL (6.3-8.3) L 05/14/18 06:56 Albumin 3.5 g/dL (3.5-5.0) 05/14/18 06:56 Globulin 2.2 gm/dL (2.2-3.9) 05/14/18 06:56 Albumin/Globulin Ratio 1.6 (1.0-2.1) 05/14/18 06:56 Blood Type A NEGATIVE 05/11/18 16:08 Antibody Screen Negative 05/11/18 16:08 - Hospital Course Hospital Course: PMD: Conley PMHx: GI bleed, HTN, HLD, CAD, MD in 2014 with 3 stents placed in [place], diabetes, diverticulitis, gastritis, CVA with subsequent seizure x 1 episode Meds: Verified with patient's pharmacy: metformin 500mg daily, lipitor 40mg HS, keppra 500mg BID, protonix 40mg BID, losartan 100mg daily, coreg 12.5mg Surgical Hx: exploratory laparotomy with rectosgmoid colon resection for removal of eroding mesh 12/19/16, rectal prolapse repair, colonoscopy, EGD with biopsy, internal hemorrhoid surgery (2015), coronary stents x 3 (2014) Family Hx: Mother of MD, brother of liver cancer Social hx: Smokes 5-6 cigarettes per day x 48 years, denies alcohol and drug use. Lives with daughter. Allergies: Penicillin (rash) Upon Admission: Patient is a 72 year old female with past medical history of GI bleed, hypertension, CAD and [place] s/p 3 stents in 2014, diabetes, who presents to the ER with complaint of epigastric pain that began yesterday morning with breakfast. Patient states that pain is not worse with food and that she was able to eat full lunch and dinner yesterday as well. Patient also admits to black tarry stools for past 2-3 days. She denies bright red blood per rectum or hematemesis. Patient also admits to dyspnea on exertion but denies orthopnea. Patient was recently hospitalized in February 2018 with GI bleed and had bleeding scan positive for "active gastric bleeding potentially from the proximal fundus or cardiac portion." Patient follows with GI group at [place] and states last visit was 1-2 months ago but does not recall any changes to regimen. Patient's aspirin and plavix were previously discontinued due to GI bleed. Patient currently resting comfortably and has no additional complaints. Hospital Course: 72 yo female presents to hospital for epigastric pain with black tarry stools for past 2-3days; CBC showed Hgb of 6.0 which was repleted with 3 units of pRBCs ; Hgb stable at 8.9; no episodes of black stools or hematochezia, or bright red blood in bowel movements; patient was educated to followup outpatient for chronic anemia she has been dealing with since February at [facility]. Discharge Plan: Patient is stable for discharge to home as per Dr. Conley. Patient should follow up with Dr. Conley 1 week after discharge from hospital. Patient is to resume all of her home medications upon discharge as no medication adjustments were made during this admission. Patient is to educated to return to the hospital if symptoms recur or worsen. Patient understands and agrees to the plan as above. Disclaimer: Written above is a shortened synopsis of patient current hospital admission. For full report refer to EMR. Discharge Exam - Head Exam Head Exam: NORMAL INSPECTION, NORMOCEPHALIC - Eye Exam Eye Exam: EOMI, Normal appearance. absent: Nystagmus, Scleral icterus - Respiratory Exam Respiratory Exam: NORMAL BREATHING PATTERN. absent: Rales, Rhonchi, Wheezes, Respiratory Distress - Cardiovascular Exam Cardiovascular Exam: REGULAR RHYTHM, +S1, +S2. absent: Tachycardia - GI/Abdominal Exam GI & Abdominal Exam: Normal Bowel Sounds, Soft. absent: Distended, Firm, Guarding, Hernia, Tenderness - Extremities Exam Extremities exam: normal inspection - Back Exam Back exam: NORMAL INSPECTION. absent: CVA tenderness (L), CVA tenderness (R) - Neurological Exam Neurological exam: Alert, CN II-XII Intact, Oriented x3 - Psychiatric Exam Psychiatric exam: Normal Affect, Normal Mood - Skin Skin Exam: Intact, Normal Color Discharge Plan - Follow Up Plan Condition: GOOD Disposition: HOME/ ROUTINE Additional Instructions: Patient is stable for discharge to home as per Dr. Conley. Patient should follow up with Dr. Conley 1 week after discharge from hospital. Patient is to resume all of her home medications upon discharge as no medication adjustments were made during this admission. Patient is to educated to return to the hospital if symptoms recur or worsen. Patient understands and agrees to the plan as above.
--- NOTE | 2018-05-14 16:51 | CARD ---
APPROVED REPORT Date of service: 05/11/2018 EKG Measurement Heart [id number] <Conclusion> Normal sinus rhythm Cannot rule out Inferior infarct, age undetermined ST & T wave abnormality, consider lateral ischemia Abnormal ECG
[2018-05-14 22:45] VITALS: O2SAT 99
== END 2018-05-14 14:42 | disposition home or self-care (01) | DRG 378 ==
LOC: C.ER 13:25 → C.6T 16:37 → C.9E 16:37
PROVIDERS: ADMIT Internal Medicine; ATTEND Internal Medicine
PROC: 30233N1 Transfusion of Nonautologous Red Blood Cells into Peripheral Vein, Percutaneous Approach (ICD-10-PCS; principal; 2018-05-11)
DX: K29.71 Gastritis, unspecified, with bleeding (principal); D62 Acute posthemorrhagic anemia; F17.210 Nicotine dependence, cigarettes, uncomplicated; E11.9 Type 2 diabetes mellitus without complications; E78.00 Pure hypercholesterolemia, unspecified; E78.5 Hyperlipidemia, unspecified; I69.398 Other sequelae of cerebral infarction; R56.9 Unspecified convulsions; I10 Essential (primary) hypertension; I48.91 Unspecified atrial fibrillation; I27.20 Pulmonary hypertension, unspecified; I25.10 Atherosclerotic heart disease of native coronary artery without angina pectoris; I25.2 Old myocardial infarction; Z79.84 Long term (current) use of oral hypoglycemic drugs; Z80.0 Family history of malignant neoplasm of digestive organs; Z82.49 Family history of ischemic heart disease and other diseases of the circulatory system; Z86.010 Personal history of colon polyps; Z95.5 Presence of coronary angioplasty implant and graft

== ENCOUNTER 2018-06-06 19:31 | Observation (INO) | payer MEDICARE ==
[2018-06-06 19:31] VITALS: BMI 22.6
--- NOTE | 2018-06-06 19:51 | C.PDOC ---
History Of Present Illness 72 y/o female presents to the ED for evaluation of reoccurring black stool for two days. She admits the black stool presents with each BM. The patient reports associated general weakness and b/l leg "aching' which happens " whenever she becomes anemic". S/P outpatient CBC 05/31 HGB 9. She was discharged sp treatment and transfusion for GI bleed. The patient has a Hx of GI bleed, HTN, HLD, CAD, [place] in 2014 with 3 stents placed in [place], diabetes, diverticulitis, gastritis, CVA with subsequent seizure. Hospitalized in February 2018 with GI bleed and had bleeding scan positive for "active gastric bleeding potentially from the proximal fundus or cardiac portion." Patient follows with GI group at [place] BUT DID NOT HAVE CHANCE TO FOLLOW UP GI SINCE DISCHARGE. RECUR BLACK STOOL X 2 DAYS. PRESENT W EACH BM. +ASSOC GEN WEAKNESS, B/L LEG "ACHING" WHICH HAPPENS "WHENEVER SHE BECOMES ANEMIC.". S/P OUTPT CBC 05/31 HGB 9. dc 04/2018 SP TX AND TRANSFUSION FOR GI BLEED GI bleed, HTN, HLD, CAD, [place] in 2014 with 3 stents placed in [place], diabetes, diverticulitis, gastritis, CVA with subsequent seizure. Hospitalized in February 2018 with GI bleed and had bleeding scan positive for "active gastric bleeding potentially from the proximal fundus or cardiac portion." Patient follows with GI group at [facility] BUT DID NOT HAVE CHANCE TO FU GI SINCE DC. EXAM MILD DIST NONTOXIC HEENT +CONJ PALLOR ABD NEG GAIT WNL REMAINDER NEG Time Seen by Provider: 06/06/18 19:49 Chief Complaint (Nursing): GI Problem History Per: Patient History/Exam Limitations: no limitations Onset/Duration Of Symptoms: Days Current Symptoms Are (Timing): Still Present Quality Of Discomfort: Aching Associated Symptoms: Other (Black Stool) Recent travel outside of the [place]: No Past Medical History Reviewed: Historical Data, Nursing Documentation, Vital Signs Vital Signs: Last Vital Signs Temp 98.2 F 06/06/18 19:36 Pulse 92 H 06/06/18 19:36 Resp 16 06/06/18 19:36 BP 155/80 H 06/06/18 19:36 Pulse Ox 100 06/06/18 20:31 - Medical History PMH: Anemia ( acute and chronic due to GI blood loss), Arthritis, Atrial Fibrillation, CAD, Cardia Arrhythmia, Colonic Polyps, Diabetes, Diverticulitis ( diverticulosis 2014 and 05/2016), Gastritis, HTN, Hypercholesterolemia, Seizures Denies: Crohn's Disease, Gall Bladder Disease, HIV, Pancreatitis, Chronic Kidney Disease, TIA Surgical History: Coronary Stent (2012), Endoscopy - [facility] Procedures CLOSED ENDOSCOPIC BIOPSY OF LARGE INTESTINE (11/30/14) CONTROL BLEEDING IN GASTROINTESTINAL TRACT, ENDO (12/12/16) CORONAR ARTERIOGR-2 CATH (11/30/14) ESOPHAGOGASTRODUODENOSCOPY [EGD] W/CLOSED BIOPSY (11/30/14) EXCISION OF STOMACH, ENDO, DIAGN (04/09/16) INJECT/INFUSE NEC (06/04/05) LEFT HEART CARDIAC CATH (11/30/14) LT HEART ANGIOCARDIOGRAM (11/30/14) PACKED CELL TRANSFUSION (11/30/14) RELEASE LEFT URETER, OPEN APPROACH (12/12/16) RELEASE PERITONEUM, OPEN APPROACH (12/12/16) RELEASE RIGHT URETER, OPEN APPROACH (12/12/16) REMOVAL OF SYNTH SUB FROM LOW INTEST TRACT, OPEN APPROACH (12/12/16) REPAIR RECTUM, PERCUTANEOUS ENDOSCOPIC APPROACH (07/27/16) RESECTION OF RECTUM, OPEN APPROACH (12/12/16) RESECTION OF SIGMOID COLON, OPEN APPROACH (12/12/16) RESECTION OF SIGMOID COLON, PERCUTANEOUS ENDOSCOPIC APPROACH (07/27/16) ROBOTIC ASSISTED PROCEDURE OF TRUNK, PERC ENDO APPROACH (07/27/16) TRANSFUSE NONAUT FROZEN RED CELLS IN PERIPH VEIN, PERC (09/20/16) TRANSFUSE NONAUT RED BLOOD CELLS IN PERIPH VEIN, PERC (05/11/18) TRANSFUSE NONAUT WHOLE BLOOD IN PERIPH VEIN, PERC (10/13/16) Family History: States: Unknown Family Hx, [place] - Social History Hx Tobacco Use: Yes (cut down per daughter) Hx Alcohol Use: No Hx Substance Use: No - Immunization History Hx Tetanus Toxoid Vaccination: Yes Hx Influenza Vaccination: No (per pt declines) Hx Pneumococcal Vaccination: No Review Of Systems Except As Marked, All Systems Reviewed And Found Negative. Constitutional: Negative for: Fever Gastrointestinal: Positive for: Other (black stool) Musculoskeletal: Positive for: Leg Pain (b/l aching ) Neurological: Positive for: Weakness Physical Exam - Physical Exam Appears: Non-toxic, Other (Mild Distress) Skin: Normal Color, Warm, Dry Head: Atraumatic, Normacephalic Eye(s): bilateral: PERRL, EOMI, Other (conjunctiva pallor) Ear(s): Bilateral: Normal Oral Mucosa: Moist Neck: Normal ROM Chest: Symmetrical Cardiovascular: Rhythm Regular, No Murmur Respiratory: No Rales, No Rhonchi, No Wheezing, Other (NARD) Gastrointestinal/Abdominal: Bowel Sounds, Soft, No Tenderness Extremity: Normal ROM Extremity: Bilateral: Atraumatic, Normal Color And Temperature, Normal ROM Pulses: Left Dorsalis Pedis: Normal, Right Dorsalis Pedis: Normal Neurological/Psych: Oriented x3, Normal Speech Gait: Other (WNL) ED Course And Treatment - Laboratory Results Result Diagrams: 06/06/18 20:20 06/06/18 20:20 ECG: Interpreted By Me ECG Rhythm: Sinus Rhythm ECG Interpretation: Normal Rate From EC O2 Sat by Pulse Oximetry: 100 (RA) Pulse Ox Interpretation: Normal - Radiology CXR: Interpreted by Me CXR Interpretation: Yes: No Acute Disease Progress - Re-Evaluation Re-evaluation Note: 06/06/18 21:09 EXAM [facility] PRIOR D/W DR DELGADO WILL ADMIT. MED RESIDENT NOTIFIED - Data Reviewed Data Reviewed: Lab, Diagnostic imaging, EKG, Old records Medical Decision Making Medical Decision Making: Impression: 72 y/o female with reoccurring black stool for two days that occurs with each BM, general weakness and b/l leg "aching" Plan: -BBK -EKG -CMP -CBC -PTT -PT -Chest X-Ray -Occult blood, stool Disposition Counseled Patient/Family Regarding: Studies Performed, Diagnosis - Disposition Disposition: HOSPITALIZED Disposition Time: 21:10 Condition: SERIOUS Forms: [facility] (Irish) - POA Present On Arrival: None - Clinical Impression Clinical Impression: Gastrointestinal hemorrhage, Symptomatic anemia - PA / [employer]INK [employer]INTENANCE [employer] / Resident Statement MD/DO has reviewed & agrees with the documentation as recorded. - Scribe Statement The provider has reviewed the documentation as recorded by the Scribe (Maggi Hummel) All medical record entries made by the Scribe were at my direction and personally dictated by me. I have reviewed the chart and agree that the record accurately reflects my personal performance of the history, physical exam, medical decision making, and the department course for this patient. I have also personally directed, reviewed, and agree with the discharge instructions and disposition.
[2018-06-06 20:23] LABS: BASO # 0.1 K/uL (0.0-0.2); BASO % 0.7 % (0.0-2.0); EOS # 0.3 K/uL (0.0-0.7); EOS % 2.9 % (0.0-4.0); HEMOGLOBIN 6.7 g/dL (11.0-16.0); LYMPH # 1.3 K/uL (1.0-4.3); LYMPH % 10.8 % (20.0-40.0); MEAN CORPUSCULAR HEMOGLOBIN 27.5 pg (27.0-31.0); MEAN CORPUSCULAR HGB CONC 32.3 g/dL (33.0-37.0); MONO # 1.1 K/uL (0.0-0.8); MONO % 9.5 % (0.0-10.0); NEUT % 76.1 % (50.0-75.0); NRBC % 0.2 % (0.0-2.0); RBC 2.42 Mil/uL (3.80-5.20); RED CELL DISTRIBUTION WIDTH 16.4 % (11.5-14.5); WHITE BLOOD COUNT 11.8 K/uL (4.8-10.8)
[2018-06-06 20:33] LABS: INR 1.1
[2018-06-06 20:38] LABS: ALB/GLOB RATIO 1.5 (1.0-2.1); ALBUMIN 3.9 g/dL (3.5-5.0); ALT/SGPT 35 U/L (9-52); AST/SGOT 24 U/L (14-36); BLOOD UREA NITROGEN 26 mg/dL (7-17); CALCIUM 9.2 mg/dl (8.6-10.4); GFR NON-AFRICAN AMERICAN > 60
[2018-06-06] MEDS ORDERED: Pantoprazole 40 mg EC Tab PO STA (21:15)
[2018-06-06] MEDS ORDERED: Pantoprazole 40 mg EC Tab PO ONE (21:27)
[2018-06-06] MEDS ORDERED: Sodium Chloride 0.9% 1,000 ML IV SCH (22:30)
[2018-06-06] MEDS ORDERED: Pantoprazole 80 MG in Sodium Chloride 0.9% 100 ML IVP SCH (22:30)
--- NOTE | 2018-06-06 22:35 | CP.PCM.HP ---
History of Present Illness - History of Present Illness History of Present Illness: Patient is a 72 year old female with past medical history of GI bleed, hypertension, CAD and [place] s/p 3 stents in 2014, diabetes, who presents to the ER with complaints of black stool that she noticed at 6PM today. Patient stated that when she saw the black stool she called her PMD (Dr. Conley), and was advised to come to the hospital. Associated symptoms include lethargy. Patient also complains of b/l shoulder pain, and b/l proximal posterior lower extremity pain. She denies any headache, dizziness, vision changes, shortness of breath, abdominal pain, nausea, vomiting, diarrhea, or any urinary symptoms. ROS: As stated above. 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 Lives with daughter. Allergies: Penicillin (rash) Present on Admission - Present on Admission Any Indicators Present on Admission: No Review of Systems - Review of Systems All systems: reviewed and no additional remarkable complaints except (As per HPI ) Review of Systems: As per HPI Past Patient History - Infectious Disease Hx of Infectious Diseases: None - Past Medical History & Family History Past Medical History?: Yes - Past Social History Smoking Status: Former Smoker - CARDIAC Hx Atrial Fibrillation: Yes Hx Cardia Arrhythmia: Yes Hx Hypercholesterolemia: Yes Hx Hypertension: Yes - PULMONARY Hx Respiratory Disorders: No - NEUROLOGICAL Hx Seizures: Yes Hx Transient Ischemic Attacks (TIA): No - HEENT Hx HEENT Problems: No - RENAL Hx Chronic Kidney Disease: No - ENDOCRINE/METABOLIC Hx Diabetes Mellitus Type 2: Yes - HEMATOLOGICAL/ONCOLOGICAL Hx Anemia: Yes ( acute and chronic due to GI blood loss) Hx Human Immunodeficiency Virus (HIV): No - INTEGUMENTARY Hx Dermatological Problems: No - MUSCULOSKELETAL/RHEUMATOLOGICAL Hx Arthritis: Yes - GASTROINTESTINAL Hx Crohn's Disease: No Hx Diverticulitis: Yes (diverticulosis 2014 and 05/2016) Hx Gall Bladder Disease: No Hx Gastritis: Yes Hx Pancreatitis: No - GENITOURINARY/GYNECOLOGICAL Hx Genitourinary Disorders: No - PSYCHIATRIC Hx Substance Use: No - SURGICAL HISTORY Hx Coronary Stent: Yes (2012) - ANESTHESIA Hx Anesthesia: Yes Hx Anesthesia Reactions: No Hx Malignant Hyperthermia: No Meds Allergies/Adverse Reactions: Allergies Allergy/AdvReac Type Severity Reaction Status Date / Time Penicillins Allergy RASH Verified 03/03/18 12:45 acetaminophen [From Percocet] AdvReac DIZZINESS Verified 03/03/18 12:45 oxycodone HCl [From Percocet] AdvReac DIZZINESS Verified 03/03/18 12:45 Physical Exam - Constitutional Appears: Non-toxic, No Acute Distress - Head Exam Head Exam: ATRAUMATIC, NORMAL INSPECTION, NORMOCEPHALIC - Eye Exam Eye Exam: EOMI, Normal appearance - ENT Exam ENT Exam: Mucous Membranes Dry - Respiratory Exam Respiratory Exam: Clear to Auscultation Bilateral, NORMAL BREATHING PATTERN. absent: Decreased Breath Sounds, Rales, Rhonchi, Wheezes - Cardiovascular Exam Cardiovascular Exam: RRR, +S1, +S2, Systolic Murmur. absent: JVD - GI/Abdominal Exam GI & Abdominal Exam: Normal Bowel Sounds, Soft. absent: Bruit, Distended, Firm , Guarding, Pulsatile Mass, Rebound, Rigid, Tenderness - Rectal Exam Rectal Exam: Deferred (Patient refused. ) - Extremities Exam Extremities exam: Positive for: normal capillary refill, normal inspection. Negative for: pedal edema - Neurological Exam Neurological exam: Alert, Oriented x3 - Psychiatric Exam Psychiatric exam: Normal Affect, Normal Mood - Skin Skin Exam: Dry, Normal Color, Warm Results - Vital Signs Recent Vital Signs: Last Vital Signs Temp 98 F 06/06/18 22:24 Pulse 84 06/06/18 22:24 Resp 20 06/06/18 22:24 BP 148/75 06/06/18 22:24 Pulse Ox 99 06/06/18 22:24 - Labs Result Diagrams: 06/06/18 20:20 06/06/18 20:20 Labs: Laboratory Results - last 24 hr 06/06/18 06/06/18 06/06/18 19:39 20:20 20:20 WBC 11.8 H RBC 2.42 L Hgb 6.7 L D Hct 20.6 L MCV 85.0 D MCH 27.5 MCHC 32.3 L RDW 16.4 H Plt Count 343 D MPV 9.0 Neut % (Auto) 76.1 H Lymph % (Auto) 10.8 L [place] % (Auto) 9.5 Eos % (Auto) 2.9 Baso % (Auto) 0.7 Neut # (Auto) 9.0 H Lymph # (Auto) 1.3 [place] # (Auto) 1.1 H Eos # (Auto) 0.3 Baso # (Auto) 0.1 PT 12.0 INR 1.1 APTT 30 Sodium Potassium Chloride Carbon Dioxide Anion Gap BUN Creatinine Est GFR ( Amer) Est GFR (Non-Af Amer) POC Glucose (mg/dL) 265 H Random Glucose Calcium Total Bilirubin AST ALT Alkaline Phosphatase Total Protein Albumin Globulin Albumin/Globulin Ratio 06/06/18 20:20 WBC RBC Hgb Hct MCV MCH MCHC RDW Plt Count MPV Neut % (Auto) Lymph % (Auto) [place] % (Auto) Eos % (Auto) Baso % (Auto) Neut # (Auto) Lymph # (Auto) [place] # (Auto) Eos # (Auto) Baso # (Auto) PT INR APTT Sodium 138 Potassium 5.2 Chloride 103 Carbon Dioxide 23 Anion Gap 17 BUN 26 H Creatinine 0.8 Est GFR ( Amer) > 60 Est GFR (Non-Af Amer) > 60 POC Glucose (mg/dL) Random Glucose 268 H Calcium 9.2 Total Bilirubin 0.5 AST 24 ALT 35 Alkaline Phosphatase 88 Total Protein 6.6 Albumin 3.9 Globulin 2.7 Albumin/Globulin Ratio 1.5 Assessment & Plan - Assessment and Plan (Free Text) Assessment: 72 year old female with past medical history of GI bleed, hypertension , CAD and [place] s/p 3 stents in 2014, diabetes, who presents to the ER with complaints of black stool that she noticed at 6PM today. Patient admitted for evaluation and treatment of symptomatic anemia 2/2 to GI Bleed. Plan: Symptomatic Anemia 2/2 to GI Bleed Hemoglobin 6.7 on Admission NPO Protonix Drip Stool Occult Blood ordered in ED Transfuse 2 Units of PRBC. Hx of HTN Losartan 100mg po daily surinder Carvedilol 12.5mg po bid Hx of [place] s/p 3 stents Crestor 20mg po HS surinder AC held due to blood loss Hx of DM2 Insulin Held due to patient being NPO Fingersticks ACHS ISS once patient is on PO Diet Hx of Seizure Keppra 500mg po bid surinder PPX DVT ppx: SCDs, heparin held secondary to acute blood loss GI ppx: Protonix drip Diet: NPO Patient discussed with Attending (Dr. Conley) Chica Sims, PGY-2
[2018-06-06] MEDS: Sodium Chloride 0.9% 1,000 ML IV SCH (23:19)
[2018-06-06] MEDS: Pantoprazole 80 MG in Sodium Chloride 0.9% 100 ML IVPB SCH (23:46)
--- NOTE | 2018-06-07 06:28 | CP.PCM.PN ---
Subjective - Date & Time of Evaluation Date of Evaluation: 06/07/18 Time of Evaluation: 07:40 - Subjective Subjective: PGY 1 Medicine Progress Note for Dr. Conley. Patient seem and examined at bedside. Patient lying in bed in no acute distress. Patient states she feels much better following 2 PRBCs. Patient currently denies feeling fatigue. Patient denies chest pain SOB, nausea , vomiting, constipation. Patient has a history of a GI bleed that required prior transfusions. Objective - Vital Signs/Intake and Output Vital Signs (last 24 hours): Temp Pulse Resp BP Pulse Ox 98.1 F 75 20 119/67 100 06/07/18 06:27 06/07/18 06:27 06/07/18 06:27 06/07/18 06:27 06/06/18 23:36 Intake and Output: 06/06/18 06/07/18 18:59 06:59 Intake Total 650 Balance 650 - Medications Medications: Current Medications Carvedilol (Coreg) 12.5 mg PO DAILY [facility] Sodium Chloride (Sodium Chloride 0.9%) 1,000 mls @ 100 mls/hr IV .Q10H MARY Last Admin: 06/06/18 23:19 Dose: 100 mls/hr Pantoprazole Sodium 80 mg/ (Sodium Chloride) 100 mls @ 10 mls/hr IVPB .Q10H MARY PRN Reason: 8 MG/HR Last Admin: 06/06/18 23:46 Dose: 10 mls/hr Levetiracetam (Keppra) 500 mg PO BID [facility] Last Admin: 06/06/18 23:21 Dose: Not Given Losartan Potassium (Cozaar) 100 mg PO DAILY [facility] Rosuvastatin Calcium (Crestor) 20 mg PO HS [facility] - Labs Labs: 06/06/18 20:20 06/06/18 20:20 PT 12.0 SECONDS (9.7-12.2) 06/06/18 20:20 INR 1.1 06/06/18 20:20 APTT 30 SECONDS (21-34) 06/06/18 20:20 - Constitutional Appears: Non-toxic, No Acute Distress - Head Exam Head Exam: ATRAUMATIC, NORMAL INSPECTION, NORMOCEPHALIC - Eye Exam Eye Exam: EOMI, Normal appearance - ENT Exam ENT Exam: Mucous Membranes Moist - Respiratory Exam Respiratory Exam: Clear to Ausculation Bilateral, NORMAL BREATHING PATTERN. absent: Rales, Rhonchi, Wheezes - Cardiovascular Exam Cardiovascular Exam: +S1, +S2. absent: Irregular Rhythm, Murmur - GI/Abdominal Exam GI & Abdominal Exam: Soft, Normal Bowel Sounds. absent: Firm, Guarding, Rigid - Neurological Exam Neurological Exam: Alert, Awake, Oriented x3 - Psychiatric Exam Psychiatric exam: Normal Affect, Normal Mood - Skin Skin Exam: Dry, Intact, Normal Color, Warm Assessment and Plan - Assessment and Plan (Free Text) Assessment: 72 year old female with past medical history of GI bleed, hypertension , CAD and [place] s/p 3 stents in 2014, diabetes, who presents to the ER with complaints of black stool that she noticed at 6PM today. Patient admitted for evaluation and treatment of symptomatic anemia 2/2 to GI Bleed. Plan: 1) Symptomatic Anemia 2/2 to GI Bleed - S/p 2 PRBCs -> Hgb 7.9 - Additional 2 units of PRBCs, Hgb goal greater than 10 - F/u heme/onc Dr. Freddie joy - patient has Hx of OP Iron transfusion, see if patient requires at this time - Consider GI consult - will discuss w/ Dr. Conley - Continue NPO - Protonix Drip 8mg/hr - F/o occult blood 2) Hx of HTN Continue home medications: Losartan 100mg po daily Carvedilol 12.5mg po bid 3) Hx of [place] s/p 3 stents - Continue home medications: Crestor 20mg po HS - Aspirin held 2/2 GI bleed 4) Hx of DM2 - Insulin Held due to patient being NPO - Fingersticks ACHS - ISS once patient is on PO Diet 5) Hx of Seizure - Continue with home medications: Keppra 500mg po bid 6) PPX - DVT ppx: SCDs, heparin held secondary to acute blood loss - GI ppx: Protonix drip - Diet: NPO Will D/w Dr. Yael Lizama
--- NOTE | 2018-06-07 08:26 | RAD ---
Date of service: 06/06/2018 PROCEDURE: CHEST RADIOGRAPH, 1 VIEW HISTORY: GI Bleeding COMPARISON: 05/03/2017. FINDINGS: LUNGS: The lungs are well inflated and clear. PLEURA: No pneumothorax or pleural fluid seen. CARDIOVASCULAR: There is mild cardiomegaly. OSSEOUS STRUCTURES: No significant abnormalities. VISUALIZED UPPER ABDOMEN: Normal. OTHER FINDINGS: None. IMPRESSION: No active pulmonary disease.
[2018-06-07] MEDS: Pantoprazole 80 MG in Sodium Chloride 0.9% 100 ML IVPB SCH ×2 (10:07→20:27)
[2018-06-07 11:34] LABS: BASO % 0.5 % (0.0-2.0); EOS # 0.2 K/uL (0.0-0.7); EOS % 2.5 % (0.0-4.0); HEMOGLOBIN 7.9 g/dL (11.0-16.0); LYMPH # 0.9 K/uL (1.0-4.3); LYMPH % 10.8 % (20.0-40.0); MEAN CELL VOLUME 85.6 fL (81.0-99.0); MEAN CORPUSCULAR HEMOGLOBIN 29.2 pg (27.0-31.0); MEAN CORPUSCULAR HGB CONC 34.1 g/dL (33.0-37.0); MEAN PLATELET VOLUME 8.9 fL (7.2-11.7); MONO # 0.9 K/uL (0.0-0.8); MONO % 10.7 % (0.0-10.0); NEUT # 6.3 K/uL (1.8-7.0); NEUT % 75.5 % (50.0-75.0); RBC 2.69 Mil/uL (3.80-5.20); RED CELL DISTRIBUTION WIDTH 15.7 % (11.5-14.5); WHITE BLOOD COUNT 8.4 K/uL (4.8-10.8)
[2018-06-07 11:57] LABS: ALB/GLOB RATIO 1.4 (1.0-2.1); ALBUMIN 3.2 g/dL (3.5-5.0); ALT/SGPT 31 U/L (9-52); AST/SGOT 18 U/L (14-36); BLOOD UREA NITROGEN 18 mg/dL (7-17); GFR NON-AFRICAN AMERICAN > 60
[2018-06-07 11:58] LABS: INR 1.1; PROTHROMBIN TIME 12.3 SECONDS (9.7-12.2)
[2018-06-07] MEDS: Sodium Chloride 0.9% 1,000 ML IV SCH (17:08)
[2018-06-07 23:14] VITALS: RESP 20
[2018-06-08] MEDS: Pantoprazole 80 MG in Sodium Chloride 0.9% 100 ML IVPB SCH ×2 (06:17→09:38)
[2018-06-08 08:17] LABS: BASO # 0.1 K/uL (0.0-0.2); BASO % 0.5 % (0.0-2.0); EOS # 0.4 K/uL (0.0-0.7); EOS % 3.4 % (0.0-4.0); LYMPH % 9.2 % (20.0-40.0); MEAN CELL VOLUME 84.4 fL (81.0-99.0); MEAN CORPUSCULAR HEMOGLOBIN 29.1 pg (27.0-31.0); MEAN CORPUSCULAR HGB CONC 34.5 g/dL (33.0-37.0); MEAN PLATELET VOLUME 8.8 fL (7.2-11.7); MONO % 9.1 % (0.0-10.0); NEUT # 8.5 K/uL (1.8-7.0); NEUT % 77.8 % (50.0-75.0); NRBC % 0.3 % (0.0-2.0); PLATELET COUNT 262 K/uL (130-400); RBC 3.55 Mil/uL (3.80-5.20); RED CELL DISTRIBUTION WIDTH 15.4 % (11.5-14.5); WHITE BLOOD COUNT 10.9 K/uL (4.8-10.8)
--- NOTE | 2018-06-08 08:20 | CP.PCM.PN ---
Subjective - Date & Time of Evaluation Date of Evaluation: 06/08/18 Time of Evaluation: :18 - Subjective Subjective: PGY 1 Medicine Progress Note for Dr. Conley Patient seem and examined at bedside. Patient lying in bed in no acute distress. Patient states she feels much better following 2 PRBCs. Patient currently denies feeling fatigue. Patient denies chest pain SOB, nausea , vomiting, constipation. Patient has a history of a GI bleed that required prior transfusions. Objective - Vital Signs/Intake and Output Vital Signs (last 24 hours): Temp Pulse Resp BP Pulse Ox 97.7 F 74 20 183/78 H 99 06/08/18 07:39 06/08/18 07:39 06/08/18 07:39 06/08/18 07:39 06/08/18 07:39 Intake and Output: 06/08/18 06/08/18 06:59 18:59 Intake Total 1610 Balance 1610 - Medications Medications: Current Medications Carvedilol (Coreg) 12.5 mg PO DAILY [facility] Last Admin: 06/07/18 09:13 Dose: 12.5 mg Sodium Chloride (Sodium Chloride 0.9%) 1,000 mls @ 100 mls/hr IV .Q10H MARY Last Admin: 06/07/18 17:08 Dose: Not Given Pantoprazole Sodium 80 mg/ (Sodium Chloride) 100 mls @ 10 mls/hr IVPB .Q10H MARY PRN Reason: 8 MG/HR Last Admin: 06/08/18 06:17 Dose: Not Given Ferric Sodium Gluconate Complex 125 mg/ Sodium Chloride 110 mls @ 110 mls/hr IVPB Q24H [facility] Stop: 06/16/18 10:01 Levetiracetam (Keppra) 500 mg PO BID MARY Last Admin: 06/07/18 17:12 Dose: 500 mg Losartan Potassium (Cozaar) 100 mg PO DAILY MARY Last Admin: 06/07/18 09:13 Dose: 100 mg Rosuvastatin Calcium (Crestor) 20 mg PO HS [facility] Last Admin: 06/07/18 21:20 Dose: 20 mg - Labs Labs: 06/07/18 11:27 06/07/18 11:27 PT 12.3 SECONDS (9.7-12.2) H 06/07/18 11:27 INR 1.1 06/07/18 11:27 APTT 25 SECONDS (21-34) D 06/07/18 11:27 - Additional Findings Additional findings: - Constitutional Appears: Non-toxic, No Acute Distress - Head Exam Head Exam: ATRAUMATIC, NORMAL INSPECTION, NORMOCEPHALIC - Eye Exam Eye Exam: EOMI, Normal appearance - ENT Exam ENT Exam: Mucous Membranes Moist - Respiratory Exam Respiratory Exam: Clear to Ausculation Bilateral, NORMAL BREATHING PATTERN. absent: Rales, Rhonchi, Wheezes - Cardiovascular Exam Cardiovascular Exam: +S1, +S2. absent: Irregular Rhythm, Murmur - GI/Abdominal Exam GI & Abdominal Exam: Soft, Normal Bowel Sounds. absent: Firm, Guarding, Rigid - Neurological Exam Neurological Exam: Alert, Awake, Oriented x3 - Psychiatric Exam Psychiatric exam: Normal Affect, Normal Mood - Skin Skin Exam: Dry, Intact, Normal Color, Warm Assessment and Plan - Assessment and Plan (Free Text) Assessment: 72 year old female with past medical history of GI bleed, hypertension , CAD and [place] s/p 3 stents in 2014, diabetes, who presents to the ER with complaints of black stool that she noticed at 6PM today. Patient admitted for evaluation and treatment of symptomatic anemia 2/2 to GI Bleed. Plan: 1) Symptomatic Anemia 2/2 to GI Bleed - S/p 2 PRBCs -> Hgb 7.9 - Additional 2 units of PRBCs, Hgb goal greater than 10 - F/u heme/onc Dr. Freddie joy - patient has Hx of OP Iron transfusion, see if patient requires at this time - Consider GI consult - will discuss w/ Dr. Conley - Continue NPO - Protonix Drip 8mg/hr - F/o occult blood 2) Hx of HTN Continue home medications: Losartan 100mg po daily Carvedilol 12.5mg po bid 3) Hx of [place] s/p 3 stents - Continue home medications: Crestor 20mg po HS - Aspirin held 2/2 GI bleed 4) Hx of DM2 - Insulin Held due to patient being NPO - Fingersticks ACHS - ISS once patient is on PO Diet 5) Hx of Seizure - Continue with home medications: Keppra 500mg po bid 6) PPX - DVT ppx: SCDs, heparin held secondary to acute blood loss - GI ppx: Protonix drip - Diet: NPO Will D/w Dr. Yael Michelle PGY1
[2018-06-08 08:21] LABS: HEMOGLOBIN 10.3 g/dL (11.0-16.0)
[2018-06-08 08:22] LABS: INR 1.1; PROTHROMBIN TIME 11.7 SECONDS (9.7-12.2)
[2018-06-08 08:43] LABS: ALB/GLOB RATIO 1.3 (1.0-2.1); ALBUMIN 3.5 g/dL (3.5-5.0); ALT/SGPT 37 U/L (9-52); AST/SGOT 26 U/L (14-36); BLOOD UREA NITROGEN 17 mg/dL (7-17); CALCIUM 8.3 mg/dl (8.6-10.4); GFR NON-AFRICAN AMERICAN > 60
[2018-06-08 09:37] LABS: FOLATE > 20.0 ng/mL
[2018-06-08 09:43] LABS: EOSINOPHIL 3 % (0-4); LYMPHOCYTE 9 % (20-40); MONOCYTE 9 % (0-10); NEUTROPHIL 78 % (50-75); REACTIVE LYMPHOCYTES 1 % (0-0); TOTAL CELLS COUNTED 100
[2018-06-08 09:44] LABS: ANISOCYTOSIS SLIGHT; LARGE PLATELETS PRESENT; MICROCYTOSIS SLIGHT; PLATELET ESTIMATE NORMAL (NORMAL); POIKILOCYTOSIS SLIGHT
[2018-06-08] MEDS: Sodium Chloride 0.9% 1,000 ML IV SCH (09:45)
[2018-06-08] MEDS ORDERED: Ferric Sodium Gluconat Complex 62.5 mg/5 ml Vial IVPB SCH (10:00)
[2018-06-08] MEDS ORDERED: Ferric Sodium Gluconat Complex 125 MG in Sodium Chloride 0.9% 100 ML IVPB SCH (10:00)
[2018-06-08 15:59] VITALS: BP 137/90; PULSE 63; TEMP 97.9; O2SAT 96
--- NOTE | 2018-06-08 19:49 | CP.PCM.DIS ---
Provider - Provider Date of Admission: 06/06/18 21:11 Attending physician: Otoniel Conley Jr, MD Hospital Course - Lab Results Lab Results: Most Recent Lab Values WBC 10.9 K/uL (4.8-10.8) H 06/08/18 07:48 RBC 3.55 Mil/uL (3.80-5.20) L 06/08/18 07:48 Hgb 10.3 g/dL (11.0-16.0) L D 06/08/18 07:48 Hct 30.0 % (34.0-47.0) L 06/08/18 07:48 MCV 84.4 fL (81.0-99.0) 06/08/18 07:48 MCH 29.1 pg (27.0-31.0) 06/08/18 07:48 MCHC 34.5 g/dL (33.0-37.0) 06/08/18 07:48 RDW 15.4 % (11.5-14.5) H 06/08/18 07:48 Plt Count 262 K/uL (130-400) 06/08/18 07:48 MPV 8.8 fL (7.2-11.7) 06/08/18 07:48 Neut % (Auto) 77.8 % (50.0-75.0) H 06/08/18 07:48 Lymph % (Auto) 9.2 % (20.0-40.0) L 06/08/18 07:48 [place] % (Auto) 9.1 % (0.0-10.0) 06/08/18 07:48 Eos % (Auto) 3.4 % (0.0-4.0) 06/08/18 07:48 Baso % (Auto) 0.5 % (0.0-2.0) 06/08/18 07:48 Neut # (Auto) 8.5 K/uL (1.8-7.0) H 06/08/18 07:48 Lymph # (Auto) 1.0 K/uL (1.0-4.3) 06/08/18 07:48 [place] # (Auto) 1.0 K/uL (0.0-0.8) H 06/08/18 07:48 Eos # (Auto) 0.4 K/uL (0.0-0.7) 06/08/18 07:48 Baso # (Auto) 0.1 K/uL (0.0-0.2) 06/08/18 07:48 Neutrophils % (Manual) 78 % (50-75) H 06/08/18 07:48 Lymphocytes % (Manual) 9 % (20-40) L 06/08/18 07:48 Reactive Lymphs % 1 % (0-0) H 06/08/18 07:48 Monocytes % (Manual) 9 % (0-10) 06/08/18 07:48 Eosinophils % (Manual) 3 % (0-4) 06/08/18 07:48 Platelet Estimate Normal (NORMAL) 06/08/18 07:48 Large Platelets Present 06/08/18 07:48 Poikilocytosis (manual Slight 06/08/18 07:48 Anisocytosis (manual) Slight 06/08/18 07:48 Microcytosis (manual) Slight 06/08/18 07:48 Macrocytosis (manual) Slight 06/08/18 07:48 Retic Count 3.6 % (0.5-1.5) H D 06/08/18 07:48 PT 11.7 SECONDS (9.7-12.2) 06/08/18 07:48 INR 1.1 06/08/18 07:48 APTT 30 SECONDS (21-34) D 06/08/18 07:48 Sodium 141 mmol/L (132-148) 06/08/18 07:49 Potassium 4.3 mmol/L (3.6-5.2) 06/08/18 07:49 Chloride 108 mmol/L (98-107) H 06/08/18 07:49 Carbon Dioxide 23 mmol/L (22-30) 06/08/18 07:49 Anion Gap 15 (10-20) 06/08/18 07:49 BUN 17 mg/dL (7-17) 06/08/18 07:49 Creatinine 0.6 mg/dL (0.7-1.2) L 06/08/18 07:49 Est GFR ( Amer) > 60 06/08/18 07:49 Est GFR (Non-Af Amer) > 60 06/08/18 07:49 POC Glucose (mg/dL) 189 mg/dL (65-110) H 06/08/18 16:40 Random Glucose 154 mg/dL (65-105) H 06/08/18 07:49 Calcium 8.3 mg/dl (8.6-10.4) L 06/08/18 07:49 Phosphorus 2.8 mg/dL (2.5-4.5) 06/08/18 07:49 Magnesium 2.0 mg/dL (1.6-2.3) 06/08/18 07:49 Total Bilirubin 1.8 mg/dL (0.2-1.3) H 06/08/18 07:49 AST 26 U/L (14-36) 06/08/18 07:49 ALT 37 U/L (9-52) 06/08/18 07:49 Alkaline Phosphatase 80 U/L (38-126) 06/08/18 07:49 Total Protein 6.1 g/dL (6.3-8.3) L 06/08/18 07:49 Albumin 3.5 g/dL (3.5-5.0) 06/08/18 07:49 Globulin 2.6 gm/dL (2.2-3.9) 06/08/18 07:49 Albumin/Globulin Ratio 1.3 (1.0-2.1) 06/08/18 07:49 Vitamin B12 512 pg/mL (239-931) 06/08/18 07:49 Folate > 20.0 ng/mL 06/08/18 07:49 Blood Type A NEGATIVE 06/06/18 20:20 Antibody Screen Positive 06/06/18 20:20 Antibody Identification Anti E 06/06/18 20:20 Discharge Exam - Head Exam Head Exam: ATRAUMATIC, NORMAL INSPECTION, NORMOCEPHALIC Discharge Plan - Follow Up Plan Condition: SERIOUS Disposition: HOME/ ROUTINE Instructions: Gastrointestinal Bleeding (DC), Normocytic Normochromic Anemia ( DC) Additional Instructions: Patient is medically optimized for discharge, per Dr. Conley. Patient is to follow-up with PMD within 3-5 days of discharge. Patient is to resume home meds. Patient is to return to the ED if symptoms return.
--- NOTE | 2018-06-08 22:46 | CARD ---
APPROVED REPORT Date of service: 06/06/2018 EKG Measurement Heart [id number] <Conclusion> Sinus rhythm with occasional premature ventricular complexes ST & T wave abnormality, consider lateral ischemia Prolonged QT Abnormal ECG
--- NOTE | 2018-06-09 21:37 | CP.PCM.DIS ---
Provider - Provider Date of Admission: 06/06/18 21:11 Attending physician: Otoniel Conley Jr, MD Primary care physician: Dr. Otoniel Conley Consults: Dr. Baudilio Frazier - hemeatology/oncology Time Spent in preparation of Discharge (in minutes): 35 Diagnosis - Discharge Diagnosis (1) Hypertension Status: Acute (2) Anemia Status: Acute Priority: High (3) GI bleed Status: Acute (4) Seizure Status: Acute Hospital Course - Lab Results Lab Results: Most Recent Lab Values WBC 10.9 K/uL (4.8-10.8) H 06/08/18 07:48 RBC 3.55 Mil/uL (3.80-5.20) L 06/08/18 07:48 Hgb 10.3 g/dL (11.0-16.0) L D 06/08/18 07:48 Hct 30.0 % (34.0-47.0) L 06/08/18 07:48 MCV 84.4 fL (81.0-99.0) 06/08/18 07:48 MCH 29.1 pg (27.0-31.0) 06/08/18 07:48 MCHC 34.5 g/dL (33.0-37.0) 06/08/18 07:48 RDW 15.4 % (11.5-14.5) H 06/08/18 07:48 Plt Count 262 K/uL (130-400) 06/08/18 07:48 MPV 8.8 fL (7.2-11.7) 06/08/18 07:48 Neut % (Auto) 77.8 % (50.0-75.0) H 06/08/18 07:48 Lymph % (Auto) 9.2 % (20.0-40.0) L 06/08/18 07:48 [place] % (Auto) 9.1 % (0.0-10.0) 06/08/18 07:48 Eos % (Auto) 3.4 % (0.0-4.0) 06/08/18 07:48 Baso % (Auto) 0.5 % (0.0-2.0) 06/08/18 07:48 Neut # (Auto) 8.5 K/uL (1.8-7.0) H 06/08/18 07:48 Lymph # (Auto) 1.0 K/uL (1.0-4.3) 06/08/18 07:48 [place] # (Auto) 1.0 K/uL (0.0-0.8) H 06/08/18 07:48 Eos # (Auto) 0.4 K/uL (0.0-0.7) 06/08/18 07:48 Baso # (Auto) 0.1 K/uL (0.0-0.2) 06/08/18 07:48 Neutrophils % (Manual) 78 % (50-75) H 06/08/18 07:48 Lymphocytes % (Manual) 9 % (20-40) L 06/08/18 07:48 Reactive Lymphs % 1 % (0-0) H 06/08/18 07:48 Monocytes % (Manual) 9 % (0-10) 06/08/18 07:48 Eosinophils % (Manual) 3 % (0-4) 06/08/18 07:48 Platelet Estimate Normal (NORMAL) 06/08/18 07:48 Large Platelets Present 06/08/18 07:48 Poikilocytosis (manual Slight 06/08/18 07:48 Anisocytosis (manual) Slight 06/08/18 07:48 Microcytosis (manual) Slight 06/08/18 07:48 Macrocytosis (manual) Slight 06/08/18 07:48 Retic Count 3.6 % (0.5-1.5) H D 06/08/18 07:48 PT 11.7 SECONDS (9.7-12.2) 06/08/18 07:48 INR 1.1 06/08/18 07:48 APTT 30 SECONDS (21-34) D 06/08/18 07:48 Sodium 141 mmol/L (132-148) 06/08/18 07:49 Potassium 4.3 mmol/L (3.6-5.2) 06/08/18 07:49 Chloride 108 mmol/L (98-107) H 06/08/18 07:49 Carbon Dioxide 23 mmol/L (22-30) 06/08/18 07:49 Anion Gap 15 (10-20) 06/08/18 07:49 BUN 17 mg/dL (7-17) 06/08/18 07:49 Creatinine 0.6 mg/dL (0.7-1.2) L 06/08/18 07:49 Est GFR ( Amer) > 60 06/08/18 07:49 Est GFR (Non-Af Amer) > 60 06/08/18 07:49 POC Glucose (mg/dL) 189 mg/dL (65-110) H 06/08/18 16:40 Random Glucose 154 mg/dL (65-105) H 06/08/18 07:49 Calcium 8.3 mg/dl (8.6-10.4) L 06/08/18 07:49 Phosphorus 2.8 mg/dL (2.5-4.5) 06/08/18 07:49 Magnesium 2.0 mg/dL (1.6-2.3) 06/08/18 07:49 Total Bilirubin 1.8 mg/dL (0.2-1.3) H 06/08/18 07:49 AST 26 U/L (14-36) 06/08/18 07:49 ALT 37 U/L (9-52) 06/08/18 07:49 Alkaline Phosphatase 80 U/L (38-126) 06/08/18 07:49 Total Protein 6.1 g/dL (6.3-8.3) L 06/08/18 07:49 Albumin 3.5 g/dL (3.5-5.0) 06/08/18 07:49 Globulin 2.6 gm/dL (2.2-3.9) 06/08/18 07:49 Albumin/Globulin Ratio 1.3 (1.0-2.1) 06/08/18 07:49 Vitamin B12 512 pg/mL (239-931) 06/08/18 07:49 Folate > 20.0 ng/mL 06/08/18 07:49 Blood Type A NEGATIVE 06/06/18 20:20 Antibody Screen Positive 06/06/18 20:20 Antibody Identification Anti E 06/06/18 20:20 - Hospital Course Hospital Course: PMHx: GI bleed, HTN, HLD, CAD, [place] in 2015 with 3 stents placed in [place], diabetes, diverticulitis, gastritis, 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 Lives with daughter. Allergies: Penicillin (rash) PMD: Dr. Shivani Conley On admission: Patient is a 72 year old female with past medical history of GI bleed, hypertension, CAD and [place] s/p 3 stents in 2014, diabetes, who presents to the ER with complaints of black stool that she noticed at 6PM today. Patient stated that when she saw the black stool she called her PMD ( Dr. Conley), and was advised to come to the hospital. Associated symptoms include lethargy. Patient also complains of b/l shoulder pain, and b/l proximal posterior lower extremity pain. She denies any headache, dizziness, vision changes, shortness of breath, abdominal pain, nausea, vomiting, diarrhea , or any urinary symptoms. During hospital stay: Patient was trreated for symptomatic anemia secondary to GI bleed. She was give 2 units of PRBC to increase her low hemoglobin. Repeat hgb was 10. Patient then felt better and symptoms improved. Patient was also given protonix drip. She was continued on her home medications for HTN: losartan and carvedilol. BP was controlled during her stay. She was also given crestor due to her history of NE. All of her home meds were continued, including keppra for seizure prophylaxis. Patient is medically optimized for discharge, per Dr. Conley. Patient is to follow-up with PMD within 3-5 days of discharge. Patient is to resume home meds. Patient is to return to the ED if symptoms return. Patient is to follow up with GI outpatient. *Please note this is only a summary of hospital events. Please refer to EMR for full admission details. Discharge Exam - Head Exam Head Exam: ATRAUMATIC, NORMAL INSPECTION, NORMOCEPHALIC - Eye Exam Eye Exam: EOMI - ENT Exam ENT Exam: Mucous Membranes Moist - Respiratory Exam Respiratory Exam: NORMAL BREATHING PATTERN - Cardiovascular Exam Cardiovascular Exam: REGULAR RHYTHM, +S1, +S2 - GI/Abdominal Exam GI & Abdominal Exam: Normal Bowel Sounds, Soft - Extremities Exam Extremities exam: normal inspection - Neurological Exam Neurological exam: Alert, CN II-XII Intact, Oriented x3 - Psychiatric Exam Psychiatric exam: Normal Mood - Skin Skin Exam: Normal Color, Warm Discharge Plan - Follow Up Plan Condition: SERIOUS Disposition: HOME/ ROUTINE Instructions: Gastrointestinal Bleeding (DC), Normocytic Normochromic Anemia ( DC) Additional Instructions: Patient is medically optimized for discharge, per Dr. Conley. Patient is to follow-up with PMD within 3-5 days of discharge. Patient is to resume home meds. Patient is to return to the ED if symptoms return.
== END 2018-06-08 18:48 | disposition home or self-care (01) ==
LOC: C.ER 19:31 → C.9E 21:11 → C.5S 21:59
PROVIDERS: ADMIT Internal Medicine; ATTEND Internal Medicine
DX: I10 Essential (primary) hypertension (principal); D50.0 Iron deficiency anemia secondary to blood loss (chronic); K92.2 Gastrointestinal hemorrhage, unspecified; R56.9 Unspecified convulsions; I25.10 Atherosclerotic heart disease of native coronary artery without angina pectoris; I25.2 Old myocardial infarction; Z87.891 Personal history of nicotine dependence; Z82.49 Family history of ischemic heart disease and other diseases of the circulatory system; Z86.010 Personal history of colon polyps; E78.5 Hyperlipidemia, unspecified; E78.00 Pure hypercholesterolemia, unspecified; E11.9 Type 2 diabetes mellitus without complications
CPT/HCPCS: 36415; 36430; 71045; 80053; 82607; 82746; 82948; 83735; 84100; 85025; 85044; 85610; 85730; 86850; 86870; 86900; 86905; 86920; 86922; 93005; 99285; C9113; G0378; J2916; J7030; P9051

== ENCOUNTER 2018-11-01 13:03 | Observation (INO) | payer MEDICARE ==
[2018-11-01 13:16] VITALS: BMI 36.7
--- NOTE | 2018-11-01 13:53 | RAD ---
Date of service: 11/01/2018 PROCEDURE: CHEST RADIOGRAPH, 1 VIEW HISTORY: Dizziness COMPARISON: 06/06/2018. FINDINGS: LUNGS: The lungs are well inflated and clear. PLEURA: No pneumothorax or pleural effusion. CARDIOVASCULAR: Persistent moderate cardiomegaly. There are o aortic atherosclerotic calcifications present. OSSEOUS STRUCTURES: Within normal limits for the patient's age. VISUALIZED UPPER ABDOMEN: Normal. OTHER FINDINGS: None. IMPRESSION: No active pulmonary disease.
[2018-11-01 14:04] LABS: BASO # 0.1 K/uL (0.0-0.2); BASO % 0.7 % (0.0-2.0); EOS # 0.2 K/uL (0.0-0.7); EOS % 2.2 % (0.0-4.0); LYMPH # 1.4 K/uL (1.0-4.3); LYMPH % 12.9 % (20.0-40.0); MEAN CORPUSCULAR HEMOGLOBIN 25.5 pg (27.0-31.0); MEAN CORPUSCULAR HGB CONC 31.4 g/dL (33.0-37.0); MEAN PLATELET VOLUME 9.4 fL (7.2-11.7); MONO # 1.2 K/uL (0.0-0.8); MONO % 10.7 % (0.0-10.0); NEUT # 7.9 K/uL (1.8-7.0); NEUT % 73.5 % (50.0-75.0); NRBC % 0.1 % (0.0-2.0); RBC 2.38 Mil/uL (3.80-5.20); RED CELL DISTRIBUTION WIDTH 17.8 % (11.5-14.5); WHITE BLOOD COUNT 10.8 K/uL (4.8-10.8)
[2018-11-01 14:11] LABS: HEMOGLOBIN 6.1 g/dL (11.0-16.0); MEAN CELL VOLUME 81.2 fL (81.0-99.0)
[2018-11-01 14:22] LABS: ALB/GLOB RATIO 1.5 (1.0-2.1); ALBUMIN 4.1 g/dL (3.5-5.0); ALT/SGPT 19 U/L (9-52); AST/SGOT 39 U/L (14-36); BLOOD UREA NITROGEN 27 mg/dL (7-17); GFR NON-AFRICAN AMERICAN > 60
[2018-11-01 14:34] LABS: B-TYPE NATRIURETIC PEPTIDE 1080 pg/mL (0-900)
--- NOTE | 2018-11-01 14:44 | CT ---
Date of service: 11/01/2018 PROCEDURE: CT HEAD WITHOUT CONTRAST. HISTORY: r/o ICH COMPARISON: 02/08/2017. TECHNIQUE: Axial computed tomography images were obtained through the head/brain without intravenous contrast. Radiation dose: Total exam DLP = 1040.09 mGy-cm. This CT exam was performed using one or more of the following dose reduction techniques: Automated exposure control, adjustment of the mA and/or kV according to patient size, and/or use of iterative reconstruction technique. FINDINGS: HEMORRHAGE: No intracranial hemorrhage. BRAIN: There is redemonstration of cystic encephalomalacia in the right posterior parietal lobe with volume loss and ex vacuo dilatation of the right lateral ventricle. There are mild chronic microangiopathic changes. There are old lacunar infarctions in the right external capsule. There is no mass, mass effect or abnormal extra-axial fluid collection. The midline sagittal structures are normal.There are coarse atherosclerotic calcifications in the cavernous carotid arteries. VENTRICLES: There is mild age-related global parenchymal volume loss and proportionate enlargement of the ventricles and cortical sulci. CALVARIUM: There is no calvarial fracture or extracranial soft tissue swelling. PARANASAL SINUSES: Predominantly clear. MASTOID AIR CELLS: Predominantly clear. OTHER FINDINGS: None. IMPRESSION: No acute intracranial abnormality. 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 Mild chronic microangiopathic changes and mild age-related global parenchymal volume loss.
[2018-11-01 15:05] LABS: SQUAMOUS EPITHIAL 1 /hpf (0-5); URINE BACTERIA OCC (<OCC); URINE BILIRUBIN NEGATIVE (NEGATIVE); URINE BLOOD NEGATIVE (NEGATIVE); URINE CLARITY Clear (Clear); URINE COLOR Yellow (YELLOW); URINE GLUCOSE (UA) NORMAL (Normal); URINE LEUKOCYTE ESTERASE NEG Leu/uL (Negative); URINE PROTEIN NEGATIVE (NEGATIVE); URINE UROBILINOGEN NORMAL mg/dL (0.2-1.0)
--- NOTE | 2018-11-01 15:12 | CP.PCM.HP ---
History of Present Illness - History of Present Illness History of Present Illness: PGY1 Medicine History and Physical Exam Note for Dr. Conley Patient is a 72 year old female with past medical history of GI bleed, hypertension, CAD and [place] s/p 3 stents in 2014, diabetes, and anemia, who presents to the ER with complaints of lightheadedness and fatigue. Patient reports this started about 3 days ago. She stays she has been feeling tired and gets chest discomfort when she walks. Patient otherwise denies numbness/tingling in lower extremities, headache, bloody/dark colored stools, diarrhea, nausea, vomiting, abdominal pain, and/or recent fall/trauma. 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 Lives with daughter. Allergies: Penicillin (rash) PMD: Dr. Shivani Conley Present on Admission - Present on Admission Any Indicators Present on Admission: No History of DVT/PE: No History of Uncontrolled Diabetes: No Decubitus Ulcer Present: No Review of Systems - Review of Systems All systems: reviewed and no additional remarkable complaints except Review of Systems: As per HPI Past Patient History - Infectious Disease Hx of Infectious Diseases: None - Past Medical History & Family History Past Medical History?: Yes - Past Social History Smoking Status: Former Smoker - CARDIAC Hx Atrial Fibrillation: Yes Hx Cardia Arrhythmia: Yes Hx Hypercholesterolemia: Yes Hx Hypertension: Yes - PULMONARY Hx Respiratory Disorders: No - NEUROLOGICAL Hx Seizures: Yes Hx Transient Ischemic Attacks (TIA): No - HEENT Hx HEENT Problems: No - RENAL Hx Chronic Kidney Disease: No - ENDOCRINE/METABOLIC Hx Diabetes Mellitus Type 2: Yes - HEMATOLOGICAL/ONCOLOGICAL Hx Anemia: Yes ( acute and chronic due to GI blood loss) Hx Human Immunodeficiency Virus (HIV): No - INTEGUMENTARY Hx Dermatological Problems: No - MUSCULOSKELETAL/RHEUMATOLOGICAL Hx Arthritis: Yes - GASTROINTESTINAL Hx Crohn's Disease: No Hx Diverticulitis: Yes (diverticulosis 2014 and 05/2016) Hx Gall Bladder Disease: No Hx Gastritis: Yes Hx Pancreatitis: No - GENITOURINARY/GYNECOLOGICAL Hx Genitourinary Disorders: No - PSYCHIATRIC Hx Substance Use: No Other/Comment: tobacco use - SURGICAL HISTORY Hx Surgeries: Yes Hx Coronary Stent: Yes (2012) - ANESTHESIA Hx Anesthesia: Yes Hx Anesthesia Reactions: No Hx Malignant Hyperthermia: No Meds Allergies/Adverse Reactions: Allergies Allergy/AdvReac Type Severity Reaction Status Date / Time Penicillins Allergy RASH Verified 11/01/18 13:13 acetaminophen [From Percocet] AdvReac DIZZINESS Verified 11/01/18 13:13 oxycodone HCl [From Percocet] AdvReac DIZZINESS Verified 11/01/18 13:13 Physical Exam - Constitutional Appears: Non-toxic, No Acute Distress - Head Exam Head Exam: ATRAUMATIC, NORMAL INSPECTION, NORMOCEPHALIC - Eye Exam Eye Exam: Normal appearance. absent: Periorbital swelling, Scleral icterus Pupil Exam: NORMAL ACCOMODATION Additional comments: pale conjunctiva - ENT Exam ENT Exam: Mucous Membranes Dry - Respiratory Exam Respiratory Exam: Clear to Auscultation Bilateral, NORMAL BREATHING PATTERN - Cardiovascular Exam Cardiovascular Exam: REGULAR RHYTHM, RRR, +S1, +S2 - GI/Abdominal Exam GI & Abdominal Exam: Normal Bowel Sounds, Soft. absent: Distended, Guarding, Hernia, Hyperactive Bowel Sounds, Hypoactive Bowel Sounds, Mass, Rebound, Rigid, Tenderness - Extremities Exam Extremities exam: Positive for: full ROM, normal capillary refill, normal inspection, pedal pulses present. Negative for: calf tenderness, joint swelling, pedal edema, tenderness - Back Exam Back exam: NORMAL INSPECTION. absent: CVA tenderness (L), CVA tenderness (R), paraspinal tenderness - Neurological Exam Neurological exam: Alert, CN II-XII Intact, Normal Gait, Oriented x3, Reflexes Normal - Psychiatric Exam Psychiatric exam: Normal Affect, Normal Mood - Skin Skin Exam: Dry, Pallor, Warm Results - Vital Signs Recent Vital Signs: Last Vital Signs Temp 98.7 F 11/01/18 13:16 Pulse 74 11/01/18 15:01 Resp 16 11/01/18 15:01 BP 119/60 11/01/18 15:01 Pulse Ox 100 11/01/18 15:01 - Labs Result Diagrams: 11/01/18 13:50 11/01/18 13:50 Labs: Laboratory Results - last 24 hr 11/01/18 11/01/18 11/01/18 13:50 13:50 14:57 WBC 10.8 RBC 2.38 L Hgb 6.1 L* D Hct 19.3 L MCV 81.2 D MCH 25.5 L MCHC 31.4 L RDW 17.8 H Plt Count 322 MPV 9.4 Neut % (Auto) 73.5 Lymph % (Auto) 12.9 L [place] % (Auto) 10.7 H Eos % (Auto) 2.2 Baso % (Auto) 0.7 Neut # (Auto) 7.9 H Lymph # (Auto) 1.4 [place] # (Auto) 1.2 H Eos # (Auto) 0.2 Baso # (Auto) 0.1 Sodium 135 Potassium 4.9 Chloride 103 Carbon Dioxide 21 L Anion Gap 16 BUN 27 H Creatinine 0.7 Est GFR ( Amer) > 60 Est GFR (Non-Af Amer) > 60 Random Glucose 189 H D Calcium 9.0 Total Bilirubin 0.7 AST 39 H D ALT 19 Alkaline Phosphatase 97 Troponin I < 0.0120 NT-Pro-B Natriuret Pep 1080 H Total Protein 6.9 Albumin 4.1 Globulin 2.8 Albumin/Globulin Ratio 1.5 Urine Color Yellow Urine Clarity Clear Urine pH 5.0 Ur Specific [place] 1.019 Urine Protein Negative Urine Glucose (UA) Normal Urine Ketones Negative Urine Blood Negative Urine Nitrate Positive H Urine Bilirubin Negative Urine Urobilinogen Normal Ur Leukocyte Esterase Neg Urine WBC (Auto) 4 Urine RBC (Auto) 1 Ur Squamous Epith Cells 1 Urine Bacteria Occ H Assessment & Plan - Assessment and Plan (Free Text) Assessment: 72 year old female with past medical history of anemia, GI bleed, hypertension, CAD and [place] s/p 3 stents in 2014, diabetes, who presents to the ER with complaints of fatigue and lightheadedness. Patient admits to dypsnea on exe rtion. Patient admitted for evaluation and treatment of symptomatic anemia R/O ACS. Plan: Symptomatic Anemia - Transfuse 2 PRBCs - Hgb goal greater than 10 - F/u heme/onc Dr. Freddie joy - patient has Hx of OP Iron transfusion, see if patient requires at this time - Bedside swallow study - F/o occult blood - 11/01: CT head without contrast: no acute intracranial abnormality Rule-Out ACS (Hx of [place] s/p 3 stents) - ABRAHAM x3 Q6H (negative x1) - EKG x3 Q6H - Chest X-ray: no active pulmonary disease - Continue home medications: - Crestor 20mg PO HS - Aspirin 81mg PO daily - Consider Cardiology consult - Consider ECHO Abnormal Urinalysis (asymptomatic) - Urinalysis consistent with UTI (Bacteria, +nitrates), however the patient is asymptomatic - F/U Urine Culture - Hold antibiotics as the patient has no frequency, no dysuria, no urgency - Patient afebrile - CVA negative on PE - Monitor CBC/CMP Hx of HTN - Patient normotensive - Hold home medications: - Losartan 100mg po daily - Carvedilol 12.5mg po bid Hx of DM2 - Fingersticks ACHS - ISS once patient is on PO Diet Hx of Seizure - Continue with home medications - Keppra 500mg po bid - F/U Levetiracetam level PPX - DVT ppx: SCDs - GI ppx: Protonix 40mg PO - Diet: Healthy Heart Diet D/w Dr. Yael Michelle PGY1
[2018-11-01] MEDS ORDERED: Dextrose 50% SYRINGE Inj (50 ml) IV PRN (15:56)
[2018-11-01] MEDS ORDERED: Glucagon Recombinant 1 mg Inj IM PRN (15:56)
--- NOTE | 2018-11-01 16:32 | C.PDOC ---
History Of Present Illness 72 y/o female presents to the ED complaining of feeling dizzy and un-well today. Denies having any pain, SOB, abdominal discomfort, hematuria, or blood in the stool. Patient also denies dark or black stool. She has a PMHx of anemia, with history of transfusions in the past. Time Seen by Provider: 11/01/18 13:19 Chief Complaint (Nursing): Dizziness/Lightheaded History Per: Patient History/Exam Limitations: no limitations Onset/Duration Of Symptoms: Hrs Current Symptoms Are (Timing): Still Present Past Medical History Reviewed: Historical Data, Nursing Documentation, Vital Signs Vital Signs: Last Vital Signs Temp 98.7 F 11/01/18 13:16 Pulse 74 11/01/18 15:01 Resp 16 11/01/18 15:01 BP 119/60 11/01/18 15:01 Pulse Ox 100 11/01/18 15:01 - Medical History PMH: Anemia ( acute and chronic due to GI blood loss), Arthritis, Atrial Fibrillation, CAD, Cardia Arrhythmia, Colonic Polyps, Diabetes, Diverticulitis (diverticulosis 2014 and 05/2016), Gastritis, HTN, Hypercholesterolemia, Seizures Denies: Crohn's Disease, Gall Bladder Disease, HIV, Pancreatitis, Chronic Kidney Disease, TIA Surgical History: Coronary Stent (2012), Endoscopy - [facility] Procedures CLOSED ENDOSCOPIC BIOPSY OF LARGE INTESTINE (11/30/14) CONTROL BLEEDING IN GASTROINTESTINAL TRACT, ENDO (12/12/16) CORONAR ARTERIOGR-2 CATH (11/30/14) ESOPHAGOGASTRODUODENOSCOPY [EGD] W/CLOSED BIOPSY (11/30/14) EXCISION OF STOMACH, ENDO, DIAGN (04/09/16) INJECT/INFUSE NEC (06/04/05) LEFT HEART CARDIAC CATH (11/30/14) LT HEART ANGIOCARDIOGRAM (11/30/14) PACKED CELL TRANSFUSION (11/30/14) RELEASE LEFT URETER, OPEN APPROACH (12/12/16) RELEASE PERITONEUM, OPEN APPROACH (12/12/16) RELEASE RIGHT URETER, OPEN APPROACH (12/12/16) REMOVAL OF SYNTH SUB FROM LOW INTEST TRACT, OPEN APPROACH (12/12/16) REPAIR RECTUM, PERCUTANEOUS ENDOSCOPIC APPROACH (07/27/16) RESECTION OF RECTUM, OPEN APPROACH (12/12/16) RESECTION OF SIGMOID COLON, OPEN APPROACH (12/12/16) RESECTION OF SIGMOID COLON, PERCUTANEOUS ENDOSCOPIC APPROACH (07/27/16) ROBOTIC ASSISTED PROCEDURE OF TRUNK, PERC ENDO APPROACH (07/27/16) TRANSFUSE NONAUT FROZEN RED CELLS IN PERIPH VEIN, PERC (09/20/16) TRANSFUSE NONAUT RED BLOOD CELLS IN PERIPH VEIN, PERC (05/11/18) TRANSFUSE NONAUT WHOLE BLOOD IN PERIPH VEIN, PERC (10/13/16) Family History: States: Unknown Family Hx, [place] - Social History Hx Tobacco Use: Yes (cut down per daughter) Hx Alcohol Use: No Hx Substance Use: No - Immunization History Hx Tetanus Toxoid Vaccination: Yes Hx Influenza Vaccination: No (per pt declines) Hx Pneumococcal Vaccination: No Review Of Systems Except As Marked, All Systems Reviewed And Found Negative. Constitutional: Positive for: Weakness (generalized). Negative for: Fever, Chills Eyes: Negative for: Vision Change Cardiovascular: Negative for: Chest Pain Respiratory: Negative for: Shortness of Breath Gastrointestinal: Negative for: Vomiting, Abdominal Pain, Diarrhea, Melena, Hematochezia Neurological: Positive for: Dizziness. Negative for: Weakness, Numbness, Change in Speech Physical Exam - Physical Exam Appears: Non-toxic, No Acute Distress Skin: Warm, Pale Head: Atraumatic, Normacephalic Eye(s): bilateral: PERRL, EOMI, Conjunctiva Pale Oral Mucosa: Moist Neck: Normal ROM Chest: Symmetrical Cardiovascular: Rhythm Regular, No Murmur Respiratory: Normal Breath Sounds, No Rales, No Rhonchi, No Wheezing Gastrointestinal/Abdominal: Soft, No Tenderness, No Distention Extremity: Bilateral: Atraumatic, Normal ROM Pulses: Left Dorsalis Pedis: Normal, Right Dorsalis Pedis: Normal Neurological/Psych: Oriented x3, Normal Speech, Normal Cognition, Normal Cranial Nerves, Other (No focal deficits, neurologically intact) ED Course And Treatment - Laboratory Results Result Diagrams: 11/01/18 13:50 11/01/18 13:50 Lab Results: Troponin I < 0.0120 ng/mL (0.00-0.120) 11/01/18 13:50 NT-Pro-B Natriuret Pep 1080 pg/mL (0-900) H 11/01/18 13:50 Total Bilirubin 0.7 mg/dL (0.2-1.3) 11/01/18 13:50 AST 39 U/L (14-36) H D 11/01/18 13:50 ALT 19 U/L (9-52) 11/01/18 13:50 Alkaline Phosphatase 97 U/L (38-126) 11/01/18 13:50 Total Protein 6.9 g/dL (6.3-8.3) 11/01/18 13:50 Albumin 4.1 g/dL (3.5-5.0) 11/01/18 13:50 Globulin 2.8 gm/dL (2.2-3.9) 11/01/18 13:50 Albumin/Globulin Ratio 1.5 (1.0-2.1) 11/01/18 13:50 Urine Color Yellow (YELLOW) 11/01/18 14:57 Urine Clarity Clear (Clear) 11/01/18 14:57 Urine pH 5.0 (5.0-8.0) 11/01/18 14:57 Ur Specific [place] 1.019 (1.003-1.030) 11/01/18 14:57 Urine Protein Negative mg/dL (NEGATIVE) 11/01/18 14:57 Urine Glucose (UA) Normal mg/dL (Normal) 11/01/18 14:57 Urine Ketones Negative mg/dL (NEGATIVE) 11/01/18 14:57 Urine Blood Negative (NEGATIVE) 11/01/18 14:57 Urine Nitrate Positive (NEGATIVE) H 11/01/18 14:57 Urine Bilirubin Negative (NEGATIVE) 11/01/18 14:57 Urine Urobilinogen Normal mg/dL (0.2-1.0) 11/01/18 14:57 Ur Leukocyte Esterase Neg Qiana/uL (Negative) 11/01/18 14:57 Urine WBC (Auto) 4 /hpf (0-5) 11/01/18 14:57 Urine RBC (Auto) 1 /hpf (0-3) 11/01/18 14:57 Ur Squamous Epith Cells 1 /hpf (0-5) 11/01/18 14:57 Urine Bacteria Occ (<OCC) H 11/01/18 14:57 ECG: Interpreted By Me, Viewed By Me ECG Rhythm: Sinus Rhythm Interpretation Of ECG: Left atrial enlargement, Normal axis Rate From EC O2 Sat by Pulse Oximetry: 100 (RA) Pulse Ox Interpretation: Normal - Other Rad CXR X-Ray: Read By Radiologist Interpretation: Accession No. : [id number]. Patient Name / ID : MILLIE SEGOVIA / [id number]. Exam Date : 11/01/2018 13:28:14 ( Approved ). Study Comment : Sex / Age : F / 72Y. Creator : Rosangela Fowler MD. Dictator : Rosangela Fowler MD. Mill Dresser : Fisher Trammel Net : Rosangela Fowler MD. Approver2 : Report Date : 11/01/2018 13:50:18. My Comment : . Date of service: 11/01/2018. PROCEDURE: CHEST RADIOGRAPH, 1 VIEW. HISTORY: Dizziness. COMPARISON: 06/06/2018. FINDINGS: LUNGS: The lungs are well inflated and clear. PLEURA: No pneumothorax or pleural effusion. CARDIOVASCULAR: Persistent moderate cardiomegaly. There are o aortic ath erosclerotic calcifications present. OSSEOUS STRUCTURES: Within normal limits for the patient's age. VISUALIZED UPPER ABDOMEN: Normal. OTHER FINDINGS: None. IMPRESSION: No active pulmonary disease. - CT Scan/US CT Head Other Rad Studies (CT/US): Read By Radiologist, Radiology Report Reviewed CT/US Interpretation: Accession No. : [id number]. Patient Name / ID : MILLIE SEGOVIA / [id number]. Exam Date : 11/01/2018 14:11:59 ( Approved ). Study Comment : Sex / Age : F / 72Y. Creator : Aria Colon. Dictator : Rosangela Fowler MD. Mill Dresser : Fisher Trammel Net : Rosangela Fowler MD. Approver2 : Report Date : 11/01/2018 14:35:29. My Comment : . Date of service: 11/01/2018. PROCEDURE: CT HEAD WITHOUT CONTRAST. HISTORY: r/o ICH. COMPARISON: 02/08/2017. TECHNIQUE: Axial computed tomography images were obtained through the head/brain without intravenous contrast. Radiation dose: Total exam DLP = 1040.09 mGy-cm. This CT exam was performed using one or more of the following dose reduction techniques: Automated exposure control, adjustment of the mA and/or kV according to patient size, and/or use of iterative reconstruction technique. FINDINGS: HEMORRHAGE: No intracranial hemorrhage. BRAIN: There is redemonstration of cystic encephalomalacia in the right posterior parietal lobe with volume loss and ex vacuo dilatation of the right lateral ventricle. There are mild chronic microangiopathic changes. There are old lacunar infarctions in the right external capsule. There is no mass, mass effect or abnormal extra-axial fluid collection. The midline sagittal structures are normal.There are coarse atherosclerotic calcifications in the cavernous carotid arteries. VENTRICLES: There is mild age-related global parenchymal volume loss and proportionate enlargement of the ventricles and cortical sulci. CALVARIUM: There is no calvarial fracture or extracranial soft tissue swelling. PARANASAL SINUSES: Predominantly clear. MASTOID AIR CELLS: Predominantly clear. OTHER FINDINGS: None. IMPRESSION: No acute intracranial abnormality. 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 Mild chronic microangiopathic changes and mild age-related global parenchymal volume loss. Medical Decision Making Medical Decision Making: Impression: Dizziness, Weakness, hx of anemia Initial Plan: - Labs w/ cardiac enzyme and coags - Blood type/screen - EKG - Chest x-ray - CT Head Labs and imaging reviewed: H&H: 6.1 and 19.3 14:58 Spoke w/ Yael, patient consented for blood transfusion. Admitted to his service. [employer] notified. Disposition Counseled Patient/Family Regarding: Studies Performed, Diagnosis - Disposition Disposition: HOSPITALIZED Disposition Time: 14:58 Condition: FAIR - Clinical Impression Clinical Impression: Symptomatic anemia - Scribe Statement The provider has reviewed the documentation as recorded by the Hunter Mcnair Provider Attestation: All medical record entries made by the Scribe were at my direction and perso brian dictated by me. I have reviewed the chart and agree that the record accurately reflects my personal performance of the history, physical exam, medical decision making, and the department course for this patient. I have also personally directed, reviewed, and agree with the discharge instructions and disposition.
[2018-11-01] MEDS: (Novolin R) Insulin Human Regular 100 units/ml vial SC SCH ×3 (18:05→21:58)
[2018-11-02 07:22] LABS: ALB/GLOB RATIO 1.4 (1.0-2.1); ALBUMIN 3.3 g/dL (3.5-5.0); ALT/SGPT 23 U/L (9-52); AST/SGOT 30 U/L (14-36); BLOOD UREA NITROGEN 20 mg/dL (7-17); CALCIUM 8.1 mg/dl (8.6-10.4); GFR NON-AFRICAN AMERICAN > 60
[2018-11-02 07:32] LABS: CK-MB 0.49 ng/mL (0.0-3.38)
[2018-11-02] MEDS: (Novolin R) Insulin Human Regular 100 units/ml vial SC SCH ×4 (08:28→21:14)
[2018-11-02] MEDS: Pantoprazole 40 mg EC Tab PO SCH (09:27)
[2018-11-02] MEDS ORDERED: Pneumococcal 23-Valent Vaccine IM ONE (10:00)
[2018-11-02] MEDS ORDERED: Influenza Vaccine 60 mcg/0.5 mL SYR (4YR UP) IM ONE (10:00)
--- NOTE | 2018-11-02 10:42 | CP.PCM.PN ---
Subjective - Date & Time of Evaluation Date of Evaluation: 11/02/18 Time of Evaluation: 10:20 - Subjective Subjective: Patient examined at bedside. No acute overnight events. Pt reports much better since being transfused 2U. Pt reports a history of GI bleeds requiring transfusions, 2/2 gastric ulcers. Pt denies chest pain, SOB, nausea, diarrhea. Objective - Vital Signs/Intake and Output Vital Signs (last 24 hours): Temp Pulse Resp BP Pulse Ox 98.4 F 72 20 133/70 98 11/02/18 08:46 11/02/18 08:46 11/02/18 08:46 11/02/18 08:46 11/02/18 08:46 Intake and Output: 11/02/18 11/02/18 06:59 18:59 Intake Total 902 325 Balance 902 325 - Medications Medications: Current Medications Dextrose (Dextrose 50% Inj) 0 ml IV STAT PRN; Protocol PRN Reason: Hypoglycemia Protocol Dextrose (Glutose 15) 0 gm PO ONCE PRN; Protocol PRN Reason: Hypoglycemia Protocol Glucagon (Glucagen Diagnostic Kit) 0 mg IM STAT PRN; Protocol PRN Reason: Hypoglycemia Protocol Dextrose (Dextrose 5% In Water 1000 Ml) 1,000 mls @ 0 mls/hr IV .Q0M PRN; Protocol PRN Reason: Hypoglycemia Protocol Insulin Human Regular (Novolin R) 0 unit [place] [facility]; Protocol Last Admin: 11/02/18 08:28 Dose: 1 units Levetiracetam (Keppra) 500 mg PO BID [facility] Last Admin: 11/02/18 09:27 Dose: 500 mg Pantoprazole Sodium (Protonix Ec Tab) 40 mg PO DAILY [facility] Last Admin: 11/02/18 09:27 Dose: 40 mg Rosuvastatin Calcium (Crestor) 20 mg PO HS [facility] Last Admin: 11/01/18 21:38 Dose: 20 mg - Labs Labs: 11/01/18 13:50 11/02/18 07:02 - Constitutional Appears: Non-toxic, No Acute Distress - Head Exam Head Exam: ATRAUMATIC, NORMAL INSPECTION, NORMOCEPHALIC - Eye Exam Eye Exam: EOMI, Normal appearance - ENT Exam ENT Exam: Mucous Membranes Moist, Normal Exam - Neck Exam Neck Exam: Normal Inspection - Respiratory Exam Respiratory Exam: Clear to Ausculation Bilateral, NORMAL BREATHING PATTERN. absent: Respiratory Distress - Cardiovascular Exam Cardiovascular Exam: REGULAR RHYTHM, +S1, +S2. absent: Tachycardia - GI/Abdominal Exam GI & Abdominal Exam: Soft, Normal Bowel Sounds. absent: Distended, Tenderness - Extremities Exam Extremities Exam: Normal Inspection. absent: Calf Tenderness, Pedal Edema - Neurological Exam Neurological Exam: Alert, Awake, Oriented x3 - Psychiatric Exam Psychiatric exam: Normal Affect, Normal Mood - Skin Skin Exam: Dry, Intact, Normal Color, Warm. absent: Pallor Assessment and Plan - Assessment and Plan (Free Text) Assessment: 72 year old female with pmhx of anemia 2/2 GI bleed, HTN, CAD s/p 3 stents in 2014, DC, DM2 admitted for evaluation and treatment of symptomatic anemia Plan: Anemia -hgb 6.1 on admission -transfused 2U(11/01) -hgb 7.9 today -2 additional units PRBC tonight -f/u am labs -hold all AC -heme/onc, Dr. Frazier UTI -urine culture positive for E.Coli -started Macrobid 100mg Q12(11/02) -pt asymptomatic HTN -hold home meds, losartan, coreg -normotensive, continue to monitor DM2 -accuchecks ACHS -hypoglycemia protocol -ISS Seizure Disorder -continue home Keppra 500mg PO BID Ppx - DVT ppx: SCDs, AC contraindicated - GI ppx: Protonix 40mg PO - Diet: Healthy Heart Diet Discussed with Dr. Yael Quintanilla, PGY-1
[2018-11-02 11:36] LABS: BASO % 0.6 % (0.0-2.0); EOS # 0.2 K/uL (0.0-0.7); EOS % 3.1 % (0.0-4.0); HEMOGLOBIN 7.9 g/dL (11.0-16.0); LYMPH # 0.8 K/uL (1.0-4.3); LYMPH % 9.8 % (20.0-40.0); MEAN CELL VOLUME 81.2 fL (81.0-99.0); MEAN CORPUSCULAR HEMOGLOBIN 26.9 pg (27.0-31.0); MEAN CORPUSCULAR HGB CONC 33.1 g/dL (33.0-37.0); MEAN PLATELET VOLUME 8.6 fL (7.2-11.7); MONO # 1.1 K/uL (0.0-0.8); MONO % 13.7 % (0.0-10.0); NEUT # 5.7 K/uL (1.8-7.0); NEUT % 72.8 % (50.0-75.0); NRBC % 0.1 % (0.0-2.0); PLATELET COUNT 249 K/uL (130-400); RBC 2.93 Mil/uL (3.80-5.20); RED CELL DISTRIBUTION WIDTH 16.6 % (11.5-14.5); WHITE BLOOD COUNT 7.8 K/uL (4.8-10.8)
[2018-11-02 11:57] LABS: EOSINOPHIL 4 % (0-4); LYMPHOCYTE 9 % (20-40); MONOCYTE 14 % (0-10); NEUTROPHIL 73 % (50-75); PLATELET ESTIMATE NORMAL (NORMAL); TOTAL CELLS COUNTED 100
[2018-11-02 11:58] LABS: HYPOCHROMIC MODERATE; LARGE PLATELETS PRESENT; MICROCYTOSIS SLIGHT; POLYCHROMIC SLIGHT
[2018-11-02 12:00] LABS: ANISOCYTOSIS MODERATE; TOXIC GRANULATION PRESENT
[2018-11-03 07:36] LABS: BASO # 0.1 K/uL (0.0-0.2); BASO % 0.7 % (0.0-2.0); EOS # 0.5 K/uL (0.0-0.7); EOS % 5.3 % (0.0-4.0); HEMOGLOBIN 9.4 g/dL (11.0-16.0); LYMPH # 1.1 K/uL (1.0-4.3); LYMPH % 12.1 % (20.0-40.0); MEAN CELL VOLUME 82.5 fL (81.0-99.0); MEAN CORPUSCULAR HEMOGLOBIN 27.2 pg (27.0-31.0); MEAN PLATELET VOLUME 9.4 fL (7.2-11.7); MONO # 1.3 K/uL (0.0-0.8); MONO % 13.8 % (0.0-10.0); NEUT # 6.2 K/uL (1.8-7.0); NEUT % 68.1 % (50.0-75.0); NRBC % 0.1 % (0.0-2.0); RBC 3.47 Mil/uL (3.80-5.20); RED CELL DISTRIBUTION WIDTH 16.2 % (11.5-14.5); WHITE BLOOD COUNT 9.1 K/uL (4.8-10.8)
[2018-11-03 07:54] LABS: BLOOD UREA NITROGEN 15 mg/dL (7-17); CALCIUM 8.2 mg/dl (8.6-10.4); GFR NON-AFRICAN AMERICAN > 60
[2018-11-03 07:55] LABS: ALB/GLOB RATIO 1.4 (1.0-2.1); ALBUMIN 3.5 g/dL (3.5-5.0); ALT/SGPT 22 U/L (9-52); AST/SGOT 23 U/L (14-36)
[2018-11-03] MEDS: (Novolin R) Insulin Human Regular 100 units/ml vial SC SCH ×4 (08:39→22:29)
--- NOTE | 2018-11-03 08:40 | CP.PCM.PN ---
Subjective - Date & Time of Evaluation Date of Evaluation: 11/03/18 Time of Evaluation: 09:30 - Subjective Subjective: Patient examined at bedside. No acute overnight events. Pt reports she got 1 unit of PRBC out of the 2 ordered because she was tired and wanted to sleep. Pt reports improvement in fatigue. Denies chest pain, SOB, abdominal pain, marlen rrhea, dysuria. Objective - Vital Signs/Intake and Output Vital Signs (last 24 hours): Temp Pulse Resp BP Pulse Ox 98.1 F 64 18 164/80 H 96 11/03/18 03:44 11/03/18 03:44 11/03/18 03:44 11/03/18 03:44 11/03/18 00:00 Intake and Output: 11/03/18 11/03/18 06:59 18:59 Intake Total 600 325 Balance 600 325 - Medications Medications: Current Medications Dextrose (Dextrose 50% Inj) 0 ml IV STAT PRN; Protocol PRN Reason: Hypoglycemia Protocol Dextrose (Glutose 15) 0 gm PO ONCE PRN; Protocol PRN Reason: Hypoglycemia Protocol Glucagon (Glucagen Diagnostic Kit) 0 mg IM STAT PRN; Protocol PRN Reason: Hypoglycemia Protocol Dextrose (Dextrose 5% In Water 1000 Ml) 1,000 mls @ 0 mls/hr IV .Q0M PRN; Protocol PRN Reason: Hypoglycemia Protocol Insulin Human Regular (Novolin R) 0 unit SC [facility]; Protocol Last Admin: 11/03/18 08:39 Dose: 1 units Levetiracetam (Keppra) 500 mg PO BID [facility] Last Admin: 11/02/18 17:02 Dose: 500 mg Nitrofurantoin Macrocrystals (Macrobid) 100 mg PO Q12H [facility]; Protocol Last Admin: 11/03/18 06:39 Dose: 100 mg Pantoprazole Sodium (Protonix Ec Tab) 40 mg PO DAILY [facility] Last Admin: 11/02/18 09:27 Dose: 40 mg Rosuvastatin Calcium (Crestor) 20 mg PO HS [facility] Last Admin: 11/02/18 21:31 Dose: 20 mg Sertraline HCl (Zoloft) 50 mg PO HS [facility] Last Admin: 11/02/18 21:31 Dose: 50 mg - Labs Labs: 11/03/18 07:19 11/03/18 07:19 - Additional Findings Additional findings: - Constitutional Appears: Non-toxic, No Acute Distress - Head Exam Head Exam: ATRAUMATIC, NORMAL INSPECTION, NORMOCEPHALIC - Eye Exam Eye Exam: EOMI, Normal appearance - ENT Exam ENT Exam: Mucous Membranes Moist, Normal Exam - Neck Exam Neck Exam: Normal Inspection - Respiratory Exam Respiratory Exam: Clear to Ausculation Bilateral, NORMAL BREATHING PATTERN. absent: Respiratory Distress - Cardiovascular Exam Cardiovascular Exam: REGULAR RHYTHM, +S1, +S2. absent: Tachycardia - GI/Abdominal Exam GI & Abdominal Exam: Soft, Normal Bowel Sounds. absent: Distended, Tenderness - Extremities Exam Extremities Exam: Normal Inspection. absent: Calf Tenderness, Pedal Edema - Neurological Exam Neurological Exam: Alert, Awake, Oriented x3 - Psychiatric Exam Psychiatric exam: Normal Affect, Normal Mood - Skin Skin Exam: Dry, Intact, Normal Color, Warm. absent: Pallor Assessment and Plan - Assessment and Plan (Free Text) Assessment: 72 year old female with pmhx of anemia 2/2 GI bleed, HTN, CAD s/p 3 stents in 2014, OR, DM2 admitted for evaluation and treatment of symptomatic anemia and newly discovered UTI Plan: Anemia -hgb 6.1 on admission -transfused 2U(11/01), 1U(11/02), 1U(11/03) -hgb 9.4 today -f/u am labs -hold all AC -heme/onc, Dr. Frazier UTI -urine culture positive for E.Coli -started Macrobid 100mg Q12(11/02) -pt asymptomatic HTN -hold home meds, losartan, coreg -normotensive, continue to monitor DM2 -accuchecks ACHS -hypoglycemia protocol -ISS Seizure Disorder -continue home Keppra 500mg PO BID Ppx - DVT ppx: SCDs, AC contraindicated - GI ppx: Protonix 40mg PO - Diet: Healthy Heart Diet Dispo: pt requires 1 more unit PRBC tonight and should be stable for d/c pending morning hgb, and can continue UTI tx on PO abx Discussed with Dr. Conley -Herlinda Quintanilla, PGY-1
[2018-11-03] MEDS: Pantoprazole 40 mg EC Tab PO SCH (10:22)
[2018-11-03 16:35] VITALS: O2SAT 98
[2018-11-04 00:30] VITALS: RESP 20
[2018-11-04 07:30] LABS: BASO # 0.1 K/uL (0.0-0.2); BASO % 0.6 % (0.0-2.0); EOS # 0.5 K/uL (0.0-0.7); EOS % 5.6 % (0.0-4.0); LYMPH # 1.2 K/uL (1.0-4.3); LYMPH % 13.2 % (20.0-40.0); MEAN CELL VOLUME 82.3 fL (81.0-99.0); MEAN CORPUSCULAR HGB CONC 32.8 g/dL (33.0-37.0); MEAN PLATELET VOLUME 9.4 fL (7.2-11.7); MONO # 1.2 K/uL (0.0-0.8); MONO % 12.7 % (0.0-10.0); NEUT # 6.2 K/uL (1.8-7.0); NEUT % 67.9 % (50.0-75.0); NRBC % 0.1 % (0.0-2.0); RBC 4.07 Mil/uL (3.80-5.20); RED CELL DISTRIBUTION WIDTH 16.6 % (11.5-14.5); WHITE BLOOD COUNT 9.1 K/uL (4.8-10.8)
[2018-11-04 07:50] LABS: ALB/GLOB RATIO 1.4 (1.0-2.1); ALBUMIN 3.7 g/dL (3.5-5.0); ALT/SGPT 27 U/L (9-52); AST/SGOT 26 U/L (14-36); BLOOD UREA NITROGEN 13 mg/dL (7-17); CALCIUM 8.6 mg/dl (8.6-10.4); GFR NON-AFRICAN AMERICAN > 60
[2018-11-04] MEDS: (Novolin R) Insulin Human Regular 100 units/ml vial SC SCH ×2 (08:11→12:16)
[2018-11-04 08:17] VITALS: BP 157/69; PULSE 73; TEMP 97.6
[2018-11-04] MEDS: Pantoprazole 40 mg EC Tab PO SCH (09:51)
--- NOTE | 2018-11-04 13:04 | CP.PCM.DIS ---
Provider - Provider Date of Admission: 11/01/18 14:58 Attending physician: Otoniel Conley Jr, MD Time Spent in preparation of Discharge (in minutes): 70 Hospital Course - Lab Results Lab Results: Micro Results 11/02/18 17:30 Blood Blood Culture - Preliminary NO GROWTH AFTER 24 HOURS 11/02/18 17:15 Blood Blood Culture - Preliminary NO GROWTH AFTER 24 HOURS 11/01/18 14:57 Urine Random Urine Culture - Final Escherichia Coli Most Recent Lab Values WBC 9.1 K/uL (4.8-10.8) 11/04/18 07:04 RBC 4.07 Mil/uL (3.80-5.20) 11/04/18 07:04 Hgb 11.0 g/dL (11.0-16.0) 11/04/18 07:04 Hct 33.5 % (34.0-47.0) L 11/04/18 07:04 MCV 82.3 fL (81.0-99.0) 11/04/18 07:04 MCH 27.0 pg (27.0-31.0) 11/04/18 07:04 MCHC 32.8 g/dL (33.0-37.0) L 11/04/18 07:04 RDW 16.6 % (11.5-14.5) H 11/04/18 07:04 Plt Count 297 K/uL (130-400) 11/04/18 07:04 MPV 9.4 fL (7.2-11.7) 11/04/18 07:04 Neut % (Auto) 67.9 % (50.0-75.0) 11/04/18 07:04 Lymph % (Auto) 13.2 % (20.0-40.0) L 11/04/18 07:04 [place] % (Auto) 12.7 % (0.0-10.0) H 11/04/18 07:04 Eos % (Auto) 5.6 % (0.0-4.0) H 11/04/18 07:04 Baso % (Auto) 0.6 % (0.0-2.0) 11/04/18 07:04 Neut # (Auto) 6.2 K/uL (1.8-7.0) 11/04/18 07:04 Lymph # (Auto) 1.2 K/uL (1.0-4.3) 11/04/18 07:04 [place] # (Auto) 1.2 K/uL (0.0-0.8) H 11/04/18 07:04 Eos # (Auto) 0.5 K/uL (0.0-0.7) 11/04/18 07:04 Baso # (Auto) 0.1 K/uL (0.0-0.2) 11/04/18 07:04 Neutrophils % (Manual) 73 % (50-75) 11/02/18 11:33 Lymphocytes % (Manual) 9 % (20-40) L 11/02/18 11:33 Monocytes % (Manual) 14 % (0-10) H 11/02/18 11:33 Eosinophils % (Manual) 4 % (0-4) 11/02/18 11:33 Toxic Granulation Present 11/02/18 11:33 Platelet Estimate Normal (NORMAL) 11/02/18 11:33 Large Platelets Present 11/02/18 11:33 Polychromasia Slight 11/02/18 11:33 Hypochromasia (manual) Moderate 11/02/18 11:33 Anisocytosis (manual) Moderate 11/02/18 11:33 Microcytosis (manual) Slight 11/02/18 11:33 Sodium 138 mmol/L (132-148) 11/04/18 07:04 Potassium 4.5 mmol/L (3.6-5.2) 11/04/18 07:04 Chloride 103 mmol/L (98-107) 11/04/18 07:04 Carbon Dioxide 26 mmol/L (22-30) 11/04/18 07:04 Anion Gap 14 (10-20) 11/04/18 07:04 BUN 13 mg/dL (7-17) 11/04/18 07:04 Creatinine 0.6 mg/dL (0.7-1.2) L 11/04/18 07:04 Est GFR ( Amer) > 60 11/04/18 07:04 Est GFR (Non-Af Amer) > 60 11/04/18 07:04 POC Glucose (mg/dL) 185 mg/dL (65-110) H 11/04/18 11:07 Random Glucose 179 mg/dL (65-105) H 11/04/18 07:04 Calcium 8.6 mg/dl (8.6-10.4) 11/04/18 07:04 Phosphorus 3.3 mg/dL (2.5-4.5) 11/02/18 07:02 Magnesium 2.0 mg/dL (1.6-2.3) 11/02/18 07:02 Total Bilirubin 1.2 mg/dL (0.2-1.3) 11/04/18 07:04 AST 26 U/L (14-36) 11/04/18 07:04 ALT 27 U/L (9-52) 11/04/18 07:04 Alkaline Phosphatase 106 U/L (38-126) 11/04/18 07:04 Total Creatine Kinase 27 U/L (30-135) L 11/02/18 07:02 CK-MB (Mass) 0.49 ng/mL (0.0-3.38) 11/02/18 07:02 Troponin I < 0.0120 ng/mL (0.00-0.120) 11/02/18 07:02 NT-Pro-B Natriuret Pep 1080 pg/mL (0-900) H 11/01/18 13:50 Total Protein 6.3 g/dL (6.3-8.3) 11/04/18 07:04 Albumin 3.7 g/dL (3.5-5.0) 11/04/18 07:04 Globulin 2.6 gm/dL (2.2-3.9) 11/04/18 07:04 Albumin/Globulin Ratio 1.4 (1.0-2.1) 11/04/18 07:04 Urine Color Yellow (YELLOW) 11/01/18 14:57 Urine Clarity Clear (Clear) 11/01/18 14:57 Urine pH 5.0 (5.0-8.0) 11/01/18 14:57 Ur Specific [place] 1.019 (1.003-1.030) 11/01/18 14:57 Urine Protein Negative mg/dL (NEGATIVE) 11/01/18 14:57 Urine Glucose (UA) Normal mg/dL (Normal) 11/01/18 14:57 Urine Ketones Negative mg/dL (NEGATIVE) 11/01/18 14:57 Urine Blood Negative (NEGATIVE) 11/01/18 14:57 Urine Nitrate Positive (NEGATIVE) H 11/01/18 14:57 Urine Bilirubin Negative (NEGATIVE) 11/01/18 14:57 Urine Urobilinogen Normal mg/dL (0.2-1.0) 11/01/18 14:57 Ur Leukocyte Esterase Neg Qiana/uL (Negative) 11/01/18 14:57 Urine WBC (Auto) 4 /hpf (0-5) 11/01/18 14:57 Urine RBC (Auto) 1 /hpf (0-3) 11/01/18 14:57 Ur Squamous Epith Cells 1 /hpf (0-5) 11/01/18 14:57 Urine Bacteria Occ (<OCC) H 11/01/18 14:57 Stool Occult Blood Positive (NEGATIVE) H 11/03/18 23:35 Blood Type A NEGATIVE 11/01/18 13:50 Antibody Screen Negative 11/01/18 13:50 - Hospital Course Hospital Course: Upon Admission: Patient is a 72 year old female with past medical history of GI bleed, hypertension, CAD and [place] s/p 3 stents in 2014, diabetes, and anemia, who presents to the ER with complaints of lightheadedness and fatigue. Patient reports this started about 3 days ago. She stays she has been feeling tired and gets chest discomfort when she walks. Patient otherwise denies numbness/tingling in lower extremities, headache, bloody/dark colored stools, diarrhea, nausea, vomiting, abdominal pain, and/or recent fall/trauma. Patient was found to have Hb of 6.1 Patient was admitted for symptomatic anemia. Hospital Course: Patient was transfused a total of 4u of PRBCs. Patient's home BP meds were held upon admission as patient was symptomatic due to anemia. Other home medications were restarted. Urine Culture was positive for corrigan-sensitive E.coli, however patient did not have symptoms of UTI and remained afebrile throughout her stay. Patient was started on Macrobid PO. Patient's symptoms improved and Hb increased to 11. Patient was deemed stable for discharge. Upon Discharge: Patient was discharged with instructions to follow up with Dr. Conley within two weeks. Patient was given Macrobid PO to take at home to complete a total of 5 days of treatment of asymptomatic UTI. Patient understood instructions and agreed. Discharge Exam - Head Exam Head Exam: ATRAUMATIC, NORMAL INSPECTION, NORMOCEPHALIC - Eye Exam Eye Exam: EOMI, Normal appearance, PERRL Pupil Exam: NORMAL ACCOMODATION - ENT Exam ENT Exam: Mucous Membranes Moist - Respiratory Exam Respiratory Exam: Clear to PA & Lateral, NORMAL BREATHING PATTERN. absent: Rales, Rhonchi, Wheezes - Cardiovascular Exam Cardiovascular Exam: REGULAR RHYTHM, +S1, +S2. absent: Gallop, Systolic Murmur - GI/Abdominal Exam GI & Abdominal Exam: Normal Bowel Sounds, Soft. absent: Distended, Tenderness - Extremities Exam Extremities exam: normal inspection - Neurological Exam Neurological exam: Alert, CN II-XII Intact, Oriented x3 - Psychiatric Exam Psychiatric exam: Normal Affect, Normal Mood - Skin Skin Exam: Dry Discharge Plan - Discharge Medications Prescriptions: Aspirin [Aspirin Chewable] 81 mg PO DAILY #30 chew Atorvastatin [Lipitor] 40 mg PO HS #30 tab Carvedilol [Coreg] 12.5 mg PO DAILY #30 tab levETIRAcetam [Keppra] 500 mg PO BID #60 tab metFORMIN [glucOPHAGE] 500 mg PO BID #60 tab Nitrofurantoin Macrocrystals [Macrobid] 100 mg PO Q12H #5 cap Pantoprazole [Protonix EC Tab] 40 mg PO BID 30 Days #60 ect Sertraline [Zoloft] 50 mg PO HS #30 tab - Follow Up Plan Condition: FAIR Disposition: HOME/ ROUTINE Instructions: Anemia of Chronic Disease (DC), Nitrofurantoin Additional Instructions: Please follow up with Dr. Conley within 2 weeks. Please take your medications as prescribed. Please take Macrobid twice a day for 3 days. Please drink plenty of water to stay hydrated. Please return to the emergency department if your symptoms return. Take care and be well. Por favor fe un seguimiento con el Dr. Conley dentro de 2 semanas. Por favor, tome susanna medicamentos segn lo prescrito. Por favor, tome Macrobid dos veces al marlen por 3 jones. Por favor, he viktor agua para mantenerse hidratado. Por favor regrese al departamento de emergencias si susanna sntomas regresan. Quidate mariela. Referrals: Otoniel Conley Jr., MD [Medical Doctor] -
[2018-11-05] MEDS ORDERED: Influenza Vaccine 60 mcg/0.5 mL SYR (4YR UP) IM ONE (10:00)
[2018-11-05] MEDS ORDERED: Pneumococcal 23-Valent Vaccine IM ONE (10:00)
--- NOTE | 2018-11-05 13:33 | CARD ---
APPROVED REPORT Date of service: 11/02/2018 EKG Measurement Heart [id number] <Conclusion> Suspect arm lead reversal, interpretation assumes no reversal Normal sinus rhythm Left posterior fascicular block Inferior infarct, age undetermined ST & T wave abnormality, consider lateral ischemia Abnormal ECG please repeat
== END 2018-11-04 13:53 | disposition home or self-care (01) ==
LOC: C.ER 13:03 → C.9E 14:58 → C.3T 15:46 → INTOOBSV 11-03 15:13 → OBSVTOIN 11-03 15:13
PROVIDERS: ADMIT Internal Medicine; ATTEND Internal Medicine
DX: D64.9 Anemia, unspecified (principal); N39.0 Urinary tract infection, site not specified; B96.20 Unspecified Escherichia coli [E. coli] as the cause of diseases classified elsewhere; I25.10 Atherosclerotic heart disease of native coronary artery without angina pectoris; Z95.5 Presence of coronary angioplasty implant and graft; I25.2 Old myocardial infarction; I10 Essential (primary) hypertension; E11.9 Type 2 diabetes mellitus without complications; R56.9 Unspecified convulsions; E78.2 Mixed hyperlipidemia; I48.91 Unspecified atrial fibrillation; Z86.010 Personal history of colon polyps; Z87.19 Personal history of other diseases of the digestive system; Z87.11 Personal history of peptic ulcer disease; Z87.891 Personal history of nicotine dependence; Z90.49 Acquired absence of other specified parts of digestive tract; Z79.84 Long term (current) use of oral hypoglycemic drugs; Z79.899 Other long term (current) drug therapy; Z88.0 Allergy status to penicillin; Z88.5 Allergy status to narcotic agent
CPT/HCPCS: 36415; 36430; 70450; 71045; 80053; 80177; 81001; 82948; 83735; 83880; 84100; 84484; 85025; 86850; 86900; 86905; 86920; 86922; 87040; 87086; 87181; 99285; G0328; G0378; P9051

== ENCOUNTER 2018-12-20 06:58 | Day surgery (SDC) | payer MEDICARE ==
[2018-12-20 08:20] VITALS: BMI 36.6
[2018-12-20 08:41] LABS: BASO # 0.1 K/uL (0.0-0.2); BASO % 0.7 % (0.0-2.0); EOS # 0.9 K/uL (0.0-0.7); EOS % 10.5 % (0.0-4.0); LYMPH # 1.2 K/uL (1.0-4.3); LYMPH % 15.2 % (20.0-40.0); MEAN CELL VOLUME 81.1 fL (81.0-99.0); MEAN CORPUSCULAR HGB CONC 30.8 g/dL (33.0-37.0); MEAN PLATELET VOLUME 8.9 fL (7.2-11.7); MONO # 0.9 K/uL (0.0-0.8); MONO % 10.9 % (0.0-10.0); NEUT # 5.1 K/uL (1.8-7.0); NEUT % 62.7 % (50.0-75.0); RBC 4.41 Mil/uL (3.80-5.20); RED CELL DISTRIBUTION WIDTH 17.3 % (11.5-14.5); WHITE BLOOD COUNT 8.2 K/uL (4.8-10.8)
[2018-12-20 08:48] LABS: INR 1.1; PROTHROMBIN TIME 11.5 SECONDS (9.7-12.2)
[2018-12-20 08:54] LABS: BLOOD UREA NITROGEN 18 mg/dL (7-17); CALCIUM 9.4 mg/dl (8.6-10.4); GFR NON-AFRICAN AMERICAN > 60
[2018-12-20] MEDS ORDERED: Iodixanol 320 MG/ML 100 ML BOTTLE IV ONE (09:00)
[2018-12-20] MEDS ORDERED: Verapamil 2 ML ONE (09:00)
[2018-12-20] MEDS ORDERED: Lidocaine 2% MPF (5 ml) Inj ONE (09:03)
[2018-12-20] MEDS ORDERED: Nitroglycerin 50mg in D5W 50 MG/250 ML BOTTLE IV ONE (09:12)
[2018-12-20] MEDS ORDERED: Midazolam 2 MG/2 ML VIAL ONE (09:13)
[2018-12-20] MEDS ORDERED: Iohexol 350mg/ml 100 ML ONE (09:43)
[2018-12-20] MEDS ORDERED: Sodium Chloride 0.9% 1,000 ML IV SCH (10:00)
--- NOTE | 2018-12-23 04:54 | CARDCATH ---
PROCEDURE DATE: 12/20/2018 PROCEDURES: 1. Left heart catheterization. 2. Coronary angiogram. CLINICAL INDICATIONS: 1. Chest pain. 2. Hypertension. 3. Hyperlipidemia. 4. Abdominal aortic aneurysm. REFERRING PHYSICIAN: Otoniel Conley MD PERFORMING PHYSICIAN: Gian Whitaker MD BRIEF CLINICAL HISTORY: Herlinda Pittman is a 73-year-old female with history coronary artery disease, multiple stents in the past with history of chronic GI bleeding, unable to tolerate aspirin and Plavix, now has developed abdominal aortic aneurysm, being evaluated by the vascular surgeon. This cardiac catheter being performed with preoperative cardiac workup. DESCRIPTION OF PROCEDURE: After informed consent, the patient was prepped and draped in the usual sterile fashion. Lidocaine 2% was given in the right wrist for local anesthesia. Using micropuncture technique, a 6-Andorran sheath was introduced into left radial artery. A 6-Andorran JR4 diagnostic catheter was inserted into the left ventricle across the aortic valve. LVEDP was measured. Contrast was injected and left ventricular angiogram was done. Then, the catheter was pulled back across the aortic valve. The gradient across the aortic valve was measured. Then, the same catheter engaged into the right coronary artery. Contrast was injected and right coronary angiogram was done. The catheter was exchanged to 6-And[place]ran Hume catheter. The catheter engaged in the left main coronary artery. Contrast was injected and left coronary angiogram was done. The patient tolerated the procedure well. Postprocedure, Terumo radial band applied to right wrist with excellent hemostasis. Radiological supervision and radiological interpretation of the coronary imaging was done. FINDINGS: 1. Left main coronary artery is patent. 2. Proximal LAD stent is patent. Mid LAD has 50% to 60% concentric stenosis. Distal LAD has decreased luminal irregularities. 3. Proximal left circumflex has 70% focal stenosis. Obtuse marginal branches are patent. 4. Right coronary artery prior stents are patent. RCA has 85% eccentric stenosis. Distal RCA has a decreased disease. 5. LV ejection fraction of approximately 60%. No wall motion abnormalities noted. EDP is 18. No gradient across the aortic valve. IMPRESSION: 1. Triple vessel disease as described above. 2. Normal left ventricular systolic function. Since the patient is following the antiplatelets, it may be a difficult decision to go for multivessel stenting. We will consider coronary artery bypass grafting. The patient will be re-evaluated as an outpatient. Gian Whitaker MD [facility] # [id number]
== END 2018-12-20 14:45 | disposition home or self-care (01) ==
LOC: C.CATHLAB 06:58
PROVIDERS: ATTEND Internal Medicine Cardiovascular Disease
DX: R94.39 Abnormal result of other cardiovascular function study (principal); R07.9 Chest pain, unspecified; I10 Essential (primary) hypertension; E78.5 Hyperlipidemia, unspecified; I25.10 Atherosclerotic heart disease of native coronary artery without angina pectoris; I71.4 Abdominal aortic aneurysm, without rupture
CPT/HCPCS: 36415; 80048; 82948; 85025; 85610; 85730; 93458; 99152; 99153; C1769; C1887; J1644; J2001; J2250; J3010; J7030; Q9967